=== PATIENT | female | born 1965 | race Caucasian/White ===

== ENCOUNTER 2019-12-08 14:48 | Outpatient (CLI) | payer OTHER, SELFPAY ==
--- NOTE | ~2019-12-08 | MM_ITS ---
EXAMINATION: MM screening juan BI w rudy HISTORY: Screening mammogram TECHNIQUE: Craniocaudal and mediolateral oblique 3-D tomosynthesis images were obtained and synthetic 2-D images were generated. CAD analysis was submitted and interpreted. COMPARISON: 06/15/2018, 06/08/2017, 05/13/2016, 04/12/2015 bilateral digital screening mammogram examinat ions BREAST PARENCHYMAL COMPOSITION: There are scattered areas of fibroglandular density. FINDINGS: Stable mild asymmetry. There is no evidence of suspicious mass, calcification, or desktop architect ural distortion to suggest malignancy in either breast. There has been no suspicious interval change. IMPRESSION: 1. No mammographic evidence of malignancy. 2. Recommend routine screening mammography in one year. BI-RADS Category 2: Benign finding(s). Reviewed, dictated and finalized at location A.
== END 2019-12-08 14:49 | disposition home or self-care (01) ==
LOC: ANHIMG 14:52
PROVIDERS: PCP Family Medicine; Visit Provider Obstetrics & Gynecology
DX: Z12.31 Encounter for screening mammogram for malignant neoplasm of breast (principal)
CPT/HCPCS: 77063; 77067

== ENCOUNTER 2020-06-13 09:03 | Outpatient (CLI) | payer OTHER, SELFPAY ==
--- NOTE | ~2020-06-13 | MR_ITS ---
EXAMINATION: MR breast BI wo/w con INDICATION: High-risk MRI screening, family history of breast cancer TECHNIQUE: Axial VIBRANT pre and dynamic post contrast, Sagittal VIBRANT post contrast, Axial T2 STIR ASSET COMPARISON: 11/30/2018 CONTRAST: Multihance, 20 cc BREAST COMPOSITION: Scattered fibroglandular tissue FINDINGS: RIGHT BREAST: There is minimal background parenchymal enhancement. No abnormal enhancement is present after contrast administration. No pathologically enlarged axillary or internal mammary lymph nodes a re identified. An intramammary lymph node is noted at the 6:00 location 4 cm deep to the nipple. The previously described small area of nonmass enhancement in the upper outer quadrant of the right breas t persists but has decreased in prominence, consistent with a benign finding. LEFT BREAST: There is minimal background parenchymal enhancement. No abnormal enhancement is present after contrast administration. No pathologically enlarged axillary or internal mammary lymph nodes ar e identified. IMPRESSION: 1. No MRI evidence of malignancy. Continued alternating mammographic and MRI screening is recommended . BI-RADS Category 2: Benign finding(s). Reviewed, dictated and finalized at location A. IMPRESSION: 1. No MRI evidence of malignancy. Continued alternating mammographic and MRI sc reening is recommended. BI-RADS Category 2: Benign finding(s).
[2020-06-13 09:55] LABS: Estimated Glomerular Filt Rate 58
== END 2020-06-13 09:04 | disposition home or self-care (01) ==
PROVIDERS: PCP Family Medicine; Visit Provider Obstetrics & Gynecology
DX: Z12.31 Encounter for screening mammogram for malignant neoplasm of breast (principal); Z80.3 Family history of malignant neoplasm of breast
CPT/HCPCS: 77049; A9577; C8908

== ENCOUNTER 2020-12-13 09:09 | Outpatient (CLI) | payer OTHER, SELFPAY ==
--- NOTE | ~2020-12-13 | MM_ITS ---
EXAMINATION: MM screening juan BI w rudy HISTORY: Screening mammogram TECHNIQUE: Craniocaudal and mediolateral oblique 3-D tomosynthesis images were obtained and synthetic 2-D images were generated. CAD analysis was submitted and interpreted. COMPARISON: 06/09/2020 MRI breast 12/08/2019 bilateral digital screening mammogram 11/30/2018 MRI breast 06/15/2018, 06/08/2017 bilateral digital screening mammogram examinations BREAST PARENCHYMAL COMPOSITION: There are scattered areas of fibroglandular density. FINDINGS: Stable mild asymmetry. There is no evidence of suspicious mass, calcification, or dot net architect ural distortion to suggest malignancy in either breast. There has been no suspicious interval change. IMPRESSION: 1. No mammographic evidence of malignancy. 2. Recommend routine screening mammography in one year. BI-RADS Category 2: Benign finding(s). Reviewed, dictated and finalized at location A.
== END 2020-12-13 09:10 | disposition home or self-care (01) ==
LOC: ANHIMG 09:14
PROVIDERS: PCP Family Medicine; Visit Provider Obstetrics & Gynecology
DX: Z12.31 Encounter for screening mammogram for malignant neoplasm of breast (principal)
CPT/HCPCS: 77063; 77067

== ENCOUNTER 2021-01-29 10:21 | Outpatient (RCR) | payer OTHER, SELFPAY ==
--- NOTE | 2021-01-29 11:24 | PTOPEVAL ---
Thank you for referring Abby Linder to [facility][Note 3].? The patient is scheduled to be seen for therapy? ____x/week for ___ weeks. Please review, sign, date and return this plan of care YURI. I agree with and certify that the following plan of care is medically necessary. Referring Physician Date Admitting Provider: Attending Provider: Selma Sadler, PA Referring Provider: *PT Outpatient Evaluation Start: 01/29/21 10:27 Freq: Status: Active Protocol: Document 01/29/21 10:32 [facility] (Rec: 01/29/21 11:24 [facility] [id number]) Therapy Assessment Status Assessment Status Assessment Status Evaluation Evaluation Information Problem Diagnosis s/p R TKA Onset 01/08/21 Additional Evaluation Detail LEFS = 71% functionally declined Subjective Information patient reports she has the R Query Text:As Reported By Patient/ knee replaced on 01/08/21. she Family reports no home health post surgery, but she did have a friend stay with her for the first week. she reports she did not have any therapy prior to surgery. she reports she continues to have difficulty getting her R knee straight. she reports she was doing light exercises after therapy. she reports she did have a CPM after surgery. she is still using this device. Pain Assessment Timing of Pain Assessment Timing of Pain Assessment Assessment Pain Scale Pain Scale Used Numeric (1 - 10) Self Report Pain Assessment Right Knee(s) Reported Pain Level 0 Greatest Pain Intensity 0 Pain Score Pain Score 0: Self Report Interventions Used Interventions Used By Clinicians Activity or ADL's Lower Extremity Range of Motion General Lower Extremity Range of Motion Gross Lower Extremity Range of Motion L knee = 0 - 138 degrees Comments R knee extension = -6 degrees R knee flexion = 123 degrees Lower Extremity Muscle Strength Testing General Lower Extremity Strength Gross Lower Extremity Strength L hip flex = 4+/5 R hip flex = 4/5 with 3-5 degree R knee extension lag L knee flex and ext = 5/5 L ankle DF = 5/5 R knee flex = 5/5 R knee ext = 4/5 R ankle DF = 5/5 Palpation Assessment Palpation
== END 2021-03-12 10:24 | disposition home or self-care (01) ==
LOC: CHSPT 10:21
PROVIDERS: Visit Provider Physician Assistant
DX: Z96.651 Presence of right artificial knee joint (principal)
CPT/HCPCS: 97016; 97110; 97161; 97530

== ENCOUNTER 2021-05-02 08:03 | Outpatient (RCR) | payer OTHER, SELFPAY ==
--- NOTE | 2021-05-02 09:05 | PTOPEVAL ---
Thank you for referring Abby Linder to [facility].? The patient is scheduled to be seen for therapy? ____x/week for ___ weeks. Please review, sign, date and return this plan of care YURI. I agree with and certify that the following plan of care is medically necessary. Referring Physician Date Admitting Provider: Attending Provider: Selma Sdaler, PA Referring Provider: *PT Outpatient Evaluation Start: 05/02/21 07:20 Freq: Status: Active Protocol: Document 05/02/21 07:57 [facility] (Rec: 05/02/21 09:04 [facility] [id number]) Therapy Assessment Status Assessment Status Assessment Status Evaluation Evaluation Information Problem Diagnosis peroneal brevis tendonitis L Onset 04/24/21 Subjective Information Patient states that about a Query Text:As Reported By Patient/ year ago she fell down the Family steps. She has seen 2 orthopedic specialists and was put in a boot for 6 weeks which did not do anything. The patient states that she had a MRI and it showed tendonitis and a cyst in the foot. She states that walking and standing are the most difficult activities for her. She steps that stairs are also difficult. She states that it is sensitive as well even a sheet. Patient states she still is able to do all activities on her own but they may take a little more time. She states that her goal for therapy is to get rid of the pain. Prior Level of Function Activity Level (Last 3 Months) Occupation retired Hand Dominance Right Activity of Daily Living Ability Independent Indoor/Home Mobility Independent Community Mobility Independent Stairs Ability Independent Functional Cognition (Planning, Shopping Independent , Taking Medications) Cooking Yes Cleaning Yes Laundry Yes Shopping Yes Driving Yes Pain Assessment Timing of Pain Assessment Timing of Pain Assessment Assessment Pain Scale Pain Scale Used Numeric (1 - 10) Self Report Pain Assessment Left Foot/Feet Reported Pain Level 10 Pain Description
--- NOTE | 2021-05-24 10:36 | PTOPEVAL ---
Thank you for referring Abby Linder to [facility].? The patient is scheduled to be seen for therapy? ____x/week for ___ weeks. Please review, sign, date and return this plan of care YURI. I agree with and certify that the following plan of care is medically necessary. Referring Physician Date Admitting Provider: Attending Provider: Selma Sadler, PA Referring Provider: *PT Outpatient Evaluation Start: 05/02/21 07:20 Freq: Status: Active Protocol: Document 05/24/21 09:25 [facility] (Rec: 05/24/21 10:32 [facility] [id number]) Therapy Assessment Status Assessment Status Assessment Status Progress Evaluation Information Problem Diagnosis peroneal brevis tendonitis Subjective Information Patient states that since Query Text:As Reported By Patient/ beginning therapy she feels a Family lot better. She states the pain is not as bad and she is able to do quite a bit more before her foot really bothers her. She states that when she watches her grandkids her foot hurts by the end of the day. She feels she is getting stronger and is doing well, but feels she has more to achieve. Patient states that the walking and standing still really bother it. Pain Assessment Timing of Pain Assessment Timing of Pain Assessment Assessment Pain Scale Pain Scale Used Numeric (1 - 10) Self Report Pain Assessment Left Foot/Feet Reported Pain Level 6 Lowest Pain Intensity 3 Greatest Pain Intensity 6 Pain Score Pain Score 6: Self Report Interventions Used Interventions Used By Clinicians Activity or ADL's,Exercise Lower Extremity Range of Motion Ankle/Foot Range of Motion Left Ankle Dorsiflexion With Knee Extension 11 Range of Motion - Active Ankle Plantarflexion Range of Motion - 58 Active Query Text: Ankle Eversion Range of Motion - Active 18 Ankle Inversion Range of Motion - Active 35 Lower Extremity Muscle Strength Testing Ankle Strength Left Ankle Dorsiflexion Strength 5 Normal Ankle Plantarflexion Strength 5 Normal Ankle Eversion Strength 5 Normal Ankle Inversion Strength 5 Normal Palpation Assessment Palpation Palpation Patient continues to have some pain and tenderness to palpation and slight swelling to the lateral aspect of the L
--- NOTE | 2021-06-20 17:57 | PTOPEVAL ---
Thank you for referring Abby Linder to [facility].? The patient is scheduled to be seen for therapy? ____x/week for ___ weeks. Please review, sign, date and return this plan of care YURI. I agree with and certify that the following plan of care is medically necessary. Referring Physician Date Admitting Provider: Attending Provider: Selma Sadler, PA Referring Provider: *PT Outpatient Evaluation Start: 05/02/21 07:20 Freq: Status: Active Protocol: Document 06/20/21 16:50 [facility] (Rec: 06/20/21 17:56 [facility] [id number]) Therapy Assessment Status Assessment Status Assessment Status Discharge Evaluation Information Problem Diagnosis peroneal brevis tendonitis Onset 04/24/21 Additional Evaluation Detail LEFS = 57% functionally declined Subjective Information patient reports she contineus Query Text:As Reported By Patient/ to have pain and this pain Family will flare up at times without any increased activities. Pain Assessment Timing of Pain Assessment Timing of Pain Assessment Assessment Pain Scale Pain Scale Used Numeric (1 - 10) Self Report Pain Assessment Left Foot/Feet Reported Pain Level 2 Greatest Pain Intensity 8 Pain Score Pain Score 2: Self Report Interventions Used Interventions Used By Clinicians Activity or ADL's,Dry Needling ,Education,Electrical Stimulation,Exercise,Ice, Manual Therapy Techniques Lower Extremity Range of Motion Ankle/Foot Range of Motion Left Ankle Dorsiflexion With Knee Extension 15 Range of Motion - Active Ankle Plantarflexion Range of Motion - 60 Active Query Text: Ankle Eversion Range of Motion - Active 20 Ankle Inversion Range of Motion - Active 35 Lower Extremity Muscle Strength Testing General Lower Extremity Strength Gross Lower Extremity Strength 5/5 L ankle strength Palpation Assessment Palpation Palpation tender to palpation along the ATFL and the base of the 5th met. General Exercise General Exercises Exercise Description Ther ex Query Text:Record Sets, Reps, -25 minutes patient re- Resistance, and Position evaluation and review of next steps with . PT Clinical Summary Clinical Summary Protocol: PTEVCODE PT Clinical Summary mrs. linder presents to skilled PT services with continued pain in the lateral L foot/ankle. to this point, we have tried exer
== END 2021-06-20 09:26 | disposition home or self-care (01) ==
LOC: CHSPT 08:03
PROVIDERS: Visit Provider Physician Assistant
DX: M76.72 Peroneal tendinitis, left leg (principal)
CPT/HCPCS: 97014; 97035; 97110; 97140; 97161; 97530; G0283

== ENCOUNTER 2021-06-14 12:28 | Outpatient (CLI) | payer OTHER, SELFPAY ==
--- NOTE | ~2021-06-14 | MR_ITS ---
EXAMINATION: MR breast BI wo/w con INDICATION: High-risk MRI screening, family history of breast cancer TECHNIQUE: Axial VIBRANT pre and dynamic post contrast, Sagittal VIBRANT post contrast, Axial T2 STIR ASSET COMPARISON: 06/13/2020 CONTRAST: Multihance, 18 cc BREAST COMPOSITION: Scattered fibroglandular tissue FINDINGS: RIGHT BREAST: There is minimal background parenchymal enhancement. No abnormal enhancement is present after contrast administration. No pathologically enlarged axillary or internal mammary lymph nodes a re identified. An intramammary lymph node is again noted at the 6:00 location 4 cm from the nipple. LEFT BREAST: There is minimal background parenchymal enhancement. No abnormal enhancement is present after contrast administration. No pathologically enlarged axillary or internal mammary lymph nodes ar e identified. IMPRESSION: 1. No MRI evidence of malignancy. Continued alternating mammographic and MRI screening is recommended . BI-RADS Category 2: Benign finding(s). Reviewed, dictated and finalized at location A. IMPRESSION: 1. No MRI evidence of malignancy. Continued alternating mammographic and MRI sc reening is recommended. BI-RADS Category 2: Benign finding(s).
[2021-06-14 13:11] LABS: Estimated Glomerular Filt Rate > 60
== END 2021-06-14 12:29 | disposition home or self-care (01) ==
PROVIDERS: Visit Provider Obstetrics & Gynecology
DX: Z80.3 Family history of malignant neoplasm of breast (principal); R92.2 Inconclusive mammogram
CPT/HCPCS: 77049; A9577; C8908

== ENCOUNTER 2021-12-17 15:40 | Outpatient (CLI) | payer OTHER, SELFPAY ==
--- NOTE | ~2021-12-17 | MM_ITS ---
EXAMINATION: MM screening juan BI w rudy HISTORY: Screening mammogram TECHNIQUE: Craniocaudal and mediolateral oblique 3-D tomosynthesis images were obtained and synthetic 2-D images were generated. CAD analysis was submitted and interpreted. COMPARISON: 06/14/2021 bilateral breast MRI 10/2020, 12/08/2019 bilateral screening mammogram examinations BREAST PARENCHYMAL COMPOSITION: There are scattered areas of fibroglandular density. FINDINGS: There is no evidence of suspicious mass, calcification, or architectural distortion to sugg est malignancy in either breast. There has been no suspicious interval change. IMPRESSION: 1. No mammographic evidence of malignancy. 2. Recommend routine screening mammography in one year. BI-RADS Category 2: Benign finding(s). Reviewed, dictated and finalized at location A.
== END 2021-12-17 15:41 | disposition home or self-care (01) ==
PROVIDERS: Visit Provider Obstetrics & Gynecology
DX: Z12.31 Encounter for screening mammogram for malignant neoplasm of breast (principal)
CPT/HCPCS: 77063; 77067

== ENCOUNTER 2022-08-08 10:10 | Outpatient (CLI) | payer OTHER, SELFPAY ==
--- NOTE | ~2022-08-08 | MR_ITS ---
EXAMINATION: MR breast BI wo/w con INDICATION: Family history of malignant neoplasm of the breast TECHNIQUE: Axial VIBRANT pre and dynamic post contrast, Sagittal VIBRANT post contrast, Axial T2 STIR ASSET COMPARISON: Prior MRIs dating back to 11/06/2011 CONTRAST: Multihance, 19 cc BREAST COMPOSITION: Scattered fibroglandular tissue FINDINGS: RIGHT BREAST: There is minimal background parenchymal enhancement. No abnormal enhancement is present after contrast administration. No pathologically enlarged axillary or internal mammary lymph nodes a re identified. LEFT BREAST: There is minimal background parenchymal enhancement. No abnormal enhancement is present after contrast administration. No pathologically enlarged axillary or internal mammary lymph nodes ar e identified. IMPRESSION: 1. No MRI evidence of malignancy. Recommend continued alternating mammographic and MRI screening. BI-RADS Category 1: Negative Reviewed, dictated and finalized at location A.
== END 2022-08-08 10:11 | disposition home or self-care (01) ==
PROVIDERS: Visit Provider Obstetrics & Gynecology
DX: R92.8 Other abnormal and inconclusive findings on diagnostic imaging of breast (principal); Z80.3 Family history of malignant neoplasm of breast
CPT/HCPCS: 77049; A9577; C8908

== ENCOUNTER 2023-04-28 12:43 | Outpatient (CLI) | payer OTHER, SELFPAY ==
--- NOTE | ~2023-04-28 | MM_ITS ---
EXAMINATION: MM screening juan BI w rudy HISTORY: Screening mammogram TECHNIQUE: Craniocaudal and mediolateral oblique 3-D tomosynthesis images were obtained and synthetic 2-D images were generated. CAD analysis was submitted and interpreted. COMPARISON: 08/08/2022 MRI breast examination 12/17/2021 bilateral screening mammogram 12/13/2020 bilateral screening BREAST PARENCHYMAL COMPOSITION: There are scattered areas of fibroglandular density. FINDINGS: Stable low-density circumscribed opacities of right breast. Occasional bilateral benign jason cifications. There is no evidence of suspicious mass, calcification, or architectural distortion to s uggest malignancy in either breast. There has been no suspicious interval change. IMPRESSION: 1. No mammographic evidence of malignancy. 2. Recommend routine screening mammography in one year. BI-RADS Category 2: Benign finding(s). Reviewed, dictated and finalized at location A. [employer]
== END 2023-04-28 12:44 | disposition home or self-care (01) ==
PROVIDERS: Visit Provider Obstetrics & Gynecology
DX: Z12.31 Encounter for screening mammogram for malignant neoplasm of breast (principal)
CPT/HCPCS: 77063; 77067

== ENCOUNTER 2023-08-19 13:09 | Outpatient (CLI) | payer OTHER, SELFPAY ==
--- NOTE | ~2023-08-19 | MM_ITS ---
EXAMINATION: MM diagnostic juan RT w rudy HISTORY: Right breast pain TECHNIQUE: Additional 3-D tomosynthesis images of the right breast were performed and synthetic 2-D i mages were generated. CAD analysis was submitted and interpreted. COMPARISON: Comparison to multiple prior studies sequentially, with oldest reviewed study dated 06/08. BREAST PARENCHYMAL COMPOSITION: Not dense: There are scattered areas of fibroglandular density. FINDINGS: There are no suspicious masses, calcifications or architectural distortion in the right shelli ast to suggest malignancy. IMPRESSION: 1. No evidence for malignancy in the right breast. 2. Routine yearly screening mammogram and regular clinical breast examination are recommended. BI-RADS CATEGORY 1 - NEGATIVE Reviewed, dictated and finalized at location B. IMPRESSION: 1. No evidence for malignancy in the right breast. 2. Routine yearly screening mammogram and regular clinical breast examination a re recommended. BI-RADS CATEGORY 1 - NEGATIVE
== END 2023-08-19 13:10 | disposition home or self-care (01) ==
LOC: ANHIMG 13:14
PROVIDERS: Visit Provider Obstetrics & Gynecology
DX: N64.4 Mastodynia (principal); Z85.3 Personal history of malignant neoplasm of breast
CPT/HCPCS: 77061; 77065; G0279

== ENCOUNTER 2023-09-10 14:54 | Outpatient (CLI) | payer OTHER, SELFPAY ==
[2023-09-10 15:30] LABS: Alanine Aminotransferase 18 U/L (6-35); Aspartate Amino Transferase 41 U/L (14-36)
== END 2023-09-10 14:55 | disposition home or self-care (01) ==
LOC: ANHLAB 14:55
PROVIDERS: Visit Provider Podiatrist Foot & Ankle Surgery
DX: B35.1 Tinea unguium (principal)
CPT/HCPCS: 36415; 84450; 84460

== ENCOUNTER 2024-05-04 16:06 | Outpatient (CLI) | payer OTHER, SELFPAY ==
--- OUTSIDE RECORDS SUMMARY | 2024-05-04 16:11 | XMS_ITS | Clinical Summary ---
Author Organization [facility] Address [address] [place] [address] Phone Care Team Providers Care Roving Weight Gauger Name Role Phone MARY SORIANO, RADHA A Primary Care Provider [phone] JACQUIE SORIANO, VERÓNICA BEAN Unavailable [phone] Reason for Visit and Chief Complaint The Chief Complaint is: follow up for bipolar depression,anxiety Problems Includes: Problems addressed during this encounter and other active Problems Current Visit Onset Date Resolved Date Provider Conditio n Status Attention-deficit Hyperactivity Disorder 09/20/2020 VERÓNICA KAPLAN MD Active Last Documented On 1 5:58PM ; [facility] Restless Legs Syndrome 01/21/2019 VERÓNICA EMERY MD Active Last Documented On 9 4:02AM ; [facility] Depression 12/21/2018 VERÓNICA PENA MD Ac tive Last Documented On 9 2:49AM ; [facility] Vitamin B12 Deficiency 08/21/2017 VERÓNICA EMERY MD Active Last Documented On 8 4:01AM ; [facility] Major Depression 12/21/2016 VERÓNICA PENA MD Active Last Documented On 8 9:33PM ; [facility] Psychophysiological Insomnia 02/21/2016 VERÓNICA PENA MD Active Last Documented On 7 9:45PM ; [facility] Bipolar I Disorder, Most Rec ent Episode, Depressed 07/15/2012 VERÓNICA PENA MD Active Last Documented On 3 4:26PM ; [facility] Generalized Anxiety Disorder 06/08/2012 VERÓNICA PENA MD Active Last Documented On 3 9:01AM ; [facility] Nonorganic Sleep Apnea Obstructive 06/08/2012 M STEFANO PENA MD Active Last Documented On 3 9:01AM ; [facility] Panic Disorder Without Agoraphobia 06/08/2012 M STEFANO PENA MD Active Last Documented On 3 9:01AM ; [facility] Past Visits Onset Date Resolved Date Provider Condition Status Fibromyalgia 07/30/2016 VERÓNICA PENA MD Active Last Documented On 7 7:27PM ; [facility] Gerd 04/20/2014 VERÓNICA PENA MD Ac tive Last Documented On 5 3:39PM ; [facility] Gout 11/07/2013 VERÓNICA PENA MD Ac tive Last Documented On 4 12:31AM ; [facility] 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 Depressive Disorder - Lexapro 20 mg 1 tab daily Generalized Anxiety Disorder - continue Buspar 10 mg 1 tab at bedtime Attention Deficit Disorder - Focalin 10 mg 1 tab in am Panic Disorder - Klonopin Wafer 0.5 mg 1 as needed -- has not used lately Psychophysiological Insomnia - Trazodone 50 mg 2 tabs at bedtime as needed for sleep ALLY - wears CPAP mask - 2008 and 2020 sleep study Restless Legs Syndrome/Fibromyalgia - Horizant 600 mg in the evening -- has not been taking but she is on Gabapentin - Last Documented On 12/11/2021 9:49AM ; [facility] Pending Tests Order Diagnosis Results Due Ordering P rovider Lab TSH 03/08/20 VERÓNICA FRANCO MD Last Documented On 1 6:05PM ; [facility] Lab CMP 03/08/20 EVRÓNICA FRANCO MD Last Documented On 1 6:05PM ; [facility] Lab LIPID 03/08/20 VERÓNICA FRANCO MD Last Documented On 1 6:05PM ; [facility] Lab B12 & FOLATE 03/08/20 VERÓNICA PENA MD Last Documented On 1 6:05PM ; [facility] Education and Decision Aids were provided during visit for: Patient education about medi cation --- I educated patient on medication(s) and diagnosis. I reviewed the risks, benefits and side effects of patient's medications Last Documented On 2 1:37PM ; [facility] Discussed calming techniques such as breathing exercises and other relaxation techniques Last Documented On 2 1:37PM ; [facility] Counseling for nutrition/kimmie ght management provided Last Documented On 2 2:00PM ; [facility] Assessments Includes: Assessments from this encounter Findings - Obstructive sleep apnea - Last Documented On 12/11/2021 9:49AM ; [facility] - Vitamin B12 deficiency - Last Documented On 12/11/2021 9:49AM ; [facility] - Restless legs syndrome - Last Documented On 12/11/2021 9:49AM ; [facility] - Attention-deficit hyperactivity disorder - Last Documented On 12/11/2021 9:49AM ; [facility] - Bipolar I disorder, most recent episode, depressed - Last Documented On 12/11/2021 9:49AM ; [facility] - Depression - Last Documented On 12/11/2021 9:49AM ; [facility] - Major depressive disorder - Last Documented On 12/11/2021 9:49AM ; [facility] - Persistent insomnia - Last Documented On 12/11/2021 9:49AM ; [facility] - Psychophysiological insomnia - Last Documented On 12/11/2021 9:49AM ; [facility] - Generalized anxiety disorder - Last Documented On 12/11/2021 9:49AM ; [facility] - Panic disorder without agoraphobia - Last Documented On 12/11/2021 9:49AM ; [facility] Instructions Includes: Instructions from this encounter Education and Decision Aids were provided during visit for: Patient education about medi cation --- I educated patient on medication(s) and diagnosis. I reviewed the risks, benefits and side effects of patient's medications Last Documented On 2 1:37PM ; [facility] Discussed calming techniques such as breathing exercises and other relaxation techniques Last Documented On 2 1:37PM ; [facility] Counseling for nutrition/kimmie ght management provided Last Documented On 2 2:00PM ; [facility] Medical Equipment - Implanted Devices Includes: Current Devices No Medical Equipment Recorded Medications Includes: Medications discussed during this encounter and other current Medications Discontinued / Stopped on this date VERÓNICA PENA MD on 09/04/2021 Focalin 10 MG Oral Tablet Provider: ME KRISTIAN PENA MD Diagnosis: Last Documented On 10/28/2021 2:52PM By Adrianne Pena MD ; [facility] Quercetin Complex Immune Oral Capsule Pro vider: Diagnosis: Last Documented On 10/28/2021 1:47PM By SHANTEL CRUZ ; [facility] Daily Value Multivitamin Oral Tablet Prov ider: Diagnosis: Last Documented On 10/28/2021 1:47PM By SHANTEL CRUZ ; [facility] Boswellia Reginaldo Extract Powder Provider : Diagnosis: Last Documented On 10/28/2021 1:47PM By SHANTEL CRUZ ; [facility] New / Renewed during this visit VERÓNICA PENA MD on 10/28/2021 Focalin 10 MG Oral Tablet Provider: VERÓNICA PENA MD 30 day supply: 30 tablet, 0 refills Diagnosis: Attn-defct hyperactivity disorder, predom inattentive type 1 tablet every morning Pharmacy: [facility] #[id number], [address] - Last Documented On 2 12:24PM By Adrianne Pena MD ; [facility] Lexapro 20 MG Oral Tablet Provider: VERÓNICA PENA MD 90 day supply: 90 tablet, 3 refills Diagnosis: Major depressive disorder, recurrent, unspecified One tablet daily -- please g meme GENERIC [id number], [address] - Last Documented On 10/28/2021 3:10PM By Adrianne Pena MD ; [facility] lamoTRIgine 100 MG Oral Tablet Provider: VERÓNICA PENA MD day supply: 90 tablet, 1 refills Diagnosis: Bipolar disord, crnt epsd depress, mild or mod severt, unsp TAKE 1 TABLET BY MOUTH EVERY DAY Pharmacy: [facility]/pharmacy #[id number], [address] - Last Documented On 10/28/2021 3:10PM By Adrianne Pena MD ; [facility] busPIRone HCl 10 MG Oral Tablet Provider: VERÓNICA PENA MD day supply: 90 tablet, 3 refills Diagnosis: Generalized anxiety disorder One tablet at bed time Pharmacy: [facility] #[id number], [address] - Last Documented On 10/28/2021 3:10PM By Adrianne Pena MD ; [facility] Current Medications (continue as prescribed) Systane 0.4-0.3% Ophthalmic Solution 07/08/2022 Prov ider: Diagnosis: use as directed prn Last Documented On 07/08/2022 2:58PM By SHANTEL CRUZ ; [facility] Famotidine 20 MG Oral Tablet 06/11/2022 Provider: RAMSEY BLANCO NP Diagnosis: 1 tab bid Last Documented On 07/08/2022 2:58PM By SHANTEL CRUZ ; [facility] Focalin 10 MG Oral Tablet 04/25/2022 Provider: VERÓNICA PENA MD Diagnosis: Attn-defct hyper activity disorder, predom inattentive type as directed - 1 tab in am with food Last Documented On 04/25/2022 2:51PM By Adrianne Pena MD ; [facility] Solifenacin Succinate 5 MG Oral Tablet 04/24/2022 Pr ovider: RAMSEY BLANCO NP Diagnosis: 1 tab daily Last Documented On 07/08/2022 2:59PM By SHANTEL CRUZ ; [facility] traZODone HCl 50 MG Oral Tablet 02/11/2022 Provider: VERÓNICA PENA MD Diagnosis: Psychophysiologi c insomnia TAKE 2 TABLETS BY MOUTH AT B EDTIME NEEDED FOR SLEEP Last Documented On 02/11/2022 1:21PM By Adrianne Pena MD ; [facility] Esomeprazole Magnesium 20 MG Oral Capsule Delayed Release 01/31/2022 Provider: RADHA HERNANDEZ MD Diagnosis: 1 capsule in the am Last Documented On 02/26/2022 2:49PM By SHANTEL PAGAN A ; [facility] Gabapentin 600 MG Oral Tablet 10/07/2021 Provider: LEODAN OLIVAREZ MD Diagnosis: 1 tab tid Last Documented On 10/28/2021 1:59PM By SHANTEL PAGAN A ; [facility] Amoxicillin 500 MG Oral Capsule 09/26/2021 Provider: Diagnosis: prior to dental work Last Documented On 10/28/2021 2:00PM By SHANTEL CRUZ ; [facility] Alendronate Sodium 35 MG Oral Tablet 01/07/2021 Prov ider: Diagnosis: [address] Lewis Moreira Last Documented On 1 11:34AM By SHANTEL LANA ; [facility] Atorvastatin Calcium 20 MG Oral Tablet 06/13/2020 Pr ovider: RADHA HERNANDEZ MD Diagnosis: 1 tab nightly Last Documented On 1 10:34AM By SHANTEL LANA ; [facility] Metoprolol Succinate ER 25 M G Oral Tablet Extended Release 24 Hour 06/06/2020 Provider: RADHA DUNLAP MD Diagnosis: 1 tab daily Last Documented On 1 10:34AM By SHANTEL CRUZ ; [facility] Lumigan 0.01% Ophthalmic Solution 06/05/2020 Provide r: Diagnosis: use as directed Dr. Bill Jacob Last Documented On 1 10:35AM By SHANTEL CRUZ ; [facility] Hydroxychloroquine Sulfate 200 MG Oral Tablet 11/30/19 Provider: LEODAN OLIVAREZ MD Diagnosis: 1 tab bid Last Documented On 03/02/2020 4:48PM By SHANTEL CRUZ ; [facility] Aspirin 81 MG Tablet 06/22/2014 Provider: Diagnosis: Last Documented On 5 10:06AM By Adrianne Pena MD ; [facility] Past Medications on file Vyvanse 30 MG Oral Capsule 07/08/2022 - 08/07/2022 Provider: VERÓNICA PENA MD Diagnosis: Attn-defct hyper activity disorder, predom inattentive type 1 Capsule every morning Last Documented On 07/08/2022 3:42PM By Adrianne Pena MD ; [facility] Famotidine 20 MG Oral Tablet 02/26/2022 - 05/27/2022 P chaseder: RAMSEY BLANCO STATION EXAMINER Diagnosis: 1 tab bid Last Documented On 02/26/2022 2:48PM By SHANTEL CRUZ ; [facility] Methotrexate Sodium 2.5 MG Oral Tablet 05/29/2021 - Provider: LEODAN OLIVAREZ MD Diagnosis: 6 tabs weekly Last Documented On 2 11:34AM By SHANTEL CRUZ ; [facility] Gabapentin 600 MG Oral Tablet 05/29/2021 - 06/28/2021 Provider: LEODAN OLIVAREZ MD Diagnosis: 1 cap tid Last Documented On 2 11:33AM By SHANTEL CRUZ ; [facility] traZODone HCl 50 MG OR TABS 10/12/2019 - 01/10/2020 Pr ovider: Diagnosis: Psychophysiologi c insomnia Two tablets at bedtime - this was increased 2019 Last Documented On 10/12/2019 9:52AM By TAMERA PETTIT ; [facility] Horizant 600 MG Oral Tablet Extended Release 08/24/2019 - 09/03/2019 Provider: VERÓINCA DORSEY MD Diagnosis: Restless legs sy ndrome as directed -- 1 tab in even ing for restless legs - pt has 10 day FREE coupon Last Documented On 08/24/2019 4:55PM By Adrianne Pena MD ; [facility]HS B Complex Oral Tablet 07/10/2018 - 08/09/2018 Provider: VERÓNICA PENA MD Diagnosis: Deficiency of ot her specified B group vitamins as directed [address] Marcel Zuñiga Last Documented On 07/10/2018 7:53PM By Adrianne Pena MD ; [facility] DULoxetine HCl 60MG Oral Capsule, delayed-release particles 04/26/2017 - 05/26/2017 Provider: VERÓNICA PENA MD Diagnosis: Generalized anxi ety disorder 1 capsule daily Last Documented On 04/26/2017 9:37PM By Adrianne Pena MD ; [facility] Medications Administered Includes: Administered Medications from this encounter No Administered Medications Recorded Vital Signs Includes: Vital Signs from this encounter Vital Name 10/28/2021 02:02P Blood Pressure Sitting L 108/45 BP Cuff Size Regular Pulse Rate-Sitting (bpm) 70 Pulse Rhythm Regular Height (in) 65 Weight (lb) 201 Body Mass Index (kg/m2) 33.4 Body Surface Area (m2) 2.0 Note: self reported vitals Last Documented: On 10/28/2021 2:03PM ; [facility] Results Includes: Results discussed during this encounter No Results Recorded For Specified Dates History of Present Illness Includes: History of Present Illness from this encounter HPI GELACIO DODGE is a 56 year old female. - Allergy list reviewed - Past medical history reviewed - Medication list reviewed This visit was conducted with use of interactive audio and video telecommunication system with real time communication between the patient and the provider. Patient consent for virtual visit obtained today. Total time spent with patient via audio and video telecommunication 30 minutes. Gelacio reported that she has been doing good as far as her mood despite the aches and pains that she has been experiencing due to her Lupus Arthritis and Fibromyalgia. She said that she had pneumonia and was hospitalized and the Methotrexate was discontinued. She had a CT scan 07/18/2021 which showed pulmonary nodules and is just currently being observed. She is still maintaining on Hydroxychloroquine but she said that she has continued aches and pains. Dr. Olivarez tried to prescribe Tramadol but it did not help her at all so she stopped taking it. She is due for right carpal tunnel surgery 11/26/2021 and after a month or so she will have carpal tunnel surgery on her left hand. She also had to see a urologist since urinalysis showed red blood cells and bacteria in her urine. She was also referred to a magnetometer operator since her hemoglobin was low at 9.7. Hematocrit was low at 30.7. Her CBC showed anemia. This lab was done 07/19/2021. When she goes through the surgery, her daughter who just lives next door will help her out with her activities of daily living. In the meantime, she is still motivated to do things. She only takes Focalin as needed whenever she needs to read or focus. In general, she is still motivated to do things. Sleep and appetite are good. No delusions or hallucinations. She denied having any suicidal thoughts. She denied having any mood swings. The Lamictal 100 mg once a day seemed to be helping with her mood along with the Lexapro 20 mg once a day. She takes the Trazodone when needed for sleep. She also takes her Buspar which seems to help with her anxiety. MENTAL STATUS EXAM: Sensorium - alert, oriented to name, place, and time Attitude - cooperative Gait - ambulatory Sleep - good - compliant with CPAP therapy Interest/Energy/Motivation - good Guilt/Worthlessness - absent Concentration/Attention Span - able to focus and concentrate Memory Recall - fairly good Appetite - good - on 05/29/21 pt weighed 205 lbs and on 10/28/21 she weighed 201 lbs so she lost 4 lbs Suicidal Thoughts - absent Homicidal Thoughts - absent Delusions - absent Hallucinations - absent Appearance - casually groomed Motor Behavior - calm Eye Contact - intermittent Speech - fluent Mood - not depressed Affect - stable Thought Process - coherent Insight and Judgment - intact Social History Description Last Updated Not using alcohol 10/28/2021 Last Documented On 2 9:49AM ; [facility] Daily coffee consumption - 3 -4 cups of coffee per day, 1-2 cans of soda daily and does not drink tea 10/28/2021 Last Documented On 2 9:49AM ; [facility] Former smoker - quit smoking between 9 and 200308/30/2020 Last Documented On 2 1:37PM ; [facility] Work history -- she worked a [employer] -- 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 Her father is . She has an 11th grade education. She has 1 daughter 02/04/2015 Last Documented On 2 1:37PM ; [facility] Not using drugs (Illicit) 06/08/2012 Last Documented On 2 1:37PM ; [facility] Smoking Status Unknown Procedures and Surgical History Includes: Procedures from this encounter Procedures Code Diagnosis Performing Provider Service L ocation Service Date education and instructions Last Documented On 2 1:37PM ; [facility] I explained the rationale fo r the medication choices and discussed the possible risks, benefits, side effects and alternative treatment options (including no treatment). ~ I recommended a healthy balanced diet and exercise as tolerated and approved by their primary care physician. ~ I recommended that the patient cut back on caffeine and/or avoid caffeine. ~ I recommended that the patient avoid nicotine, alcohol, and illicit substances since these can be detrimental to one's health and that these cannot be combined with psychotropic medications. ~ Pt to call 911 and /or go to the nearest emergency room or call me if suicidal/homicidal ideation or other serious concerns arise. ~ I gave instructions to call me should there be any questions or concerns. ~ The patient verbalized understanding and agreed to treatment plan Last Documented On 2 9:46AM ; [facility] dangerousness assessment: suicide risk - not baldev cidal 3085F Last Documented On 2 2:08PM ; [facility] use of tobacco assessment performed 1000F Last Documented On 2 1:37PM ; [facility] patient screened for future fall risk - no recen t falls 3288F Last Documented On 2 1:37PM ; [facility] review of medications documented 1160F Last Documented On 2 1:37PM ; [facility] screening for adult depressi on: impression and score - please see above treatment and PHQ score Last Documented On 2 1:37PM ; [facility] standardized depression screening: posit meme for symptoms Last Documented On 2 1:37PM ; [facility] encouragement to exercise Last Documented On 2 2:00PM ; [facility] Clinical summary provided to patient Last Documented On 2 2:00PM ; [facility] PHQ-9: total score 0 Last Documented On 2 9:45AM ; [facility] Surgical History Last Updated History of gastric surgery Dr. Borjas-- [place], [place] --gastric sleeve surgery 07/08/2022 Last Documented On 2 1:37PM ; [facility] History of knee replacement - right total knee replacement 01/08/[address] Husam Yousif -- given Oxycodone 5/325, Ferrous Sulfate 325 mg, Vitamin C 500 mg, Senexon 50-8.6 mg , Celebrex 200 mg and Vitamin D 2000 IU after surgery 02/19/2021 Last Documented On 2 1:37PM ; [facility] History of orthopedic surger y 06/30/2012 -- 10/11/19 right meniscal repair by Dr. Blas Mathur -- given Oxycodone 5/325 and on 09/14/19 was given Tramadol 50 mg; knee surgery x 2 (right knee -- meniscal tear --2009 and 201203/02/2020 Last Documented On 2 1:37PM ; [facility] History of hysterectomy 06/22/2014 Last Documented On 2 1:37PM ; [facility] Medical History Includes: Medical History addressed during this encounter Description Last Updated History of bronchitis - give n Spriva Handihaler 18 mcg 03/14/20;given Zpak 04/22/19 and 03/17/19 and Albuterol HFA inhaler 02/28/19 and 01/10/19 and Codeine/GG Hodan 10 - 100 / 5mL on 03/09/19 02/26/2022 Last Documented On 2 1:37PM ; [facility] History of pneumonia - Pneum onia -- June 2021 -- Methotrexate was discontinued -- Tramadol was given by Dr. Olivarez but did not help 10/28/2021 Last Documented On 2 9:49AM ; [facility] History of carpal tunnel syndrome - bila teral 10/28/2021 Last Documented On 2 9:49AM ; [facility] History of systemic lupus er ythematosus rash - given Tramadol 50 mg #28 08/27/21 which did not help; given Medrol Dosepak 4 mg 03/08/21 and on 03/05/21 Nystatin 522438 units cream that did not help 10/28/2021 Last Documented On 2 9:49AM ; [facility] History of dental prophylaxi s - takes Amoxicillin 500 mg prior to dental procedures 10/28/2021 Last Documented On 2 9:49AM ; [facility] History of community-acquire d pneumonia - left lower lobe and viral infection; ground glass opacities bilateral upper and lower lobes; admitted to [facility] from 07/18/21 - 07/21/21 -- given Tessalon Perles 100 mg, Cefdinir 300 mg and Prednisone 20 mg upon discharge from the hospital 07/21/21 10/28/2021 Last Documented On 2 9:49AM ; [facility] History of viral infection - given Albuterol Inhaler 90 mcg, Promethazine-DM 6.25-15mg/5mL syrup and Doxycycline 100 mg 05/31/21 and 06/13/21 -- later determined to be viral infection 10/28/2021 Last Documented On 2 9:49AM ; [facility] History of viral infection - tested negative for Covid 04/16/20 -- given Zpak 250 mg, Tessalon Perles 100 mg and Zofran 4 mg 10/28/2021 Last Documented On 2 1:37PM ; [facility] Primary Care Provider: Dr. Jennifer Hernandez/Ramsey Blanco NP ~Dr. Husam Yousif Orthopedic Surgeon ~Dr. Ernie Farley -- ENT -- [facility] -- had CT Scan of the sinus ~Dr. Leodan Olivarez -- Imaging Clerk ~Dr. Nathan Camacho DC -- Chiropractor ~[facility] Vision -- Dr. Bill Jacob -- Ophthamologist ~Dr. Italo Fisher -- Vendor Management Specialist ~Dr. Lewis Moreira -- [employer] ~Dr. Oshea -- Urologist ~Dr. Jonathan Messina -- Certified Pesticide Applicator/Oncologist ~Dr. Nathan Estrada -- Dentist 10/28/2021 Last Documented On 2 9:49AM ; [facility] History of migraine headache 08/09/2021 Last Documented On 2 1:37PM ; [facility] History of sensorineural hearing loss Last Documented On 2 1:37PM ; [facility] History of respiratory disor cory - pulmonary nodules -- CT scan 07/18/21; xrays taken 11/2019 and 08/201907/31/2021 Last Documented On 2 1:37PM ; [facility] History of obstructive sleep apnea -- another sleep study was done in early [address] Fisher -- she is compliant with therapy although she said she feels more rested without the CPAP therapy 05/2021;sleep study done 12/13/08 -- mild ALLY --but she cannot tolerate CPAP and she lost a lot of weight 05/29/2021 Last Documented On 2 1:37PM ; [facility] No history of coronavirus 20 19-nCoV vaccine - Patient REFUSED to bet vaccinated against COVID despite being educated on the adverse consequences of COVID if she ever gets it 05/29/2021 Last Documented On 2 1:37PM ; [facility] History of muscle spasm - given Methocar bomal 750 mg #14 02/01/21 02/19/2021 Last Documented On 2 1:37PM ; [facility] History of acute suppurative sinusitis -given Augmentin 875 mg 09/28/20; given Azelastine 0.1 nasal spray and Clindamycin [address] Ernie Farley on 05/14/20 10/26/2020 Last Documented On 2 1:37PM ; [facility] History of fall risk - joe nur fell 02/2020 down her basement steps; she broke her left foot in 2 places and badly damaged her right knee so much that she is scheduled for knee replacement 11/[address] Yousif 08/30/2020 Last Documented On 2 1:37PM ; [facility] History of anemia - given Fe rrous Sulfate 325 mg 05/2020 -- discontinued due to constipation 08/30/2020 Last Documented On 2 1:37PM ; [facility] History of fibromyalgia -- g iven Mobic 15 mg 05/[address] Olivarez discontinued it; was put on Lyrica and Duloxetine -- given by Dr. Olivarez -- reducing the pain in other areas but has tingling on her fingers but lyrica took care of the sharp pain 08/30/2020 Last Documented On 2 1:37PM ; [facility] History of dry eye syndrome - given Systane eye drops; with dry mouth --- tried Pilocarpine 5 mg -- 11/08/19 -- did not help --Dr. Leodan Olivarez 08/30/2020 Last Documented On 2 1:37PM ; [facility] History of glaucoma - early stages per [facility] - on Lumigan eye drops 08/30/2020 Last Documented On 2 1:37PM ; [facility] History of urinary tract inf ection - with hematuria -- given Macrobid 100 mg; 06/13/20;treated with Cipro 500mg on 08/05/18 08/30/2020 Last Documented On 2 1:37PM ; [facility] History of cough variant ast hma - chest xray from 05/03/19 showed: No focal consolidation or pneumothorax. No pleural effusion. Heart is normal size. Normal mediastinal and hilar contours 03/07/2020 Last Documented On 2 1:37PM ; [facility] History of chronic obstructi ve pulmonary disease - given Albuterol for nebulizer 02/14/20; given Methylprednisone 4 mg 02/01/20; given Amoxil 500 mg 01/31/20; given Methylprednisone 4 mg 12/05/19; given Methylprednisone 4 mg 10/14/19; given Prednisone 5 mg 09/12/19;given Prednisone Dosepak 4 mg #21 and Spriva Inhaler 05/25/19 03/02/2020 Last Documented On 2 1:37PM ; [facility] History of asthma - Pulmonar y Function Test on 05/04/19 showed: No evidence of airways obstruction. Moderate airways restriction. Diffusion capacity is normal. The is significant improvement in the flow rates suggesting reversible airways disease, i.e., asthma 08/26/2019 Last Documented On 2 1:37PM ; [facility] History of acute meniscal te ar - MRI from 08/04/19 showed: Complex tear of the body and posterior horn right medial meniscus. Nondisplaced undersurface tear of the lateral meniscus body posterior horn junction. Moderate patellofemoral predominant tricompartmental right knee chondrosis. Osteonecrosis of the posterior right lateral femoral condyle without articular surface collapse. Moderate - sized right knee effusion with synovitis and moderate - sized leaking Bakers cyst. 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 No fever, no chills, and no night sweats. Head: No headache and no sinus pain. Neck: No neck pain and no neck stiffness. Eyes: Vision problems. No itching of the eyes and no eye pain. Otolaryngeal: No hearing loss, no earache, no nasal discharge, no hoarseness, and no sore throat. Cardiovascular: No chest pain or discomfort, no palpitations, and the heart rate was not fast. Pulmonary: No dyspnea, no cough, and no wheezing. Gastrointestinal: Heartburn and nausea. No vomiting, no diarrhea, and no constipation. Genitourinary: No increase in urinary frequency. No dysuria. Endocrine: No polydipsia and no excessive sweating. Musculoskeletal: Muscle aches, pain localized to one or more joints, and joint stiffness localized to one or more joints. Neurological: No dizziness, no vertigo, no fainting, and no motor disturbances. Skin: No pruritus. No skin lesions and no rash. Mental Status Includes: Mental Status from this encounter Description Depression Major depressive disorder Functional Status Includes: Functional Status from this encounter No Functional Status Recorded Physical Exam Includes: Physical Exam from this encounter Allergies Includes: Active Allergies Substance Type Reaction Onset Date Resolved Date Statu s Tubersol Allergy Hives / Urticaria 07/09/2018 A ctive Last Documented On 05/27/2023 11:24AM ; [facility] Note: Imported from external source. predniSONE Allergy rash 07/24/2015 Active Last Documented On 05/27/2023 11:24AM ; [facility] Note: Imported from external source. Naproxen Allergy Asthma / Allergi c asthma, Shortness of Breath / Dyspnea 06/22/2014 Active Last Documented On 05/27/2023 11:24AM ; [facility] Note: Imported from external source. Ibuprofen Allergy rash 01/29/2016 Resolved Last Documented On 08/30/2020 10:11AM ; [facility] Note: rash Ibuprofen Allergy rash 01/29/2016 Active Last Documented On 05/27/2023 11:24AM ; [facility] Note: Imported from external source. Flexeril Allergy Asthma / Allergi c asthma, Shortness of Breath / Dyspnea 06/22/2014 Active Last Documented On 05/27/2023 11:24AM ; [facility] Note: Imported from external source. Encounters Encounter Provider Location Date Check-In Time Check-Out Time Diagnosis [facility] VERÓNICA PENA MD [facility] 10/29/19 22 1:37PM 11:59PM Attention-deficit Hyperactivity Disorder,Bipolar I Disorder, Most Recent Episode, Depressed,General ized Anxiety Disorder,Panic Disorder Without Agoraphobia,Restl ess Legs Syndrome,Depressi on,Nonorganic Sleep Apnea Obstructive,Vitam in B12 Deficiency,Persis tent Insomnia,Psychoph ysiological Insomnia,Major Depression Insurance Includes: Active Insurance Policies Plan Name Member ID Group # Subscriber Relationship Effect meme Dates 1 - [employer] [id number] GELACIO Kiran DAR Self 09/20/2020 - Unknown Clinical Notes Includes: Clinical Notes from this encounter No Clinical Notes Recorded
--- OUTSIDE RECORDS SUMMARY | 2024-05-04 16:11 | XMS_ITS | Encounter Summary ---
Author Organization [facility] Address [address] [place] [address] Phone Care Team Providers Care Endodontist Name Role Phone Dylan Bell MD Primary Care Provider [phone] Shyla Olivarez MD Unavailable Lewis Ramirez MD Unavailable [phone] Italo Fisher MD Unavailable Erasmo Wesley MD Unavailable Reason for Visit * Reason Comments Medication Refill Encounter Details Date Type Department Care Team (Late st Contact Info) Description 02/23/2022 Refill [facility] - Family Medicine [facility] [address] [place] [address] Dylan Bell MD #[address] [address] Medication Refill Social History Tobacco Use Types Packs/Day Years Used Date Smoking Tobacco: Former Cigarettes 2 20 Smokeless Tobacco: Never Alcohol Use Standard Drinks/Week Comments Not Currently 2 (1 standard drink = 0.6 oz pur e alcohol) occasional Education Answer Date Recorded What is the highest level of school you have completed or the highest degree you have received? 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 COVID - 19 03/11/2023 03/11/2023 03/21/2023 12:1 6 AM 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 RSV 03/11/2023 03/11/2023 04/08/2023 12:1 6 AM 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 COVID - 19 01/18/2024 01/18/2024 01/18/2024 2:35 PM CDT Respiratory Rule-Out 01/18/2024 01/18/2024 024 2:35 PM CDT Assessment Noted Time PHQ-9 Depression Total Score: 0 11/11/19 17 9:00 AM CDT documented as of this encounter Care Teams Endodontist Relationship Specialty Start Date End Date Dylan Bell MD #2 [facility] [address] [place] [address] PCP - General Family Medicine 02/22/15 Shyla Olivarez MD #2 [facility] [address] [place] [address] Rheumatology 12/15/16 Lewis Ramirez MD [address] [place], [place] [id number] Obstetrics & Gynecology 03/08/18 Italo Fisher MD #2 [place] [address] Consulting Physician Pulmonary Disease 06/11/21 Erasmo Wesley MD #2 [facility] [address] [place] [address] Consulting Physician Urology 12/24/23 documented as of this encounter
--- OUTSIDE RECORDS SUMMARY | 2024-05-04 16:11 | XMS_ITS | Encounter Summary ---
Author Organization [facility] Address [address] [place] [address] Phone Care Team Providers Care Cook Jelly Name Role Phone Dylan Bell MD Primary Care Provider [phone] Shyla Olivarez MD Unavailable Lewis Ramirez MD Unavailable [phone] Italo Fisher MD Unavailable Erasmo Wesley MD Unavailable Reason for Visit * Reason Comments Medication Refill Encounter Details Date Type Department Care Team (Late st Contact Info) Description 09/05/2020 Refill [facility] - Family [facility] [address]2 [place] [address] Dylan Bell MD #[address] [address] Medication Refill Social History Tobacco Use Types Packs/Day Years Used Date Smoking Tobacco: Former Cigarettes 2 20 Smokeless Tobacco: Never Alcohol Use Standard Drinks/Week Comments Not Currently 2 (1 standard drink = 0.6 oz pur e alcohol) occasional Sexually Active Control Partners Comments Not Currently Comments No Sex and Gender Information Value Date Recorded Sex Assigned at Not on file Legal Sex Female 10:56 PM CDT Gender Identity Not on file Sexual Orientation Not on file COVID-19 Exposure Response Date Recorded In the last month, have you been in contact with someone who was confirmed or suspected to have Coronavirus / COVID-19? No / Unsure 09/04/2020 10:34 AM CDT documented as of this encounter Miscellaneous Notes * Telephone Encounter - Raysa Cuenca RN - 09/05/2020 3:40 PM CDT [facility] pharmacy notified iron tablets discontinued. * Telephone Encounter - Raysa Cuenca RN - 09/05/2020 3:40 PM CDTFrom: Abby Linder Sent: 09/05/2020 2:56 PM CDT To: Rosalio Sandhu Subject: RE: Iron pills Yes he did. Please do not refill. Thank you! ----- Message ----- From: Nurse Valadez Sent: 09/05/20, 11:19 AM To: Abby Linder Subject: Iron pills Abby We received a refill request from [facility] for Iron pills. Per our records, Dr Bell discontinued this medication yesterday at your appointment as it was reported you were not taking this anymore. Canyou please clarify this? 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 difficile Rule-Out 07/19/2021 07/19/20212021 3:56 PM CDT Respiratory Rule Out - RPA 05/27/2022 05/27/2022 0 05/27/2022 3:37 PM PIPE JOINTS SUPERVISOR COVID - 19 03/11/2023 03/11/2023 03/21/2023 12:1 6 AM PIPE JOINTS SUPERVISOR RSV 03/11/2023 03/11/2023 04/08/2023 12:1 6 AM PIPE JOINTS SUPERVISOR COVID - 19 01/18/2024 01/18/2024 01/18/2024 2:35 PM CDT Respiratory Rule-Out 01/18/2024 01/18/2024 024 2:35 PM CDT Assessment Noted Time PHQ-9 Depression Total Score: 0 11/11/19 17 9:00 AM CDT documented as of this encounter Care Teams Cook Jelly Relationship Specialty Start Date End Date Dylan Bell MD #[address] [facility] [address] [place] [address] PCP - General Family Medicine 02/22/15 Shyla Olivarez MD #[address] [facility] [address] [place] [address] Rheumatology 12/15/16 Lewis Ramirez MD [address] [facility] [address] [place], [place] [id number] Obstetrics & Gynecology 03/08/18 Italo Fisher MD #2 [place] [id number] Consulting Physician Pulmonary Disease 06/11/21 Erasmo Wesley MD #2 [facility] [address] [place] [address] Consulting Physician Urology 12/24/23 documented as of this encounter
--- OUTSIDE RECORDS SUMMARY | 2024-05-04 16:11 | XMS_ITS | Encounter Summary ---
Author Organization [facility] Address [address] [place] [address] Phone Care Team Providers Care Engineer First Assistant Name Role Phone Dylan Bell MD Primary Care Provider [phone] Shyla Olivarez MD Unavailable Lewis Ramirez MD Unavailable [phone] Italo Fisher MD Unavailable Erasmo Wesley MD Unavailable Encounter Details Date Type Department Care Team (Late st Contact Info) Description 03/27/2021 Telephone [facility] [address] [place] [address] Dylan Bell MD #[address] [address] Social History Tobacco Use Types Packs/Day Years [...] or suspected to have Coronavirus / COVID-19? Yes 03/28/2021 8:40 AM DIRECTOR TITLE documented as of this encounter Plan of Treatment Upcoming Encounters Date Type Department Care Team (Late st Contact Info) Description 09/22/2024 8:15 AM CDT Office Visit [facility] [address] [place] [id number] Erasmo Wesley MD #2 [facility] [address] [place] [address] documented as of this encounter Visit Diagnoses Not on filedocumented in this encounter Additional Health Concerns Infection Onset Date Last Indicated Resolved Time COVID - 19 03/28/2021 03/28/2021 04/17/2021 12:1 6 AM DIRECTOR TITLE Respiratory Rule Out - RPA 07/18/2021 07/19/2021 0 07/19/2021 3:34 PM CDT C. difficile Rule-Out 07/19/2021 07/19/20212021 3:56 PM CDT Respiratory Rule Out - RPA 05/27/2022 05/27/2022 0 05/27/2022 3:37 PM DIRECTOR TITLE COVID - 19 03/11/2023 03/11/2023 03/21/2023 12:1 6 AM DIRECTOR TITLE RSV 03/11/2023 03/11/2023 04/08/2023 12:1 6 AM DIRECTOR TITLE COVID - 19 01/18/2024 01/18/2024 01/18/2024 2:35 PM CDT Respiratory Rule-Out 01/18/2024 01/18/2024 024 2:35 PM CDT Assessment Noted Time PHQ-9 Depression Total Score: 0 11/11/19 17 9:00 AM CDT documented as of this encounter Care Teams Engineer First Assistant Relationship Specialty Start Date End Date Dylan Bell MD #2 [facility] [address] [place] [address] PCP - General Family Medicine 02/22/15 Shyla Olivarez MD #2 [facility] [address] [place] [address] Rheumatology 12/15/16 Lewis Ramirez MD [address] [place], [place] [id number] Obstetrics & Gynecology 03/08/18 Italo Fisher MD #[address] [place] [address] Consulting Physician Pulmonary Disease 06/11/21 Erasmo Wesley MD #2 [facility] [address] [place] [address] Consulting Physician Urology 12/24/23 documented as of this encounter
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
--- OUTSIDE RECORDS SUMMARY | 2024-05-04 16:11 | XMS_ITS | Clinical Summary ---
Author Organization [facility] Address [address] [place] [address] Phone Care Team Providers Care Union Organizer Name Role Phone MARY SORIANO, DYLAN A Primary Care Provider [phone] [...] Active Last Documented On 1 5:58PM ; [facility] Restless Legs Syndrome 01/21/2019 VERÓNICA EMERY MD Active Last Documented On 9 4:02AM ; [facility] Depression 12/21/2018 VERÓNICA PENA MD Ac tive Last Documented On 9 2:49AM ; [facility] Vitamin B12 Deficiency 08/21/2017 VERÓNICA EMERY MD Active Last Documented On 8 4:01AM ; [facility] Major Depression 12/21/2016 VERÓNICA PENA MD Active Last Documented On 8 9:33PM ; [facility] Psychophysiological Insomnia 02/21/2016 VERÓNICA PENA MD Active Last Documented On 7 9:45PM ; [facility] Bipolar I Disorder, Most Rec ent Episode, Depressed 07/15/2012 VERÓNICA PENA MD Active Last Documented On 3 4:26PM ; [facility] Generalized Anxiety Disorder 06/08/2012 VERÓNICA PENA MD Active Last Documented On 3 9:01AM ; [facility] Nonorganic Sleep Apnea Obstructive 06/08/2012 M STEFANO PENA MD Active Last Documented On 3 9:01AM ; [facility] Panic Disorder Without Agoraphobia 06/08/2012 M STEFANO PENA MD Active Last Documented On 3 9:01AM ; [facility] Past Visits Onset Date Resolved Date Provider Condition Status Fibromyalgia 07/30/2016 VERÓNICA PENA MD Active Last Documented On 7 7:27PM ; [facility] Gerd 04/20/2014 VERÓNICA PENA MD Ac tive Last Documented On 5 3:39PM ; [facility] Gout 11/07/2013 VERÓNICA PENA MD Ac tive Last Documented On 4 12:31AM ; [facility] 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 VERÓNICA PENA MD Active Last Documented On 3 9:02AM ; [facility] Plan of Treatment Bipolar Disorder - Lamictal [...] study -- encouraged compliance with her CPAP Restless Legs Syndrome/Fibromyalgia - Horizant 600 mg in the evening -- has not been taking but she is on Gabapentin which helps some - Last Documented On 03/18/2022 11:06AM ; [facility] Pending Tests Order Diagnosis Results Due Ordering P rovider Lab TSH 03/08/20 VERÓNICA FRANCO MD Last Documented On 1 6:05PM ; [facility] Lab CMP 03/08/20 VERÓNICA FRANCO MD Last Documented On 1 6:05PM ; [facility] Lab LIPID 03/08/20 VERÓNICA FRANCO MD Last Documented On 1 6:05PM ; [facility] B12 & FOLATE 03/08/20 VERÓNICA PENA MD Last Documented On 1 6:05PM ; [facility] Instructions to patient Lose weight - gained 7 lbs s rebecca last visit Last Documented On 2 11:04AM ; [facility] Education and Decision Aids were provided during visit for: Patient education about medi cation ---Education was given on medication(s) and diagnosis. I reviewed the risks, benefits and side effects of patient's medications Last Documented On 2 2:32PM ; [facility] Assessments Includes: Assessments from this encounter Findings - Obstructive sleep apnea - Last Documented On 03/18/2022 11:06AM ; [facility] - Vitamin B12 deficiency - Last Documented On 03/18/2022 11:06AM ; [facility] - Restless legs syndrome - Last Documented On 03/18/2022 11:06AM ; [facility] - Attention-deficit hyperactivity disorder - Last Documented On 03/18/2022 11:06AM ; [facility] - Bipolar I disorder, most recent episode, depressed - Last Documented On 03/18/2022 11:06AM ; [facility] - Depression - Last Documented On 03/18/2022 11:06AM ; [facility] - Major depressive disorder - Last Documented On 03/18/2022 11:06AM ; [facility] - Persistent insomnia - Last Documented On 03/18/2022 11:06AM ; [facility] - Psychophysiological insomnia - Last Documented On 03/18/2022 11:06AM ; [facility] - Generalized anxiety disorder - Last Documented On 03/18/2022 11:06AM ; [facility] - Panic disorder without agoraphobia - Last Documented On 03/18/2022 11:06AM ; [facility] Instructions Includes: Instructions from this encounter Instructions to patient Lose weight - gained 7 lbs s rebecca last visit Last Documented On 11:04AM ; [facility] Education and Decision Aids were provided during visit for: Patient education about medi cation ---Education was given on medication(s) and diagnosis. I reviewed the risks, benefits and side effects of patient's medications Last Documented On 2:32PM ; [facility] Medical Equipment - Implanted Devices Includes: Current Devices No Medical Equipment Recorded Medications Includes: Medications discussed during this encounter and other current Medications Discontinued / Stopped on this date on 01/30/2021 traZODone HCl 50 MG Oral Tablet Provider: Diagnosis: Psychophysiologi c insomnia Last Documented On 02/26/2022 2:48PM By SHANTEL CRUZ ; [facility] Folic Acid 1 MG Oral Tablet Provider: LEODAN OLIVAREZ MD Diagnosis: Last Documented On 02/26/2022 2:40PM By SHANTEL CRUZ ; [facility] traZODone HCl 50 MG Oral Tablet Provider: VERÓNICA PENA MD Diagnosis: Psychophysiologi c insomnia Last Documented On 02/26/2022 2:48PM By SHANTEL CRUZ ; [facility] New / Renewed during this visit VERÓNICA PENA MD on 02/26/2022 Focalin 10 MG Oral Tablet Provider: VERÓNICA PENA MD 30 day supply: 30 tablet, 0 refills Diagnosis: Attn-defct hyperactivity disorder, predom inattentive type as directed - 1 tab in am with food Pharmacy: [facility]/pharmacy #[id number] [facility] - [address] [place] [address], [id number] - Last Documented On 03/28/2022 4:06PM By Adrianne Pena MD ; [facility] Current Medications (continue as prescribed) Systane 0.4-0.3% Ophthalmic Solution 07/08/2022 Prov ider: Diagnosis: use as directed prn Last Documented On 07/08/2022 2:58PM By SHANTEL CRUZ ; [facility] Famotidine 20 MG Oral Tablet 06/11/2022 Provider: RAMSEY BLANCO NP Diagnosis: 1 tab bid Last Documented On 07/08/2022 2:58PM By SHANTEL CRUZ ; [facility] Focalin 10 MG Oral Tablet 04/25/2022 Provider: VERÓNICA PENA MD Diagnosis: Attn-defct hyper activity disorder, predom inattentive type as directed - 1 tab in am with food Last Documented On 04/25/2022 2:51PM By Adrianne Pena MD ; [facility] Solifenacin Succinate 5 MG Oral Tablet 04/24/2022 Pr ovider: RAMSEY BLANCO NP Diagnosis: 1 tab daily Last Documented On 07/08/2022 2:59PM By SHANTEL CRUZ ; [facility] traZODone HCl 50 MG Oral Tablet 02/11/2022 Provider: VERÓNICA PENA MD Diagnosis: Psychophysiologi c insomnia TAKE 2 TABLETS BY MOUTH AT B EDTIME NEEDED FOR SLEEP Last Documented On 02/11/2022 1:21PM By Adrianne Pena MD ; [facility] Esomeprazole Magnesium 20 MG Oral Capsule Delayed Release 01/31/2022 Provider: DYLAN HERNANDEZ MD Diagnosis: 1 capsule in the am Last Documented On 02/26/2022 2:49PM By SHANTEL PAGAN Anderson ; [facility] Lexapro 20 MG Oral Tablet 10/28/2021 Provider: VERÓNICA PENA MD Diagnosis: Major depressive disorder, recurrent, unspecified One tablet daily -- please g meme GENERIC Last Documented On 10/28/2021 3:10PM By Adrianne Pena MD ; [facility] lamoTRIgine 100 MG Oral Tablet 10/28/2021 Provider: VERÓNICA PENA MD Diagnosis: Bipolar disord, crnt epsd depress, mild or mod severt, unsp TAKE 1 TABLET BY MOUTH EVERY DAY Last Documented On 10/28/2021 3:10PM By Adrianne Pena MD ; [facility] busPIRone HCl 10 MG Oral Tablet 10/28/2021 Provider: VERÓNICA PENA MD Diagnosis: Generalized anxi ety disorder One tablet at bed time Last Documented On 10/28/2021 3:10PM By Adrianne Pena MD ; [facility] Gabapentin 600 MG Oral Tablet 10/07/2021 Provider: LEODAN OLIVAREZ MD Diagnosis: 1 tab tid Last Documented On 10/28/2021 1:59PM By SHANTEL CRUZ ; [facility] Amoxicillin 500 MG Oral Capsule 09/26/2021 Provider: Diagnosis: prior to dental work Last Documented On 10/28/2021 2:00PM By SHANTEL LANA ; [facility] Alendronate Sodium 35 MG Oral Tablet 01/07/2021 Prov ider: Diagnosis: [address] Lewis Moreira Last Documented On 1 11:34AM By SHANTEL PAGAN [facility] ; [facility] Atorvastatin Calcium 20 MG Oral Tablet 06/13/2020 Pr ovider: DYLAN HERNANDEZ MD Diagnosis: 1 tab nightly Last Documented On 1 10:34AM By SHANTEL CRUZ ; [facility] Metoprolol Succinate ER 25 M G Oral Tablet Extended Release 24 Hour 06/06/2020 Provider: DYLAN DUNLAP MD Diagnosis: 1 tab daily Last Documented On 1 10:34AM By SHANTEL PAGAN [facility] ; [facility] Lumigan 0.01% Ophthalmic Solution 06/05/2020 Provide r: Diagnosis: use as directed Dr. Bill Jacob Last Documented On 1 10:35AM By SHANTEL PAGAN [facility] ; [facility] Hydroxychloroquine Sulfate 200 MG Oral Tablet 11/30/19 20 Provider: LEODAN OLIVAREZ MD Diagnosis: 1 tab bid Last Documented On 03/02/2020 4:48PM By SHANTEL CRUZ ; [facility] Aspirin 81 MG Tablet 06/22/2014 Provider: Diagnosis: Last Documented On 5 10:06AM By Adrianne Pena MD ; [facility] Past Medications on file Vyvanse 30 MG Oral Capsule 07/08/2022 - 08/07/2022 Provider: VERÓNICA PENA MD Diagnosis: Attn-defct hyper activity disorder, predom inattentive type 1 Capsule every morning Last Documented On 07/08/2022 3:42PM By Adrianne Pena MD ; [facility] Famotidine 20 MG Oral Tablet 02/26/2022 - 05/27/2022 Paulette lay: RAMSEY BLANCO [employer]AC[employer]GE Diagnosis: 1 tab bid Last Documented On 02/26/2022 2:48PM By SHANTEL CRUZ ; [facility] Methotrexate Sodium 2.5 MG Oral Tablet 05/29/2021 - Provider: LEODAN OLIVAREZ MD Diagnosis: 6 tabs weekly Last Documented On 2 11:34AM By SHANTEL CRUZ ; [facility] Gabapentin 600 MG Oral Tablet 05/29/2021 - 06/28/2021 Provider: LEODAN OLIVAREZ MD Diagnosis: 1 cap tid Last Documented On 2 11:33AM By SHANTEL CRUZ ; [facility] traZODone HCl 50 MG OR TABS 10/12/2019 - 01/10/2020 Pr ovider: Diagnosis: Psychophysiologi c insomnia Two tablets at bedtime - this was increased 2019 Last Documented On 10/12/2019 9:52AM By TAMERA PETTIT ; [facility] Horizant 600 MG Oral Tablet Extended Release 08/24/2019 - 09/03/2019 Provider: VERÓNICA DORSEY MD Diagnosis: Restless legs sy ndrome as directed -- 1 tab in even ing for restless legs - pt has 10 day FREE coupon Last Documented On 08/24/2019 4:55PM By Adrianne Pena MD ; [facility] B Complex Oral Tablet 07/10/2018 - 08/09/2018 Provider: VERÓNICA PENA MD Diagnosis: Deficiency of ot her specified B group vitamins as directed [address] Marcel Zuñiga Last Documented On 07/10/2018 7:53PM By Adrianne Pena MD ; [facility] DULoxetine HCl 60MG Oral Capsule, delayed-release particles 04/26/2017 - 05/26/2017 Provider: VERÓNICA PENA MD Diagnosis: Generalized anxi ety disorder 1 capsule daily Last Documented On 04/26/2017 9:37PM By Adrianne Pena MD ; [facility] Medications Administered Includes: Administered Medications from this encounter No Administered Medications Recorded Vital Signs Includes: Vital Signs from this encounter Vital Name 02/26/2022 02:51P Blood Pressure Sitting L 110/50 BP Cuff Size Regular Pulse Rate-Sitting (bpm) 67 Pulse Rhythm Regular Height (in) 66 Weight (lb) 208 Body Mass Index 33.6 Body Surface Area 2 Note: self reported vitals Last Documented: On 02/26/2022 3:59PM ; [facility] Results Includes: Results discussed during this encounter No Results Recorded For Specified Dates History of Present Illness Includes: History of Present Illness from this encounter CASSANDRA DODGE is a 56 year old female. - Allergy list reviewed - Past medical history reviewed - Medication list reviewed Pt talked about some of her health issues. Pt saw JOSÉ MANUEL Wilkerson at [facility] due to some respiratory issues i.e., coughing and has Chest Xray done to r/o Bronchitis then CT of chest might be ordered. She has ALLY and sees Dr. Nando Craft for this but she is noncompliant with her CPAP. I stressed the importance of being compliant with her CPAP tx if possible. She gets occ tired, at times forgetful but has not been talking Focalin for her attention deficit so she has been having trouble concentrating and paying attention lately. She gets easily distracted. She may tend to be disorganized and hard to stay on task. She is requesting refill of her Focalin and was reminded that she needs to call the office each month for the Focalin since refills are not allowed for CII meds. Pt has not been feeling depressed. Pt has not been as anxious. Pt denied having any mood swings. Pt has not been as irritable. The combination of Lexapro and lamictal are still helping with her mood. She denied rash reaction from Lamictal. Pt has been motivated in general in doing daily tasks. Sleep has been good. She takes Buspar and Trazodone at hs which helps her relax and sleep. Pt not been napping/sleeping too much during the daytime. Pt occ gets tired mya when not wearing her CPAP. Appetite is good. Pt has not been feeling as bad about self. Pt is not able to focus and concentrate since she ran out of Focalin. Pt denied having any psychomotor restlessness. Pt denied suicidal thoughts. Pt denied having any delusions/hallucinations. MENTAL STATUS EXAM: Sensorium - alert, oriented to name, place, and time Attitude - cooperative Gait - ambulatory Sleep - good - not compliant with CPAP therapy Interest/Energy/Motivation - good, occ tired Guilt/Worthlessness - absent Concentration/Attention Span - able to focus and concentrate Memory Recall - fairly good Appetite - good - on 10/28/21 pt weighed 201 lbs and on 02/26/22 she weighed 208 lbs so she gained 7 lbs Suicidal Thoughts - absent Homicidal Thoughts - absent Delusions - absent Hallucinations - absent Appearance - casually groomed Motor Behavior - calm Eye Contact - intermittent Speech - fluent Mood - not depressed Affect - not as anxious Thought Process - coherent Insight and Judgment - intact Social History Description Last Updated Daily coffee consumption - 3 -4 cups of coffee per day, 1-2 cans of soda daily and does not drink tea 07/08/2022 Last Documented On 2 2:31PM ; [facility] Not using alcohol 10/28/2021 Last Documented On 2 2:31PM ; [facility] Former smoker - quit smoking between and 200308/30/2020 Last Documented On 2 2:31PM ; [facility] Work history -- she worked a [employer] -- 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 Her father is . She has an 11th grade education. She has 1 daughter 02/04/2015 Last Documented On 2 2:31PM ; [facility] Not using drugs (Illicit) 06/08/2012 Last Documented On 2 2:31PM ; [facility] Smoking Status Unknown Procedures and Surgical History Includes: Procedures from this encounter Procedures Code Diagnosis Performing Provider Service L ocation Service Date education and instructions Last Documented On 2 2:32PM ; [facility] dangerousness assessment: suicide risk -not suic idal 3085F Last Documented On 2 2:32PM ; [facility] use of tobacco assessment performed 1000F Last Documented On 2 2:32PM ; [facility] patient screened for future fall risk - no recen t falls 3288F Last Documented On 2 2:32PM ; [facility] review of medications documented 1160F Last Documented On 2 2:32PM ; [facility] screening for adult depressi on: impression and score - please see above treatment and PHQ score Last Documented On 2 2:32PM ; [facility] standardized depression screening: posit meme for symptoms Last Documented On 2 2:32PM ; [facility] encouragement to exercise Last Documented On 2 2:32PM ; [facility] Clinical summary provided to patient Last Documented On 2 2:32PM ; [facility] PHQ-9: total score 2 Last Documented On 2 11:03AM ; [facility] Surgical History Last Updated History of gastric surgery Dr. Borjas-- [place], [place] --gastric sleeve surgery 07/08/2022 Last Documented On 2 2:31PM ; [facility] History of decompression of median nerve at carpal tunnel - of the right hand 12/202102/26/2022 Last Documented On 2 11:06AM ; [facility] History of knee replacement - right total knee replacement 01/08/[address] Husam Yousif -- given Oxycodone 5/325, Ferrous Sulfate 325 mg, Vitamin C 500 mg, Senexon 50-8.6 mg , Celebrex 200 mg and Vitamin D 2000 IU after surgery 02/19/2021 Last Documented On 2 2:31PM ; [facility] History of orthopedic surger y 06/30/2012 -- 10/11/19 right meniscal repair by Dr. Blas Mathur -- given Oxycodone 5/325 and on 09/14/19 was given Tramadol 50 mg; knee surgery x 2 (right knee -- meniscal tear --2009 and 201203/02/2020 Last Documented On 2 2:31PM ; [facility] History of hysterectomy 06/22/2014 Last Documented On 2 2:31PM ; [facility] Medical History Includes: Medical History addressed during this encounter Description Last Updated History of systemic lupus er ythematosus rash - given Tramadol 50 mg #28 08/27/21 which did not help; given Medrol Dosepak 4 mg 03/08/21 and on 03/05/21 Nystatin [id number] units cream that did not help 07/08/2022 Last Documented On 2 2:31PM ; [facility] History of bronchitis - give n Zpak 02/2022; given Spriva Handihaler 18 mcg 03/14/20;given Zpak 04/22/19 and 03/17/19 and Albuterol HFA inhaler 02/28/19 and 01/10/19 and Codeine/GG Hodan 10 - 100 / 5mL on 03/09/19 02/26/2022 Last Documented On 2 11:06AM ; [facility] History of cataract - 12/202102/26/2022 Last Documented On 2 11:06AM ; [facility] Primary Care Provider: Dr. Jennifer Hernandez/Ramsey Blanco NP ~Dr. Dylan Hernandez ~Dr. Husam Yousif/TOREY Hahn Orthopedic Surgeon ~Dr. Ernie Farley -- ENT -- [facility] -- had CT Scan of the sinus ~Dr. Leodan Olivarez -- Silverware Cleaner ~Dr. Nathan Camacho DC -- Chiropractor ~[facility] -- Dr. Bill aJcob -- Ophthamologist ~Dr. Nando Craft -- Powerhouse Engineer ~Dr. Lewis Moreira -- Maintenance Mechanic Elevators ~Dr. Oshea -- Urologist ~Dr. Jonathan Messina -- Dry Cleaner Apprentice/Oncologist ~Dr. Nathan Estrada -- Dentist ~Dr. Leila Wagner -- CPAP 02/26/2022 Last Documented On 2 11:06AM ; [facility] History of pneumonia - Pneum onia -- June 2021 -- Methotrexate was discontinued -- Tramadol was given by Dr. Olivarez but did not help 10/28/2021 Last Documented On 2 2:31PM ; [facility] History of carpal tunnel syndrome - bila teral 10/28/2021 Last Documented On 2 2:31PM ; [facility] History of dental prophylaxi s - takes Amoxicillin 500 mg prior to dental procedures 10/28/2021 Last Documented On 2 2:31PM ; [facility] History of community-acquire d pneumonia - left lower lobe and viral infection; ground glass opacities bilateral upper and lower lobes; admitted to [facility] from 07/18/21 - 07/21/21 -- given Tessalon Perles 100 mg, Cefdinir 300 mg and Prednisone 20 mg upon discharge from the hospital 07/21/21 10/28/2021 Last Documented On 2 2:31PM ; [facility] History of viral infection - given Albuterol Inhaler 90 mcg, Promethazine-DM 6.25-15mg/5mL syrup and Doxycycline 100 mg 05/31/21 and 06/13/21 -- later determined to be viral infection 10/28/2021 Last Documented On 2 2:31PM ; [facility] History of migraine headache 08/09/2021 Last Documented On 2 2:31PM ; [facility] History of sensorineural hearing loss Last Documented On 2 2:31PM ; [facility] History of respiratory disor cory - pulmonary nodules -- CT scan 07/18/21; xrays taken 11/2019 and 08/201907/31/2021 Last Documented On 2 2:31PM ; [facility] History of obstructive sleep apnea -- another sleep study was done in early [address] Fisher -- she is compliant with therapy although she said she feels more rested without the CPAP therapy 05/2021;sleep study done 12/13/08 -- mild ALLY --but she cannot tolerate CPAP and she lost a lot of weight 05/29/2021 Last Documented On 2 2:31PM ; [facility] No history of coronavirus 20 19-nCoV vaccine - Patient REFUSED to bet vaccinated against COVID despite being educated on the adverse consequences of COVID if she ever gets it 05/29/2021 Last Documented On 2 2:31PM ; [facility] History of muscle spasm - given Methocar bomal 750 mg #14 02/01/21 02/19/2021 Last Documented On 2 2:31PM ; [facility] History of acute suppurative sinusitis -given Augmentin 875 mg 09/28/20; given Azelastine 0.1 nasal spray and Clindamycin [address] Ernie Farley on 05/14/20 10/26/2020 Last Documented On 2 2:31PM ; [facility] History of fall risk - joe nur fell 02/2020 down her basement steps; she broke her left foot in 2 places and badly damaged her right knee so much that she is scheduled for knee replacement 11/[address] Yousif 08/30/2020 Last Documented On 2 2:31PM ; [facility] History of anemia - given Fe rrous Sulfate 325 mg 05/2020 -- discontinued due to constipation 08/30/2020 Last Documented On 2 2:31PM ; [facility] History of fibromyalgia -- g iven Mobic 15 mg 05/[address] Olivarez discontinued it; was put on Lyrica and Duloxetine -- given by Dr. Olivarez -- reducing the pain in other areas but has tingling on her fingers but lyrica took care of the sharp pain 08/30/2020 Last Documented On 2 2:31PM ; [facility] History of dry eye syndrome - given Systane eye drops; with dry mouth --- tried Pilocarpine 5 mg -- 11/08/19 -- did not help --Dr. Leodan Olivarez 08/30/2020 Last Documented On 2 2:31PM ; [facility] History of glaucoma - early stages per [facility] - on Lumigan eye drops 08/30/2020 Last Documented On 2 2:31PM ; [facility] History of urinary tract inf ection - with hematuria -- given Macrobid 100 mg; 06/13/20;treated with Cipro 500mg on 08/05/18 08/30/2020 Last Documented On 2 2:31PM ; [facility] History of cough variant ast hma - chest xray from 05/03/19 showed: No focal consolidation or pneumothorax. No pleural effusion. Heart is normal size. Normal mediastinal and hilar contours 03/07/2020 Last Documented On 2 2:31PM ; [facility] History of chronic obstructi ve pulmonary disease - given Albuterol for nebulizer 02/14/20; given Methylprednisone 4 mg 02/01/20; given Amoxil 500 mg 01/31/20; given Methylprednisone 4 mg 12/05/19; given Methylprednisone 4 mg 10/14/19; given Prednisone 5 mg 09/12/19;given Prednisone Dosepak 4 mg #21 and Spriva Inhaler 05/25/19 03/02/2020 Last Documented On 2 2:31PM ; [facility] History of asthma - Pulmonar y Function Test on 05/04/19 showed: No evidence of airways obstruction. Moderate airways restriction. Diffusion capacity is normal. The is significant improvement in the flow rates suggesting reversible airways disease, i.e., asthma 08/26/2019 Last Documented On 2 2:31PM ; [facility] History of acute meniscal te ar - [...] cruciate ligament 08/26/2019 Last Documented On 2 2:31PM ; [facility] History of old bucket handle tear of med ial meniscus of knee - left knee 08/24/2019 Last Documented On 2 2:31PM ; [facility] History of systemic lupus er ythematosus - with pulmonary nodules shown on CT scan 05/201908/24/2019 Last Documented On 2 2:31PM ; [facility] History of GERD /Heartburn -- takes Omep razole 11/27/2017 Last Documented On 2 2:31PM ; [facility] History of hypertension -- in remission since Lisinopril has been stopped 09/29/2014 Last Documented On 2 2:31PM ; [facility] History of gout 11/11/2013 Last Documented On 2 2:31PM ; [facility] History of hyperlipidemia 07/07/2013 Last Documented On 2 2:31PM ; [facility] Family History Includes: Family History addressed during this encounter Description Last Updated Maternal history of depression -- mother was hospitalized for this 09/28/2014 Last Documented On 2 2:31PM ; [facility] Review of Systems Includes: Review of Systems from this encounter Systemic: No fever, no chills, and no night sweats. Head: No headache and no sinus pain. Neck: No neck pain and no neck stiffness. Eyes: Vision problems. No itching of the eyes and no eye pain. Otolaryngeal: No hearing loss and no earache. Tinnitus. No nasal discharge. Postnasal drip, hoarseness, and sore throat. Cardiovascular: No chest pain or discomfort, no palpitations, and the heart rate was not fast. Pulmonary: No dyspnea. Cough and coughing up sputum. No wheezing. Gastrointestinal: Heartburn, nausea, vomiting, abdominal pain, and diarrhea. No constipation. Genitourinary: Increased urinary frequency. No dysuria. Endocrine: No polydipsia and no excessive sweating. Musculoskeletal: Muscle aches, pain localized to one or more joints, and joint stiffness localized to one or more joints. Neurological: Dizziness. No vertigo, no fainting, and no motor disturbances. [...] ctive Last Documented On 05/27/2023 11:24AM ; [facility] Note: Imported from external source. predniSONE Allergy rash 07/24/2015 Active Last Documented On 05/27/2023 11:24AM ; [facility] Note: Imported from external source. Naproxen Allergy Asthma / Allergi c asthma, Shortness of Breath / Dyspnea 06/22/2014 Active Last Documented On 05/27/2023 11:24AM ; [facility] Note: Imported from external source. Ibuprofen Allergy rash 01/29/2016 Resolved Last Documented On 08/30/2020 10:11AM ; [facility] Note: rash Ibuprofen Allergy rash 01/29/2016 Active Last Documented On 05/27/2023 11:24AM ; [facility] Note: Imported from external source. Flexeril Allergy Asthma / Allergi c asthma, Shortness of Breath / Dyspnea 06/22/2014 Active Last Documented On 05/27/2023 11:24AM ; [facility] Note: Imported from external source. Encounters Encounter Provider Location Date Check-In Time Check-Out Time Diagnosis [facility] VERÓNICA PENA MD [facility] 02/27/20 22 2:31PM 11:59PM Attention-deficit Hyperactivity Disorder,Bipolar I Disorder, Most Recent Episode, Depressed,General ized Anxiety Disorder,Panic Disorder Without Agoraphobia,Restl ess Legs Syndrome,Depressi on,Nonorganic Sleep Apnea Obstructive,Vitam in B12 Deficiency,Persis tent Insomnia,Psychoph ysiological Insomnia,Major Depression Insurance Includes: Active Insurance Policies Plan Name Member ID Group # Subscriber Relationship Effect meme Dates 1 - [employer] [id number] GELACIO DODGE Self 09/20/2020 - Unknown Clinical Notes Includes: Clinical Notes from this encounter No Clinical Notes Recorded
--- OUTSIDE RECORDS SUMMARY | 2024-05-04 16:12 | XMS_ITS | Clinical Summary ---
Author Organization [facility] Address [address] [place] [address] Phone Care Team Providers Care Dioramist Name Role Phone JACQUIE SORIANO, VERÓNICA BEAN Unavailable [phone] Reason for Visit and Chief Complaint The Chief Complaint is: follow up for bipolar depression and anxiety Problems Includes: Problems addressed during this encounter and other active Problems Current Visit Onset Date Resolved Date Provider Conditio n Status Nonorganic Sleep Apnea Obstructive 09/11/2022 VERÓINCA PENA MD Active Last Documented On 3 3:50PM ; [facility] Attention-deficit Hyperactivity Disorder 09/20/2020 Active Last Documented On 3 5:53PM ; [facility] Restless Legs Syndrome 01/21/2019 Ac tive Last Documented On 3 5:52PM ; [facility] Major Depression 12/21/2016 Active Last Documented On 3 5:51PM ; [facility] Psychophysiological Insomnia 02/21/2016 Active Last Documented On 3 5:50PM ; [facility] Bipolar I Disorder, Most Recent Episode, Depressed 013 Active Last Documented On 3 5:45PM ; [facility] Generalized Anxiety Disorder 06/08/2012 Active Last Documented On 3 5:45PM ; [facility] Past Visits Onset Date Resolved Date Provider Condition Status Depression 12/21/2018 Active Last Documented On 3 5:52PM ; [facility] Vitamin B12 Deficiency 08/21/2017 Ac tive Last Documented On 3 5:51PM ; [facility] Fibromyalgia 07/30/2016 Active Last Documented On 3 5:50PM ; [facility] Gerd 04/20/2014 Active Last Documented On 3 5:47PM ; [facility] Gout 11/07/2013 Active Last Documented On 3 5:47PM ; [facility] Panic Disorder Without Agoraphobia 06/08/2012 Active Last Documented On 3 5:45PM ; [facility] Plan of Treatment Bipolar Disorder [...] which helps some - Last Documented On 06/15/2023 6:50AM ; [facility] Future Appointments Date Time Location Provi cory TELEHEALTH ADULT PSYCH ESTABLISHED 05/18/2024 11:00AM [facility] PENA MD Last Documented On 4 2:59PM ; [facility] Assessments Includes: Assessments from this encounter Findings - Obstructive sleep apnea - Last Documented On 06/15/2023 6:50AM ; [facility] - Restless legs syndrome - Last Documented On 06/15/2023 6:50AM ; [facility] - Attention-deficit hyperactivity disorder - Last Documented On 06/15/2023 6:50AM ; [facility] - Bipolar I disorder, most recent episode, depressed - Last Documented On 06/15/2023 6:50AM ; [facility] - Major depressive disorder - Last Documented On 06/15/2023 6:50AM ; [facility] - Psychophysiological insomnia - Last Documented On 06/15/2023 6:50AM ; [facility] - Generalized anxiety disorder - Last Documented On 06/15/2023 6:50AM ; [facility] Medical Equipment - Implanted Devices Includes: Current Devices No Medical Equipment Recorded Medications Includes: Medications discussed during this encounter and other current Medications Discontinued / Stopped on this date on 01/07/2021 Alendronate Sodium 35 MG OR TABS Provider : Diagnosis: Last Documented On 05/27/2023 11:33AM By SHANTEL CRUZ ; [facility] Current Medications (continue as prescribed) Vyvanse 30 MG Oral Capsule 08/07/2023 Provider: VERÓNICA PENA MD Diagnosis: Attn-defct hyper activity disorder, predom inattentive type 1 Capsule every morning Last Documented On 08/07/2023 11:23AM By Adrianne Pena MD ; [facility] Famotidine 20 MG Oral Tablet 05/21/2023 Provider: TYLER ALVARENGA NP Diagnosis: 1 tab bid Last Documented On 05/27/2023 11:32AM By SHANTEL CRUZ ; [facility] traZODone HCl 50 MG Oral Tablet 05/12/2023 Provider: VERÓNICA PENA MD Diagnosis: Psychophysiologi c insomnia TAKE 2 TABLETS BY MOUTH AT B EDTIME NEEDED FOR SLEEP. Last Documented On 05/12/2023 8:56AM By Adrianne Pena MD ; [facility] Alendronate Sodium 70 MG Oral Tablet 04/28/2023 Prov ider: ADY MILLER MD Diagnosis: 1 tab weekly Last Documented On 05/27/2023 11:32AM By SHANTEL CRUZ ; [facility] Sunosi 150 MG Oral Tablet 03/17/2023 Provider: VERÓNICA PENA MD Diagnosis: Obstructive slee p apnea (adult) (pediatric) 1 tablet in the morning Last Documented On 03/17/2023 1:25PM By Adrianne Pena MD ; [facility] Sunosi 150 MG Oral Tablet 02/11/2023 Provider: ME KRISTIAN PENA MD Diagnosis: 1 tablet in the morning Last Documented On 03/17/2023 12:40PM By SHANTEL CRUZ ; [facility] lamoTRIgine 100 MG Oral Tablet 02/10/2023 Provider: VERÓNICA PENA MD Diagnosis: Bipolar disord, crnt epsd depress, mild or mod severt, unsp One tablet daily Last Documented On 02/10/2023 12:51PM By Adrianne Pena MD ; [facility] Esomeprazole Magnesium 20 MG Oral Capsule Delayed Release 12/26/2022 Provider: DYLAN HERNANDEZ MD Diagnosis: 1 capsule daily Last Documented On 01/21/2023 3:51PM By SHANTEL CRUZ ; [facility] Albuterol Sulfate HFA 108 (9 0 Base) MCG/ACT Inhalation Aerosol Solution 11/19/2022 Provider: TYLER WOLFE NP Diagnosis: use as directed Last Documented On 01/21/2023 3:51PM By SHANTEL CRUZ ; [facility] Symbicort 160-4.5 MCG/ACT Inhalation Aerosol Provider: TYLER ALVARENGA NP Diagnosis: use as directed Last Documented On 01/21/2023 3:52PM By SHANTEL CRUZ ; [facility] Latanoprost 0.005% Ophthalmic Solution 09/11/2022 Pr ovider: Diagnosis: use as directed Last Documented On 09/11/2022 3:01PM By SHANTEL CRUZ ; [facility] Systane 0.4-0.3% OP SOLN 07/08/2022 Provider: Diagnosis: use as directed prn Last Documented On 07/19/2022 5:28PM By SHANTEL CRUZ ; [facility] Solifenacin Succinate 5 MG OR TABS 04/24/2022 Provid er: Diagnosis: 1 tab daily Last Documented On 07/19/2022 5:28PM By SHANTEL CRUZ ; [facility] Gabapentin 600 MG OR TABS 10/07/2021 Provider: Diagnosis: 1 tab tid Last Documented On 07/19/2022 5:28PM By SHANTEL CRUZ ; [facility] Amoxicillin 500 MG OR CAPS 09/26/2021 Provider: Diagnosis: prior to dental work Last Documented On 07/19/2022 5:28PM By SHANTEL CRUZ ; [facility] Atorvastatin Calcium 20 MG OR TABS 06/13/2020 Provid er: Diagnosis: 1 tab nightly Last Documented On 07/19/2022 5:28PM By SHANTEL CRUZ ; [facility] Metoprolol Succinate ER 25 MG OR TB24 06/06/2020 Pro vider: Diagnosis: 1 tab daily Last Documented On 07/19/2022 5:28PM By SHANTEL CRUZ ; [facility] Hydroxychloroquine Sulfate 200 MG OR TABS 11/30/2019 Provider: Diagnosis: 1 tab bid Last Documented On 07/19/2022 5:28PM By SHANTEL CRUZ ; [facility] Aspirin 81 MG OR TABS 06/22/2014 Provider: Diagnosis: Last Documented On 07/19/2022 5:28PM By Adrianne Pena MD ; [facility] Past Medications on file Famotidine 20 MG Oral Tablet 01/21/2023 - 04/21/2023 P rovider: Diagnosis: take 1 hour after taking Esomeprazole 1 tab bid Last Documented On 01/21/2023 3:52PM By SHANTEL CRUZ ; [facility] busPIRone HCl 10 MG Oral Tablet 12/11/2022 - 12/06/2023 Provider: VERÓNICA PENA MD Diagnosis: Generalized anxi ety disorder One tablet at bed time Last Documented On 12/11/2022 11:03AM By Adrianne Pena MD ; [facility] Sunosi 150 MG Oral Tablet 09/11/2022 - 03/10/2023 Provider: VERÓNICA DORSEY MD Diagnosis: Obstructive slee p apnea (adult) (pediatric) 1 tablet every morning Last Documented On 09/11/2022 3:58PM By Adrianne Pena MD ; [facility] Escitalopram Oxalate 20 MG Oral Tablet 09/04/2022 - 08/30/2023 Provider: VERÓNICA PENA MD Diagnosis: Major depressive disorder, recurrent, unspecified One tablet daily Last Documented On 09/04/2022 7:33PM By Adrianne Pena MD ; [facility] Methotrexate Sodium 2.5 MG OR TABS 05/29/2021 - 2021 Provider: Diagnosis: 6 tabs weekly Last Documented On 07/19/2022 5:28PM By SHANTEL CRUZ ; [facility] B Complex OR TABS 07/10/2018 - 08/09/2018 Provider: VERÓNICA PENA MD Diagnosis: Deficiency of ot her specified B group vitamins as directed [address] Marcel Zuñiga Last Documented On 07/19/2022 5:28PM By Adrianne Pena MD ; [facility] Medications Administered Includes: Administered Medications from this encounter No Administered Medications Recorded Vital Signs Includes: Vital Signs from this encounter Vital Name 05/27/2023 11:28A Blood Pressure Sitting L 117/76 BP Cuff Size Regular Pulse Rate-Sitting (bpm) 80 Pulse Rhythm Regular Height (in) 66 Weight (lb) 219 Body Mass Index 35.3 Body Surface Area 2.1 Note: self reported vitals Last Documented: On 05/27/2023 11:28A M ; [facility] Results Includes: Results discussed during this encounter No Results Recorded For Specified Dates History of Present Illness Includes: History of Present Illness from this encounter CASSANDRA DODGE is a 58 year old female. - Allergy list reviewed - Past medical history reviewed - Medication list reviewed Gelacio reported that she has been busy trying to help out some family members. She is trying to help out her step-father's health issues as he is needing liver transplant. She also tries to help her extorosdavid's mother since she is also in poor health but she is now at a fpc in [place] so she jsut visits her. She also attends to her grandkids. She has her own health issues and is trying to deal with her Lupus Arthritis. She sees Dr. Olivarez. She had bone density test and showed Osteopenia. She said that she tries to wear her CPAP for her sleep apnea but at times she has occasional dizzy spells, coughing and shortness of breath. Overall, her psych meds seem to be helping. The Lamictal seemed to be helping in stabilizing her mood. She denied having any rash. She denied feeling depressed. She is still motivated to do things. Sleep and appetite are good. She is able to focus and concentrate. She denied having any suicidal thoughts. No delusions or hallucinations. She denied having any mood swings. She has not been as anxious. MENTAL STATUS EXAM: Sensorium - alert, oriented to name, place, and time Attitude - cooperative Gait - ambulatory Sleep - good - compliant with CPAP therapy Interest/Energy/Motivation - good but occ tired Guilt/Worthlessness - absent Concentration/Attention Span - able to focus and concentrate Memory Recall - fairly good Appetite - good - on 01/21/23 pt weighed 213 lbs and on 05/27/23 she weighed 219 lbs so she gained 6 lbs Suicidal Thoughts - absent Homicidal Thoughts [...] - 3-4 cups of coffee per day, 1 bottle of soda daily and an occ cup of tea.Alcohol: Not using alcohol.Drug Use: Not using drugs (Illicit).Work: Work history -- she worked at [employer] -- 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 Her parents were supportive of her [...] reported no past or pending legal history. 05/27/2023 Last Documented On 4 11:36AM ; [facility] Former smoker - quit smoking in 08/2023 Last Documented On 4 6:50AM ; [facility] Smoking Status Unknown Procedures and Surgical History Includes: Procedures from this encounter Procedures Code Diagnosis Performing Provider Service Location Service Date PSYCHOTHERAPY 45 MIN W/ PT-WHEN PERFMD WITH E/ 37675 Major depressive disorder, recurrent, unspecified, Generalized anxiety disorder, Attn-defct hyperactivity disorder, predom inattentive type, Psychophysiologic insomnia VERÓNICA PENA MD [facility] 05/27/2023 Last Documented On 4 10:56AM ; [facility] education and instructions Last Documented On 4 11:06AM ; [facility] ~* Call [phone] and /or go t o the nearest emergency room or call me if suicidal/homicidal ideation or other serious concerns arise. ~ ~* I gave instructions to call me should there be any questions or concerns. ~ ~* Patient voiced understanding and agreed to treatment plan Last Documented On 4 11:24AM ; [facility] dangerousness assessment: no suicide risk 3085F Last Documented On 4 11:06AM ; [facility] use of tobacco assessment performed 1000F Last Documented On 4 11:27AM ; [facility] patient screened for future fall risk: documentation of any fall with injury in past year - no recent falls 1100F Last Documented On 4 11:34AM ; [facility] review of medications documented 1160F Last Documented On 4 11:24AM ; [facility] assessment of suicide risk performed - n ot suicidal Last Documented On 4 11:34AM ; [facility] screening for adult depressi on: impression and score - please see above for treatment and PHQ score Last Documented On 4 11:27AM ; [facility] standardized depression screening: posit meme for symptoms Last Documented On 4 11:27AM ; [facility] encouragement to exercise - balanced kendall l plan, low fat low carb diet Last Documented On 4 11:24AM ; [facility] Clinical summary provided to patient Last Documented On 4 11:06AM ; [facility] PHQ-9: total score 1 Last Documented On 4 10:30AM ; [facility] Medical History Includes: Medical History addressed during this encounter Description Last Updated Primary Care Provider: Dr. Jennifer Hernandez/TOREY Wilkerson Dr./TOREY Hahn Orthopedic Surgeon Dr. Ernie Farley -- ENT -- [facility] -- had CT Scan of the sinus Dr. Shyla Olivarez -- Senior Communications Specialist Dr. Nathan Camacho [place] -- Chiropractor [facility] -- Dr. Bill Jacob -- Ophthamologist Dr. Nando Craft -- Vp Transportation Dr. Ady Moreira -- Ingredient Scaler Helper Dr. Oshea -- Urologist Dr. Jonathan Messina -- Olive Grower/Oncologist Dr. Nathan Estrada -- Dentist Dr. Leila Wagner -- ROSALIA King NP -- Urologist.Diagnoses: Dry eye syndrome - given Systane eye drops; with dry mouth --- tried Pilocarpine 5 mg -- 11/08/19 -- did not help --Dr. Shyla Coronado - 12/2021Glaucoma - early stages per [facility] - on Lumigan eye drops. Sensorineural hearing [...] and 08/2019Bronchitis - given Zpak 02/2022; given Spiriva Handihaler 18 mcg 03/14/20;given Zpak 04/22/19 and 03/17/19 and Albuterol HFA inhaler 02/28/19 and 01/10/19 and Codeine/GG Hodan 10 - 100 / 5mL on 03/09/19Pneumonia - Pneumonia -- June 2021 -- Methotrexate was discontinued -- Tramadol was given by Dr. Olivarez but did not helpCommunity-acquired pneumonia - left lower lobe and viral infection; ground glass opacities bilateral upper and lower lobes; admitted to [facility] from 07/18/21 - 07/21/21 -- given [...] 02/01/20; given Amoxil 500 mg 01/31/20; given Methylprednisolone 4 mg 12/05/19; given Methylprednisone 4 mg 10/14/19; given Prednisone 5 mg 09/12/19;given Prednisone Dosepak 4 mg #21 and Spiriva Inhaler 05/25/19Obstructive sleep apnea -- another sleep [...] scan 05/2019Systemic lupus erythematosus rash - given Prednisone 5 mg 11/29/22; given Methylprednisolone Dosepak 4 mg 06/17/22; given Septra DS 05/21/22 for butterfly rash; given Tramadol 50 mg #28 08/27/21 which did not help; given Medrol Dosepak 4 mg 03/08/21 and on 03/05/21 Nystatin 415146 units cream that did not help. Acute [...] - bilateral. Migraine headacheMuscle spasm - given Methocarbamol 750 mg #14 02/01/21Fibromyalgia -- given Mobic 15 mg 05/[address] Olivarez discontinued it; was put on Lyrica and Duloxetine -- given by Dr. Olivarez -- reducing the pain in other areas but has tingling on her fingers but ines took care of the sharp pain. Viral infection - given Albuterol Inhaler 90 mcg, Promethazine-DM 6.25-15mg/5mL syrup and Doxycycline 100 mg 05/31/21 and 06/13/21 -- later determined to be viral infection. Anemia - given Ferrous Sulfate 325 mg 05/2020 -- discontinued due to constipationYeast infection -- under breasts -- given Nystatin/Triamcinolone cream -- 11/28/22Diagnoses: Fall risk - patient fell 02/2020 down [...] and 07/09/22Surgical: Gastric surgery 04/26/2014 Dr. Borjas-- [place], [place] -- gastric sleeve surgery Hysterectomy Orthopedic [...] 04/24/22 and given Vitamin C 500 mg 05/27/2023 Last Documented On 4 11:06AM ; [facility] Family History Includes: Family History addressed during this encounter Description Last Updated Maternal: Depression -- mother was hospi talized for this 05/27/2023 Last Documented On 11:06AM ; [facility] Review of Systems Includes: Review of Systems from this encounter Systemic: Feeling poorly (malaise) - occasionally tired. No fever, no chills, and no night sweats. Head: No headache and no sinus pain. Neck: No neck pain and no neck stiffness. Eyes: Vision problems. No itching of the eyes and no eye pain. Otolaryngeal: No hearing loss, no earache, and no nasal discharge. Epistaxis. No hoarseness and no sore throat. Cardiovascular: No chest pain or discomfort, no palpitations, and the heart rate was not fast. Pulmonary: Dyspnea. No cough. Coughing up sputum. No wheezing. Gastrointestinal: Heartburn, nausea, and vomiting. No diarrhea and no constipation. Genitourinary: No [...] ctive Last Documented On 05/27/2023 11:24AM ; [facility] Note: Imported from external source. predniSONE Allergy rash 07/24/2015 Active Last Documented On 05/27/2023 11:24AM ; [facility] Note: Imported from external source. Naproxen Allergy Asthma / Allergi c asthma, Shortness of Breath / Dyspnea 06/22/2014 Active Last Documented On 05/27/2023 11:24AM ; [facility] Note: Imported from external source. Ibuprofen Allergy rash 01/29/2016 Resolved Last Documented On 08/30/2020 10:11AM ; [facility] Note: rash Ibuprofen Allergy rash 01/29/2016 Active Last Documented On 05/27/2023 11:24AM ; [facility] Note: Imported from external source. Flexeril Allergy Asthma / Allergi c asthma, Shortness of Breath / Dyspnea 06/22/2014 Active Last Documented On 05/27/2023 11:24AM ; [facility] Note: Imported from external source. Encounters Encounter Provider Location Date Check-In Time Check-Out Time Diagnosis TELEHEALTH ADULT PSYCH ESTABLISHED VERÓNICA PENA MD [facility] 024 11:05AM 11:59PM Attention-defici t Hyperactivity Disorder,Bipolar I Disorder, Most Recent Episode, Depressed,Genera lized Anxiety Disorder,Restles s Legs Syndrome,Nonorga nathan Sleep Apnea Obstructive,Psyc hophysiological Insomnia,Major Depression Insurance Includes: Active Insurance Policies Plan Name Member ID Group # Subscriber Relationship Effect meme Dates 1 - [employer] [id number] GELACIO DODGE Self 09/20/2020 - Unknown Clinical Notes Includes: Clinical Notes from this encounter * Progress note Date Encounter Last Documented by 05/27/2023 TELEHEALTH ADULT PSYCH ESTABLISH ED Last documented on 06/15/2023; 6:50 AM, VERÓNICA PENA MD; [facility] Top of Document Medication psychotherapy 45 minutes Patient gave verbal consent for Telehealth 05/27/23. Location of patient: patient's home Location of provider: provider's office Patient was alone for the session. This visit was conducted with use of interactive audio and video telecommunication system with real time communication between the patient and the provider. Patient consent for virtual visit obtained today. Total time spent with patient via audio and video telecommunication 45 minutes. Active Problems & Conditions - Attention-deficit [...] of Present Illness GELACIO DODGE is a 58 year old female. - Allergy list reviewed - Past medical history reviewed - Medication list reviewed Gelacio reported that she has been busy trying to help out some family members. She is trying to help out her step-father's health issues as he is needing liver transplant. She also tries to help her ryan's mother since she is also in poor health but she is now at a fpc in [place] so she jsut visits her. She also attends to her grandkids. She has her own health issues and is trying to deal with her Lupus Arthritis. She sees Dr. Olivarez. She had bone density test and showed Osteopenia. She said that she tries to wear her CPAP for her sleep apnea but at times she has occasional dizzy spells, coughing and shortness of breath. Overall, her psych meds seem to be helping. The Lamictal seemed to be helping in stabilizing her mood. She denied having any rash. She denied feeling depressed. She is still motivated to do things. Sleep and appetite are good. She is able to focus and concentrate. She denied having any suicidal thoughts. No delusions or hallucinations. She denied having any mood swings. She has not been as anxious. MENTAL STATUS EXAM: Sensorium - alert, oriented to name, place, and time Attitude - cooperative Gait - ambulatory Sleep - good - compliant with CPAP therapy Interest/Energy/Motivation - good but occ tired Guilt/Worthlessness - absent Concentration/Attention Span - able to focus and concentrate Memory Recall - fairly good Appetite - good - on 01/21/23 pt weighed 213 lbs and on 05/27/23 she weighed 219 lbs so she gained 6 lbs Suicidal Thoughts - absent Homicidal Thoughts - absent Delusions - absent Hallucinations - absent Appearance - casually groomed Motor Behavior - calm Eye Contact - intermittent Speech - fluent Mood - not depressed Affect - not as anxious Thought Process - coherent Insight and Judgment - intact Current Medication - Albuterol Sulfate HFA 108 (90 Base) MCG/ACT Inhalation Aerosol Solution as directed use as directed, 17 days, 0 refills - Alendronate Sodium 70 MG Oral Tablet as directed 1 tab weekly, 84 days, 0 refills - Amoxicillin 500 MG Capsule prior to dental work, 3 days, 0 refills - Aspirin 81 MG Tablet One tablet daily 0 days, 0 refills - Atorvastatin Calcium 20 MG Tablet as directed 1 tab nightly, 90 days, 0 refills - busPIRone HCl 10 MG Oral Tablet One tablet at bed time, 90 days, 3 refills - Escitalopram Oxalate 20 MG Oral Tablet One tablet daily, 90 days, 3 refills - Esomeprazole Magnesium 20 MG Oral Capsule Delayed Release 1 capsule daily, 90 days, 0 refills - Famotidine 20 MG Oral Tablet 1 tab bid, 90 days, 0 refills - Gabapentin 600 MG Tablet as directed 1 tab tid, 30 days, 0 refills - Hydroxychloroquine Sulfate 200 MG Tablet 1 tab bid, 90 days, 0 refills - lamoTRIgine 100 MG Oral Tablet One tablet daily, 90 days, 3 refills - Latanoprost 0.005% Ophthalmic Solution as directed use as directed, 0 days, 0 refills - Metoprolol Succinate ER 25 MG Tablet Extended Release 24 Hour as directed 1 tab daily, 90 days, 0 refills - Solifenacin Succinate 5 MG Tablet as directed 1 tab daily, 90 days, 0 refills - Sunosi 150 MG Oral Tablet 1 tablet in the morning, 90 days, 0 refills - Sunosi 150 MG Oral Tablet 1 tablet in the morning, 90 days, 1 refills - Symbicort 160-4.5 MCG/ACT Inhalation Aerosol as directed use as directed, 90 days, 0 refills - Systane 0.4-0.3% Solution as directed use as directed prn, 0 days, 0 refills - traZODone HCl 50 MG Oral Tablet TAKE 2 TABLETS BY MOUTH AT BEDTIME NEEDED FOR SLEEP., 90 days, 1 refills - Vyvanse 30 MG Oral Capsule 1 Capsule every morning, 30 days, 0 refills - - No side effects reported Past Medical/Surgical History Primary Care Provider: Dr. Dylan Hernandez/TOREY Wilkerson Dr./TOREY Hahn Orthopedic Surgeon Dr. Ernie Farley -- ENT -- [facility] -- had CT Scan of the sinus Dr. Shyla Olivarez -- Senior Communications Specialist Dr. Nathan Camacho DC -- Chiropractor [facility] -- Dr. Bill Jacob -- Ophthamologist Dr. Nando Craft -- Vp Transportation Dr. Ady Moreira -- Ingredient Scaler Helper Dr. Oshea -- Urologist Dr. Jonathan Messina -- Olive Grower/Oncologist Dr. Nathan Estrada -- Dentist Dr. Leila Wagner -- ROSALIA King NP -- Urologist. Diagnoses: Dry eye syndrome - given Systane eye drops; with dry mouth --- tried Pilocarpine 5 mg -- 11/08/19 -- did not help --Dr. Shyla Olivarez Cataract - 12/2021 Glaucoma - early stages per [facility] - on Lumigan eye drops. Sensorineural hearing [...] 08/2019 Bronchitis - given Zpak 02/2022; given Spiriva Handihaler 18 mcg 03/14/20;given Zpak 04/22/19 and [...] bilateral upper and lower lobes; admitted to [facility] from 07/18/21 - 07/21/21 -- given [...] 02/01/20; given Amoxil 500 mg 01/31/20; given Methylprednisolone 4 mg 12/05/19; given Methylprednisone 4 mg 10/14/19; given Prednisone 5 mg 09/12/19;given Prednisone Dosepak 4 mg #21 and Spiriva Inhaler 05/25/19 Obstructive sleep apnea -- another [...] 05/2019 Systemic lupus erythematosus rash - given Prednisone 5 mg 11/29/22; given Methylprednisolone Dosepak 4 mg 06/17/22; given Septra DS 05/21/22 for butterfly rash; given Tramadol 50 mg #28 08/27/21 which did not help; given Medrol Dosepak 4 mg 03/08/21 and on 03/05/21 Nystatin [id number] units cream that did not help. Acute [...] bilateral. Migraine headache Muscle spasm - given Methocarbamol 750 mg #14 02/01/21 Fibromyalgia -- given [...] mg 05/2020 -- discontinued due to constipation Yeast infection -- under breasts -- given Nystatin/Triamcinolone cream -- 11/28/22 Diagnoses: - Fall risk - patient fell 02/2020 down her basement steps; she broke her left foot in 2 places and badly damaged her right knee so much that she is scheduled for knee replacement 11/[address] Yousif Procedural: - No coronavirus 2018-nCoV vaccine - Patient REFUSED to bet vaccinated against COVID despite being educated on the adverse consequences of COVID if she ever gets it Procedural: - Dental prophylaxis - takes Amoxicillin 500 mg prior to dental procedures - 07/28/22 and 07/09/22 Surgical: - Gastric surgery 04/26/2014 Dr. Borjas-- [place], [place] -- gastric sleeve surgery - Hysterectomy [...] (Armodafinil) - 2012 - not helping anymore [place] - 01/2012 -- did not help [...] - 3-4 cups of coffee per day, 1 bottle of soda daily and an occ cup of tea. Alcohol: Not using alcohol. Drug Use: Not using drugs (Illicit). 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 Marital: Marital history -- . She was born and raised in [place], [place] and then [place], [place]. Her parents were supportive of her [...] pain. Otolaryngeal: No hearing loss, no earache, and no nasal discharge. Epistaxis. No hoarseness and no sore throat. Cardiovascular: No chest pain or discomfort, no palpitations, and the heart rate was not fast. Pulmonary: Dyspnea. No cough. Coughing up sputum. No wheezing. Gastrointestinal: Heartburn, nausea, and vomiting. No diarrhea and no constipation. Genitourinary: No increase in urinary frequency. No dysuria. Endocrine: No polydipsia and no excessive sweating. Musculoskeletal: Muscle aches, pain localized to one or more joints, and joint stiffness localized to one or more joints. Neurological: Dizziness. No vertigo, no fainting, and no motor disturbances. Skin: No pruritus. No skin lesions and no rash. Physical Findings - Vitals taken 05/27/2023 11:28 am self reported vitals BP-Sitting L 117/76 mmHg BP Cuff Size Regular Pulse Rate-Sitting 80 bpm Pulse Rhythm Regular Height 66 in Weight 219 lbs Body Mass Index 35.3 kg/m2 Body Surface Area 2.1 m2 Tests Educational Testing: Questionnaires PHQ-9: Value PHQ-9: total score 1 Assessment - Obstructive sleep apnea - Restless legs syndrome - Attention-deficit hyperactivity disorder - Bipolar I disorder, most recent episode, depressed - Major depressive disorder - Psychophysiological insomnia - Generalized anxiety disorder Therapy - Dangerousness assessment: no suicide risk. - Encouragement to exercise - balanced meal plan, low fat low carb diet. - Education and instructions. - Assessment of suicide risk performed - not suicidal - Clinical summary provided to patient. * Call [phone] and /or go to the nearest emergency room or call me if suicidal/homicidal ideation or other serious concerns arise. * I gave instructions to call me should there be any questions or concerns. * Patient voiced understanding and agreed to treatment plan. Counseling/Education - Supportive care and encouragement--given positive reinforcement to keep patient motivated and active, supportive listening provided, continue calming techniques, meditation Plan StartCited - Other Follow-up 09/23/23 EndCited Bipolar Disorder - Lamictal 100 mg [...] and score - please see above for treatment and PHQ score.
--- OUTSIDE RECORDS SUMMARY | 2024-05-04 16:12 | XMS_ITS | Clinical Summary ---
Author Organization [facility] Address [address] [place] [address] Phone Care Team Providers Care Barrel Reamer Name Role Phone MARY SORIANO, DYLAN A [...] Active Last Documented On 1 5:58PM ; [facility] Restless Legs Syndrome 01/21/2019 VERÓNICA EMERY MD Active Last Documented On 9 4:02AM ; [facility] Depression 12/21/2018 VERÓNICA PENA MD Ac tive Last Documented On 9 2:49AM ; [facility] Vitamin B12 Deficiency 08/21/2017 VERÓNICA EMERY MD Active Last Documented On 8 4:01AM ; [facility] Major Depression 12/21/2016 VERÓNICA PENA MD Active Last Documented On 8 9:33PM ; [facility] Psychophysiological Insomnia 02/21/2016 VERÓNICA PENA MD Active Last Documented On 7 9:45PM ; [facility] Bipolar I Disorder, Most Rec ent Episode, Depressed 07/15/2012 VERÓNICA PENA MD Active Last Documented On 3 4:26PM ; [facility] Generalized Anxiety Disorder 06/08/2012 VERÓNICA PENA MD Active Last Documented On 3 9:01AM ; [facility] Nonorganic Sleep Apnea Obstructive 06/08/2012 M STEFANO PENA MD Active Last Documented On 3 9:01AM ; [facility] Panic Disorder Without Agoraphobia 06/08/2012 M STEFANO PENA MD Active Last Documented On 3 9:01AM ; [facility] Past Visits Onset Date Resolved Date Provider Condition Status Fibromyalgia 07/30/2016 VERÓNICA PENA MD Active Last Documented On 7 7:27PM ; [facility] Gerd 04/20/2014 VERÓNICA PENA MD Ac tive Last Documented On 5 3:39PM ; [facility] Gout 11/07/2013 VERÓNICA PENA MD Ac tive Last Documented On 4 12:31AM ; [facility] 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 VERÓNICA PENA MD Active Last Documented On 3 9:02AM ; [facility] Plan of Treatment Bipolar Disorder - [...] which helps some - Last Documented On 07/18/2022 10:03AM ; [facility] Pending Tests Order Diagnosis Results Due Ordering P chaseder Lab TSH 03/08/20 VERÓNICA FRANCO MD Last Documented On 1 6:05PM ; [facility] Lab CMP 03/08/20 VERÓNICA FRANCO MD Last Documented On 1 6:05PM ; [facility] LIPID 03/08/20 VERÓNICA FRANCO MD Last Documented On 1 6:05PM ; [facility] Lab B12 & FOLATE 03/08/20 VERÓNICA PENA MD Last Documented On 1 6:05PM ; [facility] Education and Decision Aids were provided during visit for: Calming techniques such as b reathing exercises/meditation and other relaxation techniques Last Documented On 3 9:59AM ; [facility] Assessments Includes: Assessments from this encounter Findings - Obstructive sleep apnea - Last Documented On 07/18/2022 10:03AM ; [facility] - Vitamin B12 deficiency - Last Documented On 07/18/2022 10:03AM ; [facility] - Restless legs syndrome - Last Documented On 07/18/2022 10:03AM ; [facility] - Attention-deficit hyperactivity disorder - Last Documented On 07/18/2022 10:03AM ; [facility] - Bipolar I disorder, most recent episode, depressed - Last Documented On 07/18/2022 10:03AM ; [facility] - Depression - Last Documented On 07/18/2022 10:03AM ; [facility] - Major depressive disorder - Last Documented On 07/18/2022 10:03AM ; [facility] - Persistent insomnia - Last Documented On 07/18/2022 10:03AM ; [facility] - Psychophysiological insomnia - Last Documented On 07/18/2022 10:03AM ; [facility] - Generalized anxiety disorder - Last Documented On 07/18/2022 10:03AM ; [facility] - Panic disorder without agoraphobia - Last Documented On 07/18/2022 10:03AM ; [facility] Instructions Includes: Instructions from this encounter Education and Decision Aids were provided during visit for: Calming techniques such as b reathing exercises/meditation and other relaxation techniques Last Documented On 9:59AM ; [facility] Medical Equipment - Implanted Devices Includes: Current Devices No Medical Equipment Recorded Medications Includes: Medications discussed during this encounter and other current Medications New / Renewed during this visit VERÓNICA PENA MD on 07/08/2022 Vyvanse 30 MG Oral Capsule Provider: VERÓNICA PENA MD 30 day supply: 30 capsule, 0 refills Diagnosis: Attn-defct hyperactivity disorder, predom inattentive type 1 Capsule every morning Pharmacy: [facility] #[id number], [address] - Last Documented On 07/08/2022 3:42PM By Adrianne Pena MD ; [facility] Current Medications (continue as prescribed) Systane 0.4-0.3% Ophthalmic Solution 07/08/2022 Prov ider: Diagnosis: use as directed prn Last Documented On 07/08/2022 2:58PM By SHANTEL CRUZ ; [facility] Famotidine 20 MG Oral Tablet 06/11/2022 Provider: RAMSEY BLANCO NP Diagnosis: 1 tab bid Last Documented On 07/08/2022 2:58PM By SHANTEL CRUZ ; [facility] Focalin 10 MG Oral Tablet 04/25/2022 Provider: VERÓNICA PENA MD Diagnosis: Attn-defct hyper activity disorder, predom inattentive type as directed - 1 tab in am with food Last Documented On 04/25/2022 2:51PM By Adrianne Pena MD ; [facility] Solifenacin Succinate 5 MG Oral Tablet 04/24/2022 Pr ovider: RAMSEY BLANCO NP Diagnosis: 1 tab daily Last Documented On 07/08/2022 2:59PM By SHANTEL CRUZ ; [facility] traZODone HCl 50 MG Oral Tablet 02/11/2022 Provider: VERÓNICA PENA MD Diagnosis: Psychophysiologi c insomnia TAKE 2 TABLETS BY MOUTH AT B EDTIME NEEDED FOR SLEEP Last Documented On 02/11/2022 1:21PM By Adrianne Pena MD ; [facility] Esomeprazole Magnesium 20 MG Oral Capsule Delayed Release 01/31/2022 Provider: DYLAN HERNANDEZ MD Diagnosis: 1 capsule in the am Last Documented On 02/26/2022 2:49PM By SHANTEL CRUZ ; [facility] Lexapro 20 MG Oral Tablet 10/28/2021 Provider: VERÓNICA PENA MD Diagnosis: Major depressive disorder, recurrent, unspecified One tablet daily -- please g emme GENERIC Last Documented On 10/28/2021 3:10PM By Adrianne Pena MD ; [facility] lamoTRIgine 100 MG Oral Tablet 10/28/2021 Provider: VERÓNICA PENA MD Diagnosis: Bipolar disord, crnt epsd depress, mild or mod severt, unsp TAKE 1 TABLET BY MOUTH EVERY DAY Last Documented On 10/28/2021 3:10PM By Adrianne Pena MD ; [facility] busPIRone HCl 10 MG Oral Tablet 10/28/2021 Provider: VERÓNICA PENA MD Diagnosis: Generalized anxi ety disorder One tablet at bed time Last Documented On 10/28/2021 3:10PM By Adrianne Pena MD ; [facility] Gabapentin 600 MG Oral Tablet 10/07/2021 Provider: LEODAN OLIVAREZ MD Diagnosis: 1 tab tid Last Documented On 10/28/2021 1:59PM By SHANTEL CRUZ ; [facility] Amoxicillin 500 MG Oral Capsule 09/26/2021 Provider: Diagnosis: prior to dental work Last Documented On 10/28/2021 2:00PM By SHANTEL CRUZ ; [facility] Alendronate Sodium 35 MG Oral Tablet 01/07/2021 Prov ider: Diagnosis: [address] Lewis Moreira Last Documented On 1 11:34AM By SHANTEL CRUZ ; [facility] Atorvastatin Calcium 20 MG Oral Tablet 06/13/2020 Pr ovider: DYLAN HERNANDEZ MD Diagnosis: 1 tab nightly Last Documented On 1 10:34AM By SHANTEL CRUZ ; [facility] Metoprolol Succinate ER 25 M G Oral Tablet Extended Release 24 Hour 06/06/2020 Provider: DYLAN DUNLAP MD Diagnosis: 1 tab daily Last Documented On 1 10:34AM By SHANTEL CRUZ ; [facility] Lumigan 0.01% Ophthalmic Solution 06/05/2020 Provide r: Diagnosis: use as directed Dr. Bill Jacob Last Documented On 1 10:35AM By SHANTEL CRUZ ; [facility] Hydroxychloroquine Sulfate 200 MG Oral Tablet 11/30/19 Provider: LEODAN OLIVAREZ MD Diagnosis: 1 tab bid Last Documented On 03/02/2020 4:48PM By SHANTEL CRUZ ; [facility] Aspirin 81 MG Tablet 06/22/2014 Provider: Diagnosis: Last Documented On 5 10:06AM By Adrianne Pena MD ; [facility] Past Medications on file Famotidine 20 MG Oral Tablet 02/26/2022 - 05/27/2022 P rovider: RAMSEY BLANCO [employer] Diagnosis: 1 tab bid Last Documented On 02/26/2022 2:48PM By SHANTEL CRUZ ; [facility] Methotrexate Sodium 2.5 MG Oral Tablet 05/29/2021 - Provider: LEODAN OLIVAREZ MD Diagnosis: 6 tabs weekly Last Documented On 2 11:34AM By SHANTEL CRUZ ; [facility] Gabapentin 600 MG Oral Tablet 05/29/2021 - 06/28/2021 Provider: LEODAN OLIVAREZ MD Diagnosis: 1 cap tid Last Documented On 2 11:33AM By SHANTEL CRUZ ; [facility] traZODone HCl 50 MG OR TABS 10/12/2019 - 01/10/2020 Pr ovider: Diagnosis: Psychophysiologi c insomnia Two tablets at bedtime - this was increased 2019 Last Documented On 10/12/2019 9:52AM By TAMERA PETTIT ; [facility] Horizant 600 MG Oral Tablet Extended Release 08/24/2019 - 09/03/2019 Provider: VERÓNICA DORSEY MD Diagnosis: Restless legs sy ndrome as directed -- 1 tab in even ing for restless legs - pt has 10 day FREE coupon Last Documented On 08/24/2019 4:55PM By Adrianne Pena MD ; [facility] B Complex Oral Tablet 07/10/2018 - 08/09/2018 Provider: VERÓNICA PENA MD Diagnosis: Deficiency of ot her specified B group vitamins as directed [address] Marcel Zuñiga Last Documented On 07/10/2018 7:53PM By Adrianne Pena MD ; [facility] DULoxetine HCl 60MG Oral Capsule, delayed-release particles 04/26/2017 - 05/26/2017 Provider: VERÓNICA PENA MD Diagnosis: Generalized anxi ety disorder 1 capsule daily Last Documented On 04/26/2017 9:37PM By Adrianne Pena MD ; [facility] Medications Administered Includes: Administered Medications from this encounter No Administered Medications Recorded Vital Signs Includes: Vital Signs from this encounter Vital Name 07/08/2022 03:04P Blood Pressure Sitting L 119/70 BP Cuff Size Regular Pulse Rate-Sitting (bpm) 65 Pulse Rhythm Regular Height (in) 66 Weight (lb) 212 Body Mass Index 34.2 Body Surface Area 2.1 Note: self reported vitals Last Documented: On 07/10/2022 10:56A M ; [facility] Results Includes: Results discussed during this encounter No Results Recorded For Specified Dates History of Present Illness Includes: History of Present Illness from this encounter HPI GELACIO DODGE is a 57 year old female. - Allergy list reviewed - Past medical history reviewed - Medication list reviewed Gelacio reported that she seemed to be doing good in general as far as her mood. She has not been feeling depressed. She denied having any mood swings. She has not been as anxious. The combination of Buspar 10 mg a day, Lamictal 100 mg a day, Lexapro 20 mg a day are helping with mood and anxiety. She is motivated in general except on days that she gets tired and fatigued. Sleep can be interrupted. At times, she has difficulty falling asleep. Appetite is good. At times, she has trouble focusing and concentrating but she is forgetful of her Focalin. She has not taken her Focalin for quite a while and so she was reminded to take her Focalin so she can concentrate and be more productive. She denied having any psychomotor restlessness. She denied having any suicidal thoughts. No delusions or hallucinations. She denied having any mood swings. She is just having some health issues. She was placed on Methylprednisolone dose pack because of the flare up of her Lupus last 06/17/2022. She is due to get blood work from her pm head cook Dr. Olivarez. She was given Doxycycline 05/27/22 due to swollen glands in her neck. She was also diagnosed to have carpal tunnel syndrome and had trigger release and was put on Methocarbamol last April 2022. She has Obstructive Sleep Apnea and wears her CPAP. MENTAL STATUS EXAM: Sensorium - alert, oriented to name, place, and time Attitude - cooperative Gait - ambulatory Sleep - occasional difficulty falling asleep, compliant with CPAP therapy Interest/Energy/Motivation - good but she gets tired Guilt/Worthlessness - absent Concentration/Attention Span - hard to focus and concentrate since she has been out of Focalin Memory Recall - fairly good Appetite - good - on 02/26/22 pt weighed 208 lbs and on 07/08/22 she weighed 212 lbs so she gained 4 lbs Suicidal Thoughts - absent Homicidal [...] 3 -4 cups of coffee per day, 1 can of soda daily and an occasional cup of hot tea 07/08/2022 Last Documented On 3 10:03AM ; [facility] Not using alcohol 10/28/2021 Last Documented On 3 2:35PM ; [facility] Former smoker - quit smoking between 9 and 200308/30/2020 Last Documented On 3 2:35PM ; [facility] Work history -- she worked a [employer] -- 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 Her father is . She has an 11th grade education. She has 1 daughter 02/04/2015 Last Documented On 3 2:35PM ; [facility] Not using drugs (Illicit) 06/08/2012 Last Documented On 3 2:35PM ; [facility] Smoking Status Unknown Procedures and Surgical History Includes: Procedures from this encounter Procedures Code Diagnosis Performing Provider Service L ocation Service Date education and instructions Last Documented On 3 2:35PM ; [facility] dangerousness assessment: suicide risk -not suic idal 3085F Last Documented On 3 2:35PM ; [facility] use of tobacco assessment performed 1000F Last Documented On 3 2:35PM ; [facility] patient screened for future fall risk - no recen t falls 3288F Last Documented On 3 2:35PM ; [facility] review of medications documented 1160F Last Documented On 3 2:35PM ; [facility] screening for adult depressi on: impression and score - please see above treatment and PHQ score Last Documented On 3 2:35PM ; [facility] standardized depression screening: posit meme for symptoms Last Documented On 3 2:35PM ; [facility] encouragement to exercise Last Documented On 3 2:35PM ; [facility] Counseling on new medication : I discussed the risks, benefits and side effects of Vyvanse. Patient verbalized understanding and agreed to treatment Last Documented On 3 10:02AM ; [facility] Clinical summary provided to patient Last Documented On 3 2:35PM ; [facility] PHQ-9: total score 6 Last Documented On 3 4:15PM ; [facility] Surgical History Last Updated History of decompression of median nerve at carpal tunnel - of the right hand 01/15/2022 with trigger release; left hand with trigger release and right 5th finger trigger release on 05/07/22 -- given Methocarbamol 750 mg 04/24/22 and given Vitamin C 500 mg 07/08/2022 Last Documented On 3 10:03AM ; [facility] History of gastric surgery Dr. Borjas-- [place], [place] -- gastric sleeve surgery 07/08/2022 Last Documented On 3 10:03AM ; [facility] History of knee replacement - right total knee replacement 01/08/[address] Husam Yousif -- given Oxycodone 5/325, Ferrous Sulfate 325 mg, Vitamin C 500 mg, Senexon 50-8.6 mg , Celebrex 200 mg and Vitamin D 2000 IU after surgery 02/19/2021 Last Documented On 3 2:35PM ; [facility] History of orthopedic surger y 06/30/2012 -- 10/11/19 right meniscal repair by Dr. Blas Mathur -- given Oxycodone 5/325 and on 09/14/19 was given Tramadol 50 mg; knee surgery x 2 (right knee -- meniscal tear --2009 and 201203/02/2020 Last Documented On 3 2:35PM ; [facility] History of hysterectomy 06/22/2014 Last Documented On 3 2:35PM ; [facility] Medical History Includes: Medical History addressed during this encounter Description Last Updated History of systemic lupus er ythematosus rash - given Methylprednisolone Dosepak 4 mg 06/17/22; given Septra DS 05/21/22 for butterfly rash; given Tramadol 50 mg #28 08/27/21 which did not help; given Medrol Dosepak 4 mg 03/08/21 and on 03/05/21 Nystatin 566734 units cream that did not help 07/08/2022 Last Documented On 3 10:03AM ; [facility] History of lymphadenopathy - in the neck -- given Doxycycline 100 mg 05/27/22 07/08/2022 Last Documented On 3 10:03AM ; [facility] Primary Care Provider: Dr. Jennifer Hernandez/Ramsey Blanco NP ~Dr. Dylan Hernandez ~Dr. Husam Yousif/TOREY Hahn Orthopedic Surgeon ~Dr. Ernie Farley -- ENT -- [facility] -- had CT Scan of the sinus ~Dr. Leodan Olivarez -- Bobbin Winder ~Dr. Nathan Camacho DC -- Chiropractor ~[facility] -- Dr. Bill Jacob -- Ophthamologist ~Dr. Nando Craft -- [employer] Dealer ~Dr. Lewis Moreira -- Transition Specialist ~Dr. Oshea -- Urologist ~Dr. Jonathan Messina -- Program Dir/Oncologist ~Dr. Nathan Estrada -- Dentist ~Dr. Leila Wagner -- CPAP ~Mikayla King NP -- Urologist 07/08/2022 Last Documented On 3 10:03AM ; [facility] History of bronchitis - give n Zpak 02/2022; given Spriva Handihaler 18 mcg 03/14/20;given Zpak 04/22/19 and 03/17/19 and Albuterol HFA inhaler 02/28/19 and 01/10/19 and Codeine/GG Hodan 10 - 100 / 5mL on 03/09/19 02/26/2022 Last Documented On 3 2:35PM ; [facility] History of cataract - 12/202102/26/2022 Last Documented On 3 2:35PM ; [facility] History of pneumonia - Pneum onia -- June 2021 -- Methotrexate was discontinued -- Tramadol was given by Dr. Olivarez but did not help 10/28/2021 Last Documented On 3 2:35PM ; [facility] History of carpal tunnel syndrome - bila teral 10/28/2021 Last Documented On 3 2:35PM ; [facility] History of dental prophylaxi s - takes Amoxicillin 500 mg prior to dental procedures 10/28/2021 Last Documented On 3 2:35PM ; [facility] History of community-acquire d pneumonia - left lower lobe and viral infection; ground glass opacities bilateral upper and lower lobes; admitted to [facility] from 07/18/21 - 07/21/21 -- given Tessalon Perles 100 mg, Cefdinir 300 mg and Prednisone 20 mg upon discharge from the hospital 07/21/21 10/28/2021 Last Documented On 3 2:35PM ; [facility] History of viral infection - given Albuterol Inhaler 90 mcg, Promethazine-DM 6.25-15mg/5mL syrup and Doxycycline 100 mg 05/31/21 and 06/13/21 -- later determined to be viral infection 10/28/2021 Last Documented On 3 2:35PM ; [facility] History of migraine headache 08/09/2021 Last Documented On 3 2:35PM ; [facility] History of sensorineural hearing loss Last Documented On 3 2:35PM ; [facility] History of respiratory disor cory - pulmonary nodules -- CT scan 07/18/21; xrays taken 11/2019 and 08/201907/31/2021 Last Documented On 3 2:35PM ; [facility] History of obstructive sleep apnea -- another sleep study was done in early [address] Fisher -- she is compliant with therapy although she said she feels more rested without the CPAP therapy 05/2021;sleep study done 12/13/08 -- mild ALLY --but she cannot tolerate CPAP and she lost a lot of weight 05/29/2021 Last Documented On 3 2:35PM ; [facility] No history of coronavirus 20 19-nCoV vaccine - Patient REFUSED to bet vaccinated against COVID despite being educated on the adverse consequences of COVID if she ever gets it 05/29/2021 Last Documented On 3 2:35PM ; [facility] History of muscle spasm - given Methocar bomal 750 mg #14 02/01/21 02/19/2021 Last Documented On 3 2:35PM ; [facility] History of acute suppurative sinusitis -given Augmentin 875 mg 09/28/20; given Azelastine 0.1 nasal spray and Clindamycin [address] Ernie Farley on 05/14/20 10/26/2020 Last Documented On 3 2:35PM ; [facility] History of fall risk - joe nur fell 02/2020 down her basement steps; she broke her left foot in 2 places and badly damaged her right knee so much that she is scheduled for knee replacement 11/[address] Yousif 08/30/2020 Last Documented On 3 2:35PM ; [facility] History of anemia - given Fe rrous Sulfate 325 mg 05/2020 -- discontinued due to constipation 08/30/2020 Last Documented On 3 2:35PM ; [facility] History of fibromyalgia -- g iven Mobic 15 mg 05/[address] Olivarez discontinued it; was put on Lyrica and Duloxetine -- given by Dr. Olivarez -- reducing the pain in other areas but has tingling on her fingers but lyrica took care of the sharp pain 08/30/2020 Last Documented On 3 2:35PM ; [facility] History of dry eye syndrome - given Systane eye drops; with dry mouth --- tried Pilocarpine 5 mg -- 11/08/19 -- did not help --Dr. Leodan Olivarez 08/30/2020 Last Documented On 3 2:35PM ; [facility] History of glaucoma - early stages per [facility] - on Lumigan eye drops 08/30/2020 Last Documented On 3 2:35PM ; [facility] History of urinary tract inf ection - with hematuria -- given Macrobid 100 mg; 06/13/20;treated with Cipro 500mg on 08/05/18 08/30/2020 Last Documented On 3 2:35PM ; [facility] History of cough variant ast hma - chest xray from 05/03/19 showed: No focal consolidation or pneumothorax. No pleural effusion. Heart is normal size. Normal mediastinal and hilar contours 03/07/2020 Last Documented On 3 2:35PM ; [facility] History of chronic obstructi ve pulmonary disease - given Albuterol for nebulizer 02/14/20; given Methylprednisone 4 mg 02/01/20; given Amoxil 500 mg 01/31/20; given Methylprednisone 4 mg 12/05/19; given Methylprednisone 4 mg 10/14/19; given Prednisone 5 mg 09/12/19;given Prednisone Dosepak 4 mg #21 and Spriva Inhaler 05/25/19 03/02/2020 Last Documented On 3 2:35PM ; [facility] History of asthma - Pulmonar y Function Test on 05/04/19 showed: No evidence of airways obstruction. Moderate airways restriction. Diffusion capacity is normal. The is significant improvement in the flow rates suggesting reversible airways disease, i.e., asthma 08/26/2019 Last Documented On 3 2:35PM ; [facility] History of acute meniscal te ar [...] anterior cruciate ligament 08/26/2019 Last Documented On 3 2:35PM ; [facility] History of old bucket handle tear of med ial meniscus of knee - left knee 08/24/2019 Last Documented On 3 2:35PM ; [facility] History of systemic lupus er ythematosus - with pulmonary nodules shown on CT scan 05/201908/24/2019 Last Documented On 3 2:35PM ; [facility] History of GERD /Heartburn -- takes Omep razole 11/27/2017 Last Documented On 3 2:35PM ; [facility] History of hypertension -- in remission since Lisinopril has been stopped 09/29/2014 Last Documented On 3 2:35PM ; [facility] History of gout 11/11/2013 Last Documented On 3 2:35PM ; [facility] Medical [facility] History of hyperlipidemia 07/07/2013 Last Documented On 3 2:35PM ; [facility] Family History Includes: Family History addressed during this encounter Description Last Updated Maternal history of depression -- mother was hospitalized for this 09/28/2014 Last Documented On 3 2:35PM ; [facility] Review of Systems Includes: Review of Systems from this encounter Systemic: Feeling poorly (malaise) - occasionally tired. No fever, no chills, and no night sweats. Head: Headache and sinus pain. Neck: No neck pain and [...] and no wheezing. Gastrointestinal: Heartburn, nausea, vomiting, abdominal pain, and diarrhea. No constipation. Genitourinary: Increased urinary frequency. No dysuria. Endocrine: Polydipsia. No excessive sweating. Musculoskeletal: Muscle aches, pain localized [...] ctive Last Documented On 05/27/2023 11:24AM ; [facility] Note: Imported from external source. predniSONE Allergy rash 07/24/2015 Active Last Documented On 05/27/2023 11:24AM ; [facility] Note: Imported from external source. Naproxen Allergy Asthma / Allergi c asthma, Shortness of Breath / Dyspnea 06/22/2014 Active Last Documented On 05/27/2023 11:24AM ; [facility] Note: Imported from external source. Ibuprofen Allergy rash 01/29/2016 Resolved Last Documented On 08/30/2020 10:11AM ; [facility] Medical [facility] Note: rash Ibuprofen Allergy rash 01/29/2016 Active Last Documented On 05/27/2023 11:24AM ; [facility] Note: Imported from external source. Flexeril Allergy Asthma / Allergi c asthma, Shortness of Breath / Dyspnea 06/22/2014 Active Last Documented On 05/27/2023 11:24AM ; [facility] MEDICAL [facility] Note: Imported from external source. Encounters Encounter Provider Location Date Check-In Time Check-Out Time Diagnosis TELEHEALTH METHARMONY PENA MD [facility] 07/09/19 23 2:33PM 11:59PM Attention-deficit Hyperactivity Disorder,Bipolar I Disorder, Most Recent Episode, Depressed,General ized Anxiety Disorder,Panic Disorder Without Agoraphobia,Restl ess Legs Syndrome,Depressi on,Nonorganic Sleep Apnea Obstructive,Vitam in B12 Deficiency,Persis tent Insomnia,Psychoph ysiological Insomnia,Major Depression Insurance Includes: Active Insurance Policies Plan Name Member ID Group # Subscriber Relationship Effect meme Dates 1 - [employer] [id number] GELACIO Kiran DODGE Self 09/20/2020 - Unknown Clinical Notes Includes: Clinical Notes from this encounter No Clinical Notes Recorded
--- OUTSIDE RECORDS SUMMARY | 2024-05-04 16:12 | XMS_ITS | Encounter Summary ---
Author Organization [facility] Address [address] [place] [address] Phone Care Team Providers Care Riveter Hand Name Role Phone Dylan Bell MD Primary Care Provider [phone] Shyla Olivarez MD Unavailable Lewis Ramirez MD Unavailable [phone] Italo Fisher MD Unavailable Erasmo Wesley MD Unavailable Reason for Visit * Reason Comments Medication Refill Encounter Details Date Type Department Care Team (Late st Contact Info) Description 02/10/2024 Refill [facility] - Family [facility] [address] [place] [address] Dylan Bell MD [address] [address] Medication Refill Social History Tobacco Use Types Packs/Day Years Used Date Smoking Tobacco: Former Cigarettes 2 20 Smokeless Tobacco: Never Alcohol Use Standard Drinks/Week Comments Not Currently 2 (1 standard drink = 0.6 oz pur e alcohol) occasional C Utilities Answer Date Recorded In the past 12 months has e electric, gas, oil, or water company threatened to shut off services in your home? No 03/24/2023 Social Connection and Isolat ion Panel [NHANES] Answer Date Recorded In a typical week, how many times do you talk on the phone with family, friends, or neighbors? More than three times a week 03/24/2023 How often do you get togethe r with friends or relatives? More than three times a week 03/24/2023 How often do you attend chur ch or mu-ism services? Never 03/24/2023 Do you belong to any clubs o r organizations such as anglican groups, unions, fraternal or athletic groups, or school groups? Yes 03/24/2023 How often do you attend meet ings of the clubs or organizations you belong to? Never 03/24/2023 Are you , , di vorced, , never , or living with a partner? 03/24/2023 AUDIT-C Answer Date Recorded Q1: How often do you have a drink containing alcohol? Never 03/24/2023 Q2: How many drinks containi ng alcohol do you have on a typical day when you are drinking? Patient does not drink Q3: How often do you have si x or more drinks on one occasion? Never 03/24/2023 Overall Financial Resource Strain (CARDIA) Answe r Date Recorded How hard is it for you to pa y for the very basics like food, housing, medical care, and heating? Not hard at all 03/24/2023 [facility] - Occupational Stress Questionnaire Answer Date Recorded Do you feel stress - tense, restless, nervous, or anxious, or unable to sleep at night because your mind is troubled all the time - these days? Not at all 03/24/2023 Exercise Vital Sign Answer Date Recorde d On average, how many days pe r week do you engage in moderate to strenuous exercise (like a brisk walk)? 0 days 03/24/2023 On average, how many minutes do you engage in exercise at this level? 0 min 03/24/2023 Hunger Vital Sign Answer Date Recorded Within the past 12 months, y ou worried that your food would run out before you got the money to buy more. Never true 03/24/19 24 Within the past 12 months, t he food you bought just didn't last and you didn't have money to get more. Never true 03/24/2023 PRAPARE - Transportation Answer Date Re corded In the past 12 months, has l ack of transportation kept you from medical appointments or from getting medications? No 04/2023 In the past 12 months, has l ack of transportation kept you from meetings, work, or from getting things needed for daily living? No 03/24/2023 Housing Stability Vital Sign Answer Bassem e Recorded In the last 12 months, was t here a time when you were not able to pay the mortgage or rent on time? No 03/24/2023 In the last 12 months, how many places have you lived? 1 03/24/2023 In the last 12 months, was t here a time when you did not have a steady place to sleep or slept in a assisted (including now)? No 03/24/2023 Education Answer Date Recorded What is the highest level of school you have completed or the highest degree you have received? 11th grade 01/03/2022 Sexually Active Control Partners Comments Not Currently Abstinence, None Comments No Sex and Gender Information Value Date Recorded Sex Assigned at Not on file Legal Sex Female 10:56 PM CDT Gender Identity Not on file Sexual Orientation Not on file documented as of this encounter Miscellaneous Notes * Telephone Encounter - Allyson Mansfield RN - 02/10/2024 11:27 AM CST Refill on file according to last Rx. INE DESIGNER documented in this encounter Plan of Treatment Upcoming Encounters Date Type Department Care Team (Late st Contact Info) Description 09/22/2024 8:15 AM CDT Office Visit [facility] [address] [place] [address] Erasmo Wesley MD [address], [address] [address] documented as of this encounter Visit Diagnoses Not on filedocumented in this encounter Additional Health Concerns Assessment Noted Time PHQ-9 Depression Total Score: 0 11/11/19 17 9:00 AM CDT documented as of this encounter Care Teams Riveter Hand Relationship Specialty Start Date End Date Dylan Bell MD #2 [facility] [address] [place] [address] PCP - General Family Medicine 02/22/15 Shyla Olivarez MD #2 [facility] [address] [place] [address] Rheumatology 12/15/16 Lewis Ramirez MD [address] [facility] [address] [facility] [address] [place] [address] Obstetrics & Gynecology 03/08/18 Italo Fisher MD #2 [place] [id number] Consulting Physician Pulmonary Disease 06/11/21 Erasmo Wesley MD #2 [facility] [address] [place] [address] Consulting Physician Urology 12/24/23 documented as of this encounter
--- OUTSIDE RECORDS SUMMARY | 2024-05-04 16:12 | XMS_ITS | Encounter Summary ---
Author Organization [facility] Address [address] [place] [address] Phone Care Team Providers Care Substation Operator Name Role Phone Dylan Bell MD Primary Care Provider [phone] Shyla Olivarez MD Unavailable Lewis Ramirez MD Unavailable [phone] Italo Fisher MD Unavailable Erasmo Wesley MD Unavailable Reason for Visit * Reason Comments Medication Refill Encounter Details Date Type Department Care Team (Late st Contact Info) Description 08/05/2023 Refill [facility] Medical Group - Family [facility] #2 [place] [address] Dylan Bell MD #[address] [address] Medication Refill Social History Tobacco Use Types [...] often do you attend chur ch or confucianist services? Never 03/24/2023 Do you belong to any clubs o r organizations such as roman catholic groups, unions, fraternal or athletic groups, or [...] and heating? Not hard at all 03/24/2023 [facility] - Occupational Stress [...] place to sleep or slept in a fpc (including now)? No 03/24/2023 Education Answer Date [...] Telephone Encounter - Allyson Mansfield RN - 08/05/2023 10:50 AM CDT Medication(s) refilled and signed per [facility] Chronic Medication Refill Standing Order for Pediatricand Adult Patients. Requested Prescriptions Pending Prescriptions Disp Refills metoprolol Succinate (TOPROL-XL) 25 MG TABLET SR 24 HR [Pharmacy Med Name: METOPROLOL SUCC ER 25 MGTAB] 90 Tablet 2 Sig: TAKE 1 TABLET BY MOUTH EVERY DAY Beta-Blockers Protocol Passed - 08/05/2023 12:40 AM Passed - BP on record in the past year Clinician-entered: BP Readings from Last 3 Encounters: 07/06/23 138/62 06/04/23 122/68 03/25/23 136/68 Patient-entered: No data recorded Passed - Visit with relevant provider in past 12 months or upcoming 90 days Recent Visits Date Type Provider Dept 07/06/23 Office Visit Dylan Bell MD [facility] 06/09/23 Telemedicine Dylan Bell MD [facility] 06/04/23 Office Visit Moreno Jarquin MD [facility] 03/25/23 Office Visit Dylan Bell MD [facility] 11/19/22 Office Visit Ramsey Blanco APRN, [facility] 09/09/22 Office Visit Dylan Bell MD [facility] Showing recent visits within past 365 days and meeting all other requirements Future Appointments Date Type Provider Dept 10/14/23 Appointment Dylan Bell MD [facility] Showing future appointments within next 90 days and meeting all other requirements documented in this encounter Plan of Treatment Upcoming Encounters Date Type Department Care Team (Late st Contact Info) Description 09/22/2024 8:15 AM CDT Office Visit [facility] [place] [address] Erasmo Wesley MD #2 [facility] [address] [place] [address] documented as of this encounter Visit Diagnoses Not on filedocumented in this encounter Additional Health Concerns Infection Onset Date Last Indicated Resolved Time COVID - 19 01/18/2024 01/18/2024 01/18/2024 2:35 PM CDT Respiratory Rule-Out 01/18/2024 01/18/2024 024 2:35 PM CDT Assessment Noted Time PHQ-9 Depression Total Score: 0 11/11/19 17 9:00 AM CDT documented as of this encounter Care Teams Substation Operator Relationship Specialty Start Date End Date Dylan Bell MD #2 [facility] [address] [place] [address] PCP - General Family Medicine 02/22/15 Shyla Olivarez MD #2 [facility] [address] [place] [address] Rheumatology 12/15/16 Lewis Ramirez MD [address] [facility] [address] [place] [address] Obstetrics & Gynecology 03/08/18 Italo Fisher MD #2 [place] [address] Consulting Physician Pulmonary Disease 06/11/21 Erasmo Wesley MD #2 [facility] [address] [place] [address] Consulting Physician Urology 12/24/23 documented as of this encounter
--- OUTSIDE RECORDS SUMMARY | 2024-05-04 16:12 | XMS_ITS | Encounter Summary ---
Author Organization [facility] Address [address] [place] [address] Phone Care Team Providers Care Head Chopper Name Role Phone Dylan Bell MD Primary Care Provider [phone] Shyla Olivarez MD Unavailable Lewis Ramirez MD Unavailable [phone] Italo Fisher MD Unavailable Erasmo Wesley MD Unavailable Reason for Visit * Reason Comments Medication Refill Encounter Details Date Type Department Care Team (Late st Contact Info) Description 11/10/2023 Refill [facility] Medical Group - Family [facility] #[address] [place] [address] Dylan Bell MD #[address] [address] Medication Refill Social History Tobacco Use Types [...] often do you attend chur ch or temple services? Never 03/24/2023 Do you belong to any clubs o r organizations such as confucianism groups, unions, fraternal or athletic groups, or [...] and heating? Not hard at all 03/24/2023 [facility] - Occupational Stress [...] place to sleep or slept in a detention (including now)? No 03/24/2023 Education Answer Date [...] Telephone Encounter - Allyson Mansfield RN - 11/11/2023 7:27 AM CDT Images from the original note were not included. Esomeprazole Magnesium Dispensed Days Supply Quantity Provider Pharmacy ESOMEPRAZOLE MAG DR 20 MG CAP 10/05/2023 90 90 Each Dylan Bell MD [id number] - ... documented in this encounter Plan of Treatment Upcoming Encounters Date Type Department Care Team (Late st Contact Info) Description 09/22/2024 8:15 AM CDT Office Visit [facility] [address] [place] [address] Erasmo Wesley MD [address], [address] [address] documented as of this encounter Visit Diagnoses Not on filedocumented in this encounter Additional Health Concerns Infection Onset Date Last Indicated Resolved Time COVID - 19 01/18/2024 01/18/2024 01/18/2024 2:35 PM CDT Respiratory Rule-Out 01/18/2024 01/18/2024 024 2:35 PM CDT Assessment Noted Time PHQ-9 Depression Total Score: 0 11/11/19 17 9:00 AM CDT documented as of this encounter Care Teams Head Chopper Relationship Specialty Start Date End Date Dylan Bell MD #2 [facility] [address] [place] [address] PCP - General Family Medicine 02/22/15 Shyla Olivarez MD #2 [facility] [address] [place] [address] Rheumatology 12/15/16 Lewis Ramirez MD [address] [facility] [address] [facility] [address] [place], [place] [id number] Obstetrics & Gynecology 03/08/18 Italo Fisher MD #2 [place] [address] Consulting Physician Pulmonary Disease 06/11/21 Erasmo Wesley MD #2 [facility] [address] [place] [address] Consulting Physician Urology 12/24/23 documented as of this encounter
--- OUTSIDE RECORDS SUMMARY | 2024-05-04 16:12 | XMS_ITS | Clinical Summary ---
Author Organization [facility] Address [address] [place] [address] Phone Care Team Providers Care Cleaner Greaser Name Role Phone MARY SORIANO, RADHA A Primary Care Provider [phone] JACQUIE SORIANO, VERÓNICA BEAN Unavailable [phone] Reason for Visit and Chief Complaint NO SHOW Problems Includes: Problems addressed during this encounter and other active Problems All Visits Onset Date Resolved Date Provider Condition S tatus Attention-deficit Hyperactivity Disorder 09/20/2020 VERÓNICA KAPLAN MD Active Last Documented On 1 5:58PM ; [facility] Restless Legs Syndrome 01/21/2019 VERÓNICA EMERY MD Active Last Documented On 9 4:02AM ; [facility] Depression 12/21/2018 VERÓNICA PENA MD Ac tive Last Documented On 9 2:49AM ; [facility] Vitamin B12 Deficiency 08/21/2017 VERÓNICA EMERY MD Active Last Documented On 8 4:01AM ; [facility] Major Depression 12/21/2016 VERÓNICA PENA MD Active Last Documented On 8 9:33PM ; [facility] Fibromyalgia 07/30/2016 VERÓNICA PENA MD Active Last Documented On 7 7:27PM ; [facility] Psychophysiological Insomnia 02/21/2016 VERÓNICA PENA MD Active Last Documented On 7 9:45PM ; [facility] Gerd 04/20/2014 VERÓNICA PENA MD Ac tive Last Documented On 5 3:39PM ; [facility] Gout 11/07/2013 VERÓNICA PENA MD Ac tive Last Documented On 4 12:31AM ; [facility] Bipolar I Disorder, Most Rec ent Episode, Depressed 07/15/2012 VERÓNICA PENA MD Active Last Documented On 3 4:26PM ; [facility] 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 VERÓNICA PENA MD Active Last Documented On 3 9:02AM ; [facility] Generalized Anxiety Disorder 06/08/2012 VERÓNICA PENA MD Active Last Documented On 3 9:01AM ; [facility] Nonorganic Sleep Apnea Obstructive 06/08/2012 M STEFANO PENA MD Active Last Documented On 3 9:01AM ; [facility] Panic Disorder Without Agoraphobia 06/08/2012 M STEFANO PENA MD Active Last Documented On 3 9:01AM ; [facility] Plan of Treatment Pending Tests Order Diagnosis Results Due Ordering P rovider Lab TSH 03/08/20 VERÓNICA FRANCO MD Last Documented On 1 6:05PM ; [facility] Lab CMP 03/08/20 VERÓNICA FRANCO MD Last Documented On 1 6:05PM ; [facility] LIPID 03/08/20 VERÓNICA FRANCO MD Last Documented On 1 6:05PM ; [facility] B12 & FOLATE 03/08/20 VERÓNICA PENA MD Last Documented On 1 6:05PM ; [facility] Assessments Includes: Assessments from this encounter No Assessments Recorded Medical Equipment - Implanted Devices Includes: Current Devices No Medical Equipment Recorded Medications Includes: Medications discussed during this encounter and other current Medications Current Medications (continue as prescribed) Systane 0.4-0.3% Ophthalmic Solution 07/08/2022 Prov ider: Diagnosis: use as directed prn Last Documented On 07/08/2022 2:58PM By SHANTEL CRUZ ; [facility] Famotidine 20 MG Oral Tablet 06/11/2022 Provider: TYLER ALVARENGA NP Diagnosis: 1 tab bid Last Documented On 07/08/2022 2:58PM By SHANTEL LANA ; [facility] Focalin 10 MG Oral Tablet 04/25/2022 Provider: VERÓNICA PENA MD Diagnosis: Attn-defct hyper activity disorder, predom inattentive type as directed - 1 tab in am with food Last Documented On 04/25/2022 2:51PM By Adrianne Pena MD ; [facility] Solifenacin Succinate 5 MG Oral Tablet 04/24/2022 Pr ovider: TYLER ALVARENGA NP Diagnosis: 1 tab daily Last Documented On 07/08/2022 2:59PM By SHANTEL CRUZ ; [facility] traZODone HCl 50 MG Oral Tablet 02/11/2022 Provider: VERÓNICA PENA MD Diagnosis: Psychophysiologi c insomnia TAKE 2 TABLETS BY MOUTH AT B EDTIME NEEDED FOR SLEEP Last Documented On 02/11/2022 1:21PM By Adrianne Pena MD ; [facility] Esomeprazole Magnesium 20 MG Oral Capsule Delayed Release 01/31/2022 Provider: RADHA HERNANDEZ MD Diagnosis: 1 capsule in the am Last Documented On 02/26/2022 2:49PM By SHANTEL PAGAN Anderson ; [facility] Lexapro 20 MG Oral Tablet 10/28/2021 Provider: VERÓNICA PENA MD Diagnosis: Major depressive disorder, recurrent, unspecified One tablet daily -- please g meme GENERIC Last Documented On 10/28/2021 3:10PM By Adrianne Pena MD ; [facility] lamoTRIgine 100 MG Oral Tablet 10/28/2021 Provider: VERÓNICA PENA MD Diagnosis: Bipolar disord, crnt epsd depress, mild or mod severt, unsp TAKE 1 TABLET BY MOUTH EVERY DAY Last Documented On 10/28/2021 3:10PM By Adrianne Pena MD ; [facility] busPIRone HCl 10 MG Oral Tablet 10/28/2021 Provider: VERÓNICA PENA MD Diagnosis: Generalized anxi ety disorder One tablet at bed time Last Documented On 10/28/2021 3:10PM By Adrianne Pena MD ; [facility] Gabapentin 600 MG Oral Tablet 10/07/2021 Provider: LEODAN LIU MD Diagnosis: 1 tab tid Last Documented On 10/28/2021 1:59PM By SHANTEL PAGAN A ; [facility] Amoxicillin 500 MG Oral Capsule 09/26/2021 Provider: Diagnosis: prior to dental work Last Documented On 10/28/2021 2:00PM By SHANTEL LANA ; [facility] Alendronate Sodium 35 MG Oral Tablet 01/07/2021 Prov ider: Diagnosis: [address] Lewis Moreira Last Documented On 1 11:34AM By SHANTEL PAGAN [facility] ; [facility] Atorvastatin Calcium 20 MG Oral Tablet 06/13/2020 Pr ovider: RADHA HERNANDEZ MD Diagnosis: 1 tab nightly Last Documented On 1 10:34AM By SHANTEL PAGAN [facility] ; [facility] Metoprolol Succinate ER 25 M G Oral Tablet Extended Release 24 Hour 06/06/2020 Provider: RADHA DUNLAP MD Diagnosis: 1 tab daily Last Documented On 1 10:34AM By SHANTEL CRUZ ; [facility] Lumigan 0.01% Ophthalmic Solution 06/05/2020 Provide r: Diagnosis: use as directed Dr. Bill Jacob Last Documented On 1 10:35AM By SHANTEL LAN ; [facility] Hydroxychloroquine Sulfate 200 MG Oral Tablet 11/30/19 20 Provider: LEODAN LIU MD Diagnosis: 1 tab bid Last Documented On 03/02/2020 4:48PM By SHANTEL CRUZ ; [facility] Aspirin 81 MG Tablet 06/22/2014 Provider: Diagnosis: Last Documented On 5 10:06AM By Adrianne Pena MD ; [facility] Medications Administered Includes: Administered Medications from this encounter No Administered Medications Recorded Results Includes: Results discussed during this encounter No Results Recorded For Specified Dates History of Present Illness Includes: History of Present Illness from this encounter No History of Present Illness Recorded Social History No Social History Recorded - Smoking Status Unknown Medical History Includes: Medical History addressed during this encounter No Medical History Recorded Family History Includes: Family History addressed during this encounter No Family History Recorded Review of Systems Includes: Review of Systems from this encounter No Review of Systems Recorded Mental Status Includes: Mental Status from this encounter No Mental Status Recorded Functional Status Includes: Functional Status from this encounter No Functional Status Recorded Physical Exam Includes: Physical Exam from this encounter No Physical Exam Recorded Allergies Includes: Active Allergies Substance Type Reaction Onset Date Resolved Date Statu s Tubersol Allergy Hives / Urticaria 07/09/2018 A ctive Last Documented On 05/27/2023 11:24AM ; [facility] Note: Imported from external source. predniSONE Allergy rash 07/24/2015 Active Last Documented On 05/27/2023 11:24AM ; [facility] Note: Imported from external source. Naproxen Allergy Asthma / Allergi c asthma, Shortness of Breath / Dyspnea 06/22/2014 Active Last Documented On 05/27/2023 11:24AM ; [facility] Note: Imported from external source. Ibuprofen Allergy rash 01/29/2016 Resolved Last Documented On 08/30/2020 10:11AM ; [facility] Note: rash Ibuprofen Allergy rash 01/29/2016 Active Last Documented On 05/27/2023 11:24AM ; [facility] Note: Imported from external source. Flexeril Allergy Asthma / Allergi c asthma, Shortness of Breath / Dyspnea 06/22/2014 Active Last Documented On 05/27/2023 11:24AM ; [facility] Note: Imported from external source. Encounters Encounter Provider Location Date Check-In Time Check-Out Time Diagnosis NO SHOW VERÓNICA PENA MD [facility] 06/23/2022 10:00AM 11:59PM Insurance Includes: Active Insurance Policies Plan Name Member ID Group # Subscriber Relationship Effect meme Dates 1 - [employer] [id number] GELACIO DODGE Self 09/20/2020 - Unknown Clinical Notes Includes: Clinical Notes from this encounter No Clinical Notes Recorded
--- OUTSIDE RECORDS SUMMARY | 2024-05-04 16:12 | XMS_ITS | Clinical Summary ---
Author Organization [facility] Address [address] [place] [address] Phone Care Team Providers Care [employer] Contractor Name Role Phone Dylan Bell MD Primary Care Provider [phone] Shyla Olivarez MD Unavailable Lewis Ramirez MD Unavailable [phone] Italo Fisher MD Unavailable Erasmo Wesley MD Unavailable Allergies Active Allergy Reactions Criticality Noted Date Comments Cyclobenzaprine Shortness of Breath,Unknown 03/01/2015 Difficulty breathy Hydrocodone Unknown 09/19/2021 Methylprednisolone Rash 03/07/2020 Naproxen Unknown 03/01/2015 Difficulty breathing Tuberculin, Ppd Rash Medium 11/14/2021 Acetaminophen-Codeine Unknown Low 07/05/2020 Medications escitalopram (LEXAPRO) 20 MG Tablet Take 20 mg by mouth nightly. Active aspirin EC 81 MG Tablet Delayed Response Take 81 mg by mouth daily. Active lamoTRIgine (LAMICTAL) 100 MG Tablet Take 100 mg by mouth nightly. 1 01/04/20 15 Active traZODone (DESYREL) 50 MG Tablet Take 100 mg by mouth nightly. Takes 2 doses at night Active busPIRone (BUSPAR) 10 MG Tablet Take 10 mg by mouth nightly. 02/19/20 17 Active gabapentin (NEURONTIN) 600 MG Tablet 600 mg 3 times daily. 11/07/19 20 Active hydroxychloroqu ine (PLAQUENIL) 200 MG Tablet Take 1 Tablet by mouth 2 times daily. 90 Tablet 07/22/19 22 Active methocarbamol (ROBAXIN) 750 MG TabletIndicatio ns:Acute bilateral low back pain without sciatica Take 1 Tablet by mouth 3 times daily as needed (muscle spasms). 45 Tablet 1 04/24/19 23 Active Vyvanse 30 MG Capsule TAKE 1 CAPSULE BY MOUTH EVERY DAY IN THE MORNING 10/14/19 23 Active Sunosi 150 MG Tablet TAKE 1 TABLET BY MOUTH EVERY DAY IN THE MORNING 10/15/19 [address] in affected eye(s). Active Magnesium 500 MG Capsule Take by mouth. Acti ve [place]-3 Fatty Acids ([place]-3 CF) 1000 MG Capsule Take by mouth. Activ e Multiple Vitamins-Minera ls (MULTIVITAL PO) Take by mouth daily. Active BIOTIN FORTE PO Take by mouth. Active traMADol (ULTRAM) 50 MG TabletIndicatio ns:Chest wall pain Take 1 Tablet by mouth every 6 hours as needed for Moderate or more severe pain. 12 Tablet 06/08/19 24 Active metoprolol Succinate (TOPROL-XL) 25 MG TABLET SR 24 HR TAKE 1 TABLET BY MOUTH EVERY DAY 90 Tablet 2 08/05/19 24 Active terbinafine (LamISIL) 250 MG Tablet Take 250 mg by mouth daily. 09/12/19 24 Active alendronate (FOSAMAX) 70 MG Tablet Take 70 mg by mouth every 7 days. Active esomeprazole (NexIUM) 20 MG CAPSULE DELAYED RELEASE TAKE 1 CAPSULE BY MOUTH EVERY DAY 90 Capsule 1 12/23/19 24 Active famotidine (PEPCID) 20 MG TabletIndicatio ns:Gastroesopha geal reflux disease, unspecified whether esophagitis present TAKE 1 TABLET BY MOUTH TWICE A DAY 180 Tablet 1 02/10/20 24 Active albuterol 108 (90 Base) MCG/ACT Aerosol SolutionIndicat ions:Restrictiv e lung disease take 2 Puffs by inhalation every 4 hours as needed for Wheezing or Cough. 18 g 1 02/22/20 24 Active Breo Ellipta 200-25 MCG/ACT AEROSOL POWDER, BREATH ACTIVATED INHALE 1 PUFF BY MOUTH EVERY DAY 60 Each 2 02/23/20 24 Active atorvastatin (LIPITOR) 20 MG Tablet TAKE 1 TABLET BY MOUTH EVERY DAY 90 Tablet 05/04/19 25 Active solifenacin (VESICARE) 5 MG TabletIndicatio ns:OAB (overactive bladder) TAKE 1 TABLET BY MOUTH EVERY DAY 90 Tablet 05/04/19 25 Active atorvastatin (LIPITOR) 20 MG Tablet TAKE 1 TABLET BY MOUTH EVERY DAY 90 Tablet 2 02/27/20 23 025 Discontinued solifenacin (VESICARE) 5 MG TabletIndicatio ns:OAB (overactive bladder) TAKE 1 TABLET BY MOUTH EVERY DAY 90 Tablet 1 11/04/19 24 025 Discontinued Active Problems Problem Noted Date Diagnosed Date Hypokalemia 10/14/2023 Chronic RLQ pain 10/14/2023 Elevated LFTs 07/06/2023 Multiple closed fractures of ribs of left side 0 07/06/2023 Cervical lymphadenopathy 06/21/2023 Sternal pain 06/10/2023 RSV (acute bronchiolitis due to respiratory syncytial virus) 03/25/2023 Postmenopausal 03/25/2023 Neck swelling 03/25/2023 Right hip pain 09/09/2022 Right flank pain 09/09/2022 Noncompliance 05/27/2022 Pulmonary emphysema 05/27/2022 Mediastinal lymphadenopathy 05/27/2022 Body aches 05/27/2022 History of colon polyps 05/27/2022 Community acquired pneumonia 07/18/2021 Rash 03/05/2021 Hematuria 03/05/2021 Obesity (BMI 30-39.9) 06/11/2020 ALLY (obstructive sleep apnea) 05/22/2020 Anemia, normocytic normochromic 03/19/2020 Blurry vision, bilateral 03/07/2020 Chronic joint pain 03/07/2020 Lymphadenopathy 03/07/[address] 03/07/2020 Non morbid obesity 12/06/2019 Hypotension 12/06/2019 Fibromyalgia 09/06/2019 Systemic lupus 09/06/2019 Pulmonary nodules 08/05/2019 Seasonal allergies 01/10/2019 Insomnia 01/10/2019 Anxiety 01/10/2019 History of Clostridium difficile infection 03/10 Gastroesophageal reflux disease 05/21/2017 Bipolar disorder, in partial remission, most recent episode mixed 12/15/2016 Hx of bariatric surgery 12/15/2016 Fibromyositis 07/30/2016 Chronic pain syndrome 09/13/2015 High blood pressure 09/13/2015 Migraine without aura and wi th status migrainosus, not intractable 09/13/2015 Right knee pain 04/10/2015 Hyperlipidemia 04/10/2015 Primary gout 04/10/2015 Primary gout 02/21/2015 B12 deficiency 02/21/2015 Vitamin D insufficiency 02/21/2015 Bipolar affective disorder 08/06/2013 Overview (01/18/2024): Bipolar disorder Sensorineural hearing loss, asymmetrical Encounters Date Type Department Care Team Description 05/04/2024 [facility] [place] [address] Dylan Bell MD Medication Refill 03/24/2024 9:30 AM TELEPHONE DIAPHRAGM ASSEMBLER Procedure Visit [facility] [place] [address] Erasmo Wesley MD Asymptomatic microscopic hematuria (Primary Dx); Mixed stress and urge urinary incontinence Discharge Disposition: Discharged to home or Selfcare 03/24/2024 Travel 03/22/2024 Travel 02/23/2024 [facility] [place] [address] Dylan Bell MD Medication Refill 02/10/2024 [facility] [place] [address] Ramsey Blanco APRN, COFFEE SHOP MANAGER Medication Refill 02/10/2024 [facility] [place] [address] Dylan Bell MD Medication Refill from Last 3 Months Immunizations Immunization Administration Dates Next Due Influenza Vaccine greater than 3 yrs 03/05/2016, 12/11/2008 Influenza Vaccine, Quadrivalent, PF 03/02/2015 Influenza, Injectable, Quadrivalent 03/05/2016 PUR FLU 3+ YRS PRES FREE QUAD IM 03/02/2015 Family History Medical History Relation Name Comments Diabetes Brother 1 Britany Palomo Diabetic High Cholesterol Brother 2 Allan Neely Diabetes Father Pineda Neely Passed - Hear t attack Heart Attack Father Pineda Neely High Cholesterol Father Pineda Neely Hypertension Father Pineda Neely Stroke Father Pineda Neely Cancer Mother Britany [facility] Osteoarthritis Mother Britany [facility] Rheumatoid Arthritis Mother Britany [facility] Stroke Mother Britany [facility] Breast Cancer Sister 1 LaDean [place] Cancer Sister 1 LaDean [place] Diabetes Sister 1 LaDean [place] Passed - Breas t cancer Cancer Sister 2 Becky [place] High Cholesterol Sister 2 Becky Custer Relation Name Status Comments Brother 1 Britany Palomo Alive Brother 2 Allan Neely Father Pineda Neely Mother Britany Vidal Sister 1 LaDean [place] Alive Sister 2 Becky Tripathi Social History Tobacco Use Types Packs/Day Years Used Date Smoking Tobacco: Former Cigarettes 2 20 Smokeless Tobacco: Never Tobacco Cessation:Counseling Given: Not Answered Alcohol Use Standard Drinks/Week Comments Not Currently 2 (1 standard drink = 0.6 oz pur e alcohol) occasional [employer] Utilities Answer Date Recorded In the past 12 months has [email or web address] electric, gas, oil, or water company threatened [...] 03/24/2023 How often do you attend chur or bahai services? Never 03/24/2023 Do you belong to any clubs o r organizations such as yazdanism groups, unions, fraternal or athletic groups, or [...] and heating? Not hard at all 03/24/2023 [facility] - Occupational [...] on file Sexual Orientation Not on file Last Filed Vital Signs Vital Sign Reading Time Taken Comments Blood Pressure 128/88 03/24/2024 9:31 AM TELEPHONE DIAPHRAGM ASSEMBLER Pulse 95 03/24/2024 9:31 AM TELEPHONE DIAPHRAGM ASSEMBLER Temperature 36.4 C (97.6 F) 01/18/2024 2:04 PM CDT Respiratory Rate 20 03/24/2024 9:31 AM TELEPHONE DIAPHRAGM ASSEMBLER Oxygen Saturation 98% 03/24/2024 9:31 AM TELEPHONE DIAPHRAGM ASSEMBLER Inhaled Oxygen Concentration - - Weight 94.8 kg (209 lb) 03/24/2024 9:31 AM TELEPHONE DIAPHRAGM ASSEMBLER Height 167.6 cm (5' 6 ) 03/24/2024 9:31 AM TELEPHONE DIAPHRAGM ASSEMBLER Body Mass Index 33.73 03/24/2024 9:31 AM TELEPHONE DIAPHRAGM ASSEMBLER Plan of Treatment Upcoming Encounters Date Type Department Care Team (Late st Contact Info) Description 09/22/2024 8:15 AM CDT Office Visit [facility] [address] [place] [address] Erasmo Wesley MD [address], [address] [address] Health Maintenance Due Date Last Done Comments TdaP Immunization 1966 SARS-COV-2 Immunization (#1) 1971 Hepatitis B Immunization (1 of 3 - 19+ 3-dose series) 1985 Pneumococcal Immunization (50+ years) (1 of 2 - PCV) 1985 Zoster Immunization (1 of 2) 1985 Cologuard 2016 Mammogram 06/13/2022 06/13/2020, 11/21, 12/01/2018, Additional history exists Immunochemical Fecal Occult Blood 08/01/2022 08/01/2021 Influenza Immunization (#1) 11/22/202302/20, 03/05/2016, 03/02/2015, Additional history exists Colonoscopy 06/13/2026 06/13/2016 Colorectal Cancer Screening 06/13/2026 Respiratory Syncytial Virus (RSV) Immunization (Adult) (1 - 1-dose 75+ series) 2041 06/13/2016 Pap Smear Discontinued 05/14/2017 Hepatitis C Virus (HCV) Screening Completed 02/23/2018 Cervical Cancer Screening (CCS) Discontinued HPV/Cotest Discontinued Meningococcal Immunization (ACWY) Aged Out No longer eligible based on patient's age to complete this topic Rotavirus Immunization Aged Out No lo nger eligible based on patient's age to complete this topic Procedures Procedure Name Priority Date/Time Associated Diagnosis Comments RHEUMATOLOGY CONSULT 04/22/2024 12:00 AM TELEPHONE DIAPHRAGM ASSEMBLER DILATED EYE EXAM 04/11/2024 1 2:00 AM TELEPHONE DIAPHRAGM ASSEMBLER POCT UA AUTOMATED W/O MICRO Routine 03/24/2024 9:40 AM TELEPHONE DIAPHRAGM ASSEMBLER Asymptomatic microscopic hematuria Mixed stress and urge urinary incontinence CYSTOURETHROSCOPY Routine 03/24/2024 9:3 0 AM TELEPHONE DIAPHRAGM ASSEMBLER Asymptomatic microscopic hematuria STOOL, OCCULT BLOOD IMMUNOASSAY (IFOB) Routine 08/01/2021 10:00 AM CDT Anemia, normocytic normochromic MERY MRI BREAST W/WO CONTRAST,BILATERAL Routine 06/13/2020 HEPATITIS C ANTIBODY Routine 02/23/2018 4:45 PM TELEPHONE DIAPHRAGM ASSEMBLER Encounter for hepatitis C screening test for low risk patient PATHOLOGY CYTOLOGY PROPERTY CLAIMS MANAGER Routine 05/14/2017 COLONOSCOPY Routine 06/13/2016 from Last 3 Months or Most Recently Relevant to Health Maintenance Results * RHEUMATOLOGY CONSULT (04/22/2024 12:00 AM TELEPHONE DIAPHRAGM ASSEMBLER) 04/22/2024 us Dylan Bell MD GENERIC SCAN ORDERS CONSULT Final Result SCAN * DILATED EYE EXAM (04/11/2024 12:00 AM TELEPHONE DIAPHRAGM ASSEMBLER) 04/11/2024 Provider Scan PROCEDURE/MINOR SURGICAL ORDERAB LES Final Result SCAN * (ABNORMAL) POCT UA AUTOMATED W/O MICRO (03/24/2024 9:40 AM TELEPHONE DIAPHRAGM ASSEMBLER) POC UA SPECIFIC GRAVITY 1.020 URINE PH 5.0 5.0 - 9.0 POC URINE LEUKOCYTES Negative Negative Sascha/uL POC URINE NITRITE Negative Negative POC URINE PROTEIN Negative Negative mg/dL POC URINE GLUCOSE Norm Negative, Norm mg/dL POC URINE KETONE Negative Negative mg/dL POC URINE UROBILINOGEN 1 E.U./dL (mg/dL) Norm, 0.2 E.U./dL (mg/dL), 1 E.U./dL (mg/dL) POC URINE BILIRUBIN Negative(A) Negative mg/dL POC URINE BLOOD INSTRUMENT Negative Negative [place]/uL POC URINE COLOR Yellow POC URINE CLARITY Clear Urine 03/24/2024 9:40 AM TELEPHONE DIAPHRAGM ASSEMBLER Erasmo Wesley MD POINT OF CARE TESTING (MANUAL) F inal Result * CYSTOURETHROSCOPY (03/24/2024 9:30 AM TELEPHONE DIAPHRAGM ASSEMBLER) Narrative Erasmo Wesley MD - 03/24/2024 9:30 AM TELEPHONE DIAPHRAGM ASSEMBLER Erasmo Wesley MD 03/24/2024 9:56 AM Office cystoscopy 03/24/2024 The patient was placed in a dorsal lithotomy position. Genitalia were prepped and draped in a sterile fashion. The flexible cystoscope was introduced into the bladder. The bladder looked normal with no tumors, stones or diverticula. Ureteral orifices looked normal and were effluxing clear urine. Urethra was normal. Cystoscope was removed. She tolerated the procedure well. Erasmo Wesley MD [place] - SURGERY Final Result * STOOL, OCCULT BLOOD IMMUNOASSAY (IFOB) (08/01/2021 10:00 AM CDT) OCCULT BLOOD - IFOB Negative Negative 08/06/2021 4:47 AM CDT [facility] Other STOOL SPECIMEN / Unknown Non-Phlebotomy Collection / Unknown 08/01/2021 10:00 AM CDT 08/01/2021 10:07 AM CDT Dylan Bell MD BODY FLUIDS & STOOLS ORDERA BLES Final Result Performing Organization Address [facility] Co de Phone Number [facility] [address] [place] [address], [place] * [facility] MRI BREAST W/WO CONTRAST,BILATERAL (06/13/2020) Anatomical Region Laterality Modality breast Bilateral Other Lewis Moreira MD IMG MR ORDERABLES Final Re sult * HEPATITIS C ANTIBODY (02/23/2018 4:45 PM TELEPHONE DIAPHRAGM ASSEMBLER) hepatitis C antibody 0.10 <1 S/CO 02/23/2018 10:13 PM TELEPHONE DIAPHRAGM ASSEMBLER [facility] Comment: Signal/Cutoff ratio < 0.79 is Nondetected Signal/Cutoff ratio 0.80-0.99 is Grayzone Signal/Cutoff ratio > 0.99 is Detected Supplemental assays are recommended if signal/cutoff ratio is >/=1.00. Signal/cutoff ratio result >/= 5.00 is 97% predictive of positivity for recombinant immunoblot assay (RIBA) and will be reported to the [place] Department of Public [facility] as required. Blood specimen (specimen) Venipuncture / Unknown 02/23/2018 4:45 PM TELEPHONE DIAPHRAGM ASSEMBLER 02/23/2018 4:47 PM TELEPHONE DIAPHRAGM ASSEMBLER Dylan Bell MD CHEMISTRY ORDERABLES Final Result Performing Organization Address [facility] Co de Phone Number [facility] [address] [place] [address], [place] * PATHOLOGY CYTOLOGY PROPERTY CLAIMS MANAGER (05/14/2017) Specimen of unknown material (specimen) Lewis Moreira MD PATHOLOGY/CYTOLOGY ORDERAB LES Final Result * HM COLONOSCOPY (06/13/2016) Lewis Moreira MD PROCEDURE/MINOR SURGICAL O RDERABLES Final Result from Last 3 Months or Most Recently Relevant to Health Maintenance Insurance [facility] O[facility] Advance Directives Documents on File Type Date Recorded Patient Internal Control Analyst Expl anation Other Advance Directive 08/28/2021 1:34 PM PROCEDURE CONSENT/URO * Full Code (Latest Code Status on File) Date Activated Date Inactivated Comments 07/18/2021 11:48 PM 07/21/2021 5:36 PM CPR-Full Toney atment: FULL ARREST: Attempt Resuscitation/CPR wit intubation and mechanical ventilation. PRE-ARREST: Use entire range of life support measures to stabilize the patient. Care Teams [employer] Contractor Relationship Specialty Start Date End Date Dylan Bell MD [address] [facility] [address] [place] [address] PCP - General Family Medicine 02/22/15 Shyla Olivarez MD [address] [facility] [address] [place] [address] Rheumatology 12/15/16 Lewis Ramirez MD [address] [facility] [address] [place] [address] Obstetrics & Gynecology 03/08/18 Italo Fisher MD [address] [facility] [place] [address] Consulting Physician Pulmonary Disease 06/11/21 Erasmo Wesley MD [address] [address] Consulting Physician Urology 12/24/23
--- OUTSIDE RECORDS SUMMARY | 2024-05-04 16:12 | XMS_ITS | Clinical Summary ---
Author Organization [facility] Address [address] [place] [address] Phone Care Team Providers Care Metal Finisher Name Role Phone JACQUIE SORIANO, VERÓNICA BEAN Unavailable [phone] Reason for Visit and Chief Complaint The Chief Complaint is: follow up for bipolar depression and anxiety Problems Includes: Problems addressed during this encounter and other active Problems Current Visit Onset Date Resolved Date Provider Conditio n Status Nonorganic Sleep Apnea Obstructive 09/11/2022 VERÓNICA PENA MD Active Last Documented On 3 3:50PM ; [facility] Attention-deficit Hyperactivity Disorder 09/20/2020 Active Last Documented On 3 5:53PM ; [facility] Restless Legs Syndrome 01/21/2019 Ac tive Last Documented On 3 5:52PM ; [facility] Major Depression 12/21/2016 Active Last Documented On 3 5:51PM ; [facility] Psychophysiological Insomnia 02/21/2016 Active Last Documented On 3 5:50PM ; [facility] Bipolar I Disorder, Most Recent Episode, Depressed 013 Active Last Documented On 3 5:45PM ; [facility] Generalized Anxiety Disorder 06/08/2012 Active Last Documented On 3 5:45PM ; [facility] Past Visits Onset Date Resolved Date Provider Condition Status Depression 12/21/2018 Active Last Documented On 3 5:52PM ; [facility] Vitamin B12 Deficiency 08/21/2017 Ac tive Last Documented On 3 5:51PM ; [facility] Fibromyalgia 07/30/2016 Active Last Documented On 3 5:50PM ; [facility] Gerd 04/20/2014 Active Last Documented On 3 5:47PM ; [facility] Gout 11/07/2013 Active Last Documented On 3 5:47PM ; [facility] Panic Disorder Without Agoraphobia 06/08/2012 Active Last Documented On 3 5:45PM ; [facility] Plan of Treatment Bipolar Disorder - Lamictal [...] which helps some - Last Documented On 01/26/2023 3:59AM ; [facility] Future Appointments Date Time Location Provi cory TELEHEALTH ADULT PSYCH ESTABLISHED 05/18/2024 11:00AM [facility] PENA MD Last Documented On 4 2:59PM ; [facility] Assessments Includes: Assessments from this encounter Findings - Obstructive sleep apnea - Last Documented On 01/26/2023 3:59AM ; [facility] - Restless legs syndrome - Last Documented On 01/26/2023 3:59AM ; [facility] - Attention-deficit hyperactivity disorder - Last Documented On 01/26/2023 3:59AM ; [facility] - Bipolar I disorder, most recent episode, depressed - Last Documented On 01/26/2023 3:59AM ; [facility] - Major depressive disorder - Last Documented On 01/26/2023 3:59AM ; [facility] - Psychophysiological insomnia - Last Documented On 01/26/2023 3:59AM ; [facility] - Generalized anxiety disorder - Last Documented On 01/26/2023 3:59AM ; [facility] Medical Equipment - Implanted Devices Includes: Current Devices No Medical Equipment Recorded Medications Includes: Medications discussed during this encounter and other current Medications Current Medications (continue as prescribed) Vyvanse 30 MG Oral Capsule 08/07/2023 Provider: VERÓNICA PENA MD Diagnosis: Attn-defct hyper activity disorder, predom inattentive type 1 Capsule every morning Last Documented On 08/07/2023 11:23AM By Adrianne Pena MD ; [facility] Famotidine 20 MG Oral Tablet 05/21/2023 Provider: TYLER ALVARENGA NP Diagnosis: 1 tab bid Last Documented On 05/27/2023 11:32AM By SHANTEL CRUZ ; [facility] traZODone HCl 50 MG Oral Tablet 05/12/2023 Provider: VERÓNICA PENA MD Diagnosis: Psychophysiologi c insomnia TAKE 2 TABLETS BY MOUTH AT B EDTIME NEEDED FOR SLEEP. Last Documented On 05/12/2023 8:56AM By Adrianne Pena MD ; [facility] Alendronate Sodium 70 MG Oral Tablet 04/28/2023 Prov ider: ADY MILLER MD Diagnosis: 1 tab weekly Last Documented On 05/27/2023 11:32AM By SHANTEL CRUZ ; [facility] Sunosi 150 MG Oral Tablet 03/17/2023 Provider: VERÓNICA PENA MD Diagnosis: Obstructive slee p apnea (adult) (pediatric) 1 tablet in the morning Last Documented On 03/17/2023 1:25PM By Adrianne Pena MD ; [facility] Sunosi 150 MG Oral Tablet 02/11/2023 Provider: ME KRISTIAN PENA MD Diagnosis: 1 tablet in the morning Last Documented On 03/17/2023 12:40PM By SHANTEL CRUZ ; [facility] lamoTRIgine 100 MG Oral Tablet 02/10/2023 Provider: VERÓNICA PENA MD Diagnosis: Bipolar disord, crnt epsd depress, mild or mod severt, unsp One tablet daily Last Documented On 02/10/2023 12:51PM By Adrianne Pena MD ; [facility] Esomeprazole Magnesium 20 MG Oral Capsule Delayed Release 12/26/2022 Provider: DYLAN HERNANDEZ MD Diagnosis: 1 capsule daily Last Documented On 01/21/2023 3:51PM By SHANTEL CRUZ ; [facility] Albuterol Sulfate HFA 108 (9 0 Base) MCG/ACT Inhalation Aerosol Solution 11/19/2022 Provider: TYLER WOLFE ENGAGEMENT QUALITY CONSULTANT Diagnosis: use as directed Last Documented On 01/21/2023 3:51PM By SHANTEL CRUZ ; [facility] Symbicort 160-4.5 MCG/ACT Inhalation Aerosol Provider: TYLER ALVARENGA ENGAGEMENT QUALITY CONSULTANT Diagnosis: use as directed Last Documented On 01/21/2023 3:52PM By SHANTEL CRUZ ; [facility] Latanoprost 0.005% Ophthalmic Solution 09/11/2022 Pr ovider: Diagnosis: use as directed Last Documented On 09/11/2022 3:01PM By SHANTEL CRUZ ; [facility] Systane 0.4-0.3% OP SOLN 07/08/2022 Provider: Diagnosis: use as directed prn Last Documented On 07/19/2022 5:28PM By SHANTEL CRUZ ; [facility] Solifenacin Succinate 5 MG OR TABS 04/24/2022 Provid er: Diagnosis: 1 tab daily Last Documented On 07/19/2022 5:28PM By SHANTEL CRUZ ; [facility] Gabapentin 600 MG OR TABS 10/07/2021 Provider: Diagnosis: 1 tab tid Last Documented On 07/19/2022 5:28PM By SHANTEL CRUZ ; [facility] Amoxicillin 500 MG OR CAPS 09/26/2021 Provider: Diagnosis: prior to dental work Last Documented On 07/19/2022 5:28PM By SHANTEL CRUZ ; [facility] Atorvastatin Calcium 20 MG OR TABS 06/13/2020 Provid er: Diagnosis: 1 tab nightly Last Documented On 07/19/2022 5:28PM By SHANTEL CRUZ ; [facility] Metoprolol Succinate ER 25 MG OR TB24 06/06/2020 Pro vider: Diagnosis: 1 tab daily Last Documented On 07/19/2022 5:28PM By SHANTEL CRUZ ; [facility] Hydroxychloroquine Sulfate 200 MG OR TABS 11/30/2019 Provider: Diagnosis: 1 tab bid Last Documented On 07/19/2022 5:28PM By SHANTEL CRUZ ; [facility] Aspirin 81 MG OR TABS 06/22/2014 Provider: Diagnosis: Last Documented On 07/19/2022 5:28PM By Adrianne Pena MD ; [facility] Past Medications on file Famotidine 20 MG Oral Tablet 01/21/2023 - 04/21/2023 P rovider: Diagnosis: take 1 hour after taking Esomeprazole 1 tab bid Last Documented On 01/21/2023 3:52PM By SHANTEL CRUZ ; [facility] busPIRone HCl 10 MG Oral Tablet 12/11/2022 - 12/06/2023 Provider: VERÓNICA PENA MD Diagnosis: Generalized anxi ety disorder One tablet at bed time Last Documented On 12/11/2022 11:03AM By Adrianne Pena MD ; [facility] Sunosi 150 MG Oral Tablet 09/11/2022 - 03/10/2023 Provider: VERÓNICA DORSEY MD Diagnosis: Obstructive slee p apnea (adult) (pediatric) 1 tablet every morning Last Documented On 09/11/2022 3:58PM By Adrianne Pena MD ; [facility] Escitalopram Oxalate 20 MG Oral Tablet 09/04/2022 - 08/30/2023 Provider: VERÓNICA PENA MD Diagnosis: Major depressive disorder, recurrent, unspecified One tablet daily Last Documented On 09/04/2022 7:33PM By Adrianne Pena MD ; [facility] Methotrexate Sodium 2.5 MG OR TABS 05/29/2021 - 2021 Provider: Diagnosis: 6 tabs weekly Last Documented On 07/19/2022 5:28PM By SHANTEL CRUZ ; [facility] B Complex OR TABS 07/10/2018 - 08/09/2018 Provider: VERÓNICA PENA MD Diagnosis: Deficiency of ot her specified B group vitamins as directed [address] Marcel Zuñiga Last Documented On 07/19/2022 5:28PM By Adrianne Pena MD ; [facility] Medications Administered Includes: Administered Medications from this encounter No Administered Medications Recorded Vital Signs Includes: Vital Signs from this encounter Vital Name 01/21/2023 03:54P Blood Pressure Sitting L 137/77 BP Cuff Size Regular Pulse Rate-Sitting (bpm) 97 Pulse Rhythm Regular Height (in) 66 Weight (lb) 213 Body Mass Index 34.4 Body Surface Area 2.1 Note: self reported vitals Last Documented: On 01/21/2023 3:55PM ; [facility] Results Includes: Results discussed during this encounter No Results Recorded For Specified Dates History of Present Illness Includes: History of Present Illness from this encounter HPI GELACIO DODGE is a 57 year old female. - Allergy list reviewed - Past medical history reviewed - Medication list reviewed Gelacio reported that she has been busy helping family members and other elderly individuals that needed her help. She said that currently she is taking care of her step-father 3 days a week. Her step-father lives an hour away and she said that her step-brother will pay her gas money to help them out. 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 At times, she also helps her la-ivoweu-sa-law clean her house but she gets paid for this. She has her own health issues, i.e. aches and pains due to her Rheumatoid Arthritis and she also has Osteoarthritis and she is under the care of Airport Control Operator Dr. Olivarez. She was reminded to put some time for herself to take a break to do her breathing exercises and other calming techniques. At times, she can get anxious and overwhelmed whenever she is asked to do different job responsibilities. She also watches her grandkids whenever she can. She denied feeling depressed. She has not been as anxious in general. She is motivated to do things but occasionally she gets tired. At times, she has trouble sleeping. She has Obstructive Sleep Apnea and is supposed to wear her CPAP. She takes Trazodone 50 mg two at night which helps with her sleep in general. She takes Buspar 10 mg just in the evening. She said that she is able to focus and concentrate with the Vyvanse 30 mg in the morning. She also needed her Sunosi 150 mg in the morning to help improve mental alertness and she said that it is helping her be more awake and alert and be less tired, especially when she has to drive and help her step-father. Appetite is good. She denied feeling bad about herself. She denied having any suicidal thoughts. No delusions or hallucinations. She has her own Symbicort and Albuterol as needed for her lung issues. Overall, the combination of Lexapro 20 mg a day and Lamictal 100 mg a day are helping with her mood. She denied rash from the Lamictal. MENTAL STATUS EXAM: Sensorium - alert, oriented to name, place, and time Attitude - cooperative Gait - ambulatory Sleep - at times, she has trouble falling asleep, occasionally tired Interest/Energy/Motivation - good Guilt/Worthlessness - absent Concentration/Attention Span - able to focus and concentrate Memory Recall - fairly good Appetite - good - on 09/11/22 pt weighed 215 lbs and on 01/21/23 she weighed 213 lbs so she lost 2 lbs Suicidal Thoughts - absent Homicidal Thoughts [...] 0-1 cans of soda daily and an 1/5 bottles of tea.Alcohol: Not using alcohol.Drug Use: Not using drugs (Illicit).Work: Work history -- she worked at [employer] -- 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 Her parents were supportive of her [...] reported no past or pending legal history. 01/21/2023 Last Documented On 3 4:00PM ; [facility] Former smoker - quit smoking in 03/2022 Last Documented On 3 3:59AM ; [facility] Smoking Status Unknown Procedures and Surgical History Includes: Procedures from this encounter Procedures Code Diagnosis Performing Provider Service L ocation Service Date education and instructions Last Documented On 3 3:34PM ; [facility] supportive care and encourag ement--given positive reinforcement to keep patient motivated and active, calming techniques, breathing exercises Last Documented On 3 3:57AM ; [facility] ~* Call [phone] and /or go t o the nearest emergency room or call me if suicidal/homicidal ideation or other serious concerns arise. ~ ~* I gave instructions to call me should there be any questions or concerns. ~ ~* Patient voiced understanding and agreed to treatment plan Last Documented On 3 3:51PM ; [facility] dangerousness assessment: no suicide risk 3085F Last Documented On 3 3:34PM ; [facility] use of tobacco assessment performed 1000F Last Documented On 3 3:34PM ; [facility] patient screened for future fall risk: documentation of any fall with injury in past year - no recent falls 1100F Last Documented On 3 3:34PM ; [facility] review of medications documented 1160F Last Documented On 3 3:34PM ; [facility] assessment of suicide risk performed - n ot suicidal Last Documented On 3 3:53PM ; [facility] screening for adult depressi on: impression and score - please see above for treatmend and PHQ score Last Documented On 3 3:34PM ; [facility] standardized depression screening: posit meme for symptoms Last Documented On 3 3:34PM ; [facility] encouragement to exercise - balanced kendall l plan, low fat low carb diet Last Documented On 3 3:51PM ; [facility] Clinical summary provided to patient Last Documented On 3 3:34PM ; [facility] PHQ-9: total score 3 Last Documented On 3 5:32PM ; [facility] Medical History Includes: Medical History addressed during this encounter Description Last Updated Primary Care Provider: Dr. Jennifer Hernandez/TOREY Wilkerson Dr./TOREY Hahn Orthopedic Surgeon Dr. Ernie Farley -- ENT -- [facility] -- had CT Scan of the sinus Dr. Shyla Olivarez -- Airport Control Operator Dr. Nathan Camacho, [place] -- Chiropractor [facility] -- Dr. Bill Jacob -- Ophthamologist Dr. Nando Craft -- Radiology Services Manager Dr. Ady Moreira -- Construction Equipment Technician Dr. Oshea -- Urologist Dr. Jonathan Messina -- Director Of Special Education/Oncologist Dr. Nathan Estrada -- Dentist Dr. Leila Wagner -- CPAP Mikayla King NP -- Urologist.Diagnoses: Dry eye syndrome - given Systane eye drops; with dry mouth --- tried Pilocarpine 5 mg -- 11/08/19 -- did not help --Dr. Shyla Leeact - 12/2021Glaucoma - early stages per [facility] - on Lumigan eye drops. Sensorineural hearing [...] bilateral upper and lower lobes; admitted to [facility] from 07/18/21 - 07/21/21 -- given [...] 4 mg 03/08/21 and on 03/05/21 Nystatin 487395 units cream that did not help. Acute [...] and 07/09/22Surgical: Gastric surgery 04/26/2014 Dr. Borjas-- [place], [place] -- gastric sleeve surgery Hysterectomy Orthopedic [...] 04/24/22 and given Vitamin C 500 mg 01/21/2023 Last Documented On 3 4:03PM ; [facility] Family History Includes: Family History addressed during this encounter Description Last Updated Maternal: Depression -- mother was hospi talized for this 01/21/2023 Last Documented On 3 3:34PM ; [facility] Review of Systems Includes: Review [...] the heart rate was not fast. Pulmonary: Dyspnea, cough, and coughing up sputum. No wheezing. Gastrointestinal: No heartburn. No nausea, no vomiting, no diarrhea, and no constipation. Genitourinary: No increase in urinary frequency. No dysuria. Endocrine: Polydipsia and excessive sweating. Musculoskeletal: No muscle aches, no [...] ctive Last Documented On 05/27/2023 11:24AM ; [facility] Note: Imported from external source. predniSONE Allergy rash 07/24/2015 Active Last Documented On 05/27/2023 11:24AM ; [facility] Note: Imported from external source. Naproxen Allergy Asthma / Allergi c asthma, Shortness of Breath / Dyspnea 06/22/2014 Active Last Documented On 05/27/2023 11:24AM ; [facility] Note: Imported from external source. Ibuprofen Allergy rash 01/29/2016 Resolved Last Documented On 08/30/2020 10:11AM ; [facility] Note: rash Ibuprofen Allergy rash 01/29/2016 Active Last Documented On 05/27/2023 11:24AM ; [facility] Note: Imported from external source. Flexeril Allergy Asthma / Allergi c asthma, Shortness of Breath / Dyspnea 06/22/2014 Active Last Documented On 05/27/2023 11:24AM ; [facility] Note: Imported from external source. Encounters Encounter Provider Location Date Check-In Time Check-Out Time Diagnosis TELEHEALTH ADULT PSYCH ESTABLISHED VERÓNICA PENA MD [facility]-PSY 023 3:34PM 11:59PM Attention-defici t Hyperactivity Disorder,Bipolar I Disorder, Most Recent Episode, Depressed,Genera lized Anxiety Disorder,Restles s Legs Syndrome,Nonorga nathan Sleep Apnea Obstructive,Psyc hophysiological Insomnia,Major Depression Insurance Includes: Active Insurance Policies Plan Name Member ID Group # Subscriber Relationship Effect meme Dates 1 - [employer] [id number] GELACIO DODGE Self 09/20/2020 - Unknown Clinical Notes Includes: Clinical Notes from this encounter * Progress note Date Encounter Last Documented by 01/21/2023 TELEHEALTH ADULT PSYCH ESTABLISH ED Last documented on 01/26/2023; 3:59 AM, VERÓNICA PENA MD; [facility] Top of Document Medication psychotherapy 30 minutes Patient gave verbal consent for Telehealth 01/21/23. Location of patient: patient's home Location of [...] Gelacio reported that she has been busy helping family members and other elderly individuals that needed her help. She said that currently she is taking care of her step-father 3 days a week. Her step-father lives an hour away and she said that her step-brother will pay her gas money to help them out. 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 At times, she also helps her bv-hcwdib-ul-law clean her house but she gets paid for this. She has her own health issues, i.e. aches and pains due to her Rheumatoid Arthritis and she also has Osteoarthritis and she is under the care of Airport Control Operator Dr. Olivarez. She was reminded to put some time for herself to take a break to do her breathing exercises and other calming techniques. At times, she can get anxious and overwhelmed whenever she is asked to do different job responsibilities. She also watches her grandkids whenever she can. She denied feeling depressed. She has not been as anxious in general. She is motivated to do things but occasionally she gets tired. At times, she has trouble sleeping. She has Obstructive Sleep Apnea and is supposed to wear her CPAP. She takes Trazodone 50 mg two at night which helps with her sleep in general. She takes Buspar 10 mg just in the evening. She said that she is able to focus and concentrate with the Vyvanse 30 mg in the morning. She also needed her Sunosi 150 mg in the morning to help improve mental alertness and she said that it is helping her be more awake and alert and be less tired, especially when she has to drive and help her step-father. Appetite is good. She denied feeling bad about herself. She denied having any suicidal thoughts. No delusions or hallucinations. She has her own Symbicort and Albuterol as needed for her lung issues. Overall, the combination of Lexapro 20 mg a day and Lamictal 100 mg a day are helping with her mood. She denied rash from the Lamictal. MENTAL STATUS EXAM: Sensorium - alert, oriented to name, place, and time Attitude - cooperative Gait - ambulatory Sleep - at times, she has trouble falling asleep, occasionally tired Interest/Energy/Motivation - good Guilt/Worthlessness - absent Concentration/Attention Span - able to focus and concentrate Memory Recall - fairly good Appetite - good - on 09/11/22 pt weighed 215 lbs and on 01/21/23 she weighed 213 lbs so she lost 2 lbs Suicidal Thoughts - absent Homicidal Thoughts [...] 17 days, 0 refills - Alendronate Sodium 35 MG Tablet as [...] refills - Famotidine 20 MG Oral Tablet as directed take 1 hour after taking Esomeprazole 1 tab bid, 90 days, 0 refills [...] Sunosi 150 MG Oral Tablet 1 tablet every morning, 30 days, 5 refills - Symbicort 160-4.5 MCG/ACT Inhalation Aerosol as directed use as directed, 90 days, 0 refills - Systane 0.4-0.3% Solution as directed use as directed prn, 0 days, 0 refills - traZODone HCl 50 MG Oral Tablet TAKE 2 TABLETS BY MOUTH AT BEDTIME NEEDED FOR SLEEP, 90 days, 1 refills - Vyvanse 30 MG Oral Capsule 1 Capsule every morning, 30 days, 0 refills - - No side effects reported Past Medical/Surgical History Primary Care Provider: Dr. Dylan Hernandez/TOREY Wilkerson Dr./TOREY Hahn Orthopedic Surgeon Dr. Ernie Farley -- ENT -- [facility] -- had CT Scan of the sinus Dr. Shyla Olivarez -- Airport Control Operator Dr. Nathan Camacho, [place] -- Chiropractor [facility] -- Dr. Bill Jacob -- Ophthamologist Dr. Nando Craft -- Radiology Services Manager Dr. Ady Moreira -- Construction Equipment Technician Dr. Oshea -- Urologist Dr. Jonathan Messina -- Director Of Special Education/Oncologist Dr. Nathan Estrada -- Dentist Dr. Leila Wagner -- ROSALIA King NP -- Urologist. Diagnoses: Dry eye syndrome - given Systane eye drops; with dry mouth --- tried Pilocarpine 5 mg -- 11/08/19 -- did not help --Dr. Shyla Olivarez Cataract - 12/2021 Glaucoma - early stages per [facility] - on Lumigan eye drops. Sensorineural hearing [...] bilateral upper and lower lobes; admitted to [facility] from 07/18/21 - 07/21/21 -- given [...] 4 mg 03/08/21 and on 03/05/21 Nystatin [id number] units cream that did not help. Acute [...] Surgical: - Gastric surgery 04/26/2014 Dr. Borjas-- [place], [place] -- gastric sleeve surgery - Hysterectomy [...] 0-1 cans of soda daily and an 1/5 bottles of tea. Alcohol: Not using alcohol. Drug Use: Not using drugs (Illicit). 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 Marital: Marital history -- . She was born and raised in [place], [place] and then [place], [place]. Her parents were supportive of her [...] the heart rate was not fast. Pulmonary: Dyspnea, cough, and coughing up sputum. No wheezing. Gastrointestinal: No heartburn. No nausea, no vomiting, no diarrhea, and no constipation. Genitourinary: No increase in urinary frequency. No dysuria. Endocrine: Polydipsia and excessive sweating. Musculoskeletal: No muscle aches, no localized joint pain, and no localized joint stiffness. Neurological: No dizziness, no vertigo, no fainting, and no motor disturbances. Skin: No pruritus. No skin lesions and no rash. Physical Findings - Vitals taken 01/21/2023 03:54 pm self reported vitals BP-Sitting L 137/77 mmHg BP Cuff Size Regular Pulse Rate-Sitting 97 bpm Pulse Rhythm Regular Height 66 in Weight 213 lbs Body Mass Index 34.4 kg/m2 Body Surface Area 2.1 m2 Tests Educational Testing: Questionnaires PHQ-9: Value PHQ-9: total score 3 Assessment - Obstructive sleep apnea - Restless legs syndrome - Attention-deficit hyperactivity disorder - Bipolar I disorder, most recent episode, depressed - Major depressive disorder - Psychophysiological insomnia - Generalized anxiety disorder Therapy - Dangerousness assessment: no suicide risk. - Supportive care and encouragement--given positive reinforcement to keep patient motivated and active, calming techniques, breathing exercises. - Encouragement to exercise - balanced meal plan, low fat low carb diet. - Education and instructions. - Assessment of suicide risk performed - not suicidal - Clinical summary provided to patient. * Call [phone] and /or go to the nearest emergency room or call me if suicidal/homicidal ideation or other serious concerns arise. * I gave instructions to call me should there be any questions or concerns. * Patient voiced understanding and agreed to treatment plan. Plan StartCited - Other Follow-up 05/27/23 EndCited Bipolar Disorder - Lamictal 100 mg [...]
--- OUTSIDE RECORDS SUMMARY | 2024-05-04 16:12 | XMS_ITS | Encounter Summary ---
Author Organization [facility] Address [address] [place] [address] Phone Care Team Providers Care Improvement Analyst Name Role Phone Dylan Bell MD Primary Care Provider [phone] Shyla Olivarez MD Unavailable Lewis Ramirez MD Unavailable [phone] Italo Fisher MD Unavailable Erasmo Wesley MD Unavailable Reason for Visit * Reason Comments Medication Refill Encounter Details Date Type Department Care Team (Late st Contact Info) Description 08/16/2023 Refill [facility] - Family Medicine [facility] [address] [place] [id number] Ramsey Blanco APRN, TRAFFIC CONTROL TECHNICIAN [address] [address] Medication Refill Social History Tobacco Use Types [...] often do you attend chur ch or nondenominational services? Never 03/24/2023 Do you belong to any clubs o r organizations such as jew groups, unions, fraternal or athletic groups, or [...] and heating? Not hard at all 03/24/2023 [facility] - [...] place to sleep or slept in a m[facility] (including now)? No 03/24/2023 Education Answer Date [...] Miscellaneous Notes * Telephone Encounter - Raysa Power RN - 08/16/2023 4:51 PM CDT Medication(s) refilled and signed per [facility] Chronic Medication Refill Standing Order for Pediatricand Adult Patients. Requested Prescriptions Pending Prescriptions Disp Refills famotidine (PEPCID) 20 MG Tablet [Pharmacy Med Name: FAMOTIDINE 20 MG TABLET] 180 Tablet 1 Sig: TAKE 1 TABLET BY MOUTH TWICE A DAY H2 Antagonists Protocol Passed - 08/16/2023 7:34 AM Passed - Visit with relevant provider in past 12 months or upcoming 90 days Recent Visits Date Type Provider Dept 07/06/23 Office Visit Dylan Bell MD [facility] 06/09/23 [facility]medicine Dylan Bell MD [facility] 06/04/23 Office Visit Moreno Jarquin MD [facility] 03/25/23 Office Visit Dylan Bell MD [facility] 11/19/22 Office Visit Ramsey Blanco APRN, TRAFFIC CONTROL TECHNICIAN [facility] 09/09/22 Office Visit Dylan Bell MD [facility] Showing recent visits within past 365 days and meeting all other requirements Future Appointments Date Type Provider Dept 10/14/23 Appointment Dylan Bell MD [facility] Showing future appointments within next 90 days and meeting all other requirements documented in this encounter Plan of Treatment Upcoming Encounters Date Type Department Care Team (Late st Contact Info) Description 09/22/2024 8:15 AM CDT Office Visit [facility] [address] [place] [address] Erasmo Wesley MD [address]2 [facility] [address] [place] [address] documented as of this encounter Visit Diagnoses Diagnosis Gastroesophageal reflux disease, unspecified whether esophagitis present documented in this encounter Additional Health Concerns Infection Onset Date Last Indicated Resolved Time COVID - 19 01/18/2024 01/18/2024 01/18/2024 2:35 PM CDT Respiratory Rule-Out 01/18/2024 01/18/2024 024 2:35 PM CDT Assessment Noted Time PHQ-9 Depression Total Score: 0 11/11/19 17 9:00 AM CDT documented as of this encounter Care Teams Improvement Analyst Relationship Specialty Start Date End Date Dylan Bell MD #2 [facility] [address] [place] [address] PCP - General Family Medicine 02/22/15 Shyla Olivarez MD #2 [facility] [address] [place] [address] Rheumatology 12/15/16 Lewis Ramirez MD [address] [place], [place] [id number] Obstetrics & Gynecology 03/08/18 Italo Fisher MD [address] [place] [address] Consulting Physician Pulmonary Disease 06/11/21 Erasmo Wesley MD #2 [facility] [address] [place] [address] Consulting Physician Urology 12/24/23 documented as of this encounter
--- OUTSIDE RECORDS SUMMARY | 2024-05-04 16:12 | XMS_ITS | Encounter Summary ---
Author Organization [facility] Address [address] [place] [address] Phone Care Team Providers Care Social Sciences Department Chair Name Role Phone Dylan Bell MD Primary Care Provider [phone] Shyla Olivarez MD Unavailable Lewis Ramirez MD Unavailable [phone] Italo Fisher MD Unavailable Erasmo Wesley MD Unavailable Reason for Visit * Reason Comments Medication Refill Encounter Details Date Type Department Care Team (Late st Contact Info) Description 05/04/2024 [facility]ill [facility] [address] [place] [address] Dylan Bell MD [address] [address] Medication Refill Social History Tobacco Use Types [...] often do you attend chur ch or buddhist services? Never 03/24/2023 Do you belong to any clubs o r organizations such as muslim groups, unions, fraternal or athletic groups, or [...] place to sleep or slept in a intermediate (including now)? No 03/24/2023 Education Answer Date [...] Telephone Encounter - Allyson Mansfield RN - 05/04/2024 11:01 AM CST Medication(s) refilled and signed per [facility] Chronic Medication Refill Standing Order for Pediatricand Adult Patients. Requested Prescriptions Pending Prescriptions Disp Refills atorvastatin (LIPITOR) 20 MG Tablet [Pharmacy Med Name: ATORVASTATIN 20 MG TABLET] 90 Tablet 0 Sig: TAKE 1 TABLET BY MOUTH EVERY DAY Hmg CoA Reductase Inhibitors Protocol Passed - 05/04/2024 11:01 AM Passed - Visit with relevant provider in past 12 months or upcoming 90 days Recent Visits Date Type Provider Dept 10/14/23 Office Visit Dylan Bell MD [facility] 07/06/23 Office Visit Dylan Bell MD [facility] 06/09/23 Telemedicine Dylan Bell MD [facility] 06/04/23 Office Visit Moreno Jarquin MD [facility] Showing recent visits within past 365 days and meeting all other requirements Future Appointments No visits were found meeting these conditions. Showing future appointments within next 90 days and meeting all other requirements Passed - Lipid panel in past 12 months LDL Date Value Ref Range Status 09/25/2023 74 Final HDL CHOLESTEROL Date Value Ref Range Status 09/25/2023 54 Final CHOLESTEROL Date Value Ref Range Status 09/25/2023 143 Final TRIGLYCERIDES Date Value Ref Range Status 07/06/2023 116 <150 mg/dL Final VLDL Date Value Ref Range Status 07/06/2023 23 10 - 50 mg/dL Final CHOL/HDL RATIO Date Value Ref Range Status 07/06/2023 2.5 0.0 - 4.4 Final NON-HDL CHOLESTEROL Date Value Ref Range Status 07/06/2023 96 <130 mg/dL Final Passed - CMP in past 12 months SODIUM Date Value Ref Range Status 10/14/2023 141 136 - 145 mmol/L Final POTASSIUM Date Value Ref Range Status 10/14/2023 4.0 3.5 - 5.1 mmol/L Final CHLORIDE Date Value Ref Range Status 10/14/2023 103 98 - 107 mmol/L Final CO2, VENOUS Date Value Ref Range Status 10/14/2023 27 22 - 30 mmol/L Final ANION GAP Date Value Ref Range Status 10/14/2023 15.0 <18.0 mmol/L Final GLUCOSE Date Value Ref Range Status 10/14/2023 90 70 - 99 mg/dL Final BUN Date Value Ref Range Status 10/14/2023 12 10 - 20 mg/dL Final CREATININE - POCT Date Value Ref Range Status 01/08/2024 1.0 0.6 - 1.3 mg/dL Final BUN/CREATININE RATIO Date Value Ref Range Status 10/14/2023 12 12 - 20 ratio Final TOTAL PROTEIN Date Value Ref Range Status 07/06/2023 7.3 6.3 - 8.2 g/dL Final ALBUMIN Date Value Ref Range Status 07/06/2023 4.0 3.5 - 5.0 g/dL Final A/G RATIO Date Value Ref Range Status 07/06/2023 1.2 1.0 - 2.2 Final CALCIUM Date Value Ref Range Status 10/14/2023 9.2 8.7 - 10.5 mg/dL Final T BILI Date Value Ref Range Status 07/06/2023 0.5 0.2 - 1.2 mg/dL Final SGOT (AST) Date Value Ref Range Status 12/24/2023 18 5 - 34 U/L Final SGPT (ALT) Date Value Ref Range Status 12/24/2023 13 0 - 55 U/L Final ALKALINE PHOSPHATASE Date Value Ref Range Status 07/06/2023 71 40 - 150 U/L Final GFR, EST. NONAFRICAN Date Value Ref Range Status 10/14/2023 55 (L) >=60 Final GFR, EST. Date Value Ref Range Status 10/14/2023 >60 >=60 Final GFR, ESTIMATED Date Value Ref Range Status 10/14/2023 >60 >=60 Final Comment: Creatinine Clearance is the preferred criteria for selecting drug dose adjustments in renally impaired patients. ??The GFR is provided as additional pertinent clinical information. GFR is reported in mL/min/1.73 sq m. Calculation based on the Chronic Kidney Disease Epidemiology Collaboration (CKD- EPI) equation refitwithout adjustment for race. IS THE PATIENT REQUIRED TO BE FASTING? Date Value Ref Range Status 07/06/2023 No Final solifenacin (VESICARE) 5 MG Tablet [Pharmacy Med Name: SOLIFENACIN 5 MG TABLET] 90 Tablet 0 Sig: TAKE 1 TABLET BY MOUTH EVERY DAY Urinary Anticholinergics Protocol Passed - 05/04/2024 11:01 AM Passed - Visit with relevant provider in past 12 months or upcoming 90 days Recent Visits Date Type Provider Dept 10/14/23 Office Visit Dylan Bell MD [facility] 07/06/23 Office Visit Dylan Bell MD [facility] 06/09/23 Telemedicine Dylan Bell MD [facility] 06/04/23 Office Visit Moreno Jarquin MD [facility] Showing recent visits within past 365 days and meeting all other requirements Future Appointments No visits were found meeting these conditions. Showing future appointments within next 90 days and meeting all other requirements Passed - GFR greater than or equal to 30 in past 12 months GFR, EST. NONAFRICAN Date Value Ref Range Status 10/14/2023 55 (L) >=60 Final ER documented in this encounter Plan of Treatment Upcoming Encounters Date Type Department Care Team (Late st Contact Info) Description 09/22/2024 8:15 AM CDT Office Visit [facility] [address] [place] [address] Erasmo Wesley MD [address] [facility] [address] [place] [address] documented as of this encounter Visit Diagnoses Diagnosis OAB (overactive bladder) Hypertonicity of bladder documented in this encounter Additional Health Concerns Assessment Noted Time PHQ-9 Depression Total Score: 0 11/11/19 17 9:00 AM CDT documented as of this encounter Care Teams Social Sciences Department Chair Relationship Specialty Start Date End Date Dylan Bell MD #2 [facility] [address] [place] [address] PCP - General Family Medicine 02/22/15 Shyla Olivarez MD #2 [facility] [address] [place] [address] Rheumatology 12/15/16 Lewis Ramirez MD [address] [place] [address] Obstetrics & Gynecology 03/08/18 Italo Fisher MD #2 [place] [address] Consulting Physician Pulmonary Disease 06/11/21 Erasmo Wesley MD #2 [facility] [address] [place] [address] Consulting Physician Urology 12/24/23 documented as of this encounter
--- OUTSIDE RECORDS SUMMARY | 2024-05-04 16:12 | XMS_ITS ---
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 Phone MARY SORIANO, DYLAN A Primary Care Provider [phone] JACQUIE SORIANO, VERÓNICA BEAN Unavailable [phone] Problems Includes: Active, inactive, and resolved Problems All Visits Onset Date Resolved Date Provider Condition S tatus Attention-deficit Hyperactivity Disorder 09/20/2020 VERÓNICA KAPLAN MD Active Last Documented On 1 5:58PM ; [facility] Restless Legs Syndrome 01/21/2019 VERÓNICA EMERY MD Active Last Documented On 9 4:02AM ; [facility] Depression 12/21/2018 VERÓNICA PENA MD Ac tive Last Documented On 9 2:49AM ; [facility] Vitamin B12 Deficiency 08/21/2017 VERÓNICA EMERY MD Active Last Documented On 8 4:01AM ; [facility] Major Depression 12/21/2016 VERÓNICA PENA MD Active Last Documented On 8 9:33PM ; [facility] Fibromyalgia 07/30/2016 VERÓNICA PENA MD Active Last Documented On 7 7:27PM ; [facility] Psychophysiological Insomnia 02/21/2016 VERÓNICA PENA MD Active Last Documented On 7 9:45PM ; [facility] Gerd 04/20/2014 VERÓNICA PENA MD Ac tive Last Documented On 5 3:39PM ; [facility] Gout 11/07/2013 VERÓNICA PENA MD Ac tive Last Documented On 4 12:31AM ; [facility] Bipolar I Disorder, Most Rec ent Episode, Depressed 07/15/2012 VERÓNICA PENA MD Active Last Documented On 3 4:26PM ; [facility] 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 VERÓNICA PENA MD Active Last Documented On 3 9:02AM ; [facility] Generalized Anxiety Disorder 06/08/2012 VERÓNICA PENA MD Active Last Documented On 3 9:01AM ; [facility] Nonorganic Sleep Apnea Obstructive 06/08/2012 Peg PENA MD Active Last Documented On 3 9:01AM ; [facility] 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 VERÓNICA PENA MD Inactive Last Documented On 3 9:12AM ; [facility] Panic Disorder Without Agoraphobia 06/08/2012 Peg PENA MD Active Last Documented On 3 9:01AM ; [facility] Plan of Treatment Pending Tests Order Diagnosis Results Due Ordering P rovider Lab TSH 03/08/20 VERÓNICA FRANCO MD Last Documented On 1 6:05PM ; [facility] Lab CMP 03/08/20 VERÓNICA FRANCO MD Last Documented On 1 6:05PM ; [facility] Lab LIPID 03/08/20 VERÓNICA FRANCO MD Last Documented On 1 6:05PM ; [facility] Lab B12 & FOLATE 03/08/20 VERÓNICA PENA MD Last Documented On 1 6:05PM ; [facility] Instructions to patient Lose weight - gained 7 lbs s rebecca last visit Last Documented On 2 11:04AM ; [facility] Lose weight - portion contro l, health balanced meals Last Documented On 2 8:34AM ; [facility] Lose weight portion control, balanced diet Last Documented On 2 3:31AM ; [facility] Lose weight Last Documented On 1 3:25PM ; [facility] Lose weight Last Documented On 0 4:48PM ; [facility] Lose weight Last Documented On 0 3:49PM ; [facility] Education and Decision Aids were provided during visit for: Calming techniques such as b reathing exercises/meditation and other relaxation techniques Last Documented On 3 9:59AM ; [facility] Patient education about medi cation ---Education was given on medication(s) and diagnosis. I reviewed the risks, benefits and side effects of patient's medications Last Documented On 2 2:32PM ; [facility] Patient education about medi cation --- I educated patient on medication(s) and diagnosis. I reviewed the risks, benefits and side effects of patient's medications Last Documented On 2 1:37PM ; [facility] Discussed calming techniques such as breathing exercises and other relaxation techniques Last Documented On 2 1:37PM ; [facility] Counseling for nutrition/kimmie ght management provided Last Documented On 2 2:00PM ; [facility] Patient education about medi cation --- I educated patient on medication(s) and diagnosis. I reviewed the risks, benefits and side effects of patient's medications Last Documented On 2 10:42AM ; [facility] Discussed calming techniques such as breathing exercises and other relaxation techniques Last Documented On 2 10:42AM ; [facility] Counseling for nutrition/kimmie ght management provided Last Documented On 2 11:44AM ; [facility] Discussed good sleep hygiene habits Last Documented On 2 11:44AM ; [facility] Patient education about medi cation --- I educated patient on medication(s) and diagnosis. I reviewed the risks, benefits and side effects of patient's medications Last Documented On 1 11:12AM ; [facility] Discussed calming techniques such as breathing exercises and other relaxation techniques Last Documented On 1 11:12AM ; [facility] Counseling for nutrition/kimmie ght management provided Last Documented On 1 11:38AM ; [facility] Discussed good sleep hygiene habits Last Documented On 1 11:38AM ; [facility] Patient education about medi cation --- I educated patient on medication(s) and diagnosis. I reviewed the risks, benefits and side effects of patient's medications Last Documented On 1 3:13PM ; [facility] Discussed calming techniques such as breathing exercises and other relaxation techniques Last Documented On 1 3:13PM ; [facility] Counseling for nutrition/kimmie ght management provided Last Documented On 1 3:25PM ; [facility] Discussed good sleep hygiene habits Last Documented On 1 3:25PM ; [facility] Patient education about medi cation --- I educated patient on medication(s) and diagnosis. I reviewed the risks, benefits and side effects of patient's medications Last Documented On 1 10:00AM ; [facility] Discussed calming techniques such as breathing exercises and other relaxation techniques Last Documented On 1 10:00AM ; [facility] Counseling for nutrition/kimmie ght management provided Last Documented On 1 10:40AM ; [facility] Discussed good sleep hygiene habits Last Documented On 1 10:40AM ; [facility] Patient education about medi cation --- I educated patient on medication(s) and diagnosis. I reviewed the risks, benefits and side effects of patient's medications Last Documented On 0 3:34PM ; [facility] Discussed calming techniques such as breathing exercises and other relaxation techniques Last Documented On 0 3:34PM ; [facility] Counseling for nutrition/kimmie ght management provided Last Documented On 0 4:48PM ; [facility] Patient education about medi cation --- I educated patient on medication(s) and diagnosis. I reviewed the risks, benefits and side effects of patient's medications Last Documented On 0 3:24PM ; [facility] Counseling for nutrition/kimmie ght management provided Last Documented On 0 3:49PM ; [facility] Discussed good sleep hygiene habits Last Documented On 0 12:03AM ; [facility] Patient education about a pr oper diet Last Documented On 9 3:17PM ; [facility] Patient education about medi cation --- I educated patient on medication(s) and diagnosis. I reviewed the risks, benefits and side effects of patient's medications Last Documented On 9 3:00PM ; [facility] Discussed calming techniques such as breathing exercises and other relaxation techniques Last Documented On 9 3:00PM ; [facility] Counseling for nutrition/kimmie ght management provided Last Documented On 9 3:17PM ; [facility] Patient education about a pr oper diet Last Documented On 9 10:06AM ; [facility] Patient education about medi cation --- I educated patient on medication(s) and diagnosis. I reviewed the risks, benefits and side effects of patient's medications Last Documented On 9 9:47AM ; [facility] Counseling for nutrition/kimmie ght management provided Last Documented On 9 10:06AM ; [facility] Patient education about a pr oper diet Last Documented On 9 9:47AM ; [facility] Patient education about medi cation --- I educated patient on medication(s) and diagnosis. I reviewed the risks, benefits and side effects of patient's medications Last Documented On 9 9:25AM ; [facility] Counseling for nutrition/kimmie ght management provided Last Documented On 9 9:47AM ; [facility] Patient education about medi cation --- I educated patient on medication(s) and diagnosis. I reviewed the risks, benefits and side effects of patient's medications Last Documented On 8 9:52AM ; [facility] Discussed calming techniques such as breathing exercises and other relaxation techniques Last Documented On 8 9:52AM ; [facility] Counseling for nutrition/kimmie ght management provided Last Documented On 8 3:37AM ; [facility] Patient education about medi cation --- I educated patient on medication(s) and diagnosis. I reviewed the risks, benefits and side effects of patient's medications Last Documented On 8 10:22AM ; [facility] Discussed calming techniques such as breathing exercises and other relaxation techniques Last Documented On 8 10:22AM ; [facility] Counseling for nutrition/kimmie ght management provided Last Documented On 8 9:37PM ; [facility] Discussed good sleep hygiene habits Last Documented On 8 9:37PM ; [facility] Patient education about medi cation --- I educated patient on medication(s) and diagnosis. I reviewed the risks, benefits and side effects of patient's medications Last Documented On 7 9:18AM ; [facility] Discussed calming techniques such as breathing exercises and other relaxation techniques Last Documented On 7 9:18AM ; [facility] Counseling for nutrition/kimmie ght management provided Last Documented On 7 9:49PM ; [facility] Patient education about medi cation --- I educated patient on medication(s) and diagnosis. I reviewed the risks, benefits and side effects of patient's medications Last Documented On 6 8:50AM ; [facility] Discussed calming techniques such as breathing exercises/meditation and other relaxation techniques Last Documented On 6 8:50AM ; [facility] Counseling for nutrition/kimmie ght management provided Last Documented On 6 9:34AM ; [facility] Patient education about medi cation --- I educated patient on medication(s) and diagnosis. I reviewed the risks, benefits and side effects of patient's medications Last Documented On 6 1:25PM ; [facility] Discussed calming techniques such as breathing exercises/meditation and other relaxation techniques Last Documented On 6 1:25PM ; [facility] Counseling for nutrition/kimmie ght management provided Last Documented On 6 7:42PM ; [facility] Discussed good sleep hygiene habits Last Documented On 6 7:43PM ; [facility] Patient education about medi cation --- I educated patient on medication(s) and diagnosis. I reviewed the risks, benefits and side effects of patient's medications Last Documented On 5 8:48AM ; [facility] Discussed calming techniques such as breathing exercises/meditation and other relaxation techniques Last Documented On 5 8:48AM ; [facility] Counseling for nutrition/kimmie ght management provided Last Documented On 5 7:01PM ; [facility] Patient education about medi cation --- I educated patient on medication(s) and diagnosis. I reviewed the risks, benefits and side effects of patient's medications Last Documented On 5 1:01AM ; [facility] Discussed calming techniques such as breathing exercises/meditation and other relaxation techniques Last Documented On 5 8:56AM ; [facility] Counseling for nutrition/kimmie ght management provided Last Documented On 5 1:01AM ; [facility] Patient education about medi cation --- I educated patient on medication(s) and diagnosis. I reviewed the risks, benefits and side effects of patient's medications Last Documented On 5 8:31AM ; [facility] Discussed calming techniques such as breathing exercises/meditation and other relaxation techniques Last Documented On 5 9:11AM ; [facility] Counseling for nutrition/kimmie ght management provided Last Documented On 5 8:31AM ; [facility] Patient education about medi cation --- I educated patient on medication(s) and diagnosis. I reviewed the risks, benefits and side effects of patient's medications Last Documented On 5 8:16PM ; [facility] Discussed calming techniques such as breathing exercises/meditation and other relaxation techniques Last Documented On 5 3:32PM ; [facility] Counseling for nutrition/kimmie ght management provided Last Documented On 5 8:16PM ; [facility] Patient education about medi cation --- I educated patient on medication(s) and diagnosis. I reviewed the risks, benefits and side effects of patient's medications Last Documented On 4 2:18AM ; [facility] Discussed calming techniques such as breathing exercises/meditation and other relaxation techniques Last Documented On 4 8:53AM ; [facility] Counseling for nutrition/kimmie ght management provided Last Documented On 4 2:18AM ; [facility] Patient education about medi cation --- I educated patient on medication(s) and diagnosis. I reviewed the risks, benefits and side effects of patient's medications Last Documented On 4 9:59AM ; [facility] Discussed calming techniques such as breathing exercises/meditation and other relaxation techniques Last Documented On 4 9:13AM ; [facility] Counseling for nutrition/kimmie ght management provided Last Documented On 4 9:59AM ; [facility] Patient education about medi cation --- I educated patient on medication(s) and diagnosis. I reviewed the risks, benefits and side effects of patient's medications Last Documented On 4 11:12PM ; [facility] Discussed calming techniques such as breathing exercises/meditation and other relaxation techniques Last Documented On 4 10:41AM ; [facility] Counseling for nutrition/kimmie ght management provided Last Documented On 4 11:12PM ; [facility] Patient education about medi cation --- I educated patient on medication(s) and diagnosis Last Documented On 3 9:30PM ; [facility] Discussed calming techniques such as breathing exercises/meditation and other relaxation techniques Last Documented On 3 3:25PM ; [facility] Counseling for nutrition/kimmie ght management provided Last Documented On 3 9:30PM ; [facility] Discussed good sleep hygiene habits Last Documented On 3 9:30PM ; [facility] Patient education about medi cation --- I educated patient on medication(s) and diagnosis Last Documented On 3 5:47PM ; [facility] Patient education about adve rse reactions to medication Last Documented On 3 5:47PM ; [facility] Discussed calming techniques such as breathing exercises/meditation and other relaxation techniques Last Documented On 3 9:13AM ; [facility] Counseling for nutrition/kimmie ght management provided Last Documented On 3 5:47PM ; [facility] Reviewed side effects and Ri sks/Benefits analysis Last Documented On 3 5:47PM ; [facility] Patient education about medi cation --- I educated patient on medication(s) and diagnosis Last Documented On 3 8:53PM ; [facility] Discussed calming techniques such as breathing exercises and other relaxation techniques Last Documented On 3 3:24PM ; [facility] Assessments Includes: Assessments for all patient encounters Findings Encounter Date Attention-deficit hyperactiv ity disorder TELEHEALTH with VERÓNICA PENA MD 07/08/2022 Last Documented On 3 10:03AM ; [facility] Bipolar I disorder, most rec ent episode, depressed TELEHEALTH with VERÓNICA PENA MD 07/08/2022 Last Documented On 3 10:03AM ; [facility] Depression TELEHEALTH with VERÓNICA DORSEY MD 07/08/2022 Last Documented On 3 10:03AM ; [facility] Generalized anxiety disorder TELEHEALTH with MET HARMONY PENA MD 07/08/2022 Last Documented On 3 10:03AM ; [facility] Major depressive disorder TELEHEALTH with RICK PENA MD 07/08/2022 Last Documented On 3 10:03AM ; [facility] Obstructive sleep apnea TELEHEALTH with VERÓNICA PENA MD 07/08/2022 Last Documented On 3 10:03AM ; [facility] Panic disorder without agoraphobia TELEHEALTH wi th VERÓNICA PENA MD 07/08/2022 Last Documented On 3 10:03AM ; [facility] Persistent insomnia TELEHEALTH with VERÓNICA PENA MD 07/08/2022 Last Documented On 3 10:03AM ; [facility] Psychophysiological insomnia TELEHEALTH with MET HARMONY PENA MD 07/08/2022 Last Documented On 3 10:03AM ; [facility] Restless legs syndrome TELEHEALTH with VERÓNICA PENA MD 07/08/2022 Last Documented On 3 10:03AM ; [facility] Vitamin B12 deficiency TELEHEALTH with VERÓNICA PENA MD 07/08/2022 Last Documented On 3 10:03AM ; [facility] Attention-deficit hyperactivity disorder TELEHEALTH with VERÓNICA PENA MD 02/26/2022 Last Documented On 2 11:06AM ; [facility] Bipolar I disorder, most rec ent episode, depressed TELEHEALTH with VERÓNICA PENA MD 02/26/2022 Last Documented On 2 11:06AM ; [facility] Depression TELEHEALTH with VERÓNICA DORSEY MD 02/26/2022 Last Documented On 2 11:06AM ; [facility] Generalized anxiety disorder TELEHEALTH with MET HARMONY PENA MD 02/26/2022 Last Documented On 2 11:06AM ; [facility] Major depressive disorder TELEHEALTH with RICK PENA MD 02/26/2022 Last Documented On 2 11:06AM ; [facility] Obstructive sleep apnea TELEHEALTH with VERÓNICA PENA MD 02/26/2022 Last Documented On 2 11:06AM ; [facility] Panic disorder without agoraphobia TELEHEALTH wi VERÓNICA PENA MD 02/26/2022 Last Documented On 2 11:06AM ; [facility] Persistent insomnia TELEHEALTH with VERÓNICA PENA MD 02/26/2022 Last Documented On 2 11:06AM ; [facility] Psychophysiological insomnia TELEHEALTH with MET HARMONY PENA MD 02/26/2022 Last Documented On 2 11:06AM ; [facility] Restless legs syndrome TELEHEALTH with VERÓNICA PENA MD 02/26/2022 Last Documented On 2 11:06AM ; [facility] Vitamin B12 deficiency TELEHEALTH with VERÓNICA PENA MD 02/26/2022 Last Documented On 2 11:06AM ; [facility] Attention-deficit hyperactivity disorder TELEHEALTH with VERÓNICA PENA MD 10/28/2021 Last Documented On 2 9:49AM ; [facility] Bipolar I disorder, most rec ent episode, depressed TELEHEALTH with VERÓNICA PENA MD 10/28/2021 Last Documented On 2 9:49AM ; [facility] Depression TELEHEALTH with VERÓNICA DORSEY MD 10/28/2021 Last Documented On 2 9:49AM ; [facility] Generalized anxiety disorder TELEHEALTH with MET HARMONY PENA MD 10/28/2021 Last Documented On 2 9:49AM ; [facility] Major depressive disorder TELEHEALTH with RICK PENA MD 10/28/2021 Last Documented On 2 9:49AM ; [facility] Obstructive sleep apnea TELEHEALTH with VERÓNICA PENA MD 10/28/2021 Last Documented On 2 9:49AM ; [facility] Panic disorder without agoraphobia TELEHEALTH wi th VERÓNICA PENA MD 10/28/2021 Last Documented On 2 9:49AM ; [facility] Persistent insomnia TELEHEALTH with VERÓNICA PENA MD 10/28/2021 Last Documented On 2 9:49AM ; [facility] Psychophysiological insomnia TELEHEALTH with MET HARMONY PENA MD 10/28/2021 Last Documented On 2 9:49AM ; [facility] Restless legs syndrome TELEHEALTH with VERÓNICA PENA MD 10/28/2021 Last Documented On 2 9:49AM ; [facility] Vitamin B12 deficiency TELEHEALTH with VERÓNICA PENA MD 10/28/2021 Last Documented On 2 9:49AM ; [facility] Attention-deficit hyperactivity disorder TELEHEALTH with VERÓNICA PENA MD 05/29/2021 Last Documented On 2 8:37AM ; [facility] Bipolar I disorder, most rec ent episode, depressed TELEHEALTH with VERÓNICA PENA MD 05/29/2021 Last Documented On 2 8:37AM ; [facility] Depression TELEHEALTH with VERÓNICA DORSEY MD 05/29/2021 Last Documented On 2 8:37AM ; [facility] Generalized anxiety disorder TELEHEALTH with MET HARMONY PENA MD 05/29/2021 Last Documented On 2 8:37AM ; [facility] Major depressive disorder TELEHEALTH with RIKC PENA MD 05/29/2021 Last Documented On 2 8:37AM ; [facility] Obstructive sleep apnea TELEHEALTH with VERÓNICA PENA MD 05/29/2021 Last Documented On 2 8:37AM ; [facility] Panic disorder without agoraphobia TELEHEALTH wi th VERÓNICA PENA MD 05/29/2021 Last Documented On 2 8:37AM ; [facility] Persistent insomnia TELEHEALTH with VERÓNICA PENA MD 05/29/2021 Last Documented On 2 8:37AM ; [facility] Psychophysiological insomnia TELEHEALTH with MET HARMONY PENA MD 05/29/2021 Last Documented On 2 8:37AM ; [facility] Restless legs syndrome TELEHEALTH with VERÓNICA PENA MD 05/29/2021 Last Documented On 2 8:37AM ; [facility] TELEHEALTH with VERÓNICA PENA MD 05/29/2021 Last Documented On 2 8:37AM ; [facility] Attention-deficit hyperactivity disorder TELEHEALTH with VERÓNICA PENA MD 02/19/2021 Last Documented On 2 3:33AM ; [facility] Bipolar I disorder, most rec ent episode, depressed TELEHEALTH with VERÓNICA PENA MD 02/19/2021 Last Documented On 2 3:33AM ; [facility] Depression TELEHEALTH with VERÓNICA DORSEY MD 02/19/2021 Last Documented On 2 3:33AM ; [facility] Generalized anxiety disorder TELEHEALTH with MET HARMONY PENA MD 02/19/2021 Last Documented On 2 3:33AM ; [facility] Major depressive disorder TELEHEALTH with RICK PENA MD 02/19/2021 Last Documented On 2 3:33AM ; [facility] Obstructive sleep apnea TELEHEALTH with VERÓNICA PENA MD 02/19/2021 Last Documented On 2 3:33AM ; [facility] Panic disorder without agoraphobia TELEHEALTH wi th VERÓNICA PENA MD 02/19/2021 Last Documented On 2 3:33AM ; [facility] Persistent insomnia TELEHEALTH with VERÓNICA PENA MD 02/19/2021 Last Documented On 2 3:33AM ; [facility] Psychophysiological insomnia TELEHEALTH with MET HARMONY PENA MD 02/19/2021 Last Documented On 2 3:33AM ; [facility] Restless legs syndrome TELEHEALTH with VERÓNICA PENA MD 02/19/2021 Last Documented On 2 3:33AM ; [facility] Vitamin B12 deficiency TELEHEALTH with VERÓNICA PENA MD 02/19/2021 Last Documented On 2 3:33AM ; [facility] Attention-deficit hyperactivity disorder TELEHEALTH with VERÓNICA PENA MD 10/26/2020 Last Documented On 1 3:43PM ; [facility] Bipolar I disorder, most rec ent episode, depressed TELEHEALTH with VERÓNICA PENA MD 10/26/2020 Last Documented On 1 3:43PM ; [facility] Depression TELEHEALTH with VERÓNICA DORSEY MD 10/26/2020 Last Documented On 1 3:43PM ; [facility] Generalized anxiety disorder TELEHEALTH with MET HARMONY PENA MD 10/26/2020 Last Documented On 1 3:43PM ; [facility] Major depressive disorder TELEHEALTH with RICK PENA MD 10/26/2020 Last Documented On 1 3:43PM ; [facility] Obstructive sleep apnea TELEHEALTH with VERÓNICA PENA MD 10/26/2020 Last Documented On 1 3:43PM ; [facility] Panic disorder without agoraphobia TELEHEALTH wi VERÓNICA PENA MD 10/26/2020 Last Documented On 1 3:43PM ; [facility] Persistent insomnia TELEHEALTH with VERÓNICA PENA MD 10/26/2020 Last Documented On 1 3:43PM ; [facility] Psychophysiological insomnia TELEHEALTH with MET HARMONY PENA MD 10/26/2020 Last Documented On 1 3:43PM ; [facility] Restless legs syndrome TELEHEALTH with VERÓNCIA PENA MD 10/26/2020 Last Documented On 1 3:43PM ; [facility] Vitamin B12 deficiency TELEHEALTH with VERÓNICA PENA MD 10/26/2020 Last Documented On 1 3:43PM ; [facility] B[facility], most rec ent episode, depressed TELEHEALTH with VERÓNICA PENA MD 08/30/2020 Last Documented On 1 2:53PM ; [facility] Depression TELEHEALTH with VERÓNICA DORSEY MD 08/30/2020 Last Documented On 1 2:53PM ; [facility] Generalized anxiety disorder TELEHEALTH with MET HARMONY PENA MD 08/30/2020 Last Documented On 1 2:53PM ; [facility] Major depressive disorder TELEHEALTH with RICK PENA MD 08/30/2020 Last Documented On 1 2:53PM ; [facility] Panic disorder without agoraphobia TELEHEALTH wi VERÓNICA PENA MD 08/30/2020 Last Documented On 1 2:53PM ; [facility] Persistent insomnia TELEHEALTH with VERÓNICA PENA MD 08/30/2020 Last Documented On 1 2:53PM ; [facility] Psychophysiological insomnia TELEHEALTH with MET HARMONY PENA MD 08/30/2020 Last Documented On 1 2:53PM ; [facility] Restless legs syndrome TELEHEALTH with VERÓNICA PENA MD 08/30/2020 Last Documented On 1 2:53PM ; [facility] Vitamin B12 deficiency TELEHEALTH with VERÓNICA PENA MD 08/30/2020 Last Documented On 1 2:53PM ; [facility] Bipolar I disorder, most rec ent episode, depressed GENERAL OFFICE VISIT with VERÓNICA PENA MD 03/02/2020 Last Documented On 1 6:07PM ; [facility] Depression GENERAL OFFICE VISIT with RICK PENA MD 03/02/2020 Last Documented On 1 6:07PM ; [facility] Generalized anxiety disorder GENERAL OFF ICE VISIT with VERÓNICA PENA MD 03/02/2020 Last Documented On 1 6:07PM ; [facility] Major depressive disorder GENERAL OFFICE VISIT w roman PENA MD 03/02/2020 Last Documented On 1 6:07PM ; [facility] Panic disorder without agoraphobia GENER AL OFFICE VISIT with VERÓNICA PENA MD 03/02/2020 Last Documented On 1 6:07PM ; [facility] Persistent insomnia GENERAL OFFICE VISIT with [place] KRISTIAN PENA MD 03/02/2020 Last Documented On 1 6:07PM ; [facility] Psychophysiological insomnia GENERAL OFF ICE VISIT with VERÓNICA PENA MD 03/02/2020 Last Documented On 1 6:07PM ; [facility] Restless legs syndrome GENERAL OFFICE VISIT with VERÓNICA PENA MD 03/02/2020 Last Documented On 1 6:07PM ; [facility] Vitamin B12 deficiency GENERAL OFFICE VISIT with VERÓNICA PENA MD 03/02/2020 Last Documented On 1 6:07PM ; [facility] Bipolar I disorder, most rec ent episode, depressed GENERAL OFFICE VISIT with VERÓNICA PENA MD 08/24/2019 Last Documented On 0 12:10AM ; [facility] Depression GENERAL OFFICE VISIT with RICK PENA MD 08/24/2019 Last Documented On 0 12:10AM ; [facility] Generalized anxiety disorder GENERAL OFF ICE VISIT with VERÓNICA PENA MD 08/24/2019 Last Documented On 0 12:10AM ; [facility] Major depressive disorder GENERAL OFFICE VISIT w roman PENA MD 08/24/2019 Last Documented On 0 12:10AM ; [facility] Panic disorder without agoraphobia GENER AL OFFICE VISIT with VERÓNICA PENA MD 08/24/2019 Last Documented On 0 12:10AM ; [facility] Persistent insomnia GENERAL OFFICE VISIT with ME KRISTIAN PENA MD 08/24/2019 Last Documented On 0 12:10AM ; [facility] Psychophysiological insomnia GENERAL OFF ICE VISIT with VERÓNICA PENA MD 08/24/2019 Last Documented On 0 12:10AM ; [facility] Restless legs syndrome GENERAL OFFICE VISIT with VERÓNICA PENA MD 08/24/2019 Last Documented On 0 12:10AM ; [facility] Vitamin B12 deficiency GENERAL OFFICE VISIT with VERÓNICA PENA MD 08/24/2019 Last Documented On 0 12:10AM ; [facility] Bipolar I disorder, most rec ent episode, depressed GENERAL OFFICE VISIT with VERÓNICA PENA MD 02/10/2019 Last Documented On 9 4:04AM ; [facility] Depression GENERAL OFFICE VISIT with RICK PENA MD 02/10/2019 Last Documented On 9 4:04AM ; [facility] Generalized anxiety disorder GENERAL OFF ICE VISIT with VERÓNICA PENA MD 02/10/2019 Last Documented On 9 4:04AM ; [facility] Major depressive disorder GENERAL OFFICE VISIT w roman PENA MD 02/10/2019 Last Documented On 9 4:04AM ; [facility] Panic disorder without agoraphobia GENER AL OFFICE VISIT with EVRÓNICA PENA MD 02/10/2019 Last Documented On 9 4:04AM ; [facility] Persistent insomnia GENERAL OFFICE VISIT with ME KRISTIAN PENA MD 02/10/2019 Last Documented On 9 4:04AM ; [facility] Psychophysiological insomnia GENERAL OFF ICE VISIT with VERÓNICA PENA MD 02/10/2019 Last Documented On 9 4:04AM ; [facility] Restless legs syndrome GENERAL OFFICE VISIT with VERÓNICA PENA MD 02/10/2019 Last Documented On 9 4:04AM ; [facility] Vitamin B12 deficiency GENERAL OFFICE VISIT with VERÓNICA PENA MD 02/10/2019 Last Documented On 9 4:04AM ; [facility] Bipolar I disorder, most rec ent episode, depressed GENERAL OFFICE VISIT with VERÓNICA PENA MD 10/19/2018 Last Documented On 9 11:31PM ; [facility] Generalized anxiety disorder GENERAL OFF ICE VISIT with VERÓNICA PENA MD 10/19/2018 Last Documented On 9 11:31PM ; [facility] Major depressive disorder GENERAL OFFICE VISIT w ith VERÓNICA PENA MD 10/19/2018 Last Documented On 9 11:31PM ; [facility] Panic disorder without agoraphobia GENER AL OFFICE VISIT with VERÓNICA PENA MD 10/19/2018 Last Documented On 9 11:31PM ; [facility] Persistent insomnia GENERAL OFFICE VISIT with ME KRISTIAN PENA MD 10/19/2018 Last Documented On 9 11:31PM ; [facility] Psychophysiological insomnia GENERAL OFF ICE VISIT with VERÓNICA PENA MD 10/19/2018 Last Documented On 9 11:31PM ; [facility] Vitamin B12 deficiency GENERAL OFFICE VISIT with VERÓNICA PENA MD 10/19/2018 Last Documented On 9 11:31PM ; [facility] Bipolar I disorder, most rec ent episode, depressed GENERAL OFFICE VISIT with VERÓNICA PENA MD 07/09/2018 Last Documented On 9 8:06PM ; [facility] Generalized anxiety disorder GENERAL OFF ICE VISIT with VERÓNICA PENA MD 07/09/2018 Last Documented On 9 8:06PM ; [facility] Major depressive disorder GENERAL OFFICE VISIT w [facility] VERÓNICA PENA MD 07/09/2018 Last Documented On 9 8:06PM ; [facility] Panic disorder without agoraphobia GENER AL OFFICE VISIT with VERÓNICA PENA MD 07/09/2018 Last Documented On 9 8:06PM ; [facility] Persistent insomnia GENERAL OFFICE VISIT with [place] KRISTIAN PENA MD 07/09/2018 Last Documented On 9 8:06PM ; [facility] Psychophysiological insomnia GENERAL OFF ICE VISIT with VERÓNICA PENA MD 07/09/2018 Last Documented On 9 8:06PM ; [facility] Vitamin B12 deficiency GENERAL OFFICE VISIT with VERÓNICA PENA MD 07/09/2018 Last Documented On 9 8:06PM ; [facility] Bipolar I disorder, most rec ent episode, depressed GENERAL OFFICE VISIT with VERÓNICA PENA MD 11/27/2017 Last Documented On 8 4:03AM ; [facility] Generalized anxiety disorder GENERAL OFF ICE VISIT with VERÓNICA PENA MD 11/27/2017 Last Documented On 8 4:03AM ; [facility] Major depressive disorder GENERAL OFFICE VISIT w ith VERÓNICA PENA MD 11/27/2017 Last Documented On 8 4:03AM ; [facility] Panic disorder without agoraphobia GENER AL OFFICE VISIT with VERÓNICA PENA MD 11/27/2017 Last Documented On 8 4:03AM ; [facility] Persistent insomnia GENERAL OFFICE VISIT with ME KRISTIAN PENA MD 11/27/2017 Last Documented On 8 4:03AM ; [facility] Psychophysiological insomnia GENERAL OFF ICE VISIT with VERÓNICA PENA MD 11/27/2017 Last Documented On 8 4:03AM ; [facility] Vitamin B12 deficiency GENERAL OFFICE VISIT with VERÓNICA PENA MD 11/27/2017 Last Documented On 8 4:03AM ; [facility] Major depressive disorder * PHONE CALL with GABBI PENA MD 05/21/2017 Last Documented On 8 1:12PM ; [facility] Bipolar I disorder, most rec ent episode, depressed GENERAL OFFICE VISIT with VERÓNICA PENA MD 04/07/2017 Last Documented On 8 9:44PM ; [facility] Generalized anxiety disorder GENERAL OFF ICE VISIT with VERÓNICA PENA MD 04/07/2017 Last Documented On 8 9:44PM ; [facility] Major depressive disorder GENERAL OFFICE VISIT w ith VERÓNICA PENA MD 04/07/2017 Last Documented On 8 9:44PM ; [facility] Panic disorder without agoraphobia GENER AL OFFICE VISIT with VERÓNICA PENA MD 04/07/2017 Last Documented On 8 9:44PM ; [facility] Persistent insomnia GENERAL OFFICE VISIT with ME KRISTIAN PENA MD 04/07/2017 Last Documented On 8 9:44PM ; [facility] Psychophysiological insomnia GENERAL OFF ICE VISIT with VERÓNICA PENA MD 04/07/2017 Last Documented On 8 9:44PM ; [facility] Bipolar I disorder, most rec ent episode, depressed GENERAL OFFICE VISIT with VERÓNICA PENA MD 07/30/2016 Last Documented On 7 9:54PM ; [facility] Generalized anxiety disorder GENERAL OFF ICE VISIT with VERÓNICA PENA MD 07/30/2016 Last Documented On 7 9:54PM ; [facility] Panic disorder without agoraphobia GENER AL OFFICE VISIT with VERÓNICA PENA MD 07/30/2016 Last Documented On 7 9:54PM ; [facility] Persistent insomnia GENERAL OFFICE VISIT with ME KRISTIAN PENA MD 07/30/2016 Last Documented On 7 9:54PM ; [facility] Psychophysiological insomnia GENERAL OFF ICE VISIT with VERÓNICA PENA MD 07/30/2016 Last Documented On 7 9:54PM ; [facility] Bipolar I disorder, most rec ent episode, depressed GENERAL OFFICE VISIT with VERÓNICA PENA MD 01/29/2016 Last Documented On 6 9:38AM ; [facility] Generalized anxiety disorder GENERAL OFF ICE VISIT with VERÓNICA PENA MD 01/29/2016 Last Documented On 6 9:38AM ; [facility] Panic disorder without agoraphobia GENER AL OFFICE VISIT with VERÓNICA PENA MD 01/29/2016 Last Documented On 6 9:38AM ; [facility] Persistent insomnia GENERAL OFFICE VISIT with ME KRISTIAN PENA MD 01/29/2016 Last Documented On 6 9:38AM ; [facility] Bipolar I disorder, most rec ent episode, depressed GENERAL OFFICE VISIT with VERÓNICA PENA MD 07/24/2015 Last Documented On 6 7:46PM ; [facility] Generalized anxiety disorder GENERAL OFF ICE VISIT with VERÓNICA PENA MD 07/24/2015 Last Documented On 6 7:46PM ; [facility] Panic disorder without agoraphobia GENER AL OFFICE VISIT with VERÓNICA PENA MD 07/24/2015 Last Documented On 6 7:46PM ; [facility] Persistent insomnia GENERAL OFFICE VISIT with ME KRISTIAN PENA MD 07/24/2015 Last Documented On 6 7:46PM ; [facility] Bipolar I disorder, most rec ent episode, depressed GENERAL OFFICE VISIT with VERÓNICA PENA MD 02/01/2015 Last Documented On 5 7:05PM ; [facility] Generalized anxiety disorder GENERAL OFF ICE VISIT with VERÓNICA PENA MD 02/01/2015 Last Documented On 5 7:05PM ; [facility] Panic disorder without agoraphobia GENER AL OFFICE VISIT with VERÓNICA PENA MD 02/01/2015 Last Documented On 5 7:05PM ; [facility] Persistent insomnia GENERAL OFFICE VISIT with ME KRISTIAN PENA MD 02/01/2015 Last Documented On 5 7:05PM ; [facility] Bipolar I disorder, most rec ent episode, depressed GENERAL OFFICE VISIT with VERÓNICA PENA MD 09/28/2014 Last Documented On 5 1:02AM ; [facility] Generalized anxiety disorder GENERAL OFF ICE VISIT with VERÓNICA PENA MD 09/28/2014 Last Documented On 5 1:02AM ; [facility] Panic disorder without agoraphobia GENER AL OFFICE VISIT with VERÓNICA PENA MD 09/28/2014 Last Documented On 5 1:02AM ; [facility] Persistent insomnia GENERAL OFFICE VISIT with ME KRISTIAN PENA MD 09/28/2014 Last Documented On 5 1:02AM ; [facility] Bipolar I disorder, most rec ent episode, depressed GENERAL OFFICE VISIT with VERÓNICA PENA MD 06/22/2014 Last Documented On 5 8:37AM ; [facility] Generalized anxiety disorder GENERAL OFF ICE VISIT with VERÓNICA PENA MD 06/22/2014 Last Documented On 5 8:37AM ; [facility] Panic disorder without agoraphobia GENER AL OFFICE VISIT with VERÓNICA PENA MD 06/22/2014 Last Documented On 5 8:37AM ; [facility] Persistent insomnia GENERAL OFFICE VISIT with ME KRISTIAN PENA MD 06/22/2014 Last Documented On 5 8:37AM ; [facility] Bipolar I disorder, most rec ent episode, depressed GENERAL OFFICE VISIT with VERÓNICA PENA MD 04/20/2014 Last Documented On 5 8:18PM ; [facility] Generalized anxiety disorder GENERAL OFF ICE VISIT with VERÓNICA PENA MD 04/20/2014 Last Documented On 5 8:18PM ; [facility] Panic disorder without agoraphobia GENER AL OFFICE VISIT with VERÓNICA PENA MD 04/20/2014 Last Documented On 5 8:18PM ; [facility] Persistent insomnia GENERAL OFFICE VISIT with ME KRISTIAN PENA MD 04/20/2014 Last Documented On 5 8:18PM ; [facility] Bipolar I disorder, most rec ent episode, depressed * PHONE CALL with VERÓNICA PENA MD 04/19/2014 Last Documented On 5 5:33PM ; [facility] Generalized anxiety disorder * PHONE CALL with Peg PENA MD 04/19/2014 Last Documented On 5 5:33PM ; [facility] Bipolar I disorder, most rec ent episode, depressed GENERAL OFFICE VISIT with VERÓNICA PENA MD 03/02/2014 Last Documented On 4 2:23AM ; [facility] Generalized anxiety disorder GENERAL OFF ICE VISIT with VERÓNICA PENA MD 03/02/2014 Last Documented On 4 2:23AM ; [facility] Panic disorder without agoraphobia GENER AL OFFICE VISIT with VERÓNICA PENA MD 03/02/2014 Last Documented On 4 2:23AM ; [facility] Persistent insomnia GENERAL OFFICE VISIT with ME KRISTIAN PENA MD 03/02/2014 Last Documented On 4 2:23AM ; [facility] Bipolar I disorder, most rec ent episode, depressed GENERAL OFFICE VISIT with VERÓNICA PENA MD 11/10/2013 Last Documented On 4 11:38PM ; [facility] Generalized anxiety disorder GENERAL OFF ICE VISIT with VERÓNICA PENA MD 11/10/2013 Last Documented On 4 11:38PM ; [facility] Obstructive sleep apnea GENERAL OFFICE VISIT wit h VERÓNICA PENA MD 11/10/2013 Last Documented On 4 11:38PM ; [facility] Organic circadian rhythm sle ep disorder, shift work type GENERAL OFFICE VISIT with VERÓNICA PENA MD 11/10/2013 Last Documented On 4 11:38PM ; [facility] Panic disorder without agoraphobia GENER AL OFFICE VISIT with VERÓNICA PENA MD 11/10/2013 Last Documented On 4 11:38PM ; [facility] Persistent insomnia GENERAL OFFICE VISIT with ME KRISTIAN PENA MD 11/10/2013 Last Documented On 4 11:38PM ; [facility] Bipolar I disorder, most rec ent episode, depressed GENERAL OFFICE VISIT with VERÓNICA PENA MD 07/07/2013 Last Documented On 4 11:16PM ; [facility] Generalized anxiety disorder GENERAL OFF ICE VISIT with VERÓNICA PENA MD 07/07/2013 Last Documented On 4 11:16PM ; [facility] Obstructive sleep apnea GENERAL OFFICE VISIT wit h VERÓNICA PENA MD 07/07/2013 Last Documented On 4 11:16PM ; [facility] Organic circadian rhythm sle ep disorder, shift work type GENERAL OFFICE VISIT with VERÓNICA PENA MD 07/07/2013 Last Documented On 4 11:16PM ; [facility] Panic disorder without agoraphobia GENER AL OFFICE VISIT with VERÓNICA PENA MD 07/07/2013 Last Documented On 4 11:16PM ; [facility] Persistent insomnia GENERAL OFFICE VISIT with ME KRISTIAN PENA MD 07/07/2013 Last Documented On 4 11:16PM ; [facility] Bipolar I disorder, most rec ent episode, depressed GENERAL OFFICE VISIT with VERÓNICA PENA MD 03/08/2013 Last Documented On 3 9:34PM ; [facility] Generalized anxiety disorder GENERAL OFF ICE VISIT with VERÓNICA PENA MD 03/08/2013 Last Documented On 3 9:34PM ; [facility] Obstructive sleep apnea GENERAL OFFICE VISIT wit h VERÓNICA PENA MD 03/08/2013 Last Documented On 3 9:34PM ; [facility] Organic circadian rhythm sle ep disorder, shift work type GENERAL OFFICE VISIT with VERÓNICA PENA MD 03/08/2013 Last Documented On 3 9:34PM ; [facility] Panic disorder without agoraphobia GENER AL OFFICE VISIT with VERÓNICA PENA MD 03/08/2013 Last Documented On 3 9:34PM ; [facility] Persistent insomnia GENERAL OFFICE VISIT with ME KRISTIAN PENA MD 03/08/2013 Last Documented On 3 9:34PM ; [facility] Bipolar I disorder, most rec ent episode, depressed GENERAL OFFICE VISIT with VERÓNICA PENA MD 10/28/2012 Last Documented On 3 8:55PM ; [facility] Generalized anxiety disorder GENERAL OFF ICE VISIT with VERÓNICA PENA MD 10/28/2012 Last Documented On 3 8:55PM ; [facility] Obstructive sleep apnea GENERAL OFFICE VISIT wit h VERÓNICA PENA MD 10/28/2012 Last Documented On 3 8:55PM ; [facility] Organic circadian rhythm sle ep disorder, shift work type GENERAL OFFICE VISIT with VERÓNICA PENA MD 10/28/2012 Last Documented On 3 8:55PM ; [facility] Panic disorder without agoraphobia GENER AL OFFICE VISIT with VERÓNICA PENA MD 10/28/2012 Last Documented On 3 8:55PM ; [facility] Persistent insomnia GENERAL OFFICE VISIT with ME KRISTIAN PENA MD 10/28/2012 Last Documented On 3 8:55PM ; [facility] Bipolar I disorder, most rec ent episode, depressed GENERAL OFFICE VISIT with VERÓNICA PENA MD 07/15/2012 Last Documented On 3 9:01PM ; [facility] Generalized anxiety disorder GENERAL OFF ICE VISIT with VERÓNICA PENA MD 07/15/2012 Last Documented On 3 9:01PM ; [facility] Obstructive sleep apnea GENERAL OFFICE VISIT wit h VERÓNICA PENA MD 07/15/2012 Last Documented On 3 9:01PM ; [facility] Organic circadian rhythm sle ep disorder, shift work type GENERAL OFFICE VISIT with VERÓNICA PENA MD 07/15/2012 Last Documented On 3 9:01PM ; [facility] 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 GENERAL OFFICE VISIT with VERÓNICA PENA MD 07/15/2012 Last Documented On 3 9:01PM ; [facility] Panic disorder without agoraphobia GENER AL OFFICE VISIT with VERÓNICA PENA MD 07/15/2012 Last Documented On 3 9:01PM ; [facility] Instructions Includes: Instructions for all patient encounters Instructions to patient Lose weight - gained 7 lbs s rebecca last visit Last Documented On 2 11:04AM ; [facility] Lose weight - portion contro l, health balanced meals Last Documented On 2 8:34AM ; [facility] Lose weight portion control, balanced diet Last Documented On 2 3:31AM ; [facility] Lose weight Last Documented On 1 3:25PM ; [facility] Lose weight Last Documented On 0 4:48PM ; [facility] Lose weight Last Documented On 0 3:49PM ; [facility] Education and Decision Aids were provided during visit for: Calming techniques such as b reathing exercises/meditation and other relaxation techniques Last Documented On 3 9:59AM ; [facility] Patient education about medi cation ---Education was given on medication(s) and diagnosis. I reviewed the risks, benefits and side effects of patient's medications Last Documented On 2 2:32PM ; [facility] Patient education about medi cation --- I educated patient on medication(s) and diagnosis. I reviewed the risks, benefits and side effects of patient's medications Last Documented On 2 1:37PM ; [facility] Discussed calming techniques such as breathing exercises and other relaxation techniques Last Documented On 2 1:37PM ; [facility] Counseling for nutrition/kimmie ght management provided Last Documented On 2 2:00PM ; [facility] Patient education about medi cation --- I educated patient on medication(s) and diagnosis. I reviewed the risks, benefits and side effects of patient's medications Last Documented On 2 10:42AM ; [facility] Discussed calming techniques such as breathing exercises and other relaxation techniques Last Documented On 2 10:42AM ; [facility] Counseling for nutrition/kimmie ght management provided Last Documented On 2 11:44AM ; [facility] Discussed good sleep hygiene habits Last Documented On 2 11:44AM ; [facility] Patient education about medi cation --- I educated patient on medication(s) and diagnosis. I reviewed the risks, benefits and side effects of patient's medications Last Documented On 1 11:12AM ; [facility] Discussed calming techniques such as breathing exercises and other relaxation techniques Last Documented On 1 11:12AM ; [facility] Counseling for nutrition/kimmie ght management provided Last Documented On 1 11:38AM ; [facility] Discussed good sleep hygiene habits Last Documented On 1 11:38AM ; [facility] Patient education about medi cation --- I educated patient on medication(s) and diagnosis. I reviewed the risks, benefits and side effects of patient's medications Last Documented On 1 3:13PM ; [facility] Discussed calming techniques such as breathing exercises and other relaxation techniques Last Documented On 1 3:13PM ; [facility] Counseling for nutrition/kimmie ght management provided Last Documented On 1 3:25PM ; [facility] Discussed good sleep hygiene habits Last Documented On 1 3:25PM ; [facility] Patient education about medi cation --- I educated patient on medication(s) and diagnosis. I reviewed the risks, benefits and side effects of patient's medications Last Documented On 1 10:00AM ; [facility] Discussed calming techniques such as breathing exercises and other relaxation techniques Last Documented On 1 10:00AM ; [facility] Counseling for nutrition/kimmie ght management provided Last Documented On 1 10:40AM ; [facility] Discussed good sleep hygiene habits Last Documented On 1 10:40AM ; [facility] Patient education about medi cation --- I educated patient on medication(s) and diagnosis. I reviewed the risks, benefits and side effects of patient's medications Last Documented On 0 3:34PM ; [facility] Discussed calming techniques such as breathing exercises and other relaxation techniques Last Documented On 0 3:34PM ; [facility] Counseling for nutrition/kimmie ght management provided Last Documented On 0 4:48PM ; [facility] Patient education about medi cation --- I educated patient on medication(s) and diagnosis. I reviewed the risks, benefits and side effects of patient's medications Last Documented On 0 3:24PM ; [facility] Counseling for nutrition/kimmie ght management provided Last Documented On 0 3:49PM ; [facility] Discussed good sleep hygiene habits Last Documented On 0 12:03AM ; [facility] Patient education about a pr oper diet Last Documented On 9 3:17PM ; [facility] Patient education about medi cation --- I educated patient on medication(s) and diagnosis. I reviewed the risks, benefits and side effects of patient's medications Last Documented On 9 3:00PM ; [facility] Discussed calming techniques such as breathing exercises and other relaxation techniques Last Documented On 9 3:00PM ; [facility] Counseling for nutrition/kimmie ght management provided Last Documented On 9 3:17PM ; [facility] Patient education about a pr oper diet Last Documented On 9 10:06AM ; [facility] Patient education about medi cation --- I educated patient on medication(s) and diagnosis. I reviewed the risks, benefits and side effects of patient's medications Last Documented On 9 9:47AM ; [facility] Counseling for nutrition/kimmie ght management provided Last Documented On 9 10:06AM ; [facility] Patient education about a pr oper diet Last Documented On 9 9:47AM ; [facility] Patient education about medi cation --- I educated patient on medication(s) and diagnosis. I reviewed the risks, benefits and side effects of patient's medications Last Documented On 9 9:25AM ; [facility] Counseling for nutrition/kimmie ght management provided Last Documented On 9 9:47AM ; [facility] Patient education about medi cation --- I educated patient on medication(s) and diagnosis. I reviewed the risks, benefits and side effects of patient's medications Last Documented On 8 9:52AM ; [facility] Discussed calming techniques such as breathing exercises and other relaxation techniques Last Documented On 8 9:52AM ; [facility] Counseling for nutrition/kimmie ght management provided Last Documented On 8 3:37AM ; [facility] Patient education about medi cation --- I educated patient on medication(s) and diagnosis. I reviewed the risks, benefits and side effects of patient's medications Last Documented On 8 10:22AM ; [facility] Discussed calming techniques such as breathing exercises and other relaxation techniques Last Documented On 8 10:22AM ; [facility] Counseling for nutrition/kimmie ght management provided Last Documented On 8 9:37PM ; [facility] Discussed good sleep hygiene habits Last Documented On 8 9:37PM ; [facility] Patient education about medi cation --- I educated patient on medication(s) and diagnosis. I reviewed the risks, benefits and side effects of patient's medications Last Documented On 7 9:18AM ; [facility] such as breathing exercises and other relaxation techniques Last Documented On 7 9:18AM ; [facility] Counseling for nutrition/kimmie ght management provided Last Documented On 7 9:49PM ; [facility] Patient education about medi cation --- I educated patient on medication(s) and diagnosis. I reviewed the risks, benefits and side effects of patient's medications Last Documented On 6 8:50AM ; [facility] Discuss[facility] calming techniques such as breathing exercises/meditation and other relaxation techniques Last Documented On 6 8:50AM ; [facility] Counseling for nutrition/kimmie ght management provided Last Documented On 6 9:34AM ; [facility] Patient education about medi cation --- I educated patient on medication(s) and diagnosis. I reviewed the risks, benefits and side effects of patient's medications Last Documented On 6 1:25PM ; [facility] Discuss[facility] calming techniques such as breathing exercises/meditation and other relaxation techniques Last Documented On 6 1:25PM ; [facility] Counseling for nutrition/kimmie ght management provided Last Documented On 6 7:42PM ; [facility] Discussed good sleep hygiene habits Last Documented On 6 7:43PM ; [facility] Patient education about medi cation --- I educated patient on medication(s) and diagnosis. I reviewed the risks, benefits and side effects of patient's medications Last Documented On 5 8:48AM ; [facility] Discussed calming techniques such as breathing exercises/meditation and other relaxation techniques Last Documented On 5 8:48AM ; [facility] Counseling for nutrition/kimmie ght management provided Last Documented On 5 7:01PM ; [facility] Patient education about medi cation --- I educated patient on medication(s) and diagnosis. I reviewed the risks, benefits and side effects of patient's medications Last Documented On 5 1:01AM ; [facility] Discussed calming techniques such as breathing exercises/meditation and other relaxation techniques Last Documented On 5 8:56AM ; [facility] Counseling for nutrition/kimmie ght management provided Last Documented On 5 1:01AM ; [facility] Patient education about medi cation --- I educated patient on medication(s) and diagnosis. I reviewed the risks, benefits and side effects of patient's medications Last Documented On 5 8:31AM ; [facility] Discussed calming techniques such as breathing exercises/meditation and other relaxation techniques Last Documented On 5 9:11AM ; [facility] Counseling for nutrition/kimmie ght management provided Last Documented On 5 8:31AM ; [facility] Patient education about medi cation --- I educated patient on medication(s) and diagnosis. I reviewed the risks, benefits and side effects of patient's medications Last Documented On 5 8:16PM ; [facility] Discussed calming techniques such as breathing exercises/meditation and other relaxation techniques Last Documented On 5 3:32PM ; [facility] Counseling for nutrition/kimmie ght management provided Last Documented On 5 8:16PM ; [facility] Patient education about medi cation --- I educated patient on medication(s) and diagnosis. I reviewed the risks, benefits and side effects of patient's medications Last Documented On 4 2:18AM ; [facility] Discussed calming techniques such as breathing exercises/meditation and other relaxation techniques Last Documented On 4 8:53AM ; [facility] Counseling for nutrition/kimmie ght management provided Last Documented On 4 2:18AM ; [facility] Patient education about medi cation --- I educated patient on medication(s) and diagnosis. I reviewed the risks, benefits and side effects of patient's medications Last Documented On 4 9:59AM ; [facility] Discussed calming techniques such as breathing exercises/meditation and other relaxation techniques Last Documented On 4 9:13AM ; [facility] Counseling for nutrition/kimmie ght management provided Last Documented On 4 9:59AM ; [facility] Patient education about medi cation --- I educated patient on medication(s) and diagnosis. I reviewed the risks, benefits and side effects of patient's medications Last Documented On 4 11:12PM ; [facility] Discussed calming techniques such as breathing exercises/meditation and other relaxation techniques Last Documented On 4 10:41AM ; [facility] Counseling for nutrition/kimmie ght management provided Last Documented On 4 11:12PM ; [facility] Patient education about medi cation --- I educated patient on medication(s) and diagnosis Last Documented On 3 9:30PM ; [facility] Discussed calming techniques such as breathing exercises/meditation and other relaxation techniques Last Documented On 3 3:25PM ; [facility] Counseling for nutrition/kimmie ght management provided Last Documented On 3 9:30PM ; [facility] Discussed good sleep hygiene habits Last Documented On 3 9:30PM ; [facility] Patient education about medi cation --- I educated patient on medication(s) and diagnosis Last Documented On 3 5:47PM ; [facility] Patient education about adve rse reactions to medication Last Documented On 3 5:47PM ; [facility] Discussed calming techniques such as breathing exercises/meditation and other relaxation techniques Last Documented On 3 9:13AM ; [facility] Counseling for nutrition/kimmie ght management provided Last Documented On 3 5:47PM ; [facility] Reviewed side effects and Ri sks/Benefits analysis Last Documented On 3 5:47PM ; [facility] Patient education about medi cation --- I educated patient on medication(s) and diagnosis Last Documented On 3 8:53PM ; [facility] Discussed calming techniques such as breathing exercises and other relaxation techniques Last Documented On 3 3:24PM ; [facility] Medical Equipment - Implanted Devices Includes: Current and historical Devices No Medical Equipment Recorded Medications Includes: Current and historical Medications Current Medications (continue as prescribed) Systane 0.4-0.3% Ophthalmic Solution 07/08/2022 Prov ider: Diagnosis: use as directed prn Last Documented On 07/08/2022 2:58PM By SHANTEL CRUZ ; [facility] Famotidine 20 MG Oral Tablet 06/11/2022 Provider: RAMSEY BLANCO NP Diagnosis: 1 tab bid Last Documented On 07/08/2022 2:58PM By SHANTEL CRUZ ; [facility] Focalin 10 MG Oral Tablet 04/25/2022 Provider: VERÓNICA PENA MD Diagnosis: Attn-defct hyper activity disorder, predom inattentive type as directed - 1 tab in am with food Last Documented On 04/25/2022 2:51PM By Adrianne Pena MD ; [facility] Solifenacin Succinate 5 MG Oral Tablet 04/24/2022 Pr ovider: RAMSEY BLANCO NP Diagnosis: 1 tab daily Last Documented On 07/08/2022 2:59PM By SHANTEL CRUZ ; [facility] traZODone HCl 50 MG Oral Tablet 02/11/2022 Provider: VERÓNICA PENA MD Diagnosis: Psychophysiologi c insomnia TAKE 2 TABLETS BY MOUTH AT B EDTIME NEEDED FOR SLEEP Last Documented On 02/11/2022 1:21PM By Adrianne Pena MD ; [facility] Esomeprazole Magnesium 20 MG Oral Capsule Delayed Release 01/31/2022 Provider: DYLAN HERNANDEZ MD Diagnosis: 1 capsule in the am Last Documented On 02/26/2022 2:49PM By SHANTEL CRUZ ; [facility] Lexapro 20 MG Oral Tablet 10/28/2021 Provider: VERÓNICA PENA MD Diagnosis: Major depressive disorder, recurrent, unspecified One tablet daily -- please g meme GENERIC Last Documented On 10/28/2021 3:10PM By Adrianne Pena MD ; [facility] lamoTRIgine 100 MG Oral Tablet 10/28/2021 Provider: VERÓNICA PENA MD Diagnosis: Bipolar disord, crnt epsd depress, mild or mod severt, unsp TAKE 1 TABLET BY MOUTH EVERY DAY Last Documented On 10/28/2021 3:10PM By Adrianne Pena MD ; [facility] busPIRone HCl 10 MG Oral Tablet 10/28/2021 Provider: VERÓNICA PENA MD Diagnosis: Generalized anxi ety disorder One tablet at bed time Last Documented On 10/28/2021 3:10PM By Adrianne Pena MD ; [facility] Gabapentin 600 MG Oral Tablet 10/07/2021 Provider: LEODAN OLIVAREZ MD Diagnosis: 1 tab tid Last Documented On 10/28/2021 1:59PM By SHANTEL CRUZ ; [facility] Amoxicillin 500 MG Oral Capsule 09/26/2021 Provider: Diagnosis: prior to dental work Last Documented On 10/28/2021 2:00PM By SHANTEL CRUZ ; [facility] Alendronate Sodium 35 MG Oral Tablet 01/07/2021 Prov ider: Diagnosis: [address] Lewis Moreira Last Documented On 1 11:34AM By SHANTEL CRUZ ; [facility] Atorvastatin Calcium 20 MG Oral Tablet 06/13/2020 Pr ovider: DYLAN HERNANDEZ MD Diagnosis: 1 tab nightly Last Documented On 1 10:34AM By SHANTEL CRUZ ; [facility] Metoprolol Succinate ER 25 M G Oral Tablet Extended Release 24 Hour 06/06/2020 Provider: DYLAN DUNLAP MD Diagnosis: 1 tab daily Last Documented On 1 10:34AM By SHANTEL CRUZ ; [facility] Lumigan 0.01% Ophthalmic Solution 06/05/2020 Provide r: Diagnosis: use as directed Dr. Bill Jacob Last Documented On 1 10:35AM By SHANTEL CRUZ ; [facility] Hydroxychloroquine Sulfate 200 MG Oral Tablet 11/30/19 Provider: LEODAN OLIVAREZ MD Diagnosis: 1 tab bid Last Documented On 03/02/2020 4:48PM By SHANTEL CRUZ ; [facility] Aspirin 81 MG Tablet 06/22/2014 Provider: Diagnosis: Last Documented On 5 10:06AM By Adrianne Pena MD ; [facility] Past Medications on file Vyvanse 30 MG Oral Capsule 07/08/2022 - 08/07/2022 Provider: VERÓNICA PENA MD Diagnosis: Attn-defct hyper activity disorder, predom inattentive type 1 Capsule every morning Last Documented On 07/08/2022 3:42PM By Adrianne Pena MD ; [facility] Focalin 10 MG Oral Tablet 03/28/2022 - 04/25/2022 Provider: VERÓNICA PENA MD Diagnosis: Attn-defct hyper activity disorder, predom inattentive type as directed - 1 tab in am with food Last Documented On 04/25/2022 2:39PM By Adrianne Pena MD ; [facility] Famotidine 20 MG Oral Tablet 02/26/2022 - 05/27/2022 Paulette lay: RAMSEY BLANCO NP Diagnosis: 1 tab bid Last Documented On 02/26/2022 2:48PM By SHANTEL CRUZ ; [facility] Focalin 10 MG Oral Tablet 02/26/2022 - 03/28/2022 Provider: VERÓNIAC PENA MD Diagnosis: Attn-defct hyper activity disorder, predom inattentive type as directed - 1 tab in am with food Last Documented On 03/28/2022 4:06PM By Adrianne Pena MD ; [facility] Focalin 10 MG Oral Tablet 12/10/2021 - 03/18/2022 Provider: VERÓNICA PENA MD Diagnosis: Attn-defct hyper activity disorder, predom inattentive type 1 tablet every morning Last Documented On 2 10:51AM By Adrianne Pena MD ; [facility] Focalin 10 MG Oral Tablet 10/28/2021 - 12/10/2021 Provider: VERÓNICA PENA MD Diagnosis: Attn-defct hyper activity disorder, predom inattentive type 1 tablet every morning Last Documented On 2 12:24PM By Adrianne Pena MD ; [facility] Focalin 10 MG Oral Tablet 09/04/2021 - 10/28/2021 Prov ider: VERÓNICA PENA MD Diagnosis: 1 tablet every morning Last Documented On 10/28/2021 2:52PM By Adrianne Pena MD ; [facility] lamoTRIgine 100 MG Oral Tablet 09/02/2021 - 10/28/2021 Provider: VERÓNICA PENA MD Diagnosis: Bipolar disord, crnt epsd depress, mild or mod severt, unsp TAKE 1 TABLET BY MOUTH EVERY DAY Last Documented On 10/28/2021 2:55PM By Adrianne Pena MD ; [facility] traZODone HCl 50 MG Oral Tablet 07/23/2021 - 02/11/2022 Provider: VERÓNICA PENA MD Diagnosis: Psychophysiologi c insomnia TAKE 2 TABLETS BY MOUTH AT B EDTIME NEEDED FOR SLEEP Last Documented On 02/11/2022 1:12PM By Adrianne Pena MD ; [facility] Focalin 10 MG Oral Tablet 07/22/2021 - 09/04/2021 Prov ider: VERÓNICA PENA MD Diagnosis: 1 tablet every morning Last Documented On 09/04/2021 2:35PM By Adrianne Pena MD ; [facility] Focalin 10 MG Oral Tablet 06/14/2021 - 07/22/2021 Prov ider: VERÓNICA PENA MD Diagnosis: 1 tablet every morning Last Documented On 2 12:20PM By Adrianne Pena MD ; [facility] Quercetin Complex Immune Oral Capsule 05/29/2021 - 10/2021 Provider: Diagnosis: with Vitamin C, N-acetyl cysteine, Vitamin D and Zinc (Orthomune)2 daily Last Documented On 10/28/2021 1:47PM By SHANTEL CRUZ ; [facility] Methotrexate Sodium 2.5 MG Oral Tablet 05/29/2021 - Provider: LEODAN OLIVAREZ MD Diagnosis: 6 tabs weekly Last Documented On 2 11:34AM By SHANTEL CRUZ ; [facility] Gabapentin 600 MG Oral Tablet 05/29/2021 - 06/28/2021 Provider: LEODAN OLIVAREZ MD Diagnosis: 1 cap tid Last Documented On 2 11:33AM By SHANTEL CRUZ ; [facility] Boswellia Reginaldo Extract Powder 05/29/2021 - 05/30/19 Provider: Diagnosis: tablet with DI-phenlaline 1 daily Last Documented On 2 11:43AM By SHANTEL CRUZ ; [facility] Quercetin Complex Immune Oral Capsule 05/29/2021 - 11/2021 Provider: Diagnosis: with Vitamin C, N-acetyl cysteine, Vitamin D and Zinc1 daily Last Documented On 2 11:43AM By SHANTEL CRUZ ; [facility] Daily Value Multivitamin Oral Tablet 05/29/2021 - 10/2021 Provider: Diagnosis: 1 tab daily otc Last Documented On 10/28/2021 1:47PM By SHANTEL CRUZ ; [facility] Boswellia Reginaldo Extract Powder 05/29/2021 - 10/29/19 Provider: Diagnosis: tablet with DI-phenlaline 1 daily (curamin) Last Documented On 10/28/2021 1:47PM By SHANTEL CRUZ ; [facility] lamoTRIgine 100 MG Oral Tablet 05/21/2021 - 09/02/2021 Provider: VERÓNICA PENA MD Diagnosis: Bipolar disord, crnt epsd depress, mild or mod severt, unsp TAKE 1 TABLET BY MOUTH EVERY DAY Last Documented On 09/02/2021 8:30AM By Adrianne Pena MD ; [facility] Focalin 10 MG Oral Tablet 04/29/2021 - 06/14/2021 Prov ider: VERÓNICA PENA MD Diagnosis: 1 tablet every morning Last Documented On 06/14/2021 2:33PM By Adrianne Pena MD ; [facility] Focalin 10 MG Oral Tablet 04/01/2021 - 04/29/2021 Prov ider: VERÓNICA PENA MD Diagnosis: 1 tablet every morning Last Documented On 10:28AM By Adrianne Pena MD ; [facility] traZODone HCl 50 MG Oral Tablet 01/30/2021 - Provider: Diagnosis: Psychophysiologi c insomnia 2 tablets at bedtime as needed for sleep Last Documented On 02/26/2022 2:48PM By SHANTEL CRUZ ; [facility] traZODone HCl 50 MG Oral Tablet 01/30/2021 - 07/23/2021 Provider: VERÓNICA PENA MD Diagnosis: Psychophysiologi c insomnia as directed 2 tablets at bed time as needed for sleep Last Documented On 07/23/2021 6:00PM By Adrianne Pena MD ; [facility] Famotidine 20 MG Oral Tablet 12/24/2020 - 02/26/2022 P alireza: RAMSEY BLANCO NP Diagnosis: 1 tab daily Last Documented On 02/26/2022 2:48PM By SHANTEL CRUZ ; [facility] Focalin 10 MG Oral Tablet 12/14/2020 - 04/01/2021 Prov ider: VERÓNICA PNEA MD Diagnosis: 1 tablet every morning Last Documented On 04/01/2021 1:51PM By Adrianne Pena MD ; [facility] Lexapro 20 MG Oral Tablet 10/26/2020 - 10/28/2021 Provider: VERÓNICA DORSEY MD Diagnosis: Major depressive disorder, recurrent, unspecified One tablet daily -- please give GENERIC Last Documented On 10/28/2021 2:55PM By Adrianne Pena MD ; [facility] busPIRone HCl 10 MG Oral Tablet 10/26/2020 - 10/28/2021 Provider: VERÓNICA PENA MD Diagnosis: Generalized anxi ety disorder One tablet at bed time Last Documented On 10/28/2021 2:56PM By Adrianne Pena MD ; [facility] Focalin 10 MG Oral Tablet 09/27/2020 - 12/14/2020 Prov ider: VERÓNICA PENA MD Diagnosis: 1 tablet every morning Last Documented On 12/14/2020 1:31PM By Adrianne Pena MD ; [facility] LaMICtal 100 MG Oral Tablet 08/30/2020 - 05/21/2021 Provider: VERÓNICA DORSEY MD Diagnosis: Bipolar disord, crnt epsd depress, mild or mod severt, unsp One tablet daily Last Documented On 05/21/2021 7:25AM By Adrianne Pena MD ; [facility] traMADol HCl 50 MG Oral Tablet 08/30/2020 - 10/26/2020 Provider: Diagnosis: use as directed prn Last Documented On 10/26/2020 3:55PM By Adrianne Pena MD ; [facility] Systane 0.4-0.3% Ophthalmic Solution 08/30/2020 - 06/21 Provider: Diagnosis: use as directed Last Documented On 07/08/2022 2:58PM By SHANTEL CRUZ ; [facility] Focalin 10 MG Oral Tablet 08/30/2020 - 09/27/2020 Provider: VERÓNICA PENA MD Diagnosis: Attention-defici t hyperactivity disorder, combined type 1 tablet every morning Last Documented On 09/27/2020 3:59PM By Adrianne Pena MD ; [facility] Methotrexate Sodium 2.5 MG Oral Tablet 08/28/2020 - Provider: LEODAN OLIVAREZ MD Diagnosis: 4 tabs weekly Last Documented On 11:34AM By SHANTEL CRUZ ; [facility] Folic Acid 1 MG Oral Tablet 08/28/2020 - 02/26/2022 Pr ovider: LEODAN OLIVAREZ MD Diagnosis: 1 tab daily Last Documented On 02/26/2022 2:40PM By SHANTEL CRUZ ; [facility] methylPREDNISolone 4 MG Oral Tablet Therapy Pack 08/21/2020 - 10/26/2020 Provider: LEODAN OLIVAREZ MD Diagnosis: prn Last Documented On 10/26/2020 3:56PM By Adrianne Pena MD ; [facility] traZODone HCl 50 MG Oral Tablet 07/23/2020 - 02/26/2022 Provider: VERÓNICA PENA MD Diagnosis: Psychophysiologi c insomnia TAKE 2 TABLETS BY MOUTH AT B EDTIME NEEDED FOR SLEEP Last Documented On 02/26/2022 2:48PM By SHANTEL CRUZ ; [facility] LaMICtal 100 MG Oral Tablet 03/07/2020 - 08/30/2020 Provider: VERÓNICA DORSEY MD Diagnosis: Bipolar disord, crnt epsd depress, mild or mod severt, unsp One tablet daily Last Documented On 1 10:59AM By Adrianne Pena MD ; [facility] Albuterol Sulfate (2.5 MG/3M L) 0.083% Inhalation Nebulization solution 02/14/2020 - 08/30/2020 Provider: RAMSEY BLANCO NP Diagnosis: use as directed Last Documented On 1 10:08AM By SHANTEL CRUZ ; [facility] Gabapentin 600 MG Oral Tablet 02/10/2020 - 05/29/2021 Provider: LEODAN OLIVAREZ MD Diagnosis: 1 cap bid Last Documented On 2 11:33AM By SHANTEL CRUZ ; [facility] Ibuprofen 800 MG Oral Tablet 11/23/2019 - 08/30/2020 Paulette lay: JOSELYN MATHUR Diagnosis: 1 tab q 6 hours prn pain Last Documented On 1 10:10AM By SHANTEL CRUZ ; [facility] traZODone HCl 50 MG Oral Tablet 10/17/2019 - 07/23/2020 Provider: VERÓNICA PENA MD Diagnosis: Psychophysiologi c insomnia as directed -- 2 at bedtime as needed for sleep Last Documented On 1 12:55PM By Adrianne Pena MD ; [facility] traZODone HCl 50 MG OR TABS 10/12/2019 - 01/10/2020 Pr ovider: Diagnosis: Psychophysiologi c insomnia Two tablets at bedtime - this was increased 2019 Last Documented On 10/12/2019 9:52AM By TAMERA PETTIT ; [facility] traZODone [facility] 50 MG Oral Tablet 10/12/2019 - 09/18/2020 Provider: VERÓNICA PENA MD Diagnosis: Psychophysiologi c insomnia as directed Two tablets at bedtime Last Documented On 09/18/2020 2:44PM By Adrianne Pena MD ; [facility] Pristiq 50 MG Oral Tablet Extended Release 24 Hour 10/05/2019 - 08/30/2020 Provider: VERÓNICA PENA MD Diagnosis: Major depressive disorder, recurrent, unspecified TAKE 1 TABLET BY MOUTH EVERY DAY Last Documented On 11:00AM By Adrianne Pena MD ; [facility] Horizant 600 MG Oral Tablet Extended Release 08/24/2019 - 09/03/2019 Provider: VERÓNICA DORSEY MD Diagnosis: Restless legs sy ndrome as directed -- 1 tab in even ing for restless legs - pt has 10 day FREE coupon Last Documented On 08/24/2019 4:55PM By Adrianne Pena MD ; [facility] Horizant 600 MG Oral Tablet Extended Release 08/24/2019 - 09/18/2020 Provider: VERÓNICA DORSEY MD Diagnosis: Restless legs sy ndrome as directed -- 1 tab in the evening Last Documented On 09/18/2020 2:45PM By Adrianne Pena MD ; [facility] busPIRone HCl 10 MG Oral Tablet 08/08/2019 - 10/26/2020 Provider: VERÓNICA PENA MD Diagnosis: Generalized anxi ety disorder One tablet at bed time Last Documented On 10/26/2020 3:59PM By Adrianne Pena MD ; [facility] LaMICtal 100 MG Oral Tablet 08/08/2019 - 03/07/2020 Provider: VERÓNICA DORSEY MD Diagnosis: Bipolar disord, crnt epsd depress, mild or mod severt, unsp One tablet daily Last Documented On 0 10:21AM By Adrianne Pena MD ; [facility] Metoprolol Succinate ER 50 M G Oral Tablet Extended Release 24 Hour 07/26/2019 - 03/02/2020 Provider: DYLAN Allen MD Diagnosis: 1 tab daily Last Documented On 03/02/2020 4:21PM By SHANTEL CRUZ ; [facility] Pristiq 50 MG Oral Tablet Extended Release 24 Hour 07/04/2019 - 10/05/2019 Provider: VERÓNICA PENA MD Diagnosis: Major depressive disorder, recurrent, unspecified One tablet daily Last Documented On 10/05/2019 1:52PM By Adrianne Pena MD ; [facility] Spiriva HandiHaler 18 MCG Inhalation Capsule 06/28/2019 - 08/30/2020 Provider: RAMSEY BLANCO NP Diagnosis: inhale 1 capsule daily Last Documented On 1 10:12AM By SHANTEL CRUZ ; [facility] Horizant 600 MG Oral Tablet Extended Release 03/09/2019 - 09/18/2020 Provider: VERÓNICA PENA MD Diagnosis: Generalized anxi ety disorder as directed -- 1 tab in evening Last Documented On 09/18/2020 2:45PM By Adrianne Pena MD ; [facility] Albuterol Sulfate 108 (90 Base) MCG/ACT Inhalation Aerosol Powder Breath Activated 02/28/2019 - 08/30/2020 Provider: DYLAN Allen MD Diagnosis: 1 - 2 puffs q 4 - 6 hours prn Last Documented On 1 10:12AM By SHANTEL CRUZ ; [facility] traZODone HCl 50 MG Oral Tablet 02/14/2019 - 08/24/2019 Provider: VERÓNICA PENA MD Diagnosis: Psychophysiologi c insomnia TAKE ONE TABLET BY MOUTH AT BEDTIME Last Documented On 0 12:09AM By Adrianne Pena MD ; [facility] Lexapro 20 MG Oral Tablet 02/14/2019 - 10/26/2020 Provider: VERÓNICA DORSEY MD Diagnosis: Major depressive disorder, recurrent, unspecified One tablet daily -- please give GENERIC Last Documented On 10/26/2020 4:02PM By Adrianne Pena MD ; [facility] Horizant 600 MG Oral Tablet Extended Release 02/10/2019 - 03/09/2019 Provider: VERÓNICA PENA MD Diagnosis: Generalized anxi ety disorder as directed -- 1 tab in evening Last Documented On 9 12:16PM By Adrianne Pena MD ; [facility] busPIRone HCl 10MG Oral Tablet 10/19/2018 - 08/08/2019 Provider: VERÓNICA PENA MD Diagnosis: Generalized anxi ety disorder One tablet at bed time Last Documented On 08/08/2019 1:58PM By Adrianne Pena MD ; [facility] Magnesium Oxide 500MG Oral Tablet 10/19/2018 - 05/2019 Provider: Diagnosis: 3 tabs daily in the morning from Dr. Patel Last Documented On 08/24/2019 3:47PM By SHANTEL CRUZ ; [facility] Turmeric 400MG Oral Capsule 10/19/2018 - 02/10/2019 Pr ovider: Diagnosis: 2 caps in the morning and 1 cap in the evening b y Dr. Marcel Alfonso Last Documented On 02/10/2019 3:07PM By SHANTEL CRUZ ; [facility] LaMICtal 100MG Oral Tablet 10/19/2018 - 08/08/2019 Provider: VERÓNICA DORSEY MD Diagnosis: Bipolar disord, crnt epsd depress, mild or mod severt, unsp One tablet daily Last Documented On 08/08/2019 3:43PM By Adrianne Pena MD ; [facility] Pristiq 50MG Oral Tablet Extended Release 24 Hour 10/19/2018 - 07/04/2019 Provider: VERÓNICA PENA MD Diagnosis: Major depressive disorder, recurrent, unspecified One tablet daily Last Documented On 07/04/2019 2:47PM By Adrianne Pena MD ; [facility] Lexapro 20MG Oral Tablet 10/19/2018 - 02/10/2019 Provider: VERÓNICA DORSEY MD Diagnosis: Major depressive disorder, recurrent, unspecified One tablet daily -- please give GENERIC Last Documented On 9 11:48AM By Adrianne Pena MD ; [facility] traZODone HCl 50MG Oral Tablet 10/19/2018 - 02/10/2019 Provider: VERÓNICA PENA MD Diagnosis: Psychophysiologi c insomnia TAKE ONE TABLET BY MOUTH AT BEDTIME Last Documented On 9 11:48AM By Adrianne Pena MD ; [facility] Geodon 20MG Oral Capsule 10/19/2018 - 02/10/2019 Provider: VERÓNICA DORSEY MD Diagnosis: Bipolar disorder , current episode depressed, moderate 1 capsule daily --reduce to 1 every other day for 3 weeks then d/c Last Documented On 02/10/2019 3:13PM By SHANTEL CRUZ ; [facility] raNITIdine HCl 300MG Oral Tablet 08/13/2018 - 02/10/2019 Provider: DYLAN Allen MD Diagnosis: 1 tab at hs Last Documented On 02/10/2019 3:08PM By SHANTEL CRUZ ; [facility] hydrOXYzine HCl 25MG Oral Tablet 08/13/2018 - 10/19/2018 Provider: DYLAN Allen MD Diagnosis: use as directed for itching Last Documented On 9 10:49AM By Adrianne Pena MD ; [facility] busPIRone HCl 10MG Oral Tablet 07/12/2018 - 10/19/2018 Provider: VERÓNICA PENA MD Diagnosis: Generalized anxi ety disorder One tablet at bed time Last Documented On 9 11:16PM By Adrianne Pena MD ; [facility] Lexapro 20MG Oral Tablet 07/10/2018 - 10/19/2018 Provider: VERÓNICA DORSEY MD Diagnosis: Major depressive disorder, recurrent, unspecified One tablet daily -- please give GENERIC Last Documented On 9 11:16PM By Adrianne Pena MD ; [facility] B Complex Oral Tablet 07/10/2018 - 08/09/2018 Provider: VERÓNICA PENA MD Diagnosis: Deficiency of ot her specified B group vitamins as directed [address] Marcel Zuñiga Last Documented On 07/10/2018 7:53PM By Adrianne Pena MD ; [facility] busPIRone HCl 10MG Oral Tablet 07/10/2018 - 07/12/2018 Provider: VERÓNICA PENA MD Diagnosis: Generalized anxi ety disorder One tablet at bed time Last Documented On 07/12/2018 2:53PM By Adrianne Pena MD ; [facility] traZODone HCl 50MG Oral Tablet 07/10/2018 - 10/19/2018 Provider: VERÓNICA PENA MD Diagnosis: Psychophysiologi c insomnia TAKE ONE TABLET BY MOUTH AT BEDTIME Last Documented On 9 11:16PM By Adrianne Pena MD ; [facility] LaMICtal 100MG Oral Tablet 07/10/2018 - 10/19/2018 Provider: VERÓNICA DORSEY MD Diagnosis: Bipolar disord, crnt epsd depress, mild or mod severt, unsp One tablet daily Last Documented On 9 11:16PM By Adrianne Pena MD ; [facility] Homocysteine Support Oral Capsule, conventional 07/09/2018 - 10/19/2018 Provider: Diagnosis: 1 cap tid (multivitamin) by Dr. Marcel Zuñiga Last Documented On 10/19/2018 9:54AM By SHANTEL CRUZ ; [facility] B Complex Oral Tablet 07/09/2018 - 07/09/2018 Provider : Diagnosis: [address] Marcel Zuñiga Last Documented On 07/10/2018 7:53PM By Adrianne Pena MD ; [facility] Pristiq 50MG Oral Tablet, extended-release 24 hour 07/09/2018 - 10/19/2018 Provider: VERÓNICA PENA MD Diagnosis: Major depressive disorder, recurrent, unspecified One tablet daily Last Documented On 9 11:16PM By Adrianne Pena MD ; [facility] Geodon 20MG Oral Capsule, conventional 07/09/2018 - 10/19/2018 Provider: VERÓNICA PENA MD Diagnosis: Bipolar disorder , current episode depressed, moderate 1 capsule daily Last Documented On 9 11:16PM By Adrianne Pena MD ; [facility] Latanoprost 0.005% Ophthalmic Solution 05/20/2018 - Provider: Diagnosis: use as directed Last Documented On 02/10/2019 3:08PM By SHANTEL CRUZ ; [facility] LaMICtal 100MG Oral Tablet 04/26/2018 - 07/09/2018 Provider: VERÓNICA DORSEY MD Diagnosis: Bipolar disord, crnt epsd depress, mild or mod severt, unsp One tablet daily Last Documented On 07/10/2018 7:53PM By Adrianne Pena MD ; [facility] TraZODone HCl 50MG Oral Tablet 02/17/2018 - 07/09/2018 Provider: VERÓNICA PENA MD Diagnosis: Psychophysiologi c insomnia TAKE ONE TABLET BY MOUTH AT BEDTIME Last Documented On 07/10/2018 7:53PM By Adrianne Pena MD ; [facility] Geodon 40MG Oral Capsule 02/09/2018 - 02/10/2019 Provider: VERÓNICA DORSEY MD Diagnosis: Bipolar disorder , current episode depressed, moderate 1 capsule daily Last Documented On 02/10/2019 3:13PM By SHANTEL CRUZ ; [facility] Lexapro 20MG Oral Tablet 02/09/2018 - 07/09/2018 Provider: VERÓNICA DORSEY MD Diagnosis: Generalized anxi ety disorder One tablet daily -- please give GENERIC Last Documented On 07/10/2018 7:53PM By Adrianne Pena MD ; [facility] BusPIRone HCl 10MG Oral Tablet 02/09/2018 - 07/09/2018 Provider: VERÓNICA PENA MD Diagnosis: Generalized anxi ety disorder One tablet at bed time Last Documented On 07/10/2018 7:53PM By Adrianne Pena MD ; [facility] BusPIRone HCl 10MG Oral Tablet 11/30/2017 - 02/09/2018 Provider: VERÓNICA PENA MD Diagnosis: Generalized anxi ety disorder One tablet at bed time Last Documented On 02/09/2018 7:12PM By Adrianne Pena MD ; [facility] DULoxetine HCl 60MG Oral Capsule Delayed Release Particles 11/30/2017 - 07/09/2018 Provider: VERÓNICA PENA MD Diagnosis: Major depressive disorder, recurrent, unspecified 2 once a day -- Dr. Olivarez -- for fibromyalgia Last Documented On 07/09/2018 9:38AM By SHANTEL CRUZ ; [facility] LaMICtal 100MG Oral Tablet 11/30/2017 - 04/26/2018 Provider: VERÓNICA DORSEY MD Diagnosis: Bipolar disord, crnt epsd depress, mild or mod severt, unsp One tablet daily Last Documented On 9 10:21PM By Adrianne Pena MD ; [facility] Pristiq 50MG Oral Tablet Extended Release 24 Hour 11/30/2017 - 07/09/2018 Provider: VERÓNICA PENA MD Diagnosis: Major depressive disorder, recurrent, unspecified One tablet daily Last Documented On 9 10:33AM By Adrianne Pena MD ; [facility] TraZODone HCl 50MG Oral Tablet 11/30/2017 - 02/17/2018 Provider: VERÓNICA PENA MD Diagnosis: Psychophysiologi c insomnia TAKE ONE TABLET BY MOUTH AT BEDTIME Last Documented On 8 10:37AM By Adrianne Pena MD ; [facility] Lexapro 20MG Oral Tablet 11/30/2017 - 02/09/2018 Provider: VERÓNICA DORSEY MD Diagnosis: Generalized anxi ety disorder One tablet daily -- please give GENERIC Last Documented On 02/09/2018 7:12PM By Adrianne Pena MD ; [facility] Metoprolol Tartrate 50MG Oral Tablet 11/27/2017 - 05/2019 Provider: Diagnosis: Last Documented On 08/24/2019 3:44PM By SHANTEL CRUZ ; [facility] Lexapro 20MG Oral Tablet 11/13/2017 - 11/27/2017 Provider: VERÓNICA DORSEY MD Diagnosis: Major depressive disorder, recurrent, unspecified One tablet daily -- please give GENERIC Last Documented On 11/30/2017 3:42AM By Adrianne Pena MD ; [facility] BusPIRone HCl 10MG Oral Tablet 11/13/2017 - 11/27/2017 Provider: VERÓNICA PENA MD Diagnosis: Generalized anxi ety disorder One tablet at bed time Last Documented On 11/30/2017 3:42AM By Adrianne Pena MD ; [facility] DULoxetine HCl 60MG Oral Cap josef Delayed Release Particles 11/08/2017 - 11/27/2017 Provider: Diagnosis: Last Documented On 11/30/2017 3:42AM By Adrianne Pena MD ; [facility] Lyrica 75MG Oral Capsule 10/31/2017 - 07/09/2018 Provi cory: Diagnosis: Last Documented On 07/09/2018 9:38AM By SHANTEL CRUZ ; [facility] Lexapro 20MG Oral Tablet 05/21/2017 - 05/21/2017 Provider: VERÓNICA DORSEY MD Diagnosis: Major depressive disorder, recurrent, unspecified One tablet daily -- please give GENERIC Last Documented On 05/21/2017 3:48PM By Adrianne Pena MD ; [facility] BusPIRone HCl 10MG Oral Tablet 05/21/2017 - 11/13/2017 Provider: VERÓNICA PENA MD Diagnosis: Generalized anxi ety disorder One tablet at bed time Last Documented On 11/13/2017 4:34PM By Adrianne Pena MD ; [facility] Lexapro 20MG Oral Tablet 05/21/2017 - 11/13/2017 Provider: VERÓNICA DORSEY MD Diagnosis: Major depressive disorder, recurrent, unspecified One tablet daily -- please give GENERIC Last Documented On 11/13/2017 4:33PM By Adrianne Pena MD ; [facility] Geodon 40MG Oral Capsule 05/21/2017 - 02/09/2018 Provider: VERÓNICA DORSEY MD Diagnosis: Bipolar disorder , current episode depressed, moderate 1 capsule daily Last Documented On 02/09/2018 7:13PM By Adrianne Pena MD ; [facility] DULoxetine HCl 60MG Oral Capsule, delayed-release particles 04/26/2017 - 05/26/2017 Provider: VERÓNICA PENA MD Diagnosis: Generalized anxi ety disorder 1 capsule daily Last Documented On 04/26/2017 9:37PM By Adrianne Pena MD ; [facility] LaMICtal 100MG Oral Tablet 04/26/2017 - 11/27/2017 Provider: VERÓNICA DORSEY MD Diagnosis: Bipolar disord, crnt epsd depress, mild or mod severt, unsp One tablet daily Last Documented On 11/30/2017 3:42AM By Adrianne Pena MD ; [facility] TraZODone HCl 50MG Oral Tablet 04/26/2017 - 11/27/2017 Provider: VERÓNICA PENA MD Diagnosis: Psychophysiologi c insomnia TAKE ONE TABLET BY MOUTH AT BEDTIME Last Documented On 11/30/2017 3:42AM By Adrianne Pena MD ; [facility] Geodon 40MG Oral Capsule, conventional 04/26/2017 - 05/21/2017 Provider: VERÓNICA PENA MD Diagnosis: Bipolar disorder , current episode depressed, moderate 1 capsule daily --somehow ge odon is not on her pharmacy list Last Documented On 05/21/2017 3:42PM By Adrianne Pena MD ; [facility] Pristiq 50MG Oral Tablet, extended-release 24 hour 04/26/2017 - 11/27/2017 Provider: VERÓNICA PENA MD Diagnosis: Major depressive disorder, recurrent, unspecified One tablet daily Last Documented On 11/30/2017 3:42AM By Adrianne Pena MD ; [facility] Gabapentin 300MG Oral Capsule, conventional 04/07/2017 - 11/27/2017 Provider: Diagnosis: Last Documented On 11/27/2017 10:08AM By TAMERA PETTIT ; [facility] DULoxetine HCl 60MG Oral Cap josef, delayed-release particles 04/07/2017 - 04/07/2017 Provider: Diagnosis: Last Documented On 04/26/2017 9:37PM By Adrianne Pena MD ; [facility] Toprol XL 50MG Oral Tablet, extended-release 24 hour 04/07/2017 - 11/27/2017 Provider: Diagnosis: Last Documented On 11/27/2017 10:01AM By TAMERA PETTIT ; [facility] TraZODone HCl 50MG Oral Tablet 11/30/2016 - 04/07/2017 Provider: VERÓNICA PENA MD Diagnosis: Psychophysiologi c insomnia TAKE ONE TABLET BY MOUTH AT BEDTIME Last Documented On 04/26/2017 9:37PM By Adrianne Pena MD ; [facility] LaMICtal 100MG Oral Tablet 11/03/2016 - 04/07/2017 Provider: VERÓNICA DORSEY MD Diagnosis: Bipolar disord, crnt epsd depress, mild or mod severt, unsp One tablet daily Last Documented On 04/26/2017 9:37PM By Adrianne Pena MD ; [facility] Gabapentin 600MG Oral Tablet 09/23/2016 - 04/07/2017 Paulette lay: Diagnosis: 2 at bedtime -- Dr. Olivarez Last Documented On 8 10:26AM By CINDY CRUZ ; [facility] TraZODone HCl 50MG Oral Tablet 09/23/2016 - 11/30/2016 Provider: VERÓNICA PENA MD Diagnosis: Psychophysiologi c insomnia One tablet at bed time Last Documented On 11/30/2016 8:53AM By Adrianne Pena MD ; [facility] Pristiq 50MG Oral Tablet, extended-release 24 hour 09/23/2016 - 04/07/2017 Provider: VERÓNICA PENA MD Diagnosis: Generalized anxi ety disorder One tablet daily Last Documented On 04/26/2017 9:37PM By Adrianne Pena MD ; [facility] BusPIRone HCl 10MG Oral Tablet 09/23/2016 - 05/21/2017 Provider: VERÓNICA PENA MD Diagnosis: Generalized anxi ety disorder One tablet at bed time Last Documented On 05/21/2017 3:48PM By Adrianne Pena MD ; [facility] Geodon 40MG Oral Capsule, conventional 09/23/2016 - 04/07/2017 Provider: VERÓNICA PENA MD Diagnosis: Bipolar disorder , current episode depressed, moderate 1 capsule daily Last Documented On 04/26/2017 9:37PM By Adrianne Pena MD ; [facility] TraMADol HCl 50MG Oral Tablet 07/30/2016 - 04/07/2017 Provider: Diagnosis: 1 a day as needed for pain Last Documented On 8 11:25AM By Adrianne Pena MD ; [facility] EQL Omeprazole 20MG Oral Tablet Delayed Release 07/30/2016 - 07/09/2018 Provider: Diagnosis: as needed Last Documented On 07/09/2018 9:39AM By SHANTEL CRUZ ; [facility] Calcium 500/D 500-400 MG-UNIT Tablet, chewable 1 03/30/2015 - 07/09/2018 Provider: Diagnosis: Last Documented On 07/09/2018 9:39AM By SHANTEL CRUZ ; [facility] TraZODone HCl 50 MG Tablet 01/29/2016 - 07/30/2016 Provider: VERÓNICA DORSEY MD Diagnosis: Oth insomnia not due to a substance or known physiol cond One tablet at bed time Last Documented On 09/23/2016 9:46PM By Adrianne Pena MD ; [facility] LaMICtal 100 MG Tablet 01/29/2016 - 11/03/2016 Provider: VERÓNICA DORSEY MD Diagnosis: Bipolar disord, crnt epsd depress, mild or mod severt, unsp One tablet daily Last Documented On 11/03/2016 1:20PM By Adrianne Pena MD ; [facility] Geodon 40 MG Capsule, conventional 01/29/2016 - 07/30/2016 Provider: VERÓNICA PENA MD Diagnosis: Bipolar disord, crnt epsd depress, mild or mod severt, unsp 1 capsule daily Last Documented On 09/23/2016 9:46PM By Adrianne Pena MD ; [facility] Pristiq 50 MG Tablet, extended-release 24 hour 01/29/2016 - 07/30/2016 Provider: VERÓNICA PENA MD Diagnosis: Generalized anxi ety disorder One tablet daily Last Documented On 09/23/2016 9:46PM By Adrianne Pena MD ; [facility] BusPIRone HCl 10 MG Tablet 01/29/2016 - 07/30/2016 Provider: VERÓNICA PENA MD Diagnosis: Generalized anxi ety disorder One tablet at bed time Last Documented On 09/23/2016 9:46PM By Adrianne Pena MD ; [facility] Mucinex DM 30-600 MG Tablet Extended Release 12 Hour 07/24/2015 - 01/29/2016 Provider: Diagnosis: Last Documented On 01/29/2016 9:49AM By Adrianne Pena MD ; [facility] EpiPen 2-Ta 0.3 MG/0.3ML Solution Auto-injector 07/24/2015 - 11/27/2017 Provider: Diagnosis: Last Documented On 10:55AM By Adrianne Pena MD ; [facility] TraZODone HCl 50 MG Tablet 07/24/2015 - 01/29/2016 Provider: VERÓNICA DORSEY MD Diagnosis: Oth insomnia not due to a substance or known physiol cond One tablet at bed time Last Documented On 01/29/2016 9:49AM By Adrianne Pena MD ; [facility] LaMICtal 100 MG Tablet 07/24/2015 - 01/29/2016 Provider: VERÓNICA DORSEY MD Diagnosis: Bipolar disord, crnt epsd depress, mild or mod severt, unsp One tablet daily Last Documented On 01/29/2016 9:49AM By Adrianne Pena MD ; [facility] Geodon 40 MG Capsule 07/24/2015 - 01/29/2016 Provider: VERÓNICA PENA MD Diagnosis: Bipolar disord, crnt epsd depress, mild or mod severt, unsp 1 capsule daily Last Documented On 01/29/2016 9:49AM By Adrianne Pena MD ; [facility] Pristiq 50 MG Tablet Extended Release 24 Hour 07/24/2015 - 01/29/2016 Provider: VERÓNICA PENA MD Diagnosis: Generalized anxi ety disorder One tablet daily Last Documented On 01/29/2016 9:49AM By Adrianne Pena MD ; [facility] Lexapro 20 MG Tablet 07/24/2015 - 05/21/2017 Provider: VERÓNICA PENA MD Diagnosis: Generalized anxi ety disorder One tablet daily Last Documented On 05/21/2017 1:12PM By Adrianne Pena MD ; [facility] BusPIRone HCl 10 MG Tablet 07/24/2015 - 01/29/2016 Provider: VERÓNICA PENA MD Diagnosis: Generalized anxi ety disorder One tablet at bed time Last Documented On 01/29/2016 9:49AM By Adrianne Pena MD ; [facility] Topiramate 25 MG Tablet 07/24/2015 - 07/30/2016 Provid er: DYLAN HERNANDEZ MD Diagnosis: 1 twice a day Last Documented On 07/30/2016 9:56AM By Adrianne Pena MD ; [facility] Geodon 40 MG Capsule 02/01/2015 - 07/24/2015 Provider: VERÓNICA PENA MD Diagnosis: Bipolar disord, crnt epsd depress, mild or mod severt, unsp 1 capsule daily Last Documented On 07/24/2015 2:08PM By Adrianne Pena MD ; [facility] Klonopin 0.5mg Wafer 02/01/2015 - 10/26/2020 Provider: VERÓNICA PENA MD Diagnosis: Bipolar disorder , current episode depressed, moderate as directed --- 1 a day as n eeded for anxiety -- for the future when pt calls -- she prefers the wafer (sublingual) Last Documented On 10/26/2020 3:57PM By Adrianne Pena MD ; [facility] HM Vitamin B12 1000 MCG Tablet Extended Release 02/01/2015 - 07/09/2018 Provider: Diagnosis: 1 tab under the tongue once a day Last Documented On 07/09/2018 9:39AM By SHANTEL CRUZ ; [facility] TraZODone HCl 50 MG Tablet 02/01/2015 - 07/24/2015 Provider: VERÓNICA DORSEY MD Diagnosis: Oth insomnia not due to a substance or known physiol cond One tablet at bed time Last Documented On 07/24/2015 2:08PM By Adrianne Pena MD ; [facility] LaMICtal 100 MG Tablet 02/01/2015 - 07/24/2015 Provider: VERÓNICA DORSEY MD Diagnosis: Bipolar disord, crnt epsd depress, mild or mod severt, unsp One tablet daily Last Documented On 07/24/2015 2:08PM By Adrianne Pena MD ; [facility] Pristiq 50 MG Tablet Extended Release 24 Hour 02/01/2015 - 07/24/2015 Provider: VERÓNICA PENA MD Diagnosis: Generalized anxi ety disorder One tablet daily Last Documented On 07/24/2015 2:08PM By Adrianne Pena MD ; [facility] BusPIRone HCl 10 MG Tablet 02/01/2015 - 07/24/2015 Provider: VERÓNICA PENA MD Diagnosis: Generalized anxi ety disorder One tablet at bed time Last Documented On 07/24/2015 2:08PM By Adrianne Pena MD ; [facility] Lexapro 20 MG Tablet 02/01/2015 - 07/24/2015 Provider: VERÓNICA PENA MD Diagnosis: Generalized anxi ety disorder One tablet daily Last Documented On 07/24/2015 2:08PM By Adrianne Pena MD ; [facility] LaMICtal 100 MG Tablet 09/28/2014 - 02/01/2015 Provider: VERÓNICA DORSEY MD Diagnosis: BIPOL I CUR DEPR ES NOS One tablet daily Last Documented On 02/01/2015 9:14AM By Adrianne Pena MD ; [facility] Fruity Chewables Multivitamin Tablet, chewable 0 09/28/2014 - 07/09/2018 Provider: Diagnosis: 2 a day Last Documented On 07/09/2018 9:40AM By SHANTEL CRUZ ; [facility] TraZODone HCl 50 MG Tablet 09/28/2014 - 02/01/2015 Provider: VERÓNICA DORSEY MD Diagnosis: PERSISTENT INSOM PADMA One tablet at bed time Last Documented On 02/01/2015 9:14AM By Adrianne Pena MD ; [facility] BusPIRone HCl 10 MG Tablet 09/28/2014 - 02/01/2015 Provider: VERÓNICA PENA MD Diagnosis: GENERALIZED ANXI ETY DIS One tablet at bed time Last Documented On 02/01/2015 9:14AM By Adrianne Pena MD ; [facility] Pristiq 50 MG Tablet, extended-release 24 hour 09/28/2014 - 02/01/2015 Provider: VERÓNICA PENA MD Diagnosis: GENERALIZED ANXI ETY DIS One tablet daily Last Documented On 02/01/2015 9:14AM By Adrianne Pena MD ; [facility] Lexapro 20 MG Tablet 09/28/2014 - 02/01/2015 Provider: VERÓNICA PENA MD Diagnosis: GENERALIZED ANXI ETY DIS One tablet daily Last Documented On 02/01/2015 9:14AM By Adrianne Pena MD ; [facility] Geodon 40 MG Capsule, conventional 09/28/2014 - 02/01/2015 Provider: VERÓNICA PENA MD Diagnosis: BIPOL I CUR DEPR ES NOS 1 capsule daily Last Documented On 02/01/2015 9:14AM By Adrianne Pena MD ; [facility] Fruity Chewables Multivitamin Tablet, chewable 0 06/22/2014 - 02/01/2015 Provider: Diagnosis: 2 a day Last Documented On 5 8:50AM By JOO LACEY LPN ; [facility] B Complex-B12 Tablet 06/22/2014 - 02/01/2015 Provider: Diagnosis: sub lingual 1 daily Last Documented On 02/01/2015 9:19AM By Adrianne Pena MD ; [facility] BusPIRone HCl 10 MG Tablet 06/22/2014 - 09/28/2014 Provider: VERÓNICA PENA MD Diagnosis: GENERALIZED ANXI ETY DIS One tablet at bed time Last Documented On 09/28/2014 9:31AM By Adrianne Pena MD ; [facility] TraZODone HCl 50 MG Tablet 06/22/2014 - 09/28/2014 Provider: VERÓNICA DORSEY MD Diagnosis: PERSISTENT INSOM PADMA One tablet at bed time Last Documented On 09/28/2014 9:31AM By Adrianne Pena MD ; [facility] Pristiq 50 MG Tablet, extended-release 24 hour 06/22/2014 - 09/28/2014 Provider: VERÓNICA PENA MD Diagnosis: GENERALIZED ANXI ETY DIS One tablet daily Last Documented On 09/28/2014 9:31AM By Adrianne Pena MD ; [facility] Lexapro 20 MG Tablet 06/22/2014 - 09/28/2014 Provider: VERÓNICA PENA MD Diagnosis: GENERALIZED ANXI ETY DIS One tablet daily Last Documented On 09/28/2014 9:31AM By Adrianne Pena MD ; [facility] LaMICtal 100 MG Tablet 06/22/2014 - 09/28/2014 Provider: VERÓNICA DORSEY MD Diagnosis: BIPOL I CUR DEPR ES NOS One tablet daily Last Documented On 09/28/2014 9:31AM By Adrianne Pena MD ; [facility] Geodon 40 MG Capsule, conventional 06/22/2014 - 09/28/2014 Provider: VERÓNICA PENA MD Diagnosis: BIPOL I CUR DEPR ES NOS 1 capsule daily Last Documented On 09/28/2014 9:31AM By Adrianne Pena MD ; [facility] LaMICtal 100 MG OR TABS 05/17/2014 - 06/22/2014 Provider: VERÓNICA DORSEY MD Diagnosis: BIPOL I CUR DEPR ES NOS Last Documented On 5 10:02AM By Adrianne Pena MD ; [facility] busPIRone HCl 10 MG OR TABS 04/20/2014 - 06/22/2014 Provider: VERÓNICA PENA MD Diagnosis: GENERALIZED ANXI ETY DIS 1 at night Last Documented On 5 10:04AM By Adrianne Pena MD ; [facility] Omeprazole 40 MG OR CPDR 03/25/2014 - 09/28/2014 Provi cory: RICHIE ROSADO MD Diagnosis: Last Documented On 5 9:06AM By JOO [facility]Y LPN [facility] CAPS 03/13/2014 - 06/22/2014 Provider: VERÓNICA PENA MD Diagnosis: BIPOL I CUR DEPR ES NOS Last Documented On 5 10:02AM By Adrianne Pena MD ; [facility] traZODone HCl 50 MG OR TABS 03/02/2014 - 06/22/2014 Provider: VERÓNICA DORSEY MD Diagnosis: PERSISTENT INSOM PADMA Last Documented On 5 10:02AM By Adrianne Pena MD ; [facility] Lexapro 20 MG OR TABS 03/02/2014 - 06/22/2014 Provider: VERÓNICA DORSEY MD Diagnosis: GENERALIZED ANXI ETY DIS Last Documented On 5 10:02AM By Adrianne Pena MD ; [facility] busPIRone HCl 10 MG OR TABS 03/02/2014 - 04/20/2014 Provider: VERÓNICA PENA MD Diagnosis: GENERALIZED ANXI ETY DIS 1 at night and 1/2 tab a day for anxiety Last Documented On 04/20/2014 4:01PM By Adrianne Pena MD ; [facility] Geodon 40 MG OR CAPS 03/02/2014 - 03/13/2014 Provider: VERÓNICA PENA MD Diagnosis: BIPOL I CUR DEPR ES NOS Last Documented On 03/13/2014 1:35PM By Adrianne Pena MD ; [facility] busPIRone HCl 10 MG OR TABS 11/11/2013 - 03/02/2014 Provider: VERÓNICA PENA MD Diagnosis: GENERALIZED ANXI ETY DIS 1 at night and 1/2 tab a day for anxiety Last Documented On 03/02/2014 9:28AM By Adrianne Pena MD ; [facility] Pristiq 50 MG OR TB24 11/11/2013 - 06/22/2014 Provider: VERÓNICA DORSEY MD Diagnosis: GENERALIZED ANXI ETY DIS Last Documented On 5 10:02AM By Adrianne Pena MD [facility] Lex[facility] 20 MG OR TABS 11/11/2013 - 03/02/2014 Provider: VERÓNICA DORSEY MD Diagnosis: GENERALIZED ANXI ETY DIS Last Documented On 03/02/2014 9:28AM By Adrianne Pena MD ; [facility] LaMICtal 100 MG OR TABS 11/11/2013 - 05/17/2014 Provider: VERÓNICA DORSEY MD Diagnosis: BIPOL I CUR DEPR ES NOS Last Documented On 05/17/2014 6:33PM By Adrianne Pena MD ; [facility] Geodon 40 MG OR CAPS 11/10/2013 - 03/02/2014 Provider: VERÓNICA PENA MD Diagnosis: BIPOL I CUR DEPR ES NOS Last Documented On 03/02/2014 9:28AM By Adrianne Pena MD ; [facility] busPIRone HCl 10 MG OR TABS 09/30/2013 - 11/10/2013 Pr ovider: VERÓNICA PENA MD Diagnosis: 1 at night and 1/2 during the day Last Documented On 4 12:30AM By Adrianne Pena MD ; [facility] Allopurinol 100 MG OR TABS 09/30/2013 - 07/09/2018 Pro vider: DYLAN HERNANDEZ MD Diagnosis: one tablet twice a day Last Documented On 07/09/2018 9:37AM By SHANTEL CRUZ ; [facility] traZODone HCl 50 MG OR TABS 07/07/2013 - 03/02/2014 Provider: VERÓNICA DORSEY MD Diagnosis: PERSISTENT INSOM PADMA Last Documented On 03/02/2014 9:28AM By Adrianne Pena MD ; [facility] Lexapro 20 MG OR TABS 07/07/2013 - 11/10/2013 Provider: VERÓNICA DORSEY MD Diagnosis: GENERALIZED ANXI ETY DIS Last Documented On 4 12:30AM By Adrianne Pena MD ; [facility] Pristiq 50 MG OR TB24 07/07/2013 - 11/10/2013 Provider: VERÓNICA DORSEY MD Diagnosis: BIPOL I CUR DEPR ES NOS Last Documented On 4 12:30AM By Adrianne Pena MD ; [facility] LaMICtal 100 MG OR TABS 07/07/2013 - 11/10/2013 Provider: VERÓNICA DORSEY MD Diagnosis: BIPOL I CUR DEPR ES NOS Last Documented On 4 12:30AM By Adrianne Pena MD ; [facility] Geodon 20 MG IM SOLR 07/07/2013 - 03/02/2014 Provider: VERÓNICA PENA MD Diagnosis: BIPOL I CUR DEPR ES NOS 1 capsule at bedtime Last Documented On 03/02/2014 9:24AM By Adrianne Pena MD ; [facility] traZODone HCl 50 MG OR TABS 03/08/2013 - 07/07/2013 Provider: VERÓNICA DORSEY MD Diagnosis: PERSISTENT INSOM PADMA Last Documented On 4 11:45AM By Adrianne Pena MD ; [facility] Lexapro 20 MG OR TABS 03/08/2013 - 07/07/2013 Provider: VERÓNICA DORSEY MD Diagnosis: GENERALIZED ANXI ETY DIS Last Documented On 4 11:45AM By Adrianne Pena MD ; [facility] Pristiq 50 MG OR TB24 03/08/2013 - 07/07/2013 Provider: VERÓNICA DORSEY MD Diagnosis: BIPOL I CUR DEPR ES NOS Last Documented On 4 11:45AM By Adrianne Pena MD ; [facility] LaMICtal 100 MG OR TABS 03/08/2013 - 07/07/2013 Provider: VERÓNICA DORSEY MD Diagnosis: BIPOL I CUR DEPR ES NOS Last Documented On 4 11:45AM By Adrianne Pena MD ; [facility] Geodon 20 MG IM SOLR 03/08/2013 - 07/07/2013 Provider: VERÓNICA PENA MD Diagnosis: BIPOL I CUR DEPR ES NOS 1 capsule at bedtimeTo --pha rmacist--do not give 40 mg anymore--she just takes 20 mg at bedtime Last Documented On 4 11:45AM By Adrianne Pena MD ; [facility] Lasix 20 MG OR TABS 10/28/2012 - 06/22/2014 Provider: Diagnosis: Last Documented On 5 10:04AM By Adrianne Pena MD ; [facility] Geodon 20 MG IM SOLR 10/28/2012 - 03/08/2013 Provider: VERÓNICA PENA MD Diagnosis: BIPOL I CUR DEPR ES NOS 1 capsule at bedtime Last Documented On 03/08/2013 9:19PM By Adrianne Pena MD ; [facility] Pristiq 50 MG OR TB24 10/28/2012 - 03/08/2013 Provider: VERÓNICA DORSEY MD Diagnosis: BIPOL I CUR DEPR ES NOS Last Documented On 03/08/2013 9:19PM By Adrianne Pena MD ; [facility] traZODone HCl 50 MG OR TABS 10/28/2012 - 03/08/2013 Provider: VERÓNICA DORSEY MD Diagnosis: INSOMNIA DT MENT AL DISOR 1 tablet at bedtime as needed for sleep Last Documented On 03/08/2013 9:19PM By Adrianne Pena MD ; [facility] Lexapro 20 MG OR TABS 10/28/2012 - 03/08/2013 Provider: VERÓNICA DORSEY MD Diagnosis: GENERALIZED ANXI ETY DIS Last Documented On 03/08/2013 9:19PM By Adrianne Pena MD ; [facility] LaMICtal 100 MG OR TABS 10/28/2012 - 03/08/2013 Provider: VERÓNICA DORSEY MD Diagnosis: BIPOL I CUR DEPR ES NOS Last Documented On 03/08/2013 9:19PM By Adrianne Pena MD ; [facility] Geodon 40 MG OR CAPS 07/15/2012 - 03/08/2013 Provider: VERÓNICA PENA MD Diagnosis: BIPOL I CUR DEPR ES NOS 1 capsule at bedtime Last Documented On 3 3:31PM By PERNELL CRUZ ; [facility] LaMICtal 100 MG OR TABS 07/15/2012 - 10/28/2012 Provider: VERÓNICA DORSEY MD Diagnosis: BIPOL I CUR DEPR ES NOS Last Documented On 3 10:07AM By Adrianne Pena MD ; [facility] KlonoPIN 0.5 MG OR TABS 07/15/2012 - 11/10/2013 Provider: VERÓNICA DORSEY MD Diagnosis: PANIC DIS W/O AGORPHOBIA 1 tablet daily as needed for anxiety Last Documented On 4 9:27AM By PERNELL CRUZ ; [facility] traZODone HCl 50 MG OR TABS 07/15/2012 - 10/28/2012 Provider: VERÓNICA DORSEY MD Diagnosis: INSOMNIA DT MENT AL DISOR 1 tablet at bedtime as needed for sleep Last Documented On 3 10:07AM By Adrianne Pena MD ; [facility] Lexapro 20 MG OR TABS 07/15/2012 - 10/28/2012 Provider: VERÓNICA DORSEY MD Diagnosis: GENERALIZED ANXI ETY DIS Last Documented On 3 10:07AM By Adrianne Pena MD ; [facility] Fish Oil 1200 MG OR CAPS 07/15/2012 - 06/22/2014 P ronisreender: Diagnosis: Last Documented On 5 10:05AM By Adrianne Pena MD ; [facility] Multivitamins OR TABS 07/15/2012 - 07/15/2012 Provider : Diagnosis: Last Documented On 07/15/2012 4:39PM By Adrianne Pena MD ; [facility] Lisinopril 5 MG OR TABS 07/15/2012 - 09/28/2014 Provid er: Diagnosis: Last Documented On 5 9:04AM By JOO LACEY LPN ; [facility] Vytorin 10-40 MG OR TABS 07/15/2012 - 07/24/2015 Provi cory: Diagnosis: Last Documented On 6 1:37PM By JOO LACEY LPN ; [facility] KlonoPIN 0.5 MG OR TABS 06/08/2012 - 07/15/2012 Provid er: Diagnosis: 1 tablet daily as needed for anxiety Last Documented On 07/15/2012 4:39PM By Adrianne Pena MD ; [facility] LaMICtal 100 MG OR TABS 06/08/2012 - 07/15/2012 Provid er: Diagnosis: Last Documented On 07/15/2012 4:39PM By Adrianne Pena MD ; [facility] Pristiq 50 MG OR TB24 06/08/2012 - 10/28/2012 Provider : Diagnosis: Last Documented On 3 10:07AM By Adrianne Pena MD ; [facility] Lexapro 20 MG OR TABS 06/08/2012 - 07/15/2012 Provider : Diagnosis: Last Documented On 07/15/2012 4:39PM By Adrianne Pena MD ; [facility] traZODone HCl 50 MG OR TABS 06/08/2012 - 07/15/2012 Pr ovider: Diagnosis: 1 tablet at bedtime as needed for sleep Last Documented On 07/15/2012 4:39PM By [facility] CAPS 06/08/2012 - 07/15/2012 Provider: Diagnosis: 1 capsule at bedtime Last Documented On 07/15/2012 4:39PM By Adrianne Pena MD ; [facility] Medications Administered Includes: Administered Medications in patient's chart No Administered Medications Recorded Results Includes: Results from 05/04/2023 through 05/04/2024 No Results Recorded For Specified Dates History of Present Illness History of Present Illness not supported for this document type No History of Present Illness Recorded Social History Description Last Updated Daily coffee consumption - 3 -4 cups of coffee per day, 1 can of soda daily and an occasional cup of hot tea 07/08/2022 Last Documented On 3 10:03AM ; [facility] Not using alcohol 10/28/2021 Last Documented On 2 9:49AM ; [facility] Former smoker - quit smoking between 9 and 200308/30/2020 Last Documented On 1 2:53PM ; [facility] Work history -- she worked a [employer] -- 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 Her father is . She has an 11th grade education. She has 1 daughter 02/04/2015 Last Documented On 5 7:05PM ; [facility] Not using drugs (Illicit) 06/08/2012 Last Documented On 3 9:05AM ; [facility] Procedures and Surgical History Surgical History Last Updated History of decompression of median nerve at carpal tunnel - of the right hand 01/15/2022 with trigger release; left hand with trigger release and right 5th finger trigger release on 05/07/22 -- given Methocarbamol 750 mg 04/24/22 and given Vitamin C 500 mg 07/08/2022 Last Documented On 3 10:03AM ; [facility] History of gastric surgery Dr. Borjas-- [place], [place] -- gastric sleeve surgery 07/08/2022 Last Documented On 3 10:03AM ; [facility] History of knee replacement - right total knee replacement 01/08/[address] Husam Yousif -- given Oxycodone 5/325, Ferrous Sulfate 325 mg, Vitamin C 500 mg, Senexon 50-8.6 mg , Celebrex 200 mg and Vitamin D 2000 IU after surgery 02/19/2021 Last Documented On 2 3:33AM ; [facility] History of orthopedic surger y 06/30/2012 -- 10/11/19 right meniscal repair by Dr. Joselyn Mathur -- given Oxycodone 5/325 and on 09/14/19 was given Tramadol 50 mg; knee surgery x 2 (right knee -- meniscal tear --2009 and 201203/02/2020 Last Documented On 1 6:07PM ; [facility] History of hysterectomy 06/22/2014 Last Documented On 5 8:37AM ; [facility] Medical History Includes: Medical History in patient's chart Description Last Updated History of systemic lupus er ythematosus rash - given Methylprednisolone Dosepak 4 mg 06/17/22; given Septra DS 05/21/22 for butterfly rash; given Tramadol 50 mg #28 08/27/21 which did not help; given Medrol Dosepak 4 mg 03/08/21 and on 03/05/21 Nystatin 003515 units cream that did not help 07/08/2022 Last Documented On 3 10:03AM ; [facility] History of lymphadenopathy - in the neck -- given Doxycycline 100 mg 05/27/22 07/08/2022 Last Documented On 3 10:03AM ; [facility] Primary Care Provider: Dr. Jennifer Hernandez/Ramsey Blanco NP ~Dr. Dylan Hernandez ~Dr. Husam Yousif/TOREY Hahn Orthopedic Surgeon ~Dr. Ernie Farley -- ENT -- [facility] -- had CT Scan of the sinus ~Dr. Leodan Olivarez -- Neuropathologist ~Dr. Nathan Camacho DC -- Chiropractor ~[facility] -- Dr. Bill Jacob -- Ophthamologist ~Dr. Nando Craft -- Rubber Goods Supervisor ~Dr. Lewis Moreira -- Poiser Balance ~Dr. Oshea -- Urologist ~Dr. Jonathan Messina -- Laminator Preforms/Oncologist ~Dr. Nathan Estrada -- Dentist ~Dr. Leila Wagner -- CPAP ~Mikayla King NP -- Urologist 07/08/2022 Last Documented On 3 10:03AM ; [facility] History of bronchitis - give n Zpak 02/2022; given Spriva Handihaler 18 mcg 03/14/20;given Zpak 04/22/19 and 03/17/19 and Albuterol HFA inhaler 02/28/19 and 01/10/19 and Codeine/GG Hodan 10 - 100 / 5mL on 03/09/19 02/26/2022 Last Documented On 2 11:06AM ; [facility] History of cataract - 12/202102/26/2022 Last Documented On 2 11:06AM ; [facility] History of pneumonia - Pneum onia -- June 2021 -- Methotrexate was discontinued -- Tramadol was given by Dr. Olivarez but did not help 10/28/2021 Last Documented On 2 9:49AM ; [facility] History of carpal tunnel syndrome - bila teral 10/28/2021 Last Documented On 2 9:49AM ; [facility] History of dental prophylaxi s - takes Amoxicillin 500 mg prior to dental procedures 10/28/2021 Last Documented On 2 9:49AM ; [facility] History of community-acquire d pneumonia - left lower lobe and viral infection; ground glass opacities bilateral upper and lower lobes; admitted to [facility] from 07/18/21 - 07/21/21 -- given Tessalon Perles 100 mg, Cefdinir 300 mg and Prednisone 20 mg upon discharge from the hospital 07/21/21 10/28/2021 Last Documented On 2 9:49AM ; [facility] History of viral infection - given Albuterol Inhaler 90 mcg, Promethazine-DM 6.25-15mg/5mL syrup and Doxycycline 100 mg 05/31/21 and 06/13/21 -- later determined to be viral infection 10/28/2021 Last Documented On 2 9:49AM ; [facility] History of migraine headache 08/09/2021 Last Documented On 2 9:28AM ; [facility] History of sensorineural hearing loss Last Documented On 2 9:28AM ; [facility] History of respiratory disor cory - pulmonary nodules -- CT scan 07/18/21; xrays taken 11/2019 and 08/201907/31/2021 Last Documented On 2 2:19PM ; [facility] History of obstructive sleep apnea -- another sleep study was done in early [address] Fisher -- she is compliant with therapy although she said she feels more rested without the CPAP therapy 05/2021;sleep study done 12/13/08 -- mild ALLY --but she cannot tolerate CPAP and she lost a lot of weight 05/29/2021 Last Documented On 2 8:37AM ; [facility] No history of coronavirus 20 19-nCoV vaccine - Patient REFUSED to bet vaccinated against COVID despite being educated on the adverse consequences of COVID if she ever gets it 05/29/2021 Last Documented On 2 8:37AM ; [facility] History of muscle spasm - given Methocar bomal 750 mg #14 02/01/21 02/19/2021 Last Documented On 2 3:33AM ; [facility] History of acute suppurative sinusitis -given Augmentin 875 mg 09/28/20; given Azelastine 0.1 nasal spray and Clindamycin [address] Ernie Farley on 05/14/20 10/26/2020 Last Documented On 1 3:43PM ; [facility] History of fall risk - joe nur fell 02/2020 down her basement steps; she broke her left foot in 2 places and badly damaged her right knee so much that she is scheduled for knee replacement 11/[address] Yousif 08/30/2020 Last Documented On 1 2:53PM ; [facility] History of anemia - given Fe rrous Sulfate 325 mg 05/2020 -- discontinued due to constipation 08/30/2020 Last Documented On 1 2:53PM ; [facility] History of fibromyalgia -- g iven Mobic 15 mg 05/[address] Olivarez discontinued it; was put on Lyrica and Duloxetine -- given by Dr. Olivarez -- reducing the pain in other areas but has tingling on her fingers but lyrica took care of the sharp pain 08/30/2020 Last Documented On 1 2:53PM ; [facility] History of dry eye syndrome - given Systane eye drops; with dry mouth --- tried Pilocarpine 5 mg -- 11/08/19 -- did not help --Dr. Leodan Olivarez 08/30/2020 Last Documented On 1 2:53PM ; [facility] History of glaucoma - early stages per [facility] - on Lumigan eye drops 08/30/2020 Last Documented On 1 2:53PM ; [facility] History of urinary tract inf ection - with hematuria -- given Macrobid 100 mg; 06/13/20;treated with Cipro 500mg on 08/05/18 08/30/2020 Last Documented On 1 2:53PM ; [facility] History of cough variant ast hma - chest xray from 05/03/19 showed: No focal consolidation or pneumothorax. No pleural effusion. Heart is normal size. Normal mediastinal and hilar contours 03/07/2020 Last Documented On 1 6:07PM ; [facility] History of chronic obstructi ve pulmonary disease - given Albuterol for nebulizer 02/14/20; given Methylprednisone 4 mg 02/01/20; given Amoxil 500 mg 01/31/20; given Methylprednisone 4 mg 12/05/19; given Methylprednisone 4 mg 10/14/19; given Prednisone 5 mg 09/12/19;given Prednisone Dosepak 4 mg #21 and Spriva Inhaler 05/25/19 03/02/2020 Last Documented On 1 6:07PM ; [facility] History of asthma - Pulmonar y Function Test on 05/04/19 showed: No evidence of airways obstruction. Moderate airways restriction. Diffusion capacity is normal. The is significant improvement in the flow rates suggesting reversible airways disease, i.e., asthma 08/26/2019 Last Documented On 0 12:10AM ; [facility] History of acute meniscal te ar [...] anterior cruciate ligament 08/26/2019 Last Documented On 0 12:10AM ; [facility] History of old bucket handle tear of med ial meniscus of knee - left knee 08/24/2019 Last Documented On 0 12:10AM ; [facility] History of systemic lupus er ythematosus - with pulmonary nodules shown on CT scan 05/201908/24/2019 Last Documented On 0 12:10AM ; [facility] History of a sleep study was performed 12/13/2008 and was ~diagnosed with Mild ALLY- Not using her C-PAP because she lost a lot of weight 07/09/2018 Last Documented On 9 8:06PM ; [facility] History of GERD /Heartburn -- takes Omep razole 11/27/2017 Last Documented On 8 4:03AM ; [facility] History of hypertension -- in remission since Lisinopril has been stopped 09/29/2014 Last Documented On 5 1:02AM ; [facility] History of gout 11/11/2013 Last Documented On 4 11:38PM ; [facility] History of hyperlipidemia 07/07/2013 Last Documented On 4 11:16PM ; [facility] Family History Includes: Family History in patient's chart Description Last Updated Maternal history of depression -- mother was hospitalized for this 09/28/2014 Last Documented On 5 1:02AM ; [facility] Review of Systems Review of Systems not supported for this document type No Review of Systems Recorded Mental Status Description Depression Major depressive disorder Functional Status No Functional Status Recorded Physical Exam Physical Exam not supported for this document type No Physical Exam Recorded Allergies Includes: Active, inactive, and resolved Allergies Substance Type Reaction Onset Date Resolved Date Statu s Tubersol Allergy Hives / Urticaria 07/09/2018 A ctive Last Documented On 05/27/2023 11:24AM ; [facility] Note: Imported from external source. predniSONE Allergy rash 07/24/2015 Active Last Documented On 05/27/2023 11:24AM ; [facility] Note: Imported from external source. Naproxen Allergy Asthma / Allergi c asthma, Shortness of Breath / Dyspnea 06/22/2014 Active Last Documented On 05/27/2023 11:24AM ; [facility] Note: Imported from external source. Ibuprofen Allergy rash 01/29/2016 Resolved Last Documented On 08/30/2020 10:11AM ; [facility] Note: rash Ibuprofen Allergy rash 01/29/2016 Active Last Documented On 05/27/2023 11:24AM ; [facility] Note: Imported from external source. Flexeril Allergy Asthma / Allergi c asthma, Shortness of Breath / Dyspnea 06/22/2014 Active Last Documented On 05/27/2023 11:24AM ; [facility] Note: Imported from external source. Insurance Includes: Active Insurance Policies Plan Name Member ID Group # Subscriber Relationship Effect meme Dates 1 - [employer] [id number] GELACIO DODGE Self 09/20/2020 - Unknown Clinical Notes Includes: Signed Clinical Notes starting from 04/11/2022 No Clinical Notes Recorded
--- OUTSIDE RECORDS SUMMARY | 2024-05-04 16:12 | XMS_ITS | Patient Health Record ---
Author Organization [facility] nathan Address [address] [facility] [address] [place] [address] Care Team Providers Care Cds Sales Advisor Name Role Phone Arabella SORIANO, Dylan Primary Care Provider Shree OlivarezEmileeg Unavailable [phone] Allergies Allergen (clinical drug ingredient) Drug/Non Drug Allergy documented on EMR Reaction Allergy Type Onset Date Status Flexeril Unknown Drug Allergy 08/21/2017 Active naproxen Naproxen Unknown Drug Allergy 08/21/2017 Active predniSONE Unknown Drug Allergy 05/28/2020 Activ e Results Component Value Reference Range Notes JENNY reflex titer pattern VICKIE + dsDNA Reviewed date:10/16/2023 12:26:23 PM Interpretation: Performing Lab:[facility] , [address] [facility] [address] Notes/Report: JENNY, Qual Positive 1:160 Interpretive Data Normal range for JENNY Qualitative Antibody = Negative. 1. JENNY is performed using indirect immunofluorescence against HEp-2 cells 2. JENNY titers are performed on all positive qualitative results. 3. A significantly positive JENNY result is defined as a positive nuclear fluorescence at a titer of 1:80 or greater. 4. 15% of normal people above age 65 have significantly positive JENNY results. 5% or less of normal people age 65 or under have significantly positive JENNY results. Current interpretive data was last revised on 2019. Testing performed by: [facility], [address] [place]., [address] JENNY, Ernie 1:160 Testing performed by: [facility], [address] [place]., [address] JENNY Pattern 1 Speckled Testing performed by: [facility], [address] [place]., [address] Anti-CCP (Cyclic Citrullinat ed Peptide Ab) Reviewed date:10/16/2023 10:02:34 AM Interpretation: Performing Lab:[facility] , [address] [place] [address]. [facility] [address] Notes/Report: CCP Ab <0.5 <=2.9 units/mL Interpretive data Negative: <3 units/mL Positive: > or equal to 3 units/mL Current interpretive data was last revised on 2016. C Reactive Protein Reviewed date:10/15/2023 05:51:47 PM Interpretation: Performing Lab:[facility] , [address] [place] [address]. [facility] [address] Notes/Report: C-Reactive Protein 6.7 <=10.0 mg/L CBC w auto diff Reviewed date:10/15/2023 05:51:47 PM Interpretation: Performing Lab:[facility] , [address] [place] [address]. [facility] [address] Notes/Report: WBC 3.5 3.8-9.9 K/cumm Hgb 11.3 11.9-15.5 g/dL Hct 36.1 35.6-45.5 % Platelet Ct 247 150-400 K/cumm MPV 11.1 9.1-12.3 fL RBC 4.34 3.90-5.20 M/cumm MCV 83.2 81.3-96.4 fL MCH 26.0 27.1-33.3 pg MCHC 31.3 32.3-35.7 g/dL RDW CV 14.4 11.1-14.9 % RDW SD 43.5 35.7-48.1 fL NRBC Abs Auto 0.00 0.00-0.01 K/cumm Complement C3 Reviewed date:10/15/2023 05:51:47 PM Interpretation: Performing Lab:[facility] , [address] [place] [address]. [facility] [address] Notes/Report: Complement, C3 137 90-180 mg/dL Complement C4 Reviewed date:10/15/2023 05:51:47 PM Interpretation: Performing Lab:[facility] , [address] [place] [address] Notes/Report: Complement, C4 22 10-40 mg/dL Comprehensive metabolic pane l (CMP) Reviewed date:10/15/2023 05:51:47 PM Interpretation: Performing Lab:[facility] , [address] [place] [address] Notes/Report: Sodium 143 135-145 mmol/L Plasma Potassium 3.9 3.3-4.9 mmol/L Chloride 104 97-110 mmol/L Total CO2 32 22-32 mmol/L Anion Gap 7 2-15 mmol/L BUN 12 6-25 mg/dL Creatinine 1.13 0.60-1.10 mg/dL Glucose 125 70-199 mg/dL Interpretive Data Fasting glucose >/= 126 mg/dl is diagnostic for diabetes. Fasting is defined as no caloric intake for at least 8 hours. Fasting glucose between 100 mg/dl to 125 mg/dl is diagnostic of prediabetes. In a patient with classic symptoms of hyperglycemia or hyperglycemic crisis, a random glucose >/= 200 mg/dl is diagnostic for diabetes. In the absence of unequivocal hyperglycemia, results should be confirmed by repeat testing. The classification and Diagnosis of Diabetes Diabetes Care 2021; 46: S19-S40. Current interpretive data was last revised 2022. Total Calcium 9.1 8.5-10.3 mg/dL Total Bilirubin 0.2 0.1-1.2 mg/dL Plasma Total Protein 7.2 6.5-8.5 g/dL Albumin 4.0 3.5-5.0 g/dL Alkaline Phosphatase 61 40-130 Units/L ALT 19 7-45 Units/L AST 24 10-45 Units/L Creatine Kinase Reviewed date:10/15/2023 05:51:48 PM Interpretation: Performing Lab:[facility] , [address] [place] [address] Notes/Report: Total CK 124 30-200 Units/L Rheumatoid Factor Reviewed date:10/15/2023 05:51:48 PM Interpretation: Performing Lab:[facility] , [address] [place] [address] Notes/Report: RF, Ernie <10 <=15 IUnits/mL Sed Rate Reviewed date:10/15/2023 05:51:48 PM Interpretation: Performing Lab:[facility] , [address] [facility] [place] [address] Notes/Report: ESR 28 1-30 mm/hr Differential Automated Reviewed date:10/15/2023 05:51:47 PM Interpretation: Performing Lab:[facility] , [address] [facility] [facility] [place] [address] Notes/Report: Neut Abs 1.5 1.5-6.5 K/cumm ImmGran Abs 0.0 0.0-0.1 K/cumm Lymphocyte Abs 1.5 0.8-3.3 K/cumm Wilkin Abs 0.3 0.2-0.8 K/cumm Eos Abs 0.2 0.0-0.5 K/cumm Baso Abs 0.0 0.0-0.1 K/cumm Neut Pct 44.2 Interpretive Data Percent cell count reference ranges are not reported, since discordance with absolute values may lead to misinterpretation of CBC data. Current Interpretive Data was last revised on 2017. ImmGran Pct 0.0 Interpretive Data Percent cell count reference ranges are not reported, since discordance with absolute values may lead to misinterpretation of CBC data. Current Interpretive Data was last revised on 2017. Lymph Pct 42.5 Interpretive Data Percent cell count reference ranges are not reported, since discordance with absolute values may lead to misinterpretation of CBC data. Current Interpretive Data was last revised on 2017. Wilkin Pct 7.5 Interpretive Data Percent cell count reference ranges are not reported, since discordance with absolute values may lead to misinterpretation of CBC data. Current Interpretive Data was last revised on 2017. Eos Pct 4.9 Interpretive Data Percent cell count reference ranges are not reported, since discordance with absolute values may lead to misinterpretation of CBC data. Current Interpretive Data was last revised on 2017. Baso Pct 0.9 Interpretive Data Percent cell count reference ranges are not reported, since discordance with absolute values may lead to misinterpretation of CBC data. Current Interpretive Data was last revised on 2017. DS DNA Reviewed date:10/16/2023 02:07:01 PM Interpretation: Performing Lab:[facility] , [address] [place] [address]. [facility] [address] Notes/Report: Double Stranded DNA, Ernie 1.0 <=4.0 IUnits/mL Interpretive Data Negative: < or = 4 IUnits/mL Indeterminate: 5 - 9 IUnits/mL Positive: > or = 10 IUnits/mL Current interpretive data was last revised on 2016. VICKIE Screen Reviewed date:10/16/2023 02:07:01 PM Interpretation: Performing Lab:[facility] , [address] [place] [address]. [facility] [address] Notes/Report: VICKIE Screen Negative Negative Interpretive Data Positive Screens will be reflexed to specific testing for Antibodies against the following antigens: Celia-1 Ab, COMBINER OPERATOR Ab, Scl-70 Ab, Zambrano Ab, SS-A/Ro Ab, and SS-B/La Ab. Further testing for dsDNA, Centromere, or Ribosomal P antibodies is suggested in patient with a positive screen and negative specific antibodies. Current interpretive data was last revised on 2022. eGFR Reviewed date:10/15/2023 05:51:47 PM Interpretation: Performing Lab:[facility] , [address] [facility]. [facility] [address] Notes/Report: eGFR 57 >=60 mL/min/1.73 m2 Interpretive Data Reference Interval Normal >/= 90 mL/min/1.73m2 Mildly decreased* 60 - 89 mL/min/1.73m2 Mildly to moderately decreased 45 - 59 mL/min/1.73m2 Moderately to severely decreased 30 - 44 mL/min/1.73m2 Severely decreased 15 - 29 mL/min/1.73m2 Kidney Failure < 15 mL/min/1.73m2 *Relative to young adult level Estimated glomerular filtration rate is determined by the 2020 CKD-EPI equation recommended by the National Kidney Foundation (A Unifying Approach to GFR Estimation: Recommendations of the NKF-ASK Task Force on Reassessing the Inclusion of Race in Diagnosing Kidney Disease, JASN 2020). The CKD-EPI equation should not be used for patients with unstable renal function and has not been validated in children and those over 70. Current interpretive data was last reviewed 2021. Reason For Referral No Information Medications Medication SIG (Take, Route, Frequency, Duration) Notes Start Date End Date Status Magnesium 400 MG as directed Orally Active Atorvastatin Calcium 20 MG take 1 tablet (20 mg) by oral route once daily Oral 1 Active Sunosi 150 MG TAKE ONE TABLET BY MOUTH EVERY MORNING Oral for 90 Days Active lamoTRIgine 100 MG take 1 tablet (100 m g) by oral route once daily Oral 1 Active Azstarys 39.2-7.8 MG Oral for 30 Days Active Lexapro 20 MG take 1 tablet (20 mg ) by oral route once daily Oral 1 Active Metoprolol Succinate ER 25 MG take 1 tab let (25 mg) by oral route once daily Oral 1 Active Calcium 500 MG 1 tablet with meals Orally Twice a day for 30 day(s) Active Gabapentin 600 MG TAKE 1 TABLET BY THREE TIMES A DAY for 90 Active Latanoprost 0.005 % instill 1 drop into affected eye(s) by ophthalmic route once daily in the evening Ophthalmic 1 Active Breo Ellipta 200-25 MCG/ACT 1 puff Inhal ation Once a day Active Solifenacin Succinate 5 MG take 1 tablet (5 mg) by oral route once daily Oral 1 Active Albuterol Sulfate Ac tive Aspirin 81 MG take 1 tablet (81 mg ) by oral route once daily Oral 1 Active Hydroxychloroquine Sulfate 2 00 MG TAKE 1 TABLET BY MOUTH TWICE A DAY WITH FOOD for 90 Active traZODone HCl 50 MG take 2-4. at bedtime Oral 1 Active Zinc Active Fosamax 70 MG take 1 tablet (70 mg ) by oral route once weekly in the morning, at least 30 min before first food, beverage, or medication of day Oral [id number] Active Vitamin D3 Active Vyvanse 30 MG take 1 capsule (30 m g) by oral route once daily in the morning Oral 1 Active Problems Problem Type SNOMED Code ICD Code Onset Dates Problem Status W/U Status Risk Notes Problem 952598939 Fibromyalgia (M79.7) Active confirmed Problem Connective tissue disease (730431451) Connective tissue disease (M35.9) Active confirmed Problem 067590152 [facility] arthritis (M19.049) Active confirmed Vital Signs Heart Rate 65 /min 04/22/2024 Temperature 97.9 degrees Fahrenheit 04/22/2024 Height-cm 167.64 cm 04/22/2024 Blood pressure diastolic 68 mm Hg 04/22/2024 Oximetry 96 % 04/22/2024 Weight-kg 96.07 kg 04/22/2024 Height 66 in 04/22/2024 Blood pressure systolic 118 mm Hg 04/22/2024 Weight 211.8 lbs 04/22/2024 BMI 34.18 kg/m2 04/22/2024 Encounters Encounter Location Date Provider Diagnosis [facility] [address] [facility] [address], [place] [address] 05/21/2023 Shyla Du Connective tissue disease M35.9 ; Fibromyalgia M79.7 ; Pain of left thumb M79.645 ; Decreased GFR R94.4 and High risk medication use Z79.899 [place] [id number] [address] 10/15/2023 Shyla Du Connective tissue disease M35.9 ; Fibromyalgia M79.7 ; Pain of left thumb M79.645 ; Decreased GFR R94.4 ; High risk medication use Z79.899 ; Pain in right hip M25.551 and Pain in left hip M25.552 [facility] [address] [facility] [address], [place] [address] 01/20/2024 Shyla Du Connective tissue disease M35.9 ; Fibromyalgia M79.7 ; Decreased GFR R94.4 and High risk medication use Z79.899 [place] [address] [address] 04/22/2024 Shyla Du Connective tissue disease M35.9 ; Fibromyalgia M79.7 ; Decreased GFR R94.4 ; High risk medication use Z79.899 and [facility] arthritis M19.049 [place] [address] [address] 05/04/2023 Shyla Du Assessments Encounter Date Diagnosis (ICD Code) Assessment Notes Treatment Notes Treatment Clinical Notes Section Notes 05/21/2023 Fibromyalgia (ICD-10 - M79.7) offered steroid injection, she declined, continue thumb splinting, applying ice, try topical pain meds, continue plaquenil, return in 3 months 05/21/2023 Connective tissue disease (ICD-10 - M35.9) offered steroid injection, she declined, continue thumb splinting, applying ice, try topical pain meds, continue plaquenil, return in 3 months 10/15/2023 Fibromyalgia (ICD-10 - M79.7) order Xrays and labs, continue plaquenil, return in 3 months 10/15/2023 Connective tissue disease (ICD-10 - M35.9) order Xrays and labs, continue plaquenil, return in 3 months 01/20/2024 Fibromyalgia (ICD-10 - M79.7) stable for the most part, continue plaquenil and gabapentin, return in 3 months 01/20/2024 Connective tissue disease (ICD-10 - M35.9) stable for the most part, continue plaquenil and gabapentin, return in 3 months 04/22/2024 Fibromyalgia (ICD-10 - M79.7) try thumb splinting for [facility] arthritis, continue plaquenil and gabapentin, return in 3 months 04/22/2024 Connective tissue disease (ICD-10 - M35.9) try thumb splinting for [facility] arthritis, continue plaquenil and gabapentin, return in 3 months 04/22/2024 Decreased GFR (ICD-10 - R94.4) try thumb splinting for [facility] arthritis, continue plaquenil and gabapentin, return in 3 months 10/15/2023 Pain of left thumb (ICD-10 - M79.645) order Xrays and labs, continue plaquenil, return in 3 months 01/20/2024 Decreased GFR (ICD-10 - R94.4) stable for the most part, continue plaquenil and gabapentin, return in 3 months 05/21/2023 Pain of left thumb (ICD-10 - M79.645) offered steroid injection, she declined, continue thumb splinting, applying ice, try topical pain meds, continue plaquenil, return in 3 months 05/21/2023 Decreased GFR (ICD-10 - R94.4) offered steroid injection, she declined, continue thumb splinting, applying ice, try topical pain meds, continue plaquenil, return in 3 months 10/15/2023 Decreased GFR (ICD-10 - R94.4) order Xrays and labs, continue plaquenil, return in 3 months 01/20/2024 High risk medication use (ICD-10 - Z79.899) stable for the most part, continue plaquenil and gabapentin, return in 3 months 04/22/2024 High risk medication use (ICD-10 - Z79.899) try thumb splinting for CMC arthritis, continue plaquenil and gabapentin, return in 3 months 04/22/2024 CMC arthritis (ICD-10 - M19.049) try thumb splinting for [facility] arthritis, continue plaquenil and gabapentin, return in 3 months 10/15/2023 High risk medication use (ICD-10 - Z79.899) order Xrays and labs, continue plaquenil, return in 3 months 05/21/2023 High risk medication use (ICD-10 - Z79.899) offered steroid injection, she declined, continue thumb splinting, applying ice, try topical pain meds, continue plaquenil, return in 3 months 10/15/2023 Pain in right hip (ICD-10 - M25.551) order Xrays and labs, continue plaquenil, return in 3 months 10/15/2023 Pain in left hip (ICD-10 - M25.552) order Xrays and labs, continue plaquenil, return in 3 months Plan Of Treatment Pending Test Test Name Order Date XR Hips Bilat inc Pelvis 10/15/2023 Next Appt Details Provider Name:Shyla Olivarez, 07/25 01:30:00 PM, [address], [place], [address], Insurance Providers Payer Name Payer Address Payer Phone Subscriber Number Group Number Insured Name Patient Relationship to Insured Coverage Start Date Coverage End Date [employer] - [employer] [address] [place], [place] [id number] Abby Linder Self - patient is the insured Medical (General) History Medical History History ICD Code Fibromyalgia; Glaucoma; Positive JENNY; Surgical History Surgery Date(Month/Year) Knee surgery: R Knee Surgery, Date of Pr ocedure: 10-11-2019; 2017-08-21 Hysterectomy; 2017-08-21 Tonsillectomy; 2017-08-21 Knee replacement, right; 2021-02-18
--- OUTSIDE RECORDS SUMMARY | 2024-05-04 16:12 | XMS_ITS | Encounter Summary ---
Author Organization [facility] Address [address] [place] [address] Phone Care Team Providers Care Chemical Engraver Name Role Phone Dylan Bell MD Primary Care Provider [phone] Shyla Olivarez MD Unavailable Lewis Ramirez MD Unavailable [phone] Italo Fisher MD Unavailable Erasmo Wesley MD Unavailable Reason for Visit * Reason Onset Date Comments Medication Management 02/14/2020 clatificat ion of nebulizer solution Encounter Details Date Type Department Care Team (Late st Contact Info) Description 02/14/2020 Telephone [facility] - Family Medicine [facility] [address] [place] [address] Dylan Bell MD [address] [address] Medication Management (clatification of nebulizer solution ) Social History Tobacco Use Types Packs/Day Years Used Date Smoking Tobacco: Former Smokeless Tobacco: Never Alcohol Use Standard Drinks/Week Comments Yes 2 (1 standard drink = 0.6 oz pur e alcohol) occasional Comments No Sex and Gender Information Value Date Recorded Sex Assigned at Not on file Legal Sex Female 10:56 PM CDT Gender Identity Not on file Sexual Orientation Not on file COVID-19 Exposure Response Date Recorded In the last month, have you been in contact with someone who was confirmed or suspected to have Coronavirus / COVID-19? No / Unsure 01/30/2020 2:19 PM MOBILE PHLEBOTOMIST documented as of this encounter Miscellaneous Notes * Telephone Encounter - Juli Pedro, RN - 02/14/2020 9:18 AM CST Duplicate request. Sent to Ramsey Blanco APN LE PHLEBOTOMIST * Telephone Encounter - Lisbet Javed - 02/14/2020 8:34 AM CST Patient had issues trying to get the nebulizer and just finally got the machine and is now having trouble getting the nebulizer solution pharmacy told patient that prescription Is incorrect Please notify patient what nebulizer solution to be using and when correct prescription Is sent to pharmacy See 01/31/20 encounter note from pharmacy and Request pending LE PHLEBOTOMIST documented in this encounter Plan of Treatment Upcoming Encounters Date Type Department Care Team (Late st Contact Info) Description 09/22/2024 8:15 AM CDT Office Visit [facility] [address] [place] [address] Erasmo Wesley MD [address] [address] documented as of this encounter Visit Diagnoses Not on filedocumented in this encounter Additional Health Concerns Infection Onset Date Last Indicated Resolved Time COVID - 19 04/16/2020 04/17/2020 04/19/2020 10:3 6 AM MOBILE PHLEBOTOMIST COVID - 19 03/28/2021 03/28/2021 04/17/2021 12:1 6 AM MOBILE PHLEBOTOMIST Respiratory Rule Out - RPA 07/18/2021 07/19/2021 0 07/19/2021 3:34 PM CDT C. difficile Rule-Out 07/19/2021 07/19/20212021 3:56 PM CDT Respiratory Rule Out - RPA 05/27/2022 05/27/2022 0 05/27/2022 3:37 PM MOBILE PHLEBOTOMIST COVID - 19 03/11/2023 03/11/2023 03/21/2023 12:1 6 AM MOBILE PHLEBOTOMIST RSV 03/11/2023 03/11/2023 04/08/2023 12:1 6 AM MOBILE PHLEBOTOMIST COVID - 19 01/18/2024 01/18/2024 01/18/2024 2:35 PM CDT Respiratory Rule-Out 01/18/2024 01/18/2024 024 2:35 PM CDT Assessment Noted Time PHQ-9 Depression Total Score: 0 11/11/19 17 9:00 AM CDT documented as of this encounter Care Teams Chemical Engraver Relationship Specialty Start Date End Date Dylan Bell MD [address] [facility] [address] [place] [address] PCP - General Family Medicine 02/22/15 Shyla Olivarez MD [address] [facility] [address] [place] [address] Rheumatology 12/15/16 Lewis Ramirez MD [address] [facility] [address] [facility] [address] [place], [place] [id number] Obstetrics & Gynecology 03/08/18 Italo Fisher MD [address] [place] [id number] Consulting Physician Pulmonary Disease 06/11/21 Erasmo Wesley MD [address] [facility] [address] [place] [address] Consulting Physician Urology 12/24/23 documented as of this encounter
--- OUTSIDE RECORDS SUMMARY | 2024-05-04 16:13 | XMS_ITS | Referral Summary ---
Author Organization [facility] Address [address] [place] [address] Care Team Providers Care Corporate Compliance Manager Name Role Phone Unavailable Primary Care Provider Unavailabl e Source Comments [facility],non-owned Affiliates and Associated Physician Practices is amultiple site organization consisting of ambulatory clinics and hospital sitesin [place], [place], [place] and [place]. This disclosure is being madepursuant to the Care Everywhere program and may not contain all information available regarding this patient. Last updated 17.[facility] [employer] Social History Tobacco Use Types Packs/Day Years Used Date Smoking Tobacco: Never Assessed Sex and Gender Information Value Date Recorded Sex Assigned at Not on file Gender Identity Not on file Sexual Orientation Not on file Plan of Treatment Not on file
--- OUTSIDE RECORDS SUMMARY | 2024-05-04 16:13 | XMS_ITS | Clinical Summary ---
Author Organization [facility] Address [address] [place] [address] Phone Care Team Providers Care Prepared Foods Team Leader Name Role Phone JACQUIE SORIANO, VERÓNICA BEAN Unavailable [phone] Reason for Visit and Chief Complaint [Patient Encounter] Problems Includes: Problems addressed during this encounter and other active Problems All Visits Onset Date Resolved Date Provider Condition S tatus Nonorganic Sleep Apnea Obstructive 09/11/2022 VERÓNICA PENA MD Active Last Documented On 3 3:50PM ; [facility] Attention-deficit Hyperactivity Disorder 09/20/2020 Active Last Documented On 3 5:53PM ; [facility] Restless Legs Syndrome 01/21/2019 Ac tive Last Documented On 3 5:52PM ; [facility] Depression 12/21/2018 Active Last Documented On 3 5:52PM ; [facility] Vitamin B12 Deficiency 08/21/2017 Ac tive Last Documented On 3 5:51PM ; [facility] Major Depression 12/21/2016 Active Last Documented On 3 5:51PM ; [facility] Fibromyalgia 07/30/2016 Active Last Documented On 3 5:50PM ; [facility] Psychophysiological Insomnia 02/21/2016 Active Last Documented On 3 5:50PM ; [facility] Gerd 04/20/2014 Active Last Documented On 3 5:47PM ; [facility] Gout 11/07/2013 Active Last Documented On 3 5:47PM ; [facility] Bipolar I Disorder, Most Recent Episode, Depressed 013 Active Last Documented On 3 5:45PM ; [facility] Generalized Anxiety Disorder 06/08/2012 Active Last Documented On 3 5:45PM ; [facility] Panic Disorder Without Agoraphobia 06/08/2012 Active Last Documented On 3 5:45PM ; [facility] Plan of Treatment Future Appointments Date Time Location Provi cory TELEHEALTH ADULT PSYCH ESTABLISHED 05/18/2024 11:00AM [facility] PENA MD Last Documented On 4 2:59PM ; [facility] Assessments Includes: Assessments from this encounter No Assessments Recorded Medical Equipment - Implanted Devices Includes: Current Devices No Medical Equipment Recorded Medications Includes: Medications discussed during this encounter and other current Medications Discontinued / Stopped on this date on 08/30/2020 Systane 0.4-0.3% WETZEL Provider: Diagnosis: Last Documented On 07/19/2022 5:28PM By SHANTEL CRUZ ; [facility] Current Medications (continue as prescribed) Vyvanse 30 MG Oral Capsule 08/07/2023 Provider: VERÓNICA PENA MD Diagnosis: Attn-defct hyper activity disorder, predom inattentive type 1 Capsule every morning Last Documented On 08/07/2023 11:23AM By Adrianne Pena MD ; [facility] Famotidine 20 MG Oral Tablet 05/21/2023 Provider: TYLER ALVARENGA NP Diagnosis: 1 tab bid Last Documented On 05/27/2023 11:32AM By SHANTEL CRUZ ; [facility] traZODone HCl 50 MG Oral Tablet 05/12/2023 Provider: VERÓNICA PNEA MD Diagnosis: Psychophysiologi c insomnia TAKE 2 TABLETS BY MOUTH AT B EDTIME NEEDED FOR SLEEP. Last Documented On 05/12/2023 8:56AM By Adrianne Pena MD ; [facility] Alendronate Sodium 70 MG Oral Tablet 04/28/2023 Prov ider: ADY MILLER MD Diagnosis: 1 tab weekly Last Documented On 05/27/2023 11:32AM By SHANTEL CRUZ ; [facility] Sunosi 150 MG Oral Tablet 03/17/2023 Provider: VERÓNICA PENA MD Diagnosis: Obstructive slee p apnea (adult) (pediatric) 1 tablet in the morning Last Documented On 03/17/2023 1:25PM By Adrianne Pena MD ; [facility] Sunosi 150 MG Oral Tablet 02/11/2023 Provider: ME KRISTIAN PENA MD Diagnosis: 1 tablet in the morning Last Documented On 03/17/2023 12:40PM By SHANTEL CRUZ ; [facility] lamoTRIgine 100 MG Oral Tablet 02/10/2023 Provider: VERÓNICA PENA MD Diagnosis: Bipolar disord, crnt epsd depress, mild or mod severt, unsp One tablet daily Last Documented On 02/10/2023 12:51PM By Adrianne Pena MD ; [facility] Esomeprazole Magnesium 20 MG Oral Capsule Delayed Release 12/26/2022 Provider: RADHA HERNANDEZ MD Diagnosis: 1 capsule daily Last Documented On 01/21/2023 3:51PM By SHANTEL CRUZ ; [facility] Albuterol Sulfate HFA 108 (9 0 Base) MCG/ACT Inhalation Aerosol Solution 11/19/2022 Provider: TYLER WOLFE DEPOSITION OPERATOR Diagnosis: use as directed Last Documented On 01/21/2023 3:51PM By SHANTEL CRUZ ; [facility] Symbicort 160-4.5 MCG/ACT Inhalation Aerosol Provider: TYLER ALVARENGA DEPOSITION OPERATOR Diagnosis: use as directed Last Documented On 01/21/2023 3:52PM By SHANTEL CRUZ ; [facility] Latanoprost 0.005% Ophthalmic Solution 09/11/2022 Pr ovider: Diagnosis: use as directed Last Documented On 09/11/2022 3:01PM By SHANTEL CRUZ ; [facility] Systane 0.4-0.3% OP SOLN 07/08/2022 Provider: Diagnosis: use as directed prn Last Documented On 07/19/2022 5:28PM By SHANTEL CRUZ ; [facility] Solifenacin Succinate 5 MG OR TABS 04/24/2022 Provid er: Diagnosis: 1 tab daily Last Documented On 07/19/2022 5:28PM By SHANTEL CRUZ ; [facility] Gabapentin 600 MG OR TABS 10/07/2021 Provider: Diagnosis: 1 tab tid Last Documented On 07/19/2022 5:28PM By SHANTEL CRUZ ; [facility] Amoxicillin 500 MG OR CAPS 09/26/2021 Provider: Diagnosis: prior to dental work Last Documented On 07/19/2022 5:28PM By SHANTEL CRUZ ; [facility] Atorvastatin Calcium 20 MG OR TABS 06/13/2020 Provid er: Diagnosis: 1 tab nightly Last Documented On 07/19/2022 5:28PM By SHANTEL CRUZ ; [facility] Metoprolol Succinate ER 25 MG OR TB24 06/06/2020 Pro vider: Diagnosis: 1 tab daily Last Documented On 07/19/2022 5:28PM By SHANTEL CRUZ ; [facility] Hydroxychloroquine Sulfate 200 MG OR TABS 11/30/2019 Provider: Diagnosis: 1 tab bid Last Documented On 07/19/2022 5:28PM By SHANTEL CRUZ ; [facility] Aspirin 81 MG OR TABS 06/22/2014 Provider: Diagnosis: Last Documented On 07/19/2022 5:28PM By Adrianne Pena MD ; [facility] Medications Administered Includes: Administered Medications from this encounter No Administered Medications Recorded Vital Signs Includes: Vital Signs from this encounter Vital Name 07/08/2022 03:04P Blood Pressure Sitting (mmHg) 119/70 BP Cuff Size Regular Pulse Rate-Sitting (bpm) 65 Pulse Rhythm Regular Height (in) 66 Weight (lb) 212 Body Mass Index 34.2 Body Surface Area 2.1 Note: self reported vitals Last Documented: On 07/19/2022 6:02PM ; [facility] Results Includes: Results discussed during this encounter [...] ctive Last Documented On 05/27/2023 11:24AM ; [facility] Note: Imported from external source. predniSONE Allergy rash 07/24/2015 Active Last Documented On 05/27/2023 11:24AM ; [facility] Note: Imported from external source. Naproxen Allergy Asthma / Allergi c asthma, Shortness of Breath / Dyspnea 06/22/2014 Active Last Documented On 05/27/2023 11:24AM ; [facility] Note: Imported from external source. Ibuprofen Allergy rash 01/29/2016 Resolved Last Documented On 08/30/2020 10:11AM ; [facility] Note: rash Ibuprofen Allergy rash 01/29/2016 Active Last Documented On 05/27/2023 11:24AM ; [facility] Note: Imported from external source. Flexeril Allergy Asthma / Allergi c asthma, Shortness of Breath / Dyspnea 06/22/2014 Active Last Documented On 05/27/2023 11:24AM ; [facility] Note: Imported from external source. Encounters Encounter Provider Location Date Check-In Time Check-Out Time Diagnosis [Patient Encounter] 07/08/2022 12:00AM 11:59PM Insurance Includes: Active Insurance Policies Plan Name Member ID Group # Subscriber Relationship Effect meme Dates 1 - [facility] [id number] GELACIO DODGE Self 09/20/2020 - Unknown Clinical Notes Includes: Clinical Notes from this encounter No Clinical Notes Recorded
--- OUTSIDE RECORDS SUMMARY | 2024-05-04 16:13 | XMS_ITS | Encounter Summary ---
Author Organization [facility] Address [address] [address] Care Team Providers Care Surfacing Machine Operator Name Role Phone Unavailable Primary Care Provider Unavailabl e Encounter Details Date Type Department Care Team (Late st Contact Info) Description 07/14/2019 Lab Requisition [facility] MICROBIOLOGY [address] [place] [address] Giovani Barnard MD Social History Tobacco Use Types Packs/Day Years Used Date Smoking Tobacco: Never Assessed Sex and Gender Information Value Date Recorded Sex Assigned at Not on file Gender Identity Not on file Sexual Orientation Not on file documented as of this encounter Plan of Treatment Not on file documented as of this encounter Procedures Procedure Name Priority Date/Time Associated Diagnosis Comments SARS-COV-2 (COVID-19) IN HOUSE Routine 07/14/2019 5:15 PM CDT documented in this encounter Results * SARS-COV-2 (COVID-19) IN HOUSE (07/14/2019 5:15 PM CDT) COVID-19 PCR Not detected Not detected, Invalid 07/15/2019 2:06 PM CDT [facility] MICROBIOLOGY Microbiology SPECIMEN FROM NASOPHARYNGEAL STRUCTURE / Unknown Collection / Unknown 07/14/2019 5:15 PM CDT 07/14/2019 9:10 PM CDT Narrative [facility] MICROBIOLOGY - 07/15/2019 2:06 PM CDT This Real Time RT-PCR assay was developed and its performance characteristics determined by [facility]. This test has been authorized by the Food and Drug administration (FDA)under an Emergency Use Authorization (EUA). This test has been validated in accordance with the FDA's guidance document Policy for Diagnostic Testing in Laboratories Certified to perform High Complexity Testing under CLIA prior to Emergency Use Authorization for Coronavirus Disease-2019 during the Public Health Emergency issued on May 21, 2019. FDA independent review of this validation is pending. This test is only authorized for the duration of time the declaration that circumstances exist justifying the authorization of emergency use of in vitro diagnostic tests for detection of SARS-CoV-2 virus and/or diagnosis of COVID-19 infection under section 564(b)(1) of the Act, 21 U.S.C 360bbb-3 (b)(1), unless the authorization is terminated or revoked sooner. Giovani Barnard MD LAB - MICROBIOLOGY ORDERABLES [facility] MICROBIOLOGY [address] [place] [address], [facility] [phone] documented in this encounter Visit Diagnoses Not on filedocumented in this encounter
--- OUTSIDE RECORDS SUMMARY | 2024-05-04 16:13 | XMS_ITS | Clinical Summary ---
Author Organization [facility] Address [address] [place] [address] Care Team Providers Care Wildlife Biologist Name Role Phone Unavailable Primary Care Provider Unavailabl e Source Comments [facility],non-owned Affiliates and Associated Physician Practices is amultiple site organization consisting of ambulatory clinics and hospital sitesin [place], [place], [place] and [place]. This disclosure is being madepursuant to the Care Everywhere program and may not contain all information available regarding this patient. Last updated 17.[facility] Social History Tobacco Use Types Packs/Day Years Used Date Smoking Tobacco: Never Assessed Sex and Gender Information Value Date Recorded Sex Assigned at Not on file Gender Identity Not on file Sexual Orientation Not on file Plan of Treatment Health Maintenance Due Date Last Done Comments COLOGUARD (AGES 45-75) - COL ON CA SCREENING 1966 COLON MONITORING 1966 COLONOSCOPY - COLON CA SCREENING 1966 CT COLONOGRAPHY - COLON CA SCREENING 1966 Colorectal Cancer Screening 1966 FIT - COLON CA SCREENING 1966 FLEX SIG - COLON CA SCREENING 1966 LIPID TESTING 1966 MAMMOGRAM 1966 PAP SMEAR 1966 HIV SCREENING 1981 HEPATITIS C SCREENING 05/08/1984 DTAP/TDAP/TD VACCINES (1 - Tdap) 1985 HEPATITIS B VACCINE (1 of 3 - 19+ 3-dose series) 1985 PNEUMOCOCCAL VACCINE 50+ (1 of 1 - PCV) 2016 ZOSTER VACCINE (1 of 2) 2016 COVID-19 VACCINE ( - 2023-2 5 season) 2023 INFLUENZA VACCINE (#1) 2023 12/11/2008 DEPRESSION SCREENING 03/23/2024 HIB VACCINE Aged Out No longer eligi ble based on patient's age to complete this topic HPV VACCINE Aged Out No longer eligi ble based on patient's age to complete this topic MENINGOCOCCAL (Group B) VACCINE Aged Out No longer eligible based on patient's age to complete this topic MENINGOCOCCAL VACCINE Aged Out No basia bull eligible based on patient's age to complete this topic PNEUMOCOCCAL VACCINE Aged Out No long er eligible based on patient's age to complete this topic
--- OUTSIDE RECORDS SUMMARY | 2024-05-04 16:13 | XMS_ITS ---
Author Organization [facility] nathan Address [address] [facility] [address] [place] [address] Care Team Providers Care Floral Specialist Name Role Phone Arabella SORIANO, Dylan Primary Care Provider Shree LiuShyla Unavailable [phone] Allergies Allergen (clinical drug ingredient) Drug/Non Drug Allergy documented on EMR Reaction Allergy Type Onset Date Status Flexeril Unknown Drug Allergy 08/21/2017 Active naproxen Naproxen Unknown Drug Allergy 08/21/2017 Active predniSONE Unknown Drug Allergy 05/28/2020 Activ e REASON FOR VISIT yd/3 month follow up/flc, CTD, fibromyalgia, PCP Dylan Bell MD #2 [facility], [address] [address] Medications Medication SIG (Take, Route, Frequency, Duration) Notes Start Date End Date Status Hydroxychloroquine Sulfate 2 00 MG TAKE 1 TABLET BY MOUTH TWICE A DAY WITH FOOD for 90 Active Gabapentin 600 MG TAKE 1 TABLET BY TH THREE TIMES A DAY for 90 Active Breo Ellipta 200-25 MCG/ACT 1 puff Inhal ation Once a day Active Albuterol Sulfate Ac tive Vyvanse 30 MG take 1 capsule (30 m g) by oral route once daily in the morning Oral 1 Active lamoTRIgine 100 MG take 1 tablet (100 m g) by oral route once daily Oral 1 Active Lexapro 20 MG take 1 tablet (20 mg ) by oral route once daily Oral 1 Active Metoprolol Succinate ER 25 MG take 1 tab let (25 mg) by oral route once daily Oral 1 Active traZODone HCl 50 MG take 2-4. at bedtime Oral 1 Active Fosamax 70 MG take 1 tablet (70 mg ) by oral route once weekly in the morning, at least 30 min before first food, beverage, or medication of day Oral 0.655690269819836 Active Atorvastatin Calcium 20 MG take 1 tablet (20 mg) by oral route once daily Oral 1 Active Calcium 500 MG 1 tablet with meals Orally Twice a day for 30 day(s) Active Latanoprost 0.005 % instill 1 drop into affected eye(s) by ophthalmic route once daily in the evening Ophthalmic 1 Active Solifenacin Succinate 5 MG take 1 tablet (5 mg) by oral route once daily Oral 1 Active Aspirin 81 MG take 1 tablet (81 mg ) by oral route once daily Oral 1 Active Magnesium 400 MG as directed Orally Active Zinc Active Vitamin D3 Active Problems Problem Type SNOMED Code ICD Code Onset Dates Problem Status W/U Status Risk Notes Problem Connective tissue disease (251925834) Connective tissue disease (M35.9) Active confirmed Vital Signs Temperature 98.8 degrees Fahrenheit 01/20/20 24 Blood pressure systolic 130 mm Hg 01/20/20 24 Blood pressure diastolic 80 mm Hg 024 Heart Rate 90 /min 01/20/2024 Height 66 in 01/20/2024 Weight 204.8 lbs 01/20/2024 BMI 33.05 kg/m2 01/20/2024 Oximetry 95 % 01/20/2024 Height-cm 167.64 cm 01/20/2024 Weight-kg 92.88 kg 01/20/2024 Encounters Encounter Location Date Provider Diagnosis [facility] [address] [facility] [address] [place] [address] 01/20/2024 Shyla Du Connective tissue disease M35.9 ; Fibromyalgia M79.7 ; Decreased GFR R94.4 and High risk medication use Z79.899 Assessments Encounter Date Diagnosis (ICD Code) Assessment Notes Treatment Notes Treatment Clinical Notes Section Notes 01/20/2024 Connective tissue disease (ICD-10 - M35.9) stable for the most part, continue plaquenil and gabapentin, return in 3 months 01/20/2024 Fibromyalgia (ICD-10 - M79.7) stable for the most part, continue plaquenil and gabapentin, return in 3 months 01/20/2024 Decreased GFR (ICD-10 - R94.4) stable for the most part, continue plaquenil and gabapentin, return in 3 months 01/20/2024 High risk medication use (ICD-10 - Z79.899) stable for the most part, continue plaquenil and gabapentin, return in 3 months Plan Of Treatment Next Appt Details Follow Up: 3 Months, Reason: Provider Name:Shyla Sher, 07/25 01:30:00 PM, [address] [facility], [address], [address], Progress Notes * Abby DODGE DDOB:[birth year] (58 yo F)Acc No.[id number]:01/20/2024 Progress Notes Patient: Abby ARMIJO Provider: Jennifer LIU MD :1965 A ge:58 Y S ex:Female Date:01/20/2024 Address:[address] [place] [address] Pcp:Dylan Bell MD Subjective: * Chief Complaints: * Y d/3 month follow up/flcCTD, fibromyalgiaPCP Dylan Bell MD #2 [facility], [place] [address] * HPI: G eneral Follow up: on plaquenil 400mg/day, takes tramadol prn, on gabapentin 600mg tid, meds helping some, arthritis stabe for the most part, hands feel tight, thumbs ache a little, am stiffness: a few minutes stopped MTX in 06/2021 when she was admitted for pneumonia, off Mobic due to kidney issue, off prednisone (caused rash), salagen did not help with dryness, unable to get copay assist for [facility] due to having state insurance hx of osteoporosis/osteopenia: on fosamax 09/2023, JENNY 1:160 (speklced), VICKIE/DNA (-), RF/CCP (-), ESR, CRP, CK normal, Cr 1.13, GFR 57, AST/ALT normal, Hb 11.3, WBC/platelets normal 07/16/2022, JENNY 1:80 08/2020, JENNY 1:80 (nuclear dots), cascade (-), ESR, CRP, C3 and C4 normal, Cr 1.0, GFR 64 08/2019, JENNY 1:320 (nuclear dots), CRP 12, Cr 1.2, GFR 52 ROS: no oral ulcers, +nasal ulcer, +recent hx of rash, +dry eyes and dry mouth, no hair loss, +photosensitivity, no Raynaud's. fibro: on gabapentin, allergic to flexeril and naproxen (respiratory), stopped lyrica due to weight gain and ankle edema, was on Topamax for headaches, ran out sees psychiatrist, on Lexapro, lamictal, pristiq, buspar and trazodone, not on tramadol any more. off Cymbalta, has had difficulty with memories eye exam : 04/2023. * ROS: G eneral / Constitutional: Patient denies f denzel, chills. P atient complains of?fatigue. M usculoskeletal: Patient complains of s ee HPI. S kin: Patient denies r barb. * Medical History: * Surgical History: K nee surgery: R Knee Surgery, Date of Procedure: 10-11-2019; [id number]; [id number]; [id number] replacement, right; 2021-02-18 * Hospitalization/Major Diagno stic Procedure: * Family History: F ather: Heart Attack Notes: . M other: Lung cancer Notes: . S ister: Breast cancer Notes: . * Social History: M igrated Social History: M igrated Social History: :: 1 Daughter , :: Pets in the home , Exercise :: Does not exercise regularly , Marital Status :: , Substance Use :: Caffeine , Substance Use :: coffee , Substance Use :: Denies illicit substance abuse , Substance Use :: Former smoker , Substance Use :: rare alcohol usage , Substance Use :: Tobacco :: Former :: note : quit 2014. * Medications: T akingMagnesium 400 MG Capsule as directed Orally Zinc Vitamin D3 Calcium 500 MG Tablet 1 tablet with meals Orally Twice a day Latanoprost 0.005 % Solution instill 1 drop into affected eye(s) by ophthalmic route once daily in the evening Ophthalmic 1 Solifenacin Succinate 5 MG Tablet take 1 tablet (5 mg) by oral route once daily Oral 1 Aspirin 81 MG Tablet Delayed Release take 1 tablet (81 mg) by oral route once daily Oral 1 Atorvastatin Calcium 20 MG Tablet take 1 tablet (20 mg) by oral route once daily Oral 1 lamoTRIgine 100 MG Tablet take 1 tablet (100 mg) by oral route once daily Oral 1 Lexapro 20 MG Tablet take 1 tablet (20 mg) by oral route once daily Oral 1 Metoprolol Succinate ER 25 MG Tablet Extended Release 24 Hour take 1 tablet (25 mg) by oral route once daily Oral 1 traZODone HCl 50 MG Tablet take 2-4. at bedtime Oral 1 Fosamax 70 MG Tablet take 1 tablet (70 mg) by oral route once weekly in the morning, at least 30 min before first food, beverage, or medication of day Oral [id number] Vyvanse 30 MG Capsule take 1 capsule (30 mg) by oral route once daily in the morning Oral 1 Gabapentin 600 MG Tablet TAKE 1 TABLET BY MOUTH THREE TIMES A DAY Breo Ellipta 200-25 MCG/ACT Aerosol Powder Breath Activated 1 puff Inhalation Once a day Albuterol Sulfate Hydroxychloroquine Sulfate 200 MG Tablet TAKE 1 TABLET BY MOUTH TWICE A DAY WITH FOOD Medication List reviewed and reconciled with the patientTaking Magnesium 400 MG Capsule as directed Orally Taking Zinc Taking Vitamin D3 Taking Calcium 500 MG Tablet 1 tablet with meals Orally Twice a day Taking Latanoprost 0.005 % Solution instill 1 drop into affected eye(s) by ophthalmic route once daily in the evening Ophthalmic 1 Taking Solifenacin Succinate 5 MG Tablet take 1 tablet (5 mg) by oral route once daily Oral 1 Taking Aspirin 81 MG Tablet Delayed Release take 1 tablet (81 mg) by oral route once daily Oral 1 Taking Atorvastatin Calcium 20 MG Tablet take 1 tablet (20 mg) by oral route once daily Oral 1 Taking lamoTRIgine 100 MG Tablet take 1 tablet (100 mg) by oral route once daily Oral 1 Taking Lexapro 20 MG Tablet take 1 tablet (20 mg) by oral route once daily Oral 1 Taking Metoprolol Succinate ER 25 MG Tablet Extended Release 24 Hour take 1 tablet (25 mg) by oral route once daily Oral 1 Taking traZODone HCl 50 MG Tablet take 2-4. at bedtime Oral 1 Taking Fosamax 70 MG Tablet take 1 tablet (70 mg) by oral route once weekly in the morning, at least 30 min before first food, beverage, or medication of day Oral [id number] Taking Vyvanse 30 MG Capsule take 1 capsule (30 mg) by oral route once daily in the morning Oral 1 Taking Gabapentin 600 MG Tablet TAKE 1 TABLET BY MOUTH THREE TIMES A DAY Taking Breo Ellipta 200-25 MCG/ACT Aerosol Powder Breath Activated 1 puff Inhalation Once a day Taking Albuterol Sulfate Taking Hydroxychloroquine Sulfate 200 MG Tablet TAKE 1 TABLET BY MOUTH TWICE A DAY WITH FOOD Medication List reviewed and reconciled with the patient * Allergies: F lexeril: Allergy - Onset Date 08/21/2017Naproxen: Allergy - Onset Date 08/21/2017predniSONE: Allergy - Onset Date 05/28/2020no[Allergies Verified] Objective: * Vitals: B P:130/80mm Hg, HR:90/min, Temp:98.8F, Oxygen sat %:95%, Wt:204.8lbs, Wt- k.88kg, Ht:66in, Ht-cm:167.64cm, BMI:33.05Index, Body Surface Area:2.08. * Examination: G eneral Examination: General appearance: a lert, well-nourished and in no acute distress. Head: n ormocephalic, atraumatic. Eyes: n ormal. Skin: n o rash. Lungs: r espiratory effort normal. N eurology: Speech: n ormal. P sychiatry: Affect / mood: a ppropriate. R heumatology: R 1st MCP mildly tender, no swelling. Assessment: * Assessment: 1. C onnective tissue disease - M35.9 (Primary) 2 . F ibromyalgia - M79.7? 3. D ecreased GFR - R94.4 4 . H igh risk medication use - Z79.899 stable for the most part, c ontinue plaquenil and gabapentin, return in 3 months Plan: * Treatment: * Procedure Codes: * Follow Up: 3 Months * Billing Information: * Visit Code: 50789 Office Visit, Est Pt., Level 4. * Procedure Codes: * Sign off status: Completed true * Provider: Jennifer LIU MD Date: 1 Generated for Mark oliva/Jess/Michael on: 0 05/04/2024 04:13 PM CHRISTIAN SCIENCE PRACTITIONER History and Physical Notes * HPI (History of Present Illness) Category Sub-Category Detail Notes Category Not es General Follow up on plaquenil 400mg/day, takes tramadol prn, on gabapentin 600mg tid, meds helping some, arthritis stabe for the most part, hands feel tight, thumbs ache a little, am stiffness: a few minutes stopped MTX in 06/2021 when she was admitted for pneumonia, off Mobic due to kidney issue, off prednisone (caused rash), salagen did not help with dryness, unable to get copay assist for [facility] due to having state insurance hx of osteoporosis/osteopenia: on fosamax 09/2023, JENNY 1:160 (speklced), VIKCIE/DNA (-), RF/CCP (-), ESR, CRP, CK normal, Cr 1.13, GFR 57, AST/ALT normal, Hb 11.3, WBC/platelets normal 07/16/2022, JENNY 1:80 08/2020, JENNY 1:80 (nuclear dots), cascade (-), ESR, CRP, C3 and C4 normal, Cr 1.0, GFR 64 08/2019, JENNY 1:320 (nuclear dots), CRP 12, Cr 1.2, GFR 52 ROS: no oral ulcers, +nasal ulcer, +recent hx of rash, +dry eyes and dry mouth, no hair loss, +photosensitivity, no Raynaud's. fibro: on gabapentin, allergic to flexeril and naproxen (respiratory), stopped lyrica due to weight gain and ankle edema, was on Topamax for headaches, ran out sees psychiatrist, on Lexapro, lamictal, pristiq, buspar and trazodone, not on tramadol any more. off Cymbalta, has had difficulty with memories eye exam : 04/2023 Examination Category Sub-Category Detail Notes Category Not es Rheumatology R 1st MCP mildly tender, no swelling Neurology Speech: normal Psychiatry Affect / mood: appropriate General Examination General appearance: alert, w ell-nourished and in no acute distress Head: normocephalic, atrau matic Eyes: normal Lungs: respiratory effort n ormal Skin: no rash
--- OUTSIDE RECORDS SUMMARY | 2024-05-04 16:13 | XMS_ITS ---
Author Organization [facility] nathan Address [address] [facility] [address] [place] [address] Care Team Providers Care Helper Coordinator Name Role Phone Arabella SORIANO, Dylan Primary Care Provider Shree LiuShyla Unavailable [phone] Allergies Allergen (clinical drug ingredient) Drug/Non Drug Allergy documented on EMR Reaction Allergy Type Onset Date Status Flexeril Unknown Drug Allergy 08/21/2017 Active naproxen Naproxen Unknown Drug Allergy 08/21/2017 Active predniSONE Unknown Drug Allergy 05/28/2020 Activ e REASON FOR VISIT yd/3 month follow up/flc, CTD, fibromyalgia, PCP Dylan Bell MD #2 [facility], [address] [place] [address] Medications Medication SIG (Take, Route, Frequency, Duration) Notes Start Date End Date Status Sunosi 150 MG TAKE ONE TABLET BY MOUTH EVERY MORNING Oral for 90 Days Active Azstarys 39.2-7.8 MG Oral for 30 Days Active Breo Ellipta 200-25 MCG/ACT 1 puff Inhal ation Once a day Active Albuterol Sulfate Ac tive Hydroxychloroquine Sulfate 2 00 MG TAKE 1 TABLET BY MOUTH TWICE A DAY WITH FOOD for 90 Active Metoprolol Succinate ER 25 MG take 1 tab let (25 mg) by oral route once daily Oral 1 Active Gabapentin 600 MG TAKE 1 TABLET BY VALENTÍN TH THREE TIMES A DAY for 90 Active traZODone HCl 50 MG take 2-4. at bedtime Oral 1 Active Fosamax 70 MG take 1 tablet (70 mg ) by oral route once weekly in the morning, at least 30 min before first food, beverage, or medication of day Oral [id number] Active Vyvanse 30 MG take 1 capsule (30 m g) by oral route once daily in the morning Oral 1 Active Atorvastatin Calcium 20 MG take 1 tablet (20 mg) by oral route once daily Oral 1 Active lamoTRIgine 100 MG take 1 tablet (100 m g) by oral route once daily Oral 1 Active Lexapro 20 MG take 1 tablet (20 mg ) by oral route once daily Oral 1 Active Solifenacin Succinate 5 MG take 1 tablet (5 mg) by oral route once daily Oral 1 Active Aspirin 81 MG take 1 tablet (81 mg ) by oral route once daily Oral 1 Active Magnesium 400 MG as directed Orally Active Calcium 500 MG 1 tablet with meals Orally Twice a day for 30 day(s) Active Latanoprost 0.005 % instill 1 drop into affected eye(s) by ophthalmic route once daily in the evening Ophthalmic 1 Active Zinc Active Vitamin D3 Active Problems Problem Type SNOMED Code ICD Code Onset Dates Problem Status W/U Status Risk Notes Problem [id number] CMC arthritis (M19.049) Active confirmed Vital Signs Temperature 97.9 degrees Fahrenheit 04/22/19 25 Blood pressure systolic 118 mm Hg 04/22/19 25 Blood pressure diastolic 68 mm Hg 025 Heart Rate 65 /min 04/22/2024 Height 66 in 04/22/2024 Weight 211.8 lbs 04/22/2024 BMI 34.18 kg/m2 04/22/2024 Oximetry 96 % 04/22/2024 Height-cm 167.64 cm 04/22/2024 Weight-kg 96.07 kg 04/22/2024 Encounters Encounter Location Date Provider Diagnosis [facility] [address] [facility] [address] [place] [address] 04/22/2024 Shyla Du Connective tissue disease M35.9 ; Fibromyalgia M79.7 ; Decreased GFR R94.4 ; High risk medication use Z79.899 and CMC arthritis M19.049 Assessments Encounter Date Diagnosis (ICD Code) Assessment Notes Treatment Notes Treatment Clinical Notes Section Notes 04/22/2024 Connective tissue disease (ICD-10 - M35.9) [...] Follow Up: 3 Months, Reason: Provider Name:Shyla Liu, 07/25 01:30:00 PM, [address] , [address], [address], Progress Notes * Abby DODGE DDOB:[birth year] (58 yo F)Acc No.[id number]:04/22/2024 Progress Notes Patient: Abby ARMIJO Provider: Jennifer LIU MD :1965 A ge:58 Y S ex:Female Date:04/22/2024 Address:[address] [place] [address] Pcp:Dylan Bell MD Subjective: * Chief Complaints: * Y d/3 month follow up/flcCTD, fibromyalgiaPCP Dylan Bell MD #2 [facility], [address] [place] [address] * HPI: G eneral Follow up: on plaquenil 400mg/day, takes tramadol prn, on gabapentin 600mg tid, meds helping some, arthritis stabe for the most part, hips and thumbs ache sometimes, am stiffness: 10 minutes stopped MTX in 06/2021 when she was admitted for pneumonia, off Mobic due to kidney issue, off prednisone (caused rash), salagen did not help with dryness, unable to get copay assist for [facility] due to having state insurance hx of [...] had difficulty with memories eye exam : 03/2024. * ROS: G eneral / Constitutional: Patient denies f denzel, chills. P atient complains of?fatigue. M usculoskeletal: Patient complains of s ee HPI. S kin: Patient denies r barb. * Medical History: * Surgical History: K pérez surgery: R Knee Surgery, Date of Procedure: 10-11-2019; [id number]; [id number]; [id number] replacement, right; 2021-02-18 * Hospitalization/Major Diagno stic [...] food, beverage, or medication of day Oral [id number] Vyvanse 30 MG Capsule take 1 capsule (30 mg) by oral route once daily in the morning Oral 1 Gabapentin 600 MG Tablet TAKE 1 TABLET BY MOUTH THREE TIMES A DAY Breo Ellipta 200-25 MCG/ACT Aerosol Powder Breath Activated 1 puff Inhalation Once a day Albuterol Sulfate Hydroxychloroquine Sulfate 200 MG Tablet TAKE 1 TABLET BY MOUTH TWICE A DAY WITH FOOD Sunosi 150 MG Tablet TAKE ONE TABLET BY MOUTH EVERY MORNING Oral Azstarys 39.2-7.8 MG Capsule Oral Medication List reviewed and reconciled with the [...] food, beverage, or medication of day Oral [id number] Taking Vyvanse 30 MG Capsule take 1 [...] BY MOUTH TWICE A DAY WITH FOOD Taking Sunosi 150 MG Tablet TAKE ONE TABLET BY MOUTH EVERY MORNING Oral Taking Azstarys 39.2-7.8 MG Capsule Oral Medication List reviewed and reconciled with the patient * Allergies: F lexeril: Allergy - Onset Date 08/21/2017Naproxen: Allergy - Onset Date 08/21/2017predniSONE: Allergy - Onset Date 05/28/2020no[Allergies Verified] Objective: * Vitals: B P:118/68mm Hg, HR:65/min, Temp:97.9F, Oxygen sat %:96%, Wt:211.8lbs, Wt-k.07 kg, Ht: 66 in, Ht-cm: 167.64 cm, BMI:34.18Index, Body Surface Area: 2.11. * Examination: G eneral Examination: General appearance: a lert, well-nourished and in no acute distress. Head: n ormocephalic, atraumatic. Eyes: n ormal. Skin: n o rash. Lungs: r espiratory effort normal. N eurology: Speech: n ormal. P sychiatry: Affect / mood: a ppropriate. R heumatology: b il MCPs tebder and enlarged, R hip tender laterrally. Assessment: * Assessment: 1. C onnective tissue disease - M35.9 (Primary) 2 . F ibromyalgia - M79.7? 3. D ecreased GFR - R94.4 4 . H igh risk medication use - Z79.899 5 . C arthritis - M19.049 try thumb splinting for CMC arthritis, continue plaquenil and gabapentin, return in 3 months Plan: * Treatment: * Procedure Codes: * Follow Up: 3 Months * Billing Information: * Visit Code: 99300 Office Visit, Est Pt., Level 4. * Procedure Codes: * WORKER Sign off status: Completed true * Provider: Jennifer LIU MD Date: 04/22/2024 Generated for Mark oliva/Jess/Jamieitting on: 0 05/04/2024 04:12 PM HOMEWORKER History and Physical Notes * HPI (History of Present Illness) Category Sub-Category Detail Notes Category Not es General Follow up on plaquenil 400mg/day, takes tramadol prn, on gabapentin 600mg tid, meds helping some, arthritis stabe for the most part, hips and thumbs ache sometimes, am stiffness: 10 minutes stopped MTX in 06/2021 when she was admitted for pneumonia, off Mobic due to kidney issue, off prednisone (caused rash), salagen did not help with dryness, unable to get copay assist for [facility] due to having state insurance hx [...] had difficulty with memories eye exam : 03/2024 Examination Category Sub-Category Detail Notes Category Not es Rheumatology rodrigo MCPs tebder and enlarged, R hip tender laterrally Neurology Speech: normal Psychiatry Affect / mood: appropriate General Examination General appearance: alert, w ell-nourished and in no acute distress Head: normocephalic, atrau matic Eyes: normal Lungs: respiratory effort n ormal Skin: no rash
--- OUTSIDE RECORDS SUMMARY | 2024-05-04 16:13 | XMS_ITS | Encounter Summary ---
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 Gender Identity Not on file Sexual Orientation Not on file documented as of this encounter Plan of Treatment Not on file documented as of this encounter Visit Diagnoses Diagnosis Knee pain- Primary Pain in joint, lower leg documented in this encounter Care Teams Lecturer Of Portuguese Relationship Specialty Start Date End Date Dylan Bell MD [address] [facility] [address] [place] [address] PCP - General 06/20/16 Selma Sadler PA [address] [facility] [address] [place] [address] Physician [employer] Orthopedic Surgery 01/08/21 documented as of this encounter
--- OUTSIDE RECORDS SUMMARY | 2024-05-04 16:13 | XMS_ITS | Clinical Summary ---
Author Organization [facility] Address [address] [place] [address] Phone Care Team Providers Care Banquet Pilot Name Role Phone MARY SORIANO, RADHA A Primary Care Provider [phone] JACQUIE SORIANO, VERÓNICA BEAN Unavailable [phone] Reason for Visit and Chief Complaint CHART UPDATE Problems Includes: Problems addressed during this encounter and other active Problems All Visits Onset Date Resolved Date Provider Condition S tatus Attention-deficit Hyperactivity Disorder 09/20/2020 VERÓNICA KAPLAN MD Active Last Documented On 1 5:58PM ; [facility] Restless Legs Syndrome 01/21/2019 VERÓNICA EMERY MD Active Last Documented On 9 4:02AM ; [facility] Depression 12/21/2018 VERÓNICA PENA MD Ac tive Last Documented On 9 2:49AM ; [facility] Vitamin B12 Deficiency 08/21/2017 VERÓNICA EMERY MD Active Last Documented On 8 4:01AM ; [facility] Major Depression 12/21/2016 VERÓNICA PENA MD Active Last Documented On 8 9:33PM ; [facility] Fibromyalgia 07/30/2016 VERÓNICA PENA MD Active Last Documented On 7 7:27PM ; [facility] Psychophysiological Insomnia 02/21/2016 VERÓNICA PENA MD Active Last Documented On 7 9:45PM ; [facility] Gerd 04/20/2014 VERÓNICA PENA MD Ac tive Last Documented On 5 3:39PM ; [facility] Gout 11/07/2013 VERÓNICA PENA MD Ac tive Last Documented On 4 12:31AM ; [facility] Bipolar I Disorder, Most Rec ent Episode, Depressed 07/15/2012 VERÓNICA PENA MD Active Last Documented On 3 4:26PM ; [facility] 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 VERÓNICA PENA MD Active Last Documented On 3 9:02AM ; [facility] Generalized Anxiety Disorder 06/08/2012 VERÓNICA PENA MD Active Last Documented On 3 9:01AM ; [facility] Nonorganic Sleep Apnea Obstructive 06/08/2012 M STEFANO PENA MD Active Last Documented On 3 9:01AM ; [facility] Panic Disorder Without Agoraphobia 06/08/2012 M STEFANO PENA MD Active Last Documented On 3 9:01AM ; [facility] Plan of Treatment Pending Tests Order Diagnosis Results Due Ordering P rovider Lab TSH 03/08/20 VERÓNICA FRANCO MD Last Documented On 1 6:05PM ; [facility] CMP 03/08/20 VERÓNICA FRANCO MD Last Documented On 1 6:05PM ; [facility] LIPID 03/08/20 VERÓNICA FRANCO MD Last Documented On 1 6:05PM ; [facility] B12 & FOLATE 03/08/20 VERÓNICA PENA MD Last Documented On 1 6:05PM ; [facility] Assessments Includes: Assessments from this encounter No Assessments Recorded Medical Equipment - Implanted Devices Includes: Current Devices No Medical Equipment Recorded Medications Includes: Medications discussed during this encounter and other current Medications Current Medications (continue as prescribed) Systane 0.4-0.3% Ophthalmic Solution 07/08/2022 Prov ider: Diagnosis: use as directed prn Last Documented On 07/08/2022 2:58PM By SHANTEL CRUZ ; [facility] Famotidine 20 MG Oral Tablet 06/11/2022 Provider: RAMSEY BLANCO NP Diagnosis: 1 tab bid Last Documented On 07/08/2022 2:58PM By SHANTEL LANA ; [facility] Focalin 10 MG Oral Tablet 04/25/2022 Provider: VERÓNICA PENA MD Diagnosis: Attn-defct hyper activity disorder, predom inattentive type as directed - 1 tab in am with food Last Documented On 04/25/2022 2:51PM By Adrianne Pena MD ; [facility] Solifenacin Succinate 5 MG Oral Tablet 04/24/2022 Pr ovider: RAMSEY BLANCO NP Diagnosis: 1 tab daily Last Documented On 07/08/2022 2:59PM By SHANTEL CRUZ ; [facility] traZODone HCl 50 MG Oral Tablet 02/11/2022 Provider: VERÓNICA PENA MD Diagnosis: Psychophysiologi c insomnia TAKE 2 TABLETS BY MOUTH AT B EDTIME NEEDED FOR SLEEP Last Documented On 02/11/2022 1:21PM By Adrianne Pena MD ; [facility] Esomeprazole Magnesium 20 MG Oral Capsule Delayed Release 01/31/2022 Provider: RADHA HERNANDEZ MD Diagnosis: 1 capsule in the am Last Documented On 02/26/2022 2:49PM By SHANTEL PAGAN Anderson ; [facility] Lexapro 20 MG Oral Tablet 10/28/2021 Provider: VERÓNICA PENA MD Diagnosis: Major depressive disorder, recurrent, unspecified One tablet daily -- please g meme GENERIC Last Documented On 10/28/2021 3:10PM By Adrianne Pena MD ; [facility] lamoTRIgine 100 MG Oral Tablet 10/28/2021 Provider: VERÓNICA PENA MD Diagnosis: Bipolar disord, crnt epsd depress, mild or mod severt, unsp TAKE 1 TABLET BY MOUTH EVERY DAY Last Documented On 10/28/2021 3:10PM By Adrianne Pena MD ; [facility] busPIRone HCl 10 MG Oral Tablet 10/28/2021 Provider: VERÓNICA PENA MD Diagnosis: Generalized anxi ety disorder One tablet at bed time Last Documented On 10/28/2021 3:10PM By Adrianne Pena MD ; [facility] Gabapentin 600 MG Oral Tablet 10/07/2021 Provider: LEODAN OLIVAREZ MD Diagnosis: 1 tab tid Last Documented On 10/28/2021 1:59PM By SHANTEL PAGAN [facility] ; [facility] Amoxicillin 500 MG Oral Capsule 09/26/2021 Provider: Diagnosis: prior to dental work Last Documented On 10/28/2021 2:00PM By SHANTEL LAN ; [facility] Alendronate Sodium 35 MG Oral Tablet 01/07/2021 Prov ider: Diagnosis: [address] Lewis Moreira Last Documented On 1 11:34AM By SHANTEL PAGAN [facility] ; [facility] Atorvastatin Calcium 20 MG Oral Tablet 06/13/2020 Pr ovider: RADHA HERNANDEZ MD Diagnosis: 1 tab nightly Last Documented On 1 10:34AM By SHANTEL PAGAN [facility] ; [facility] Metoprolol Succinate ER 25 M G Oral Tablet Extended Release 24 Hour 06/06/2020 Provider: RADHA DUNLAP MD Diagnosis: 1 tab daily Last Documented On 1 10:34AM By SHANTEL PAGAN [facility] ; [facility] Lumigan 0.01% Ophthalmic Solution 06/05/2020 Provide r: Diagnosis: use as directed Dr. Bill Jacob Last Documented On 1 10:35AM By SHANTEL LAN ; [facility] Hydroxychloroquine Sulfate 200 MG Oral Tablet 11/30/19 20 Provider: LEODAN OLIVAREZ MD Diagnosis: 1 tab bid Last Documented On 03/02/2020 4:48PM By SHANTEL CRUZ ; [facility] Aspirin 81 MG Tablet 06/22/2014 Provider: Diagnosis: Last Documented On 5 10:06AM By Adrianne Pena MD ; [facility] Past Medications on file Vyvanse 30 MG Oral Capsule 07/08/2022 - 08/07/2022 Provider: VERÓNICA PENA MD Diagnosis: Attn-defct hyper activity disorder, predom inattentive type 1 Capsule every morning Last Documented On 07/08/2022 3:42PM By Adrianne Pena MD ; [facility] Famotidine 20 MG Oral Tablet 02/26/2022 - 05/27/2022 P alireza: RAMSEY BLANCO [employer]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 Diagnosis: 1 tab bid Last Documented On 02/26/2022 2:48PM By SHANTEL CRUZ ; [facility] Methotrexate Sodium 2.5 MG Oral Tablet 05/29/2021 - Provider: LEODAN OLIVAREZ MD Diagnosis: 6 tabs weekly Last Documented On 2 11:34AM By SHANTEL CRUZ ; [facility] Gabapentin 600 MG Oral Tablet 05/29/2021 - 06/28/2021 Provider: LEODAN OLIVAREZ MD Diagnosis: 1 cap tid Last Documented On 2 11:33AM By SHANTEL CRUZ ; [facility] traZODone HCl 50 MG OR TABS 10/12/2019 - 01/10/2020 Pr ovider: Diagnosis: Psychophysiologi c insomnia Two tablets at bedtime - this was increased 2019 Last Documented On 10/12/2019 9:52AM By TAMERA PETTIT ; [facility] Horizant 600 MG Oral Tablet Extended Release 08/24/2019 - 09/03/2019 Provider: VERÓNICA DORSEY MD Diagnosis: Restless legs sy ndrome as directed -- 1 tab in even ing for restless legs - pt has 10 day FREE coupon Last Documented On 08/24/2019 4:55PM By Adrianne Pena MD ; [facility] B Complex Oral Tablet 07/10/2018 - 08/09/2018 Provider: VERÓNICA PENA MD Diagnosis: Deficiency of ot her specified B group vitamins as directed [address] Marcel Zuñiga Last Documented On 07/10/2018 7:53PM By Adrianne Pena MD ; [facility] DULoxetine HCl 60MG Oral Capsule, delayed-release particles 04/26/2017 - 05/26/2017 Provider: VERÓNICA PENA MD Diagnosis: Generalized anxi ety disorder 1 capsule daily Last Documented On 04/26/2017 9:37PM By Adrianne Pena MD ; [facility] Medications Administered Includes: Administered Medications from this encounter No Administered Medications Recorded Results Includes: Results discussed during this encounter No Results Recorded For Specified Dates History of Present Illness Includes: History of Present Illness from this encounter No History of Present Illness Recorded Social History Description Last Updated Daily coffee consumption - 3 cups of cof fee per day and no tea or soda 07/08/2022 Last Documented On 2 9:26AM ; [facility] Alcohol use - drinks 1 Demian lee mly 10/28/2021 Last Documented On 2 9:26AM ; [facility] Former smoker - quit smoking between and 200308/30/2020 Last Documented On 2 9:26AM ; [facility] Work history -- she worked a [employer] -- 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 07/21/19 10/16/2019 Last Documented On 2 9:26AM ; [facility] Non-smoker - quit smoking between 1998 a 200308/24/2019 Last Documented On 2 9:26AM ; [facility] Smoking status : Former smoker - quit be tween 1998 and 200310/19/2018 Last Documented On 2 9:26AM ; [facility] No tobacco use 07/09/2018 Last Documented On 2 9:26AM ; [facility] Marital history -- 07/24/2015 Last Documented On 2 9:26AM ; [facility] She was born and raised in [place], [place] and then [place], [place].She said that her mother was hateful to her. Her father is . She has an 11th grade education. She has 1 daughter 02/04/2015 Last Documented On 2 9:26AM ; [facility] Not using drugs (Illicit) 06/08/2012 Last Documented On 2 9:26AM ; [facility] Procedures and Surgical History Surgical History Last Updated History of gastric surgery Dr. Borjas-- [place], [place] --gastric sleeve surgery 07/08/2022 Last Documented On 2 9:26AM ; [facility] History of knee replacement - right total knee replacement 01/08/[address] Husam Yousif -- given Oxycodone 5/325, Ferrous Sulfate 325 mg, Vitamin C 500 mg, Senexon 50-8.6 mg , Celebrex 200 mg and Vitamin D 2000 IU after surgery 02/19/2021 Last Documented On 2 9:26AM ; [facility] History of orthopedic surger y 06/30/2012 -- 10/11/19 right meniscal repair by Dr. Blas Mathur -- given Oxycodone 5/325 and on 09/14/19 was given Tramadol 50 mg; knee surgery x 2 (right knee -- meniscal tear --2009 and 201203/02/2020 Last Documented On 2 9:26AM ; [facility] History of hysterectomy 06/22/2014 Last Documented On 2 9:26AM ; [facility] Medical History Includes: Medical History addressed during this encounter Description Last Updated History of systemic lupus er ythematosus rash - given Medrol Dosepak 4 mg 03/08/21 and on 03/05/21 Nystatin 902320 units cream that did not help 07/08/2022 Last Documented On 2 9:26AM ; [facility] Primary Care Provider: Dr. Jennifer Hernandez/Ramsey Blanco NP ~Dr. Husam Yousif Orthopedic Surgeon ~Dr. Ernie Farley -- ENT -- [facility] -- had CT Scan of the sinus ~Dr. Leodan Olivarez -- Data Visualization Developer ~Dr. Nathan Camacho DC -- Chiropractor ~[facility] -- Dr. Bill Jacob -- Ophthamologist ~Dr. Italo Fisher -- Dent Remover ~Dr. Bernardino Johns - Neurologist ~Dr. Lewis Moreira -- Equipment Mechanic Specialist ~Dr. Oshea -- Urologist ~[facility] -- Physical Therapy 07/08/2022 Last Documented On 2 9:26AM ; [facility] History of bronchitis - give n Spriva Handihaler 18 mcg 03/14/20;given Zpak 04/22/19 and 03/17/19 and Albuterol HFA inhaler 02/28/19 and 01/10/19 and Codeine/GG Hodan 10 - 100 / 5mL on 03/09/19 02/26/2022 Last Documented On 2 9:26AM ; [facility] History of community-acquire d pneumonia - left lower lobe; ground glass opacities bilateral upper and lower lobes; admitted to [facility] from 07/18/21 - 07/21/21 10/28/2021 Last Documented On 2 9:26AM ; [facility] History of viral infection - tested negative for Covid 04/16/20 -- given Zpak 250 mg, Tessalon Perles 100 mg and Zofran 4 mg 10/28/2021 Last Documented On 2 9:26AM ; [facility] History of migraine headache 08/09/2021 Last Documented On 2 9:28AM ; [facility] History of sensorineural hearing loss Last Documented On 2 9:28AM ; [facility] History of respiratory disor cory - pulmonary nodules -- CT scan 07/18/21; xrays taken 11/2019 and 08/201907/31/2021 Last Documented On 2 9:26AM ; [facility] History of obstructive sleep apnea -- another sleep study was done in early [address] Fisher -- she is compliant with therapy although she said she feels more rested without the CPAP therapy 05/2021;sleep study done 12/13/08 -- mild ALLY --but she cannot tolerate CPAP and she lost a lot of weight 05/29/2021 Last Documented On 2 9:26AM ; [facility] No history of coronavirus -nCoV vaccine - Patient REFUSED to bet vaccinated against COVID despite being educated on the adverse consequences of COVID if she ever gets it 05/29/2021 Last Documented On 2 9:26AM ; [facility] History of muscle spasm - given Methocar bomal 750 mg #14 02/01/21 02/19/2021 Last Documented On 2 9:26AM ; [facility] History of acute suppurative sinusitis -given Augmentin 875 mg 09/28/20; given Azelastine 0.1 nasal spray and Clindamycin [address] Ernie Farley on 05/14/20 10/26/2020 Last Documented On 2 9:26AM ; [facility] History of fall risk - joe nur fell 02/2020 down her basement steps; she broke her left foot in 2 places and badly damaged her right knee so much that she is scheduled for knee replacement 11/[address] Yousif 08/30/2020 Last Documented On 2 9:26AM ; [facility] History of anemia - given Fe rrous Sulfate 325 mg 05/2020 -- discontinued due to constipation 08/30/2020 Last Documented On 2 9:26AM ; [facility] History of fibromyalgia -- g iven Mobic 15 mg 05/[address] Olivarez discontinued it; was put on Lyrica and Duloxetine -- given by Dr. Olivarez -- reducing the pain in other areas but has tingling on her fingers but lyrica took care of the sharp pain 08/30/2020 Last Documented On 2 9:26AM ; [facility] History of dry eye syndrome - given Systane eye drops; with dry mouth --- tried Pilocarpine 5 mg -- 11/08/19 -- did not help --Dr. Leodan Olivarez 08/30/2020 Last Documented On 2 9:26AM ; [facility] History of glaucoma - early stages per [facility] - on Lumigan eye drops 08/30/2020 Last Documented On 2 9:26AM ; [facility] History of urinary tract inf ection - with hematuria -- given Macrobid 100 mg; 06/13/20;treated with Cipro 500mg on 08/05/18 08/30/2020 Last Documented On 2 9:26AM ; [facility] History of cough variant ast hma - chest xray from 05/03/19 showed: No focal consolidation or pneumothorax. No pleural effusion. Heart is normal size. Normal mediastinal and hilar contours 03/07/2020 Last Documented On 2 9:26AM ; [facility] History of chronic obstructi ve pulmonary disease - given Albuterol for nebulizer 02/14/20; given Methylprednisone 4 mg 02/01/20; given Amoxil 500 mg 01/31/20; given Methylprednisone 4 mg 12/05/19; given Methylprednisone 4 mg 10/14/19; given Prednisone 5 mg 09/12/19;given Prednisone Dosepak 4 mg #21 and Spriva Inhaler 05/25/19 03/02/2020 Last Documented On 2 9:26AM ; [facility] History of asthma - Pulmonar y Function Test on 05/04/19 showed: No evidence of airways obstruction. Moderate airways restriction. Diffusion capacity is normal. The is significant improvement in the flow rates suggesting reversible airways disease, i.e., asthma 08/26/2019 Last Documented On 2 9:26AM ; [facility] History of acute meniscal te ar [...] cruciate ligament 08/26/2019 Last Documented On 2 9:26AM ; [facility] History of old bucket handle tear of med ial meniscus of knee - left knee 08/24/2019 Last Documented On 2 9:26AM ; [facility] History of systemic lupus er ythematosus - with pulmonary nodules shown on CT scan 05/201908/24/2019 Last Documented On 2 9:26AM ; [facility] History of a sleep study was performed 12/13/2008 and was ~diagnosed with Mild ALLY- Not using her C-PAP because she lost a lot of weight 07/09/2018 Last Documented On 2 9:26AM ; [facility] History of GERD /Heartburn -- takes Omep razole 11/27/2017 Last Documented On 2 9:26AM ; [facility] History of hypertension -- in remission since Lisinopril has been stopped 09/29/2014 Last Documented On 2 9:26AM ; [facility] History of gout 11/11/2013 Last Documented On 2 9:26AM ; [facility] History of hyperlipidemia 07/07/2013 Last Documented On 2 9:26AM ; [facility] Family History Includes: Family History addressed during this encounter Description Last Updated Maternal history of depression -- mother was hospitalized for this 09/28/2014 Last Documented On 2 9:26AM ; [facility] Review of Systems Includes: Review of [...] ctive Last Documented On 05/27/2023 11:24AM ; [facility] Note: Imported from external source. predniSONE Allergy rash 07/24/2015 Active Last Documented On 05/27/2023 11:24AM ; [facility] Note: Imported from external source. Naproxen Allergy Asthma / Allergi c asthma, Shortness of Breath / Dyspnea 06/22/2014 Active Last Documented On 05/27/2023 11:24AM ; [facility] Note: Imported from external source. Ibuprofen Allergy rash 01/29/2016 Resolved Last Documented On 08/30/2020 10:11AM ; [facility] Note: rash Ibuprofen Allergy rash 01/29/2016 Active Last Documented On 05/27/2023 11:24AM ; [facility] Note: Imported from external source. Flexeril Allergy Asthma / Allergi c asthma, Shortness of Breath / Dyspnea 06/22/2014 Active Last Documented On 05/27/2023 11:24AM ; [facility] Note: Imported from external source. Encounters Encounter Provider Location Date Check-In Time Check-Out Time Diagnosis CHART UPDATE VERÓNICA PENA MD [facility] 2 9:26AM 11:59PM Insurance Includes: Active Insurance Policies Plan Name Member ID Group # Subscriber Relationship Effect meme Dates 1 - [employer] [id number] GELACIO DODGE Self 09/20/2020 - Unknown Clinical Notes Includes: Clinical Notes from this encounter No Clinical Notes Recorded
--- OUTSIDE RECORDS SUMMARY | 2024-05-04 16:13 | XMS_ITS ---
Author Organization [facility] nathan Address [address] [place] [address] Care Team Providers Care Retail Marketing Coordinator Name Role Phone Arabella SORIANO, Dylan Primary Care Provider Shree LiuShyla Unavailable [phone] Allergies Allergen (clinical drug ingredient) Drug/Non Drug Allergy documented on EMR Reaction Allergy Type Onset Date Status Flexeril Unknown Drug Allergy 08/21/2017 Active naproxen Naproxen Unknown Drug Allergy 08/21/2017 Active predniSONE Unknown Drug Allergy 05/28/2020 Activ e Results Component Value Reference Range Notes JENNY reflex titer pattern VICKIE + dsDNA Reviewed date:10/16/2023 12:26:23 PM Interpretation: Performing Lab:[facility] , [address] [facility] [address] Notes/Report: JENNY, Qual Positive 1:160 Interpretive Data [...] last revised on 2019. Testing performed by: [facility], [address] [place]., [address] JENNY, Ernie 1:160 Testing performed by: [facility], [address] [place]., [address] JENNY Pattern 1 Speckled Testing performed by: [facility] [address] [facility], [place]., [address] Anti-CCP (Cyclic Citrullinat ed Peptide Ab) Reviewed date:10/16/2023 10:02:34 AM Interpretation: Performing Lab:[facility] , [address] [place] [address]. [facility] [address] Notes/Report: CCP Ab <0.5 <=2.9 units/mL Interpretive data Negative: <3 units/mL Positive: > or equal to 3 units/mL Current interpretive data was last revised on 2016. C Reactive Protein Reviewed date:10/15/2023 05:51:47 PM Interpretation: Performing Lab:[facility] , [address] [place] [address]. [facility] [address] Notes/Report: C-Reactive Protein 6.7 <=10.0 mg/L CBC w auto diff Reviewed date:10/15/2023 05:51:47 PM Interpretation: Performing Lab:[facility] , [address] [place] [address]. [facility] [address] Notes/Report: WBC 3.5 3.8-9.9 K/cumm Hgb 11.3 11.9-15.5 g/dL Hct 36.1 35.6-45.5 % Platelet Ct 247 150-400 K/cumm MPV 11.1 9.1-12.3 fL RBC 4.34 3.90-5.20 M/cumm MCV 83.2 81.3-96.4 fL MCH 26.0 27.1-33.3 pg MCHC 31.3 32.3-35.7 g/dL RDW CV 14.4 11.1-14.9 % RDW SD 43.5 35.7-48.1 fL NRBC Abs Auto 0.00 0.00-0.01 K/cumm Complement C3 Reviewed date:10/15/2023 05:51:47 PM Interpretation: Performing Lab:[facility] , [address] [place] [address]. [facility] [address] Notes/Report: Complement, C3 137 90-180 mg/dL Complement C4 Reviewed date:10/15/2023 05:51:47 PM Interpretation: Performing Lab:[facility] , [address] [place] [address]. [facility] [address] Notes/Report: Complement, C4 22 10-40 mg/dL Comprehensive metabolic pane l (CMP) Reviewed date:10/15/2023 05:51:47 PM Interpretation: Performing Lab:[facility] , [address] [place] [address]. [facility] [address] Notes/Report: Sodium 143 135-145 mmol/L Plasma Potassium [...] Kinase Reviewed date:10/15/2023 05:51:48 PM Interpretation: Performing Lab:[facility] , [address] [place] [address]. [facility] [address] Notes/Report: Total CK 124 30-200 Units/L Rheumatoid Factor Reviewed date:10/15/2023 05:51:48 PM Interpretation: Performing Lab:[facility] , [address] [place] [address]. [facility] [address] Notes/Report: RF, Ernie <10 <=15 IUnits/mL Sed Rate Reviewed date:10/15/2023 05:51:48 PM Interpretation: Performing Lab:[facility] , [address] [facility] [address] Notes/Report: ESR 28 1-30 mm/hr REASON FOR VISIT 3 month f/u, CTD, fibromyalgia, PCP Dylan Bell MD [address] [facility], [address] [place] [id number] Medications Medication SIG (Take, Route, Frequency, Duration) Notes Start Date End Date Status Gabapentin 600 MG TAKE 1 TABLET BY VALENTÍN TH THREE TIMES A DAY for 90 Active Hydroxychloroquine Sulfate 2 00 MG TAKE 1 TABLET BY MOUTH TWICE A DAY WITH FOOD for 90 Active Albuterol Sulfate Ac tive Breo Ellipta 200-25 MCG/ACT 1 puff Inhal ation Once a day Active Fosamax 70 MG take 1 tablet (70 mg ) by oral route once weekly in the morning, at least 30 min before first food, beverage, or medication of day Oral 0.389003119611826 Active traZODone HCl 50 MG take 2-4. at bedtime Oral 1 Active Vyvanse 30 MG take 1 capsule (30 m g) by oral route once daily in the morning Oral 1 Active Metoprolol Succinate ER 25 MG take 1 tab let (25 mg) by oral route once daily Oral 1 Active Lexapro 20 MG take 1 tablet (20 mg ) by oral route once daily Oral 1 Active Latanoprost 0.005 % instill 1 drop into affected eye(s) by ophthalmic route once daily in the evening Ophthalmic 1 Active Aspirin 81 MG take 1 tablet (81 mg ) by oral route once daily Oral 1 Active Solifenacin Succinate 5 MG take 1 tablet (5 mg) by oral route once daily Oral 1 Active lamoTRIgine 100 MG take 1 tablet (100 m g) by oral route once daily Oral 1 Active Atorvastatin Calcium 20 MG take 1 tablet (20 mg) by oral route once daily Oral 1 Active Zinc Active Magnesium 400 MG as directed Orally Active Vitamin D3 Active Calcium 500 MG 1 tablet with meals Orally Twice a day for 30 day(s) Active Vital Signs Temperature 98.1 degrees Fahrenheit 10/15/19 24 Blood pressure systolic 122 mm Hg 10/15/19 24 Blood pressure diastolic 72 mm Hg 024 Heart Rate 90 /min 10/15/2023 Height 66 in 10/15/2023 Weight 213.8 lbs 10/15/2023 BMI 34.5 kg/m2 10/15/2023 Oximetry 94 % 10/15/2023 Encounters Encounter Location Date Provider Diagnosis [facility] [address] [place] [address] 10/15/2023 Shyla Sher Connective tissue disease M35.9 ; Fibromyalgia M79.7 ; Pain of left thumb M79.645 ; Decreased GFR R94.4 ; High risk medication use Z79.899 ; Pain in right hip M25.551 and Pain in left hip M25.552 Assessments Encounter Date Diagnosis (ICD Code) Assessment Notes Treatment Notes Treatment Clinical Notes Section Notes 10/15/2023 Connective tissue disease (ICD-10 - M35.9) order Xrays and labs, continue plaquenil, return in 3 months 10/15/2023 Fibromyalgia (ICD-10 - M79.7) order Xrays and labs, continue plaquenil, return in 3 months 10/15/2023 Pain of left thumb (ICD-10 - M79.645) order Xrays and labs, continue plaquenil, return in 3 months 10/15/2023 Decreased GFR (ICD-10 - R94.4) order Xrays and labs, continue plaquenil, return in 3 months 10/15/2023 High risk [...] Bilat inc Pelvis 10/15/2023 Next Appt Details Follow Up: 3 Months, Reason: Provider Name:Shyla Sher, 07/25 01:30:00 PM, [address], [place], [address], Progress Notes * Abby DODGE DDOB:[birth year] (58 yo F)Acc No.[id number]:10/15/2023 Progress Notes Patient: Abby ARMIJO Provider: Jennifer LIU MD :1965 A ge:58 Y S ex:Female Date:10/15/2023 Address:[address] [place] [address], [place] [address] Pcp:Dylan Bell MD Subjective: * Chief Complaints: * 3 month f/uCTD, fibromyalgiaPCP Dylan Bell MD [address] [facility], [place] [address] * HPI: G eneral Follow up: on plaquenil 400mg/day, takes tramadol prn, on gabapentin 600mg tid, hips hurting, L>R, has been going on for 3 weeks stopped MTX in 06/2021 when she was admitted for pneumonia, off Mobic due to kidney issue, off prednisone (caused rash), salagen did not help with dryness, [facility] hx of osteoporosis/osteopenia: on fosamax 07/16/2022, JENNY 1:806/2020, JENNY 1:80 (nuclear dots), cascade (-), ESR, CRP, C3 and C4 normal, Cr 1.0, GFR 646/2020, JENNY 1:320 (nuclear dots), CRP 12, Cr [...] R Knee Surgery, Date of Procedure: 10-11-2019; 3004-38-22Ttvkyyappumc; 7863-50-11Ippkbaxwkjcld; 1732-21-08Kuxt replacement, right; 2021-02-18 * Hospitalization/Major Diagno stic [...] food, beverage, or medication of day Oral [id number] Vyvanse 30 MG Capsule take 1 capsule (30 mg) by oral route once daily in the morning Oral 1 Hydroxychloroquine Sulfate 200 MG Tablet TAKE 1 TABLET BY MOUTH TWICE A DAY WITH FOOD Gabapentin 600 MG Tablet TAKE 1 TABLET BY MOUTH THREE TIMES A DAY Breo Ellipta 200-25 MCG/ACT Aerosol Powder Breath Activated 1 puff Inhalation Once a day Albuterol Sulfate Taking Magnesium 400 MG Capsule as directed Orally [...] food, beverage, or medication of day Oral [id number] Taking Vyvanse 30 MG Capsule take 1 capsule (30 mg) by oral route once daily in the morning Oral 1 Taking Hydroxychloroquine Sulfate 200 MG Tablet TAKE 1 TABLET BY MOUTH TWICE A DAY WITH FOOD Taking Gabapentin 600 MG Tablet TAKE 1 TABLET BY MOUTH THREE TIMES A DAY Taking Breo Ellipta 200-25 MCG/ACT Aerosol Powder Breath Activated 1 puff Inhalation Once a day Taking Albuterol Sulfate DiscontinuedMagnesium 500 mg daily oral , Notes to Pharmacist: *[facility]*Medication List reviewed and reconciled with the patientDiscontinued Magnesium 500 mg daily oral , Notes to Pharmacist: *[facility]*Medication List reviewed and reconciled with the patient * Allergies: F lexeril: Allergy - Onset Date 08/21/2017Naproxen: Allergy - Onset Date 08/21/2017predniSONE: Allergy - Onset Date 05/28/2020no[Allergies Verified] Objective: * Vitals: B P:122/72mm Hg, HR:90/min, Temp:98.1F, Oxygen sat %:94%, Wt:213.8lbs, Ht:66in, BMI:34.50Index. * Examination: G eneral Examination: General appearance: a lert, well-nourished and in no acute distress. Head: n ormocephalic, atraumatic. Eyes: n ormal. Skin: n o rash. Lungs: r espiratory effort normal. N eurology: Speech: n ormal. P sychiatry: Affect / mood: a ppropriate. R heumatology: b il iliac crest areas tender, troch bursae nontender, +lateral pain in hips with rotations. Assessment: * Assessment: 1. C onnective tissue disease - M35.9 (Primary) 2 . F ibromyalgia - M79.7? 3. P ain of left thumb - M79.645 4 . D ecreased GFR - R94.4? 5. H igh risk medication use - Z79.899 6 . P ain in right hip - M25.551 7 . P ain in left hip - M25.552 order Xrays and labs, contin ue plaquenil, return in 3 months Plan: * Treatment: Value Reference Range A NA Ql Positive 1:160 - * A NA QN 1:160 - titer * A NA Pattern 1 Speckled A - * This lab was reviewed by Emilee Liu on 10/16/2023 at 12:26 PM CDT ?LAB: Anti-CCP (Cyclic Citrullinated Peptide Ab)* Value Reference Range C CP Ab <0.5 <=2.9 - units/mL * This lab was reviewed by Emilee Liu on 10/16/2023 at 10:02 AM CDT ?LAB: C Reactive Protein* Value Reference Range C RP 6.7 <=10.0 - mg/L * This lab was reviewed by Emilee Liu on 10/15/2023 at 17:51 PM CDT ?LAB: CBC w auto diff* Value Reference Range W BC 3.5 L 3.8-9.9 - K/cumm * R BC 4.34 3.90-5.20 - M/cumm * H gb 11.3 L 11.9-15.5 - g/dL * H ct 36.1 35.6-45.5 - % * M CV 83.2 81.3-96.4 - fL * M CH 26.0 L 27.1-33.3 - pg * M CHC 31.3 L 32.3-35.7 - g/dL * P lt 247 150-400 - K/cumm * M PV 11.1 9.1-12.3 - fL * R DW CV 14.4 11.1-14.9 - % * R DW SD 43.5 35.7-48.1 - fL * N RBC Abs Auto 0.00 0.00-0.01 - K/cumm * This lab was reviewed by Emilee Liu on 10/15/2023 at 17:51 PM CDT ?LAB: Complement C3* Value Reference Range C omp C3 137 90-180 - mg/dL * This lab was reviewed by Emilee Liu on 10/15/2023 at 17:51 PM CDT ?LAB: Complement C4* Value Reference Range C omp C4 22 10-40 - mg/dL * This lab was reviewed by Emilee Liu on 10/15/2023 at 17:51 PM CDT ?LAB: Comprehensive metabolic panel (CMP)* Value Reference Range B UN 12 6-25 - mg/dL * A LT 19 7-45 - Units/L * A lbumin 4.0 3.5-5.0 - g/dL * A lk Phos 61 40-130 - Units/L * A ST 24 10-45 - Units/L * B ye Totl 0.2 0.1-1.2 - mg/dL * C alcium 9.1 8.5-10.3 - mg/dL * C hloride 104 97-110 - mmol/L * G lucose 125 70-199 - mg/dL * P otassium Plas 3.9 3.3-4.9 - mmol/L * C O2 Totl 32 22-32 - mmol/L * P rotein Plas 7.2 6.5-8.5 - g/dL * C reatinine 1.13 H 0.60-1.10 - mg/dL * S odium 143 135-145 - mmol/L * A nion Gap 7 2-15 - mmol/L * This lab was reviewed by Emilee Liu on 10/15/2023 at 17:51 PM CDT ?LAB: Creatine Kinase* Value Reference Range C K Totl 124 30-200 - Units/L * This lab was reviewed by Emilee Liu on 10/15/2023 at 17:51 PM CDT ?LAB: Rheumatoid Factor* Value Reference Range R F Qn <10 <=15 - IUnits/mL * This lab was reviewed by Emilee Liu on 10/15/2023 at 17:51 PM CDT ?LAB: Sed Rate* Value Reference Range E SR 28 1-30 - mm/hr * This lab was reviewed by Emilee Liu on 10/15/2023 at 17:51 PM CDT 2.?Pain in right hip?Imaging: XR Hips Bilat inc Pelvis* 3.?Pain in left hip?Imaging: XR Hips Bilat inc Pelvis* * Procedure Codes: * Follow Up: 3 Months * Billing Information: * Visit Code: 30437 Office Visit, Est Pt., Level 4. * Procedure Codes: * Sign off status: Completed true * Provider: Jennifer LIU MD Date: 10/15/2023 Generated for Mark oliva/Jess/Jamieitting on: 0 05/04/2024 04:13 PM ASSOCIATE EDITOR History and Physical Notes * HPI (History of Present Illness) Category Sub-Category Detail Notes Category Not es General Follow up on plaquenil 400mg/day, takes tramadol prn, on gabapentin 600mg tid, hips hurting, L>R, has been going on for 3 weeks stopped MTX in 06/2021 when she was admitted for pneumonia, off Mobic due to kidney issue, off prednisone (caused rash), salagen did not help with dryness, unable to get copay assist for [facility] due to having state insurance hx of osteoporosis/osteopenia: on fosamax 07/16/2022, JENNY 1:8008/2020, JENNY 1:80 (nuclear dots), cascade (-), ESR, CRP, C3 and C4 normal, Cr 1.0, GFR 646/2019, JENNY 1:320 (nuclear dots), CRP 12, Cr [...] Detail Notes Category Not es Rheumatology rodrigo iliac crest areas tender, troch bursae nontender, +lateral pain in hips with rotations Neurology Speech: normal Psychiatry Affect / mood: appropriate General Examination General appearance: alert, w ell-nourished and in no acute distress Head: normocephalic, atrau matic Eyes: normal Lungs: respiratory effort n ormal Skin: no rash
--- OUTSIDE RECORDS SUMMARY | 2024-05-04 16:13 | XMS_ITS | Patient Health Summary ---
Author Organization [facility] Address [address] [place] [address] Care Team Providers Care Publishing Director Name Role Phone Unavailable Primary Care Provider Unavailabl e Note from [facility],non-owned Affiliates and Associated Physician Practices is amultiple site organization consisting of ambulatory clinics and hospital sitesin [place], [place], [place] and [place]. This disclosure is being madepursuant to the Care Everywhere program and may not contain all information available regarding this patient. Last updated 17.[facility] Social History Tobacco Use Types Packs/Day Years Used Date Smoking Tobacco: Never Assessed Sex and Gender Information Value Date Recorded Sex Assigned at Not on file Gender Identity Not on file Sexual Orientation Not on file Procedures * SARS-COV-2 (COVID-19) IN HOUSE(Performed 07/14/2019) Results * SARS-COV-2 (COVID-19) IN HOUSE (07/14/2019 5:15 PM CDT) COVID-19 PCR Not detected Not detected, Invalid 07/15/2019 2:06 PM CDT [facility] Microbiology SPECIMEN FROM NASOPHARYNGEAL STRUCTURE / Unknown Collection / Unknown 07/14/2019 5:15 PM CDT 07/14/2019 9:10 PM CDT Narrative [facility] - 07/15/2019 2:06 PM CDT This Real Time RT-PCR assay was developed and its performance characteristics determined by [facility]. This test has been authorized [...] authorization is terminated or revoked sooner. Giovani Barnrad MD LAB - MICROBIOLOGY ORDERABLES [facility] [address] [place], [place] [address], [facility] [phone]
--- OUTSIDE RECORDS SUMMARY | 2024-05-04 16:13 | XMS_ITS | Clinical Summary ---
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 VERÓNICA PENA MD Active Last Documented On 3 3:50PM ; [facility] Attention-deficit Hyperactivity Disorder 09/20/2020 Active Last Documented On 3 5:53PM ; [facility] Restless Legs Syndrome 01/21/2019 Ac tive Last Documented On 3 5:52PM ; [facility] Depression 12/21/2018 Active Last Documented On 3 5:52PM ; [facility] Vitamin B12 Deficiency 08/21/2017 Ac tive Last Documented On 3 5:51PM ; [facility] Major Depression 12/21/2016 Active Last Documented On 3 5:51PM ; [facility] Fibromyalgia 07/30/2016 Active Last Documented On 3 5:50PM ; [facility] Psychophysiological Insomnia 02/21/2016 Active Last Documented On 3 5:50PM ; [facility] Gerd 04/20/2014 Active Last Documented On 3 5:47PM ; [facility] Gout 11/07/2013 Active Last Documented On 3 5:47PM ; [facility] Bipolar I Disorder, Most Recent Episode, Depressed 013 Active Last Documented On 3 5:45PM ; [facility] Generalized Anxiety Disorder 06/08/2012 Active Last Documented On 3 5:45PM ; [facility] Panic Disorder Without Agoraphobia 06/08/2012 Active Last Documented On 3 5:45PM ; [facility] Plan of Treatment Future Appointments Date Time Location Provi cory [facility] ESTABLISHED 05/18/2024 11:00AM [facility] PENA MD Last Documented On 4 2:59PM ; [facility] Assessments Includes: Assessments from this encounter No Assessments Recorded Medical Equipment - Implanted Devices Includes: Current Devices No Medical Equipment Recorded Medications Includes: Medications discussed during this encounter and other current Medications Discontinued / Stopped on this date on 01/30/2021 traZODone HCl 50 MG OR TABS Provider: Diagnosis: Psychophysiologi c insomnia Last Documented On 07/19/2022 5:28PM By TAMERA PETTIT ; [facility] Famotidine 20 MG OR TABS Provider: Diagnosis: Last Documented On 07/19/2022 5:28PM By SHANTEL CRUZ ; [facility] Folic Acid 1 MG OR TABS Provider: Diagnosis: Last Documented On 07/19/2022 5:28PM By SHANTEL CRUZ ; [facility] traZODone HCl 50 MG OR TABS Provider: VERÓNICA PENA MD Diagnosis: Psychophysiologi c insomnia Last Documented On 07/19/2022 5:28PM By Adrianne Pena MD ; [facility] Current Medications (continue as prescribed) Vyvanse 30 MG Oral Capsule 08/07/2023 Provider: VERÓNICA PENA MD Diagnosis: Attn-defct hyper activity disorder, predom inattentive type 1 Capsule every morning Last Documented On 08/07/2023 11:23AM By Adrianne Pena MD ; [facility] Famotidine 20 MG Oral Tablet 05/21/2023 Provider: TYLER ALVARENGA NP Diagnosis: 1 tab bid Last Documented On 05/27/2023 11:32AM By SHANTEL CRUZ ; [facility] traZODone HCl 50 MG Oral Tablet 05/12/2023 Provider: VERÓNICA PENA MD Diagnosis: Psychophysiologi c insomnia TAKE 2 TABLETS BY MOUTH AT B EDTIME NEEDED FOR SLEEP. Last Documented On 05/12/2023 8:56AM By Adrianne Pena MD ; [facility] Alendronate Sodium 70 MG Oral Tablet 04/28/2023 Prov ider: ADY MILLER MD Diagnosis: 1 tab weekly Last Documented On 05/27/2023 11:32AM By SHANTEL CRUZ ; [facility] Sunosi 150 MG Oral Tablet 03/17/2023 Provider: VERÓNICA PENA MD Diagnosis: Obstructive slee p apnea (adult) (pediatric) 1 tablet in the morning Last Documented On 03/17/2023 1:25PM By Adrianne Pena MD ; [facility] Sunosi 150 MG Oral Tablet 02/11/2023 Provider: ME KRISTIAN PENA MD Diagnosis: 1 tablet in the morning Last Documented On 03/17/2023 12:40PM By SHANTEL CRUZ ; [facility] lamoTRIgine 100 MG Oral Tablet 02/10/2023 Provider: VERÓNICA PENA MD Diagnosis: Bipolar disord, crnt epsd depress, mild or mod severt, unsp One tablet daily Last Documented On 02/10/2023 12:51PM By Adrianne Pena MD ; [facility] Esomeprazole Magnesium 20 MG Oral Capsule Delayed Release 12/26/2022 Provider: RADHA HERNANDEZ MD Diagnosis: 1 capsule daily Last Documented On 01/21/2023 3:51PM By SHANTEL CRUZ ; [facility] Albuterol Sulfate HFA 108 (9 0 Base) MCG/ACT Inhalation Aerosol Solution 11/19/2022 Provider: TYLER WOLFE PROCESS DEVELOPMENT CHEMIST Diagnosis: use as directed Last Documented On 01/21/2023 3:51PM By SHANTEL CRUZ ; [facility] Symbicort 160-4.5 MCG/ACT Inhalation Aerosol Provider: TYLER ALVARENGA PROCESS DEVELOPMENT CHEMIST Diagnosis: use as directed Last Documented On 01/21/2023 3:52PM By SHANTEL CRUZ ; [facility] Latanoprost 0.005% Ophthalmic Solution 09/11/2022 Pr ovider: Diagnosis: use as directed Last Documented On 09/11/2022 3:01PM By SHANTEL CRUZ ; [facility] Systane 0.4-0.3% OP SOLN 07/08/2022 Provider: Diagnosis: use as directed prn Last Documented On 07/19/2022 5:28PM By SHANTEL CRUZ ; [facility] Solifenacin Succinate 5 MG OR TABS 04/24/2022 Provid er: Diagnosis: 1 tab daily Last Documented On 07/19/2022 5:28PM By SHANTEL CRUZ ; [facility] Gabapentin 600 MG OR TABS 10/07/2021 Provider: Diagnosis: 1 tab tid Last Documented On 07/19/2022 5:28PM By SHANTEL CRUZ ; [facility] Amoxicillin 500 MG OR CAPS 09/26/2021 Provider: Diagnosis: prior to dental work Last Documented On 07/19/2022 5:28PM By SHANTEL CRUZ ; [facility] Atorvastatin Calcium 20 MG OR TABS 06/13/2020 Provid er: Diagnosis: 1 tab nightly Last Documented On 07/19/2022 5:28PM By SHANTEL CRUZ ; [facility] Metoprolol Succinate ER 25 MG OR TB24 06/06/2020 Pro vider: Diagnosis: 1 tab daily Last Documented On 07/19/2022 5:28PM By SHANTEL CRUZ ; [facility] Hydroxychloroquine Sulfate 200 MG OR TABS 11/30/2019 Provider: Diagnosis: 1 tab bid Last Documented On 07/19/2022 5:28PM By SHANTEL RCUZ ; [facility] Aspirin 81 MG OR TABS 06/22/2014 Provider: Diagnosis: Last Documented On 07/19/2022 5:28PM By Adrianne Pena MD ; [facility] Medications Administered Includes: Administered Medications from this encounter No Administered Medications Recorded Vital Signs Includes: Vital Signs from this encounter Vital Name 02/26/2022 02:51P Blood Pressure Sitting (mmHg) 110/50 BP Cuff Size Regular Pulse Rate-Sitting (bpm) 67 Pulse Rhythm Regular Height (in) 66 Weight (lb) 208 Body Mass Index 33.6 Body Surface Area 2 Note: self reported vitals Last Documented: On 07/19/2022 6:02PM ; [facility] Results Includes: Results discussed during [...] ctive Last Documented On 05/27/2023 11:24AM ; [facility] Note: Imported from external source. predniSONE Allergy rash 07/24/2015 Active Last Documented On 05/27/2023 11:24AM ; [facility] Note: Imported from external source. Naproxen Allergy Asthma / Allergi c asthma, Shortness of Breath / Dyspnea 06/22/2014 Active Last Documented On 05/27/2023 11:24AM ; [facility] Note: Imported from external source. Ibuprofen Allergy rash 01/29/2016 Resolved Last Documented On 08/30/2020 10:11AM ; [facility]: rash Ibuprofen Allergy rash 01/29/2016 Active Last Documented On 05/27/2023 11:24AM ; [facility] Note: Imported from external source. Flexeril Allergy Asthma / Allergi c asthma, Shortness of Breath / Dyspnea 06/22/2014 Active Last Documented On 05/27/2023 11:24AM ; [facility] Note: Imported from external source. Encounters Encounter Provider Location Date Check-In Time Check-Out Time Diagnosis [Patient Encounter] 02/26/2022 12:00AM 11:59PM Insurance Includes: Active Insurance Policies Plan Name Member ID Group # Subscriber Relationship Effect meme Dates 1 - [employer] [id number] GELACIO DODGE Self 09/20/2020 - Unknown Clinical Notes Includes: Clinical Notes from this encounter No Clinical Notes Recorded
--- OUTSIDE RECORDS SUMMARY | 2024-05-04 16:13 | XMS_ITS | Encounter Summary ---
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, initial encounter (HCC); Acute pain of right knee Discharge Disposition: Discharge to home or self care Social History Tobacco Use Types Packs/Day Years Used Date Smoking Tobacco: Former Cigarettes 2 1 - 2010 Smokeless Tobacco: Never Alcohol Use Standard [...] on file Legal Sex Female 4:42 PM LEARNING SOLUTIONS SPECIALIST Gender Identity Not on file Sexual Orientation Not on file documented as of this encounter Medications at Time of Discharge alendronate (FOSAMAX) 35 mg tablet Take 1 tablet (35 mg total) by mouth every 7 days 01/07/2021 amoxicillin (AMOXIL) 500 mg tablet/capsuleIn dications:Prophy laxis, Medical Take 4 tables (2 grams) PO 1 hour prior to dental cleanings/proce dures. 8 tablet/capsule 1 05/03/2024 aspirin (Aspir-81) 81 mg enteric coated tablet Take 1 tablet (81 mg total) by mouth daily 04/11/2021 atorvastatin (LIPITOR) 20 mg tablet Take 1 tablet (20 mg total) by mouth daily busPIRone (BUSPAR) 10 mg tablet Take 1 tablet (10 mg total) by mouth daily. 90 tablet 1 02/18/2017 doxycycline hyclate 100 mg capsule 05/27/2022 escitalopram (LEXAPRO) 20 mg tablet Take one by mouth one time per day 0 0 06/08/[address] (NexIUM) 20 mg capsule TAKE 1 CAPSULE BY MOUTH EVERY DAY IN THE MORNING BEFORE BREAKFAST 01/31/2022 famotidine (PEPCID) 20 mg tabletIndication s:gastroesophage al reflux disease Take 1 tablet (20 mg total) by mouth 2 (two) times a day gabapentin (NEURONTIN) 600 mg tablet Take 1 tablet (600 mg total) by mouth 3 (three) times a day 07/21/2020 hydrOXYchloroQUI NE (PLAQUENIL) 200 mg tabletIndication s:Connective Tissue Disease Take 1 tablet (200 mg total) by mouth 2 (two) times a day lamoTRIgine (LaMICtal) 100 mg tablet Take one by mouth one time per day 0 0 06/08/2008 Lumigan 0.01 % ophthalmic drops 01/09/2021 methylPREDNISolo ne (Medrol, Ta,) 4 mg Dosepack Take as directed on package 1 packet 05/03/2024 metoprolol XL (TOPROL-XL) 25 mg extended release tablet Take 1 tablet (25 mg total) by mouth daily 06/06/2020 solifenacin (VESIcare) 5 mg tablet Take 1 tablet (5 mg total) by mouth daily 04/24/2022 traMADoL (ULTRAM) 50 mg tablet Take 1 tablet (50 mg total) by mouth every 6 (six) hours as needed for pain Take 1-2 tablets every 4-6 hours as needed for pain. 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, initial encounter (HCC) Acute pain of right knee CBC WITH AUTO DIFFERENTIAL Routine 05/03/2024 2:57 PM LEARNING SOLUTIONS SPECIALIST Pain due to total right knee replacement, initial encounter ([facility]) Acute pain of right knee ERYTHROCYTE SEDIMENTATION RATE Routine 05/03/2024 2:57 PM LEARNING SOLUTIONS SPECIALIST Pain due to total right knee replacement, initial encounter ([facility]) Acute pain of right knee CRP (ACUTE PHASE) Routine 05/03/2024 2:5 7 PM LEARNING SOLUTIONS SPECIALIST Pain due to total right knee replacement, initial encounter ([facility]) Acute pain of right knee URIC ACID Routine 05/03/2024 2:57 PM LEARNING SOLUTIONS SPECIALIST Pain due to total right knee replacement, initial encounter ([facility]) Acute pain of right knee documented in this encounter Results * Differential, auto (05/03/2024 2:57 PM LEARNING SOLUTIONS SPECIALIST) Neutrophil abs 3.7 1.5 - 6.5 K/cumm Imm gran abs 0.0 0.0 - 0.1 K/cumm [facility] Lymphocyte abs 2.4 0.8 - 3.3 K/cumm [facility] Monocyte abs 0.5 0.2 - 0.8 K/cumm [facility] Eosinophil abs 0.2 0.0 - 0.5 K/cumm [facility] Basophil abs 0.1 0.0 - 0.1 K/cumm [facility] Neutrophil pct 53.7 % [facility] Comment: Interpretive Data Percent cell count reference ranges are not reported, since discordance with absolute values may lead to misinterpretation of CBC data. Current Interpretive Data was last revised on 2017. Imm gran pct 0.3 % [facility] Comment: Interpretive Data Percent cell count reference ranges are not reported, since discordance with absolute values may lead to misinterpretation of CBC data. Current Interpretive Data was last revised on 2017. Lymphocyte pct 34.7 % [facility] Comment: Interpretive Data Percent cell count reference ranges are not reported, since discordance with absolute values may lead to misinterpretation of CBC data. Current Interpretive Data was last revised on 2017. Monocyte pct 7.1 % [facility] Comment: Interpretive Data Percent cell count reference ranges are not reported, since discordance with absolute values may lead to misinterpretation of CBC data. Current Interpretive Data was last revised on 2017. Eosinophil pct 3.3 % [facility] Comment: Interpretive Data Percent cell count reference ranges are not reported, since discordance with absolute values may lead to misinterpretation of CBC data. Current Interpretive Data was last revised on 2017. Basophil pct 0.9 % [facility] Comment: Interpretive Data Percent cell count reference ranges are not reported, since discordance with absolute values may lead to misinterpretation of CBC data. Current Interpretive Data was last revised on 2017. Blood 05/03/2024 2:57 PM LEARNING SOLUTIONS SPECIALIST 05/03/2024 8:18 PM LEARNING SOLUTIONS SPECIALIST Selma [facility] LAB BLOOD ORDERABLES Fi nal Result Performing Organization Address City/[facility] Co de Phone Number RUBENS ED[place]AR [address] [address] [facility] [employer] [place] [address] * Uric acid (05/03/2024 2:57 PM LEARNING SOLUTIONS SPECIALIST) Uric acid 5.1 2.5 - 7.0 mg/dL Blood 05/03/2024 2:57 PM LEARNING SOLUTIONS SPECIALIST 05/03/2024 8:18 PM LEARNING SOLUTIONS SPECIALIST Selma [facility] LAB BLOOD ORDERABLES Fi nal Result Performing Organization Address City/[facility] Co de Phone Number RUBENS EDGAR [id number] [facility] [place] [address] * (ABNORMAL) CBC with auto differential (05/03/2024 2:57 PM LEARNING SOLUTIONS SPECIALIST) Pathologist [facility] WBC 6.9 3.8 - 9.9 K/cumm Hgb 11.4(L) 11.9 - 15.5 g/dL [facility] Hct 37.1 35.6 - 45.5 % [facility] Plt 321 150 - 400 K/cumm [facility] MPV 11.1 9.1 - 12.3 fL [facility] RBC 4.12 3.90 - 5.20 M/cumm [facility] MCV 90.0 81.3 - 96.4 fL [facility] MCH 27.7 27.1 - 33.3 pg [facility] MCHC 30.7(L) 32.3 - 35.7 g/dL [facility] RDW CV 13.9 11.1 - 14.9 % [facility] RDW SD 45.7 35.7 - 48.1 fL [facility] NRBC abs 0.00 0.00 - 0.01 K/cumm [facility] Blood 05/03/2024 2:57 PM LEARNING SOLUTIONS SPECIALIST 05/03/2024 8:18 PM LEARNING SOLUTIONS SPECIALIST Selma [facility] LAB BLOOD ORDERABLES Fi nal Result Performing Organization Address [facility] Co de Phone Number RUBENS [address] [place] [address] * (ABNORMAL) CRP (acute phase) (05/03/2024 2:57 PM LEARNING SOLUTIONS SPECIALIST) [facility] CRP 39.0(H) <=10.0 mg/L Blood 05/03/2024 2:57 PM LEARNING SOLUTIONS SPECIALIST 05/03/2024 8:18 PM LEARNING SOLUTIONS SPECIALIST Selma [facility] LAB BLOOD ORDERABLES Fi nal Result [facility] [id number] [place] [address] * (ABNORMAL) Erythrocyte sedimentation rate (05/03/2024 2:57 PM LEARNING SOLUTIONS SPECIALIST) Erythrocyte sedimentation rate 45(H) 1 - 30 mm/hr Blood 05/03/2024 2:57 PM LEARNING SOLUTIONS SPECIALIST 05/03/2024 8:18 PM LEARNING SOLUTIONS SPECIALIST Selma [facility] LAB BLOOD ORDERABLES Fi nal Result RUB[place] [address] [address] Department [place] [address] documented in this encounter Visit Diagnoses Diagnosis 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
--- OUTSIDE RECORDS SUMMARY | 2024-05-04 16:14 | XMS_ITS ---
Care Plan - [facility] Created on: May 04, 2024 GELACIO DODGE : 1965 Sex: Female Author Organization [facility] Address [address] [place] [address] Phone Care Team Providers Care Ironer Hand Name Role Phone JACQUIE OSRIANO, VERÓNICA BEAN Unavailable [phone]
--- OUTSIDE RECORDS SUMMARY | 2024-05-04 16:14 | XMS_ITS ---
Author Organization [facility] Address [address] [place] [address] Phone Care Team Providers Care Learning Coach Name Role Phone JACQUIE SORIANO, VERÓNICA BEAN Unavailable [phone] Problems Includes: Active, inactive, and resolved Problems All Visits Onset Date Resolved Date Provider Condition S tatus Nonorganic Sleep Apnea Obstructive 09/11/2022 VERÓNICA PENA MD Active Last Documented On 3 3:50PM ; [facility] Attention-deficit Hyperactivity Disorder 09/20/2020 Active Last Documented On 3 5:53PM ; [facility] Restless Legs Syndrome 01/21/2019 Ac tive Last Documented On 3 5:52PM ; [facility] Depression 12/21/2018 Active Last Documented On 3 5:52PM ; [facility] Vitamin B12 Deficiency 08/21/2017 Ac tive Last Documented On 3 5:51PM ; [facility] Major Depression 12/21/2016 Active Last Documented On 3 5:51PM ; [facility] Fibromyalgia 07/30/2016 Active Last Documented On 3 5:50PM ; [facility] Psychophysiological Insomnia 02/21/2016 Active Last Documented On 3 5:50PM ; [facility] Gerd 04/20/2014 Active Last Documented On 3 5:47PM ; [facility] Gout 11/07/2013 Active Last Documented On 3 5:47PM ; [facility] Bipolar I Disorder, Most Recent Episode, Depressed 013 Active Last Documented On 3 5:45PM ; [facility] Generalized Anxiety Disorder 06/08/2012 Active Last Documented On 3 5:45PM ; [facility] 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 Last Documented On 3 5:45PM ; [facility] Panic Disorder Without Agoraphobia 06/08/2012 Active Last Documented On 3 5:45PM ; [facility] Plan of Treatment Future Appointments Date Time Location Provi cory TELEHEALTH ADULT PSYCH ESTABLISHED 05/18/2024 11:00AM [facility] PENA MD Last Documented On 4 2:59PM ; [facility] Assessments Includes: Assessments for all patient encounters Findings Encounter Date Attention-deficit hyperactiv ity disorder TELEHEALTH ADULT PSYCH ESTABLISHED with VERÓNICA PENA MD 05/27/2023 Last Documented On 4 6:50AM ; [facility] Bipolar I disorder, most rec ent episode, depressed TELEHEALTH ADULT PSYCH ESTABLISHED with VERÓNICA PENA MD 05/27/2023 Last Documented On 4 6:50AM ; [facility] Generalized anxiety disorder TELEHEALTH ADULT PSYCH ESTABLISHED with VERÓNICA PENA MD 05/27/2023 Last Documented On 4 6:50AM ; [facility] Major depressive disorder [facility] PSYCH ESTABLISHED with VERÓNICA PENA MD 05/27/2023 Last Documented On 4 6:50AM ; [facility] Obstructive sleep apnea TELEHEALTH ADULT PSYCH ESTABLISHED with VERÓNICA PENA MD 05/27/2023 Last Documented On 4 6:50AM ; [facility] Psychophysiological insomnia TELEHEALTH ADULT PSYCH ESTABLISHED with VERÓNICA PENA MD 05/27/2023 Last Documented On 4 6:50AM ; [facility] Restless legs syndrome TELEHEALTH ADULT PSYCH ESTABLISHED with VERÓNICA PENA MD 05/27/2023 Last Documented On 4 6:50AM ; [facility] Attention-deficit hyperactivity disorder TELEHEALTH ADULT PSYCH ESTABLISHED with VERÓNICA PENA MD 01/21/2023 Last Documented On 3 3:59AM ; [facility] Bipolar I disorder, most rec ent episode, depressed TELEHEALTH ADULT PSYCH ESTABLISHED with VERÓNICA PENA MD 01/21/2023 Last Documented On 3 3:59AM ; [facility] Generalized anxiety disorder TELEHEALTH ADULT PSYCH ESTABLISHED with VERÓNICA PENA MD 01/21/2023 Last Documented On 3 3:59AM ; [facility] Major depressive disorder TELEHEALTH [facility] PSYCH ESTABLISHED with VERÓNICA PENA MD 01/21/2023 Last Documented On 3 3:59AM ; [facility] Obstructive sleep apnea TELEHEALTH ADULT PSYCH ESTABLISHED with VERÓNICA PENA MD 01/21/2023 Last Documented On 3 3:59AM ; [facility] Psychophysiological insomnia TELEHEALTH ADULT PSYCH ESTABLISHED with VERÓNICA PENA MD 01/21/2023 Last Documented On 3 3:59AM ; [facility] Restless legs syndrome TELEHEALTH ADULT PSYCH ESTABLISHED with VERÓNICA PENA MD 01/21/2023 Last Documented On 3 3:59AM ; [facility] Attention-deficit hyperactivity disorder TELEHEALTH ADULT PSYCH ESTABLISHED with VERÓNICA PENA MD 09/11/2022 Last Documented On 3 12:32PM ; [facility] Bipolar I disorder, most rec ent episode, depressed TELEHEALTH ADULT PSYCH ESTABLISHED with VERÓNICA PENA MD 09/11/2022 Last Documented On 3 12:32PM ; [facility] Generalized anxiety disorder TELEHEALTH ADULT PSYCH ESTABLISHED with VERÓNICA PENA MD 09/11/2022 Last Documented On 3 12:32PM ; [facility] Major depressive disorder TELEHEALTH [facility] PSYCH ESTABLISHED with VERÓNICA PENA MD 09/11/2022 Last Documented On 3 12:32PM ; [facility] Obstructive sleep apnea TELEHEALTH ADULT PSYCH ESTABLISHED with VERÓNICA PENA MD 09/11/2022 Last Documented On 3 12:32PM ; [facility] Psychophysiological insomnia TELEHEALTH ADULT PSYCH ESTABLISHED with VERÓNICA PENA MD 09/11/2022 Last Documented On 3 12:32PM ; [facility] Restless legs syndrome TELEHEALTH ADULT PSYCH ESTABLISHED with VERÓNICA PENA MD 09/11/2022 Last Documented On 3 12:32PM ; [facility] Medical Equipment - Implanted Devices Includes: Current and historical Devices No Medical Equipment Recorded Medications Includes: Current and historical Medications Current Medications (continue as prescribed) Vyvanse 30 MG Oral Capsule 08/07/2023 Provider: VERÓNICA PENA MD Diagnosis: Attn-defct hyper activity disorder, predom inattentive type 1 Capsule every morning Last Documented On 08/07/2023 11:23AM By Adrianne Pena MD ; [facility] Famotidine 20 MG Oral Tablet 05/21/2023 Provider: TYLER ALVARENGA NP Diagnosis: 1 tab bid Last Documented On 05/27/2023 11:32AM By SHANTEL CRUZ ; [facility] traZODone HCl 50 MG Oral Tablet 05/12/2023 Provider: VERÓNICA PENA MD Diagnosis: Psychophysiologi c insomnia TAKE 2 TABLETS BY MOUTH AT B EDTIME NEEDED FOR SLEEP. Last Documented On 05/12/2023 8:56AM By Adrianne Pena MD ; [facility] Alendronate Sodium 70 MG Oral Tablet 04/28/2023 Prov ider: ADY MILLER MD Diagnosis: 1 tab weekly Last Documented On 05/27/2023 11:32AM By SHANTEL CRUZ ; [facility] Sunosi 150 MG Oral Tablet 03/17/2023 Provider: VERÓNICA PENA MD Diagnosis: Obstructive slee p apnea (adult) (pediatric) 1 tablet in the morning Last Documented On 03/17/2023 1:25PM By Adrianne Pena MD ; [facility] Sunosi 150 MG Oral Tablet 02/11/2023 Provider: ME KRISTIAN PENA MD Diagnosis: 1 tablet in the morning Last Documented On 03/17/2023 12:40PM By SHANTEL CRUZ ; [facility] lamoTRIgine 100 MG Oral Tablet 02/10/2023 Provider: VERÓNICA PENA MD Diagnosis: Bipolar disord, crnt epsd depress, mild or mod severt, unsp One tablet daily Last Documented On 02/10/2023 12:51PM By Adrianne Pena MD ; [facility] Esomeprazole Magnesium 20 MG Oral Capsule Delayed Release 12/26/2022 Provider: DYLAN HERNANDEZ MD Diagnosis: 1 capsule daily Last Documented On 01/21/2023 3:51PM By SHANTEL CRUZ ; [facility] Albuterol Sulfate HFA 108 (9 0 Base) MCG/ACT Inhalation Aerosol Solution 11/19/2022 Provider: TYLER WOLFE TERRITORY SERVICE REPRESENTATIVE Diagnosis: use as directed Last Documented On 01/21/2023 3:51PM By SHANTEL CRUZ ; [facility] Symbicort 160-4.5 MCG/ACT Inhalation Aerosol Provider: TYLER ALVARENGA TERRITORY SERVICE REPRESENTATIVE Diagnosis: use as directed Last Documented On 01/21/2023 3:52PM By SHANTEL CRUZ ; [facility] Latanoprost 0.005% Ophthalmic Solution 09/11/2022 Pr ovider: Diagnosis: use as directed Last Documented On 09/11/2022 3:01PM By SHANTEL CRUZ ; [facility] Systane 0.4-0.3% OP SOLN 07/08/2022 Provider: Diagnosis: use as directed prn Last Documented On 07/19/2022 5:28PM By SHANTEL CRUZ ; [facility] Solifenacin Succinate 5 MG OR TABS 04/24/2022 Provid er: Diagnosis: 1 tab daily Last Documented On 07/19/2022 5:28PM By SHANTEL CRUZ ; [facility] Gabapentin 600 MG OR TABS 10/07/2021 Provider: Diagnosis: 1 tab tid Last Documented On 07/19/2022 5:28PM By SHANTEL CRUZ ; [facility] Amoxicillin 500 MG OR CAPS 09/26/2021 Provider: Diagnosis: prior to dental work Last Documented On 07/19/2022 5:28PM By SHANTEL CRUZ ; [facility] Atorvastatin Calcium 20 MG OR TABS 06/13/2020 Provid er: Diagnosis: 1 tab nightly Last Documented On 07/19/2022 5:28PM By SHANTEL CRUZ ; [facility] Metoprolol Succinate ER 25 MG OR TB24 06/06/2020 Pro vider: Diagnosis: 1 tab daily Last Documented On 07/19/2022 5:28PM By SHANTEL CRUZ ; [facility] Hydroxychloroquine Sulfate 200 MG OR TABS 11/30/2019 Provider: Diagnosis: 1 tab bid Last Documented On 07/19/2022 5:28PM By SHANTEL CRUZ ; [facility] Aspirin 81 MG OR TABS 06/22/2014 Provider: Diagnosis: Last Documented On 07/19/2022 5:28PM By Adrianne Pena MD ; [facility] Past Medications on file Vyvanse 30 MG Oral Capsule 07/03/2023 - 08/07/2023 Provider: VERÓNICA PENA MD Diagnosis: Attn-defct hyper activity disorder, predom inattentive type 1 Capsule every morning Last Documented On 08/07/2023 11:11AM By Adrianne Pena MD ; [facility] Vyvanse 30 MG Oral Capsule 06/24/2023 - 07/03/2023 Provider: VERÓNICA PENA MD Diagnosis: Attn-defct hyper activity disorder, predom inattentive type 1 Capsule every morning Last Documented On 07/03/2023 2:46PM By Adrianne Pena MD ; [facility] Vyvanse 30 MG Oral Capsule 05/11/2023 - 06/24/2023 Provider: VERÓNICA PENA MD Diagnosis: Attn-defct hyper activity disorder, predom inattentive type 1 Capsule every morning Last Documented On 06/24/2023 3:12PM By Adrianne Pena MD ; [facility] Vyvanse 30 MG Oral Capsule 03/20/2023 - 05/11/2023 Provider: VERÓNICA PENA MD Diagnosis: Attn-defct hyper activity disorder, predom inattentive type 1 Capsule every morning Last Documented On 05/11/2023 3:37PM By Adrianne Pena MD ; [facility] Vyvanse 30 MG Oral Capsule 03/17/2023 - 03/20/2023 Provider: VERÓNICA PENA MD Diagnosis: Attn-defct hyper activity disorder, predom inattentive type 1 Capsule every morning Last Documented On 03/20/2023 4:10PM By Adrianne Pena MD ; [facility] Vyvanse 30 MG Oral Capsule 02/16/2023 - 03/17/2023 Provider: VERÓNICA PENA MD Diagnosis: Attn-defct hyper activity disorder, predom inattentive type 1 Capsule every morning Last Documented On 03/17/2023 1:11PM By Adrianne Pena MD ; [facility] lamoTRIgine 100 MG Oral Tablet 02/10/2023 - 02/11/2023 Provider: VERÓNICA PENA MD Diagnosis: Bipolar disord, crnt epsd depress, mild or mod severt, unsp 1 tablet daily Last Documented On 02/11/2023 2:57PM By TAMERA PETTIT ; [facility] Vyvanse 30 MG Oral Capsule 02/06/2023 - 02/16/2023 Provider: VERÓNICA PENA MD Diagnosis: Attn-defct hyper activity disorder, predom inattentive type 1 Capsule every morning Last Documented On 02/16/2023 4:35PM By Adrianne Pena MD ; [facility] Famotidine 20 MG Oral Tablet 01/21/2023 - 04/21/2023 P chaseder: Diagnosis: take 1 hour after taking Esomeprazole 1 tab bid Last Documented On 01/21/2023 3:52PM By SHANTEL CRUZ ; [facility] Vyvanse 30 MG Oral Capsule 12/26/2022 - 02/06/2023 Provider: VERÓNICA PENA MD Diagnosis: Attn-defct hyper activity disorder, predom inattentive type 1 Capsule every morning Last Documented On 02/06/2023 3:55PM By Adrianne Pena MD ; [facility] busPIRone HCl 10 MG Oral Tablet 12/11/2022 - 12/06/2023 Provider: VERÓNICA PENA MD Diagnosis: Generalized anxi ety disorder One tablet at bed time Last Documented On 12/11/2022 11:03AM By Adrianne Pena MD ; [facility] busPIRone HCl 10 MG Oral Tablet 12/11/2022 - 12/11/2022 Provider: VERÓNICA PENA MD Diagnosis: Generalized anxi ety disorder 1 tablet at bedtime Last Documented On 12/11/2022 2:16PM By TAMERA PETTIT ; [facility] Vyvanse 30 MG Oral Capsule 11/25/2022 - 12/26/2022 Provider: VERÓNICA PENA MD Diagnosis: Attn-defct hyper activity disorder, predom inattentive type 1 Capsule every morning Last Documented On 12/26/2022 3:44PM By Adrianne Pena MD ; [facility] traZODone HCl 50 MG Oral Tablet 11/05/2022 - 05/12/2023 Provider: VERÓNICA PENA MD Diagnosis: Psychophysiologi c insomnia TAKE 2 TABLETS BY MOUTH AT B EDTIME NEEDED FOR SLEEP Last Documented On 05/12/2023 8:52AM By Adrianne Pena MD ; [facility] Vyvanse 30 MG Oral Capsule 10/13/2022 - 11/25/2022 Provider: VERÓNICA PENA MD Diagnosis: Attn-defct hyper activity disorder, predom inattentive type 1 Capsule every morning Last Documented On 11/25/2022 4:42PM By Adrianne Pena MD ; [facility] Sunosi 150 MG Oral Tablet 09/11/2022 - 03/10/2023 Provider: VERÓNICA DORSEY MD Diagnosis: Obstructive slee p apnea (adult) (pediatric) 1 tablet every morning Last Documented On 09/11/2022 3:58PM By Adrianne Pena MD ; [facility] Vyvanse 30 MG Oral Capsule 09/10/2022 - 10/13/2022 Provider: VERÓNICA PENA MD Diagnosis: Attn-defct hyper activity disorder, predom inattentive type 1 Capsule every morning Last Documented On 10/13/2022 5:47PM By Adrianne Pena MD ; [facility] lamoTRIgine 100 MG Oral Tablet 09/04/2022 - 09/11/2022 Provider: Diagnosis: Bipolar disord, crnt epsd depress, mild or mod severt, unsp 1 tablet daily Last Documented On 09/11/2022 2:59PM By SHANTEL CRUZ ; [facility] Escitalopram Oxalate 20 MG Oral Tablet 09/04/2022 - 08/30/2023 Provider: VERÓNICA PENA MD Diagnosis: Major depressive disorder, recurrent, unspecified One tablet daily Last Documented On 09/04/2022 7:33PM By Adrianne Pena MD ; [facility] lamoTRIgine 100 MG Oral Tablet 09/04/2022 - 02/11/2023 Provider: VERÓNICA PENA MD Diagnosis: Bipolar disord, crnt epsd depress, mild or mod severt, unsp One tablet daily Last Documented On 02/11/2023 2:57PM By TAMERA PETTIT ; [facility] Escitalopram Oxalate 20 MG Oral Tablet 09/04/2022 - 09/11/2022 Provider: Diagnosis: Major depressive disorder, recurrent, unspecified 1 tablet daily Last Documented On 09/11/2022 2:59PM By SHANTEL CRUZ ; [facility] traZODone HCl 50 MG Oral Tablet 08/11/2022 - Provider: Diagnosis: Psychophysiologi c insomnia 2 tablets at bedtime as needed for sleep Last Documented On 09/11/2022 2:59PM By SHANTEL CRUZ ; [facility] traZODone HCl 50 MG Oral Tablet 08/11/2022 - 11/05/2022 Provider: VERÓNICA PENA MD Diagnosis: Psychophysiologi c insomnia as directed 2 tablets at bed time as needed for sleep Last Documented On 11/05/2022 9:59AM By Adrianne Pena MD ; [facility] Vyvanse 30 MG Oral Capsule 08/04/2022 - 09/10/2022 Provider: VERÓNICA PENA MD Diagnosis: Attn-defct hyper activity disorder, predom inattentive type 1 Capsule every morning Last Documented On 09/10/2022 9:35AM By Adrianne Pena MD ; [facility] Vyvanse 30 MG OR CAPS 07/08/2022 - 08/04/2022 Provider: VERÓNICA PENA MD Diagnosis: Attn-defct hyper activity disorder, predom inattentive type 1 Capsule every morning Last Documented On 08/04/2022 11:42AM By Adrianne Pena MD ; [facility] Famotidine 20 MG OR TABS 06/11/2022 - 01/21/2023 Provi cory: Diagnosis: 1 tab bid Last Documented On 01/21/2023 3:52PM By SHANTEL CRUZ ; [facility] Focalin 10 MG OR TABS 04/25/2022 - 09/11/2022 Provider: VERÓNICA PENA MD Diagnosis: Attn-defct hyper activity disorder, predom inattentive type as directed - 1 tab in am with food Last Documented On 09/11/2022 3:36PM By Adrianne Pena MD ; [facility] Focalin 10 MG OR TABS 03/28/2022 - 04/25/2022 Provider: VERÓNICA PENA MD Diagnosis: Attn-defct hyper activity disorder, predom inattentive type as directed - 1 tab in am with food Last Documented On 07/19/2022 5:28PM By Adrianne Pena MD ; [facility] Famotidine 20 MG OR TABS 02/26/2022 - 02/11/2023 Provi cory: Diagnosis: 1 tab bid Last Documented On 02/11/2023 2:58PM By TAMERA PETTIT ; [facility] Focalin 10 MG OR TABS 02/26/2022 - 03/28/2022 Provider: VERÓNICA PENA MD Diagnosis: Attn-defct hyper activity disorder, predom inattentive type as directed - 1 tab in am with food Last Documented On 07/19/2022 5:28PM By Adrianne Pena MD ; [facility] traZODone HCl 50 MG OR TABS 02/11/2022 - 09/11/2022 Provider: VERÓNICA PENA MD Diagnosis: Psychophysiologi c insomnia TAKE 2 TABLETS BY MOUTH AT B EDTIME NEEDED FOR SLEEP Last Documented On 09/11/2022 2:59PM By SHANTEL CRUZ ; [facility] Esomeprazole Magnesium 20 MG OR CPDR 01/31/2022 - 08/22 Provider: Diagnosis: 1 capsule in the am Last Documented On 09/11/2022 2:59PM By SHANTEL CRUZ ; [facility] Focalin 10 MG OR TABS 12/10/2021 - 03/18/2022 Provider: VERÓNICA PENA MD Diagnosis: Attn-defct hyper activity disorder, predom inattentive type 1 tablet every morning Last Documented On 07/19/2022 5:28PM By Adrianne Pena MD ; [facility] lamoTRIgine 100 MG OR TABS 10/28/2021 - 09/11/2022 Provider: VERÓNICA PENA MD Diagnosis: Bipolar disord, crnt epsd depress, mild or mod severt, unsp TAKE 1 TABLET BY MOUTH EVERY DAY Last Documented On 09/11/2022 3:00PM By SHANTEL CRUZ ; [facility] busPIRone HCl 10 MG OR TABS 10/28/2021 - 12/11/2022 Provider: VERÓNICA PENA MD Diagnosis: Generalized anxi ety disorder One tablet at bed time Last Documented On 12/11/2022 2:16PM By TAMERA PETTIT ; [facility] Lexapro 20 MG OR TABS 10/28/2021 - 09/11/2022 Provider: VERÓNICA DORSEY MD Diagnosis: Major depressive disorder, recurrent, unspecified One tablet daily -- please give GENERIC Last Documented On 09/11/2022 3:00PM By SHANTEL CRUZ ; [facility] Focalin 10 MG OR TABS 10/28/2021 - 12/10/2021 Provider: VERÓNICA PENA MD Diagnosis: Attn-defct hyper activity disorder, predom inattentive type 1 tablet every morning Last Documented On 07/19/2022 5:28PM By Adrianne Pena MD ; [facility] Focalin 10 MG OR TABS 09/04/2021 - 10/28/2021 Provider : VERÓNICA PENA MD Diagnosis: 1 tablet every morning Last Documented On 07/19/2022 5:28PM By Adrianne Pena MD ; [facility] lamoTRIgine 100 MG OR TABS 09/02/2021 - 10/28/2021 Provider: VERÓNICA PENA MD Diagnosis: Bipolar disord, crnt epsd depress, mild or mod severt, unsp TAKE 1 TABLET BY MOUTH EVERY DAY Last Documented On 07/19/2022 5:28PM By Adrianne Pena MD ; [facility] traZODone HCl 50 MG OR TABS 07/23/2021 - 02/11/2022 Provider: VERÓNICA PENA MD Diagnosis: Psychophysiologi c insomnia TAKE 2 TABLETS BY MOUTH AT B EDTIME NEEDED FOR SLEEP Last Documented On 07/19/2022 5:28PM By Adrianne Pena MD ; [facility] Focalin 10 MG OR TABS 07/22/2021 - 09/04/2021 Provider : VERÓNICA PENA MD Diagnosis: 1 tablet every morning Last Documented On 07/19/2022 5:28PM By Adrianne Pena MD ; [facility] Focalin 10 MG OR TABS 06/14/2021 - 07/22/2021 Provider : VERÓNICA PENA MD Diagnosis: 1 tablet every morning Last Documented On 07/19/2022 5:28PM By Adrianne Pena MD ; [facility] Quercetin Complex Immune OR CAPS 05/29/2021 - 10/29/19 Provider: Diagnosis: with Vitamin C, N-acetyl cysteine, Vitamin D and Zinc (Orthomune) 2 daily Last Documented On 07/19/2022 5:28PM By SHANTEL CRUZ ; [facility] Boswellia Reginaldo Extract POWD 05/29/2021 - 10/28/2021 Provider: Diagnosis: tablet with DI-phenlaline 1 daily (curamin) Last Documented On 07/19/2022 5:28PM By SHANTEL CRUZ ; [facility] Daily Value Multivitamin OR TABS 05/29/2021 - 10/29/19 Provider: Diagnosis: 1 tab daily otc Last Documented On 07/19/2022 5:28PM By SHANTEL CRUZ ; [facility] Gabapentin 600 MG OR TABS 05/29/2021 - 02/11/2023 Prov ider: Diagnosis: 1 cap tid Last Documented On 02/11/2023 2:58PM By TAMERA PETTIT ; [facility] Boswellia Reginaldo Extract POWD 05/29/2021 - 05/29/2021 Provider: Diagnosis: tablet with DI-phenlaline 1 daily Last Documented On 07/19/2022 5:28PM By SHANTEL CRUZ ; [facility] Quercetin Complex Immune OR CAPS 05/29/2021 - 05/30/19 Provider: Diagnosis: with Vitamin C, N-acetyl cysteine, Vitamin D and Zinc 1 daily Last Documented On 07/19/2022 5:28PM By SHANTEL CRUZ ; [facility] Methotrexate Sodium 2.5 MG OR TABS 05/29/2021 - 2021 Provider: Diagnosis: 6 tabs weekly Last Documented On 07/19/2022 5:28PM By SHANTEL CRUZ ; [facility] lamoTRIgine 100 MG OR TABS 05/21/2021 - 09/02/2021 Provider: VERÓNICA PENA MD Diagnosis: Bipolar disord, crnt epsd depress, mild or mod severt, unsp TAKE 1 TABLET BY MOUTH EVERY DAY Last Documented On 07/19/2022 5:28PM By Adrianne Pena MD ; [facility] Focalin 10 MG OR TABS 04/29/2021 - 06/14/2021 Provider : VERÓNICA PENA MD Diagnosis: 1 tablet every morning Last Documented On 07/19/2022 5:28PM By Adrianne Pena MD ; [facility] Focalin 10 MG OR TABS 04/01/2021 - 04/29/2021 Provider : VERÓNICA PENA MD Diagnosis: 1 tablet every morning Last Documented On 07/19/2022 5:28PM By Adrianne Pena MD ; [facility] traZODone HCl 50 MG OR TABS 01/30/2021 - 07/23/2021 Provider: VERÓNICA PENA MD Diagnosis: Psychophysiologi c insomnia as directed 2 tablets at bed time as needed for sleep Last Documented On 07/19/2022 5:28PM By Adrianne Pena MD ; [facility] traZODone HCl 50 MG OR TABS 01/30/2021 - 02/26/2022 Pr ovider: Diagnosis: Psychophysiologi c insomnia 2 tablets at bedtime as needed for sleep Last Documented On 07/19/2022 5:28PM By TAMERA PETTIT ; [facility] Alendronate Sodium 35 MG OR TABS 01/07/2021 - 05/27/19 Provider: Diagnosis: [address] Ady Moreira Last Documented On 05/27/2023 11:33AM By SHANTEL CRUZ ; [facility] Famotidine 20 MG OR TABS 12/24/2020 - 02/26/2022 Provi cory: Diagnosis: 1 tab daily Last Documented On 07/19/2022 5:28PM By SHANTEL CRUZ ; [facility] Focalin 10 MG OR TABS 12/14/2020 - 04/01/2021 Provider : VERÓNICA PENA MD Diagnosis: 1 tablet every morning Last Documented On 07/19/2022 5:28PM By Adrianne Pena MD ; [facility] busPIRone HCl 10 MG OR TABS 10/26/2020 - 10/28/2021 Provider: VERÓNICA PENA MD Diagnosis: Generalized anxi ety disorder One tablet at bed time Last Documented On 07/19/2022 5:28PM By Adrianne Pena MD ; [facility] Lexapro 20 MG OR TABS 10/26/2020 - 10/28/2021 Provider: VERÓNICA DORSEY MD Diagnosis: Major depressive disorder, recurrent, unspecified One tablet daily -- please give GENERIC Last Documented On 07/19/2022 5:28PM By Adrianne Pena MD ; [facility] Focalin 10 MG OR TABS 09/27/2020 - 12/14/2020 Provider : VERÓNICA PENA MD Diagnosis: 1 tablet every morning Last Documented On 07/19/2022 5:28PM By Adrianne Pena MD ; [facility] Systane 0.4-0.3% OP SOLN 08/30/2020 - 07/08/2022 Provi cory: Diagnosis: use as directed Last Documented On 07/19/2022 5:28PM By SHANTEL CRUZ ; [facility] [facility] LaMICtal 100 MG OR TABS 08/30/2020 - 05/21/2021 Provider: VERÓNICA DORSEY MD Diagnosis: Bipolar disord, crnt epsd depress, mild or mod severt, unsp One tablet daily Last Documented On 07/19/2022 5:28PM By Adrianne Pena MD ; [facility] Focalin 10 MG OR TABS 08/30/2020 - 09/27/2020 Provider: VERÓNICA PENA MD Diagnosis: Attention-defici t hyperactivity disorder, combined type 1 tablet every morning Last Documented On 07/19/2022 5:28PM By Adrianne Pena MD ; [facility] traMADol HCl 50 MG OR TABS 08/30/2020 - 10/26/2020 Pro vider: Diagnosis: use as directed prn Last Documented On 07/19/2022 5:28PM By SHANTEL CRUZ ; [facility] Methotrexate Sodium 2.5 MG OR TABS 08/28/2020 - 2021 Provider: Diagnosis: 4 tabs weekly Last Documented On 07/19/2022 5:28PM By SHANTEL CRUZ ; [facility] Folic Acid 1 MG OR TABS 08/28/2020 - 02/26/2022 Provid er: Diagnosis: 1 tab daily Last Documented On 07/19/2022 5:28PM By SHANTEL CRUZ ; [facility] methylPREDNISolone 4 MG OR TBPK 08/21/2020 - Provider: Diagnosis: prn Last Documented On 07/19/2022 5:28PM By SHANTEL CRUZ ; [facility] traZODone HCl 50 MG OR TABS 07/23/2020 - 02/26/2022 Provider: VERÓNICA PENA MD Diagnosis: Psychophysiologi c insomnia TAKE 2 TABLETS BY MOUTH AT B EDTIME NEEDED FOR SLEEP Last Documented On 07/19/2022 5:28PM By Adrianne Pena MD ; [facility] Lumigan 0.01% OP SOLN 06/05/2020 - 09/11/2022 Provider : Diagnosis: use as directed Dr. Bill Jacob Last Documented On 09/11/2022 3:00PM By SHANTEL CRUZ ; [facility] LaMICtal 100 MG OR TABS 03/07/2020 - 08/30/2020 Provider: VERÓNICA DORSEY MD Diagnosis: Bipolar disord, crnt epsd depress, mild or mod severt, unsp One tablet daily Last Documented On 07/19/2022 5:28PM By Adrianne Pena MD ; [facility] Albuterol Sulfate (2.5 MG/3ML) 0.083% IN [facility] 02/14/20 - 08/30/2020 Provider: Diagnosis: use as directed Last Documented On 07/19/2022 5:28PM By SHANTEL CRUZ ; [facility] Gabapentin 600 MG OR TABS 02/10/2020 - 05/29/2021 Prov ider: Diagnosis: 1 cap bid Last Documented On 07/19/2022 5:28PM By SHANTEL CRUZ ; [facility] Ibuprofen 800 MG OR TABS 11/23/2019 - 08/30/2020 Provi cory: Diagnosis: 1 tab q 6 hours prn pain Last Documented On 07/19/2022 5:28PM By SHANTEL CRUZ ; [facility] traZODone HCl 50 MG OR TABS 10/17/2019 - 07/23/2020 Provider: VERÓNICA PENA MD Diagnosis: Psychophysiologi c insomnia as directed -- 2 at bedtime as needed for sleep Last Documented On 07/19/2022 5:28PM By Adrianne Pena MD ; [facility] traZODone HCl 50 MG OR TABS 10/12/2019 - 02/11/2023 Pr ovider: Diagnosis: Psychophysiologi c insomnia Two tablets at bedtime - this was increased 2019 Last Documented On 02/11/2023 2:58PM By TAMERA PETTIT ; [facility] traZODone HCl 50 MG OR TABS 10/12/2019 - 09/18/2020 Provider: VERÓNICA PENA MD Diagnosis: Psychophysiologi c insomnia as directed Two tablets at bedtime Last Documented On 07/19/2022 5:28PM By Adrianne Pena MD ; [facility] Pristiq 50 MG OR TB24 10/05/2019 - 08/30/2020 Provider: VERÓNICA DORSEY MD Diagnosis: Major depressive disorder, recurrent, unspecified TAKE 1 TABLET BY MOUTH EVERY DAY Last Documented On 07/19/2022 5:28PM By Adrianne Pena MD ; [facility] Horizant 600 MG OR TBCR 08/24/2019 - 09/18/2020 Provider: VERÓNICA DORSEY MD Diagnosis: Restless legs sy ndrome as directed -- 1 tab in the evening Last Documented On 07/19/2022 5:28PM By Adrianne Pena MD ; [facility] Horizant 600 MG OR TBCR 08/24/2019 - 02/11/2023 Provider: VERÓNICA DORSEY MD Diagnosis: Restless legs sy ndrome as directed -- 1 tab in even ing for restless legs - pt has 10 day FREE coupon Last Documented On 02/11/2023 2:58PM By TAMERA PETTIT ; [facility] LaMICtal 100 MG OR TABS 08/08/2019 - 03/07/2020 Provider: VERÓNICA DORSEY MD Diagnosis: Bipolar disord, crnt epsd depress, mild or mod severt, unsp One tablet daily Last Documented On 07/19/2022 5:28PM By Adrianne Pena MD ; [facility] busPIRone HCl 10 MG OR TABS 08/08/2019 - 10/26/2020 Provider: VERÓNICA PENA MD Diagnosis: Generalized anxi ety disorder One tablet at bed time Last Documented On 07/19/2022 5:28PM By Adrianne Pena MD ; [facility] Metoprolol Succinate ER 50 MG OR TB24 07/26/2019 - 01/2020 Provider: Diagnosis: 1 tab daily Last Documented On 07/19/2022 5:28PM By SHANTEL CRUZ ; [facility] Pristiq 50 MG OR TB24 07/04/2019 - 10/05/2019 Provider: VERÓNICA DORSEY MD Diagnosis: Major depressive disorder, recurrent, unspecified One tablet daily Last Documented On 07/19/2022 5:28PM By Adrianne Pena MD ; [facility] Spiriva HandiHaler 18 MCG IN CAPS 06/28/2019 - 021 Provider: Diagnosis: inhale 1 capsule daily Last Documented On 07/19/2022 5:28PM By SHANTEL CRUZ ; [facility] Horizant 600 MG OR TBCR 03/09/2019 - 09/18/2020 Provider: VERÓNICA PENA MD Diagnosis: Generalized anxi ety disorder as directed -- 1 tab in evening Last Documented On 07/19/2022 5:28PM By Adrianne Pena MD ; [facility] Albuterol Sulfate 108 (90 Base) MCG/ACT IN [facility] 02/28/2019 - 08/30/2020 Provider: Diagnosis: 1 - 2 puffs q 4 - 6 hours prn Last Documented On 07/19/2022 5:28PM By SHANTEL CRUZ ; [facility] Lexapro 20 MG OR TABS 02/14/2019 - 10/26/2020 Provider: VERÓNICA DORSEY MD Diagnosis: Major depressive disorder, recurrent, unspecified One tablet daily -- please give GENERIC Last Documented On 07/19/2022 5:28PM By Adrianne Pena MD ; [facility] traZODone HCl 50 MG OR TABS 02/14/2019 - 08/24/2019 Provider: VERÓNICA PENA MD Diagnosis: Psychophysiologi c insomnia TAKE ONE TABLET BY MOUTH AT BEDTIME Last Documented On 07/19/2022 5:28PM By Adrianne Pena MD ; [facility] Horizant 600 MG OR TBCR 02/10/2019 - 03/09/2019 Provider: VERÓNICA PENA MD Diagnosis: Generalized anxi ety disorder as directed -- 1 tab in evening Last Documented On 07/19/2022 5:28PM By Adrianne Pena MD ; [facility] Turmeric 400 MG OR CAPS 10/19/2018 - 02/10/2019 Provid er: Diagnosis: 2 caps in the morning and 1 cap in the evening Parker Alfonso Last Documented On 07/19/2022 5:28PM By SHANTEL CRUZ ; [facility] Geodon 20 MG OR CAPS 10/19/2018 - 02/10/2019 Provider: VERÓNICA PENA MD Diagnosis: Bipolar disorder , current episode depressed, moderate 1 capsule daily --reduce to 1 every other day for 3 weeks then d/c Last Documented On 07/19/2022 5:28PM By Adrianne Pena MD ; [facility] LaMICtal 100 MG OR TABS 10/19/2018 - 08/08/2019 Provider: VERÓNICA DORSEY MD Diagnosis: Bipolar disord, crnt epsd depress, mild or mod severt, unsp One tablet daily Last Documented On 07/19/2022 5:28PM By Adrianne Pena MD ; [facility] Pristiq 50 MG OR TB24 10/19/2018 - 07/04/2019 Provider: VERÓNICA DORSEY MD Diagnosis: Major depressive disorder, recurrent, unspecified One tablet daily Last Documented On 07/19/2022 5:28PM By Adrianne Pena MD ; [facility] Lexapro 20 MG OR TABS 10/19/2018 - 02/10/2019 Provider: VERÓNICA DORSEY MD Diagnosis: Major depressive disorder, recurrent, unspecified One tablet daily -- please give GENERIC Last Documented On 07/19/2022 5:28PM By Adrianne Pena MD ; [facility] traZODone HCl 50 MG OR TABS 10/19/2018 - 02/10/2019 Provider: VERÓNICA PENA MD Diagnosis: Psychophysiologi c insomnia TAKE ONE TABLET BY MOUTH AT BEDTIME Last Documented On 07/19/2022 5:28PM By Adrianne Pena MD ; [facility] busPIRone HCl 10 MG OR TABS 10/19/2018 - 08/08/2019 Provider: VERÓNICA PENA MD Diagnosis: Generalized anxi ety disorder One tablet at bed time Last Documented On 07/19/2022 5:28PM By Adrianne Pena MD ; [facility] Magnesium Oxide 500 MG OR TABS 10/19/2018 - 2019 Provider: Diagnosis: 3 tabs daily in the morning from Dr. Patel Last Documented On 07/19/2022 5:28PM By SHANTEL CRUZ ; [facility] raNITIdine HCl 300 MG OR TABS 08/13/2018 - 02/10/2019 Provider: Diagnosis: 1 tab at hs Last Documented On 07/19/2022 5:28PM By SHANTEL CRUZ ; [facility] hydrOXYzine HCl 25 MG OR TABS 08/13/2018 - 10/19/2018 Provider: Diagnosis: use as directed for itching Last Documented On 07/19/2022 5:28PM By SHANTEL CRUZ ; [facility] busPIRone HCl 10 MG OR TABS 07/12/2018 - 10/19/2018 Provider: VERÓNICA PENA MD Diagnosis: Generalized anxi ety disorder One tablet at bed time Last Documented On 07/19/2022 5:28PM By Adrianne Pena MD ; [facility] Lexapro 20 MG OR TABS 07/10/2018 - 10/19/2018 Provider: VERÓNICA DORSEY MD Diagnosis: Major depressive disorder, recurrent, unspecified One tablet daily -- please give GENERIC Last Documented On 07/19/2022 5:28PM By Adrianne Pena MD ; [facility] traZODone HCl 50 MG OR TABS 07/10/2018 - 10/19/2018 Provider: VERÓNICA PENA MD Diagnosis: Psychophysiologi c insomnia TAKE ONE TABLET BY MOUTH AT BEDTIME Last Documented On 07/19/2022 5:28PM By Adrianne Pena MD ; [facility] busPIRone HCl 10 MG OR TABS 07/10/2018 - 07/12/2018 Provider: VERÓNICA PENA MD Diagnosis: Generalized anxi ety disorder One tablet at bed time Last Documented On 07/19/2022 5:28PM By Adrianne Pena MD ; [facility] B Complex OR TABS 07/10/2018 - 08/09/2018 Provider: VERÓNICA PENA MD Diagnosis: Deficiency of ot her specified B group vitamins as directed [address] Marcel Zuñiga Last Documented On 07/19/2022 5:28PM By Adrianne Pena MD ; [facility] LaMICtal 100 MG OR TABS 07/10/2018 - 10/19/2018 Provider: VERÓNICA DORSEY MD Diagnosis: Bipolar disord, crnt epsd depress, mild or mod severt, unsp One tablet daily Last Documented On 07/19/2022 5:28PM By Adrianne Pena MD ; [facility] Homocysteine Support OR CAPS 07/09/2018 - 10/19/2018 Paulette lay: Diagnosis: 1 cap tid (multivitamin) by Dr. Marcel Zuñiga Last Documented On 07/19/2022 5:28PM By SHANTEL CRUZ ; [facility] Geodon 20 MG OR CAPS 07/09/2018 - 10/19/2018 Provider: VERÓNICA PENA MD Diagnosis: Bipolar disorder , current episode depressed, moderate 1 capsule daily Last Documented On 07/19/2022 5:28PM By Adrianne Pena MD ; [facility] B Complex OR TABS 07/09/2018 - 07/09/2018 Provider: Diagnosis: [address] Marcel Zuñiga Last Documented On 07/19/2022 5:28PM By SHANTEL CRUZ ; [facility] Pristiq 50 MG OR TB24 07/09/2018 - 10/19/2018 Provider: VERÓNICA DORSEY MD Diagnosis: Major depressive disorder, recurrent, unspecified One tablet daily Last Documented On 07/19/2022 5:28PM By Adrianne Pena MD ; [facility] Latanoprost 0.005% OP SOLN 05/20/2018 - 02/10/2019 Pro vider: Diagnosis: use as directed Last Documented On 07/19/2022 5:28PM By SHANTEL CRUZ ; [facility] LaMICtal 100 MG OR TABS 04/26/2018 - 07/09/2018 Provider: VERÓNICA DORSEY MD Diagnosis: Bipolar disord, crnt epsd depress, mild or mod severt, unsp One tablet daily Last Documented On 07/19/2022 5:28PM By Adrianne Pena MD ; [facility] traZODone HCl 50 MG OR TABS 02/17/2018 - 07/09/2018 Provider: VERÓNICA PENA MD Diagnosis: Psychophysiologi c insomnia TAKE ONE TABLET BY MOUTH AT BEDTIME Last Documented On 07/19/2022 5:28PM By Adrianne Pena MD ; [facility] Lexapro 20 MG OR TABS 02/09/2018 - 07/09/2018 Provider: VERÓNICA DORSEY MD Diagnosis: Generalized anxi ety disorder One tablet daily -- please give GENERIC Last Documented On 07/19/2022 5:28PM By Adrianne Pena MD ; [facility] Geodon 40 MG OR CAPS 02/09/2018 - 02/10/2019 Provider: VERÓNICA PENA MD Diagnosis: Bipolar disorder , current episode depressed, moderate 1 capsule daily Last Documented On 07/19/2022 5:28PM By Adrianne Pena MD ; [facility] busPIRone HCl 10 MG OR TABS 02/09/2018 - 07/09/2018 Provider: VERÓNICA PENA MD Diagnosis: Generalized anxi ety disorder One tablet at bed time Last Documented On 07/19/2022 5:28PM By Adrianne Pena MD ; [facility] Lexapro 20 MG OR TABS 11/30/2017 - 02/09/2018 Provider: VERÓNICA DORSEY MD Diagnosis: Generalized anxi ety disorder One tablet daily -- please give GENERIC Last Documented On 07/19/2022 5:28PM By Adrianne Pena MD ; [facility] traZODone HCl 50 MG OR TABS 11/30/2017 - 02/17/2018 Provider: VERÓNICA PENA MD Diagnosis: Psychophysiologi c insomnia TAKE ONE TABLET BY MOUTH AT BEDTIME Last Documented On 07/19/2022 5:28PM By Adrianne Pena MD ; [facility] Pristiq 50 MG OR TB24 11/30/2017 - 07/09/2018 Provider: VERÓNICA DORSEY MD Diagnosis: Major depressive disorder, recurrent, unspecified One tablet daily Last Documented On 07/19/2022 5:28PM By Adrianne Pena MD ; [facility] LaMICtal 100 MG OR TABS 11/30/2017 - 04/26/2018 Provider: VERÓNICA DORSEY MD Diagnosis: Bipolar disord, crnt epsd depress, mild or mod severt, unsp One tablet daily Last Documented On 07/19/2022 5:28PM By Adrianne Pena MD ; [facility] busPIRone HCl 10 MG OR TABS 11/30/2017 - 02/09/2018 Provider: VERÓNICA PENA MD Diagnosis: Generalized anxi ety disorder One tablet at bed time Last Documented On 07/19/2022 5:28PM By Adrianne Pena MD ; [facility] DULoxetine HCl 60 MG OR CPEP 11/30/2017 - 07/09/2018 Provider: VERÓNICA PENA MD Diagnosis: Major depressive disorder, recurrent, unspecified 2 once a day -- Dr. Olivarez -- for fibromyalgia Last Documented On 07/19/2022 5:28PM By Adrianne Pena MD ; [facility] Metoprolol Tartrate 50 MG OR TABS 11/27/2017 - 020 Provider: Diagnosis: Last Documented On 07/19/2022 5:28PM By TAMERA PETTIT ; [facility] busPIRone HCl 10 MG OR TABS 11/13/2017 - 11/27/2017 Provider: VERÓNICA PENA MD Diagnosis: Generalized anxi ety disorder One tablet at bed time Last Documented On 07/19/2022 5:28PM By Adrianne Pena MD ; [facility] Lexapro 20 MG OR TABS 11/13/2017 - 11/27/2017 Provider: VERÓNICA DORSEY MD Diagnosis: Major depressive disorder, recurrent, unspecified One tablet daily -- please give GENERIC Last Documented On 07/19/2022 5:28PM By Adrianne Pena MD ; [facility] DULoxetine HCl 60 MG OR CPEP 11/08/2017 - 11/27/2017 Paulette lay: Diagnosis: Last Documented On 07/19/2022 5:28PM By TAMERA PETTIT ; [facility] Lyrica 75 MG OR CAPS 10/31/2017 - 07/09/2018 Provider: Diagnosis: Last Documented On 07/19/2022 5:28PM By TAMERA PETTIT ; [facility] Lexapro 20 MG OR TABS 05/21/2017 - 11/13/2017 Provider: VERÓNICA DORSEY MD Diagnosis: Major depressive disorder, recurrent, unspecified One tablet daily -- please give GENERIC Last Documented On 07/19/2022 5:28PM By Adrianne Pena MD ; [facility] Lexapro 20 MG OR TABS 05/21/2017 - 05/21/2017 Provider: VERÓNICA DORSEY MD Diagnosis: Major depressive disorder, recurrent, unspecified One tablet daily -- please give GENERIC Last Documented On 07/19/2022 5:28PM By Adrianne Pena MD ; [facility] busPIRone HCl 10 MG OR TABS 05/21/2017 - 11/13/2017 Provider: VERÓNICA PENA MD Diagnosis: Generalized anxi ety disorder One tablet at bed time Last Documented On 07/19/2022 5:28PM By Adrianne Pena MD ; [facility] Geodon 40 MG OR CAPS 05/21/2017 - 02/09/2018 Provider: VERÓNICA PENA MD Diagnosis: Bipolar disorder , current episode depressed, moderate 1 capsule daily Last Documented On 07/19/2022 5:28PM By Adrianne Pena MD ; [facility] Pristiq 50 MG OR TB24 04/26/2017 - 11/27/2017 Provider: VERÓNICA DORSEY MD Diagnosis: Major depressive disorder, recurrent, unspecified One tablet daily Last Documented On 07/19/2022 5:28PM By Adrianne Pena MD ; [facility] DULoxetine HCl 60 MG OR CPEP 04/26/2017 - 02/11/2023 Provider: VERÓNICA PENA MD Diagnosis: Generalized anxi ety disorder 1 capsule daily Last Documented On 02/11/2023 2:58PM By TAMERA PETTIT ; [facility] Geodon 40 MG OR CAPS 04/26/2017 - 05/21/2017 Provider: VERÓNICA PENA MD Diagnosis: Bipolar disorder , current episode depressed, moderate 1 capsule daily --alexander jeanmarie campa is not on her pharmacy list Last Documented On 07/19/2022 5:28PM By Adrianne Pena MD ; [facility] LaMICtal 100 MG OR TABS 04/26/2017 - 11/27/2017 Provider: VERÓNICA DORSEY MD Diagnosis: Bipolar disord, crnt epsd depress, mild or mod severt, unsp One tablet daily Last Documented On 07/19/2022 5:28PM By Adrianne Pena MD ; [facility] traZODone HCl 50 MG OR TABS 04/26/2017 - 11/27/2017 Provider: VERÓNICA PENA MD Diagnosis: Psychophysiologi c insomnia TAKE ONE TABLET BY MOUTH AT BEDTIME Last Documented On 07/19/2022 5:28PM By Adrianne Pena MD ; [facility] Gabapentin 300 MG OR CAPS 04/07/2017 - 11/27/2017 Prov ider: Diagnosis: Last Documented On 3 5:28PM By CINDY CRUZ ; [facility] Toprol XL 50 MG OR TB24 04/07/2017 - 11/27/2017 Provid er: Diagnosis: Last Documented On 3 5:28PM By CINDY CRUZ ; [facility] DULoxetine HCl 60 MG OR CPEP 04/07/2017 - 04/07/2017 P rovider: Diagnosis: Last Documented On 3 5:28PM By CINDY CRUZ ; [facility] traZODone HCl 50 MG OR TABS 11/30/2016 - 04/07/2017 Provider: VERÓNICA PENA MD Diagnosis: Psychophysiologi c insomnia TAKE ONE TABLET BY MOUTH AT BEDTIME Last Documented On 07/19/2022 5:28PM By Adrianne Pena MD ; [facility] LaMICtal 100 MG OR TABS 11/03/2016 - 04/07/2017 Provider: VERÓNICA DORSEY MD Diagnosis: Bipolar disord, crnt epsd depress, mild or mod severt, unsp One tablet daily Last Documented On 07/19/2022 5:28PM By Adrianne Pena MD ; [facility] Gabapentin 600 MG OR TABS 09/23/2016 - 04/07/2017 Prov ider: Diagnosis: 2 at bedtime -- Dr. Olivarez Last Documented On 07/19/2022 5:28PM By Adrianne Pena MD ; [facility] Geodon 40 MG OR CAPS 09/23/2016 - 04/07/2017 Provider: VERÓNICA PENA MD Diagnosis: Bipolar disorder , current episode depressed, moderate 1 capsule daily Last Documented On 07/19/2022 5:28PM By Adrianne Pena MD ; [facility] traZODone HCl 50 MG OR TABS 09/23/2016 - 11/30/2016 Provider: VERÓNICA PENA MD Diagnosis: Psychophysiologi c insomnia One tablet at bed time Last Documented On 07/19/2022 5:28PM By Adrianne Pena MD ; [facility] Pristiq 50 MG OR TB24 09/23/2016 - 04/07/2017 Provider: VERÓNICA DORSEY MD Diagnosis: Generalized anxi ety disorder One tablet daily Last Documented On 07/19/2022 5:28PM By Adrianne Pena MD ; [facility] busPIRone HCl 10 MG OR TABS 09/23/2016 - 05/21/2017 Provider: VERÓNICA PENA MD Diagnosis: Generalized anxi ety disorder One tablet at bed time Last Documented On 07/19/2022 5:28PM By Adrianne Pena MD ; [facility]QL Omeprazole 20 MG OR TBEC 07/30/2016 - 07/09/2018 P rovider: Diagnosis: as needed Last Documented On 07/19/2022 5:28PM By Adrianne Pena MD ; [facility] traMADol HCl 50 MG OR TABS 07/30/2016 - 04/07/2017 Pro vider: Diagnosis: 1 a day as needed for pain Last Documented On 07/19/2022 5:28PM By Adrianne Pena MD ; [facility] traZODone HCl 50 MG OR TABS 01/29/2016 - 07/30/2016 Provider: VERÓNICA DORSEY MD Diagnosis: Oth insomnia not due to a substance or known physiol cond One tablet at bed time Last Documented On 07/19/2022 5:28PM By Adrianne Pena MD ; [facility] Geodon 40 MG OR CAPS 01/29/2016 - 07/30/2016 Provider: VERÓNICA PENA MD Diagnosis: Bipolar disord, crnt epsd depress, mild or mod severt, unsp 1 capsule daily Last Documented On 07/19/2022 5:28PM By Adrianne Pena MD ; [facility] Pristiq 50 MG OR TB24 01/29/2016 - 07/30/2016 Provider: VERÓNICA DORSEY MD Diagnosis: Generalized anxi ety disorder One tablet daily Last Documented On 07/19/2022 5:28PM By Adrianne Pena MD ; [facility] busPIRone HCl 10 MG OR TABS 01/29/2016 - 07/30/2016 Provider: VERÓNICA PENA MD Diagnosis: Generalized anxi ety disorder One tablet at bed time Last Documented On 07/19/2022 5:28PM By Adrianne Pena MD ; [facility] LaMICtal 100 MG OR TABS 01/29/2016 - 11/03/2016 Provider: VERÓNICA DORSEY MD Diagnosis: Bipolar disord, crnt epsd depress, mild or mod severt, unsp One tablet daily Last Documented On 07/19/2022 5:28PM By Adrianne Pena MD ; [facility] Calcium 500/D 500-400 MG-UNIT OR CHEW 01/29/2016 - Provider: Diagnosis: Last Documented On 07/19/2022 5:28PM By Adrianne Pena MD ; [facility] Lexapro 20 MG OR TABS 07/24/2015 - 05/21/2017 Provider: VERÓNICA DORSEY MD Diagnosis: Generalized anxi ety disorder One tablet daily Last Documented On 07/19/2022 5:28PM By Adrianne Pena MD ; [facility] LaMICtal 100 MG OR TABS 07/24/2015 - 01/29/2016 Provider: VERÓNICA DORSEY MD Diagnosis: Bipolar disord, crnt epsd depress, mild or mod severt, unsp One tablet daily Last Documented On 07/19/2022 5:28PM By Adrianne Pena MD ; [facility] Mucinex DM 30-600 MG OR TB12 07/24/2015 - 01/29/2016 P rovider: Diagnosis: Last Documented On 07/19/2022 5:28PM By Adrianne Pena MD ; [facility] Geodon 40 MG OR CAPS 07/24/2015 - 01/29/2016 Provider: VERÓNICA PENA MD Diagnosis: Bipolar disord, crnt epsd depress, mild or mod severt, unsp 1 capsule daily Last Documented On 07/19/2022 5:28PM By Adrianne Pena MD ; [facility] traZODone HCl 50 MG OR TABS 07/24/2015 - 01/29/2016 Provider: VERÓNICA DORSEY MD Diagnosis: Oth insomnia not due to a substance or known physiol cond One tablet at bed time Last Documented On 07/19/2022 5:28PM By Adrianne Pena MD ; [facility] Topiramate 25 MG OR TABS 07/24/2015 - 07/30/2016 Provi cory: Diagnosis: 1 twice a day Last Documented On 07/19/2022 5:28PM By JOO LACEY LPN ; [facility] Pristiq 50 MG OR TB24 07/24/2015 - 01/29/2016 Provider: VERÓNICA DORSEY MD Diagnosis: Generalized anxi ety disorder One tablet daily Last Documented On 07/19/2022 5:28PM By Adrianne Pena MD ; [facility] EpiPen 2-Ta 0.3 MG/0.3ML IJ SOAJ 07/24/2015 - 018 Provider: Diagnosis: Last Documented On 07/19/2022 5:28PM By Adrianne Pena MD ; [facility] busPIRone HCl 10 MG OR TABS 07/24/2015 - 01/29/2016 Provider: VERÓNICA PENA MD Diagnosis: Generalized anxi ety disorder One tablet at bed time Last Documented On 07/19/2022 5:28PM By Adrianne Pena MD ; [facility] HM Vitamin B12 1000 MCG OR TBCR 02/01/2015 - 07/09/201 9 Provider: Diagnosis: 1 tab under the tongue once a day Last Documented On 07/19/2022 5:28PM By Adrianne Pena MD ; [facility] Geodon 40 MG OR CAPS 02/01/2015 - 07/24/2015 Provider: VERÓNICA PENA MD Diagnosis: Bipolar disord, crnt epsd depress, mild or mod severt, unsp 1 capsule daily Last Documented On 07/19/2022 5:28PM By Adrianne Pena MD ; [facility] traZODone HCl 50 MG OR TABS 02/01/2015 - 07/24/2015 Provider: VERÓNICA DORSEY MD Diagnosis: Oth insomnia not due to a substance or known physiol cond One tablet at bed time Last Documented On 07/19/2022 5:28PM By Adrianne Pena MD ; [facility] LaMICtal 100 MG OR TABS 02/01/2015 - 07/24/2015 Provider: VERÓNICA DORSEY MD Diagnosis: Bipolar disord, crnt epsd depress, mild or mod severt, unsp One tablet daily Last Documented On 07/19/2022 5:28PM By Adrianne Pena MD ; [facility] busPIRone HCl 10 MG OR TABS 02/01/2015 - 07/24/2015 Provider: VERÓNICA PENA MD Diagnosis: Generalized anxi ety disorder One tablet at bed time Last Documented On 07/19/2022 5:28PM By Adrianne Pena MD ; [facility] Lexapro 20 MG OR TABS 02/01/2015 - 07/24/2015 Provider: VERÓNICA DORSEY MD Diagnosis: Generalized anxi ety disorder One tablet daily Last Documented On 07/19/2022 5:28PM By Adrianne Pena MD ; [facility] Pristiq 50 MG OR TB24 02/01/2015 - 07/24/2015 Provider: VERÓNICA DORSEY MD Diagnosis: Generalized anxi ety disorder One tablet daily Last Documented On 07/19/2022 5:28PM By Adrianne Pena MD ; [facility] Klonopin 0.5mg OR WAFR 02/01/2015 - 10/26/2020 Provider: VERÓNICA DORSEY MD Diagnosis: Bipolar disorder , current episode depressed, moderate as directed --- 1 a day as n eeded for anxiety -- for the future when pt calls -- she prefers the wafer (sublingual) Last Documented On 07/19/2022 5:28PM By Adrianne Pena MD ; [facility] Geodon 40 MG OR CAPS 09/28/2014 - 02/01/2015 Provider: VERÓNICA PENA MD Diagnosis: BIPOL I CUR DEPR ES NOS 1 capsule daily Last Documented On 07/19/2022 5:28PM By Adrianne Pena MD ; [facility] busPIRone HCl 10 MG OR TABS 09/28/2014 - 02/01/2015 Provider: VERÓNICA PENA MD Diagnosis: GENERALIZED ANXI ETY DIS One tablet at bed time Last Documented On 07/19/2022 5:28PM By Adrianne Pena MD ; [facility] Pristiq 50 MG OR TB24 09/28/2014 - 02/01/2015 Provider: VERÓNICA DORSEY MD Diagnosis: GENERALIZED ANXI ETY DIS One tablet daily Last Documented On 07/19/2022 5:28PM By Adrianne Pena MD ; [facility] Lexapro 20 MG OR TABS 09/28/2014 - 02/01/2015 Provider: VERÓNICA DORSEY MD Diagnosis: GENERALIZED ANXI ETY DIS One tablet daily Last Documented On 07/19/2022 5:28PM By Adrianne Pena MD ; [facility] LaMICtal 100 MG OR TABS 09/28/2014 - 02/01/2015 Provider: VERÓNICA DORSEY MD Diagnosis: BIPOL I CUR DEPR ES NOS One tablet daily Last Documented On 07/19/2022 5:28PM By Adrianne Pena MD ; [facility] traZODone HCl 50 MG OR TABS 09/28/2014 - 02/01/2015 Provider: VERÓNICA DORSEY MD Diagnosis: PERSISTENT INSOM PADMA One tablet at bed time Last Documented On 07/19/2022 5:28PM By Adrianne Pena MD ; [facility] Fruity Chewables Multivitamin OR CHEW 09/28/2014 - Provider: Diagnosis: 2 a day Last Documented On 07/19/2022 5:28PM By Adrianne Pena MD ; [facility] Geodon 40 MG OR CAPS 06/22/2014 - 09/28/2014 Provider: VERÓNICA PENA MD Diagnosis: BIPOL I CUR DEPR ES NOS 1 capsule daily Last Documented On 07/19/2022 5:28PM By Adrianne Pena MD ; [facility] traZODone HCl 50 MG OR TABS 06/22/2014 - 09/28/2014 Provider: VERÓNICA DORSEY MD Diagnosis: PERSISTENT INSOM PADMA One tablet at bed time Last Documented On 07/19/2022 5:28PM By Adrianne Pena MD ; [facility] Pristiq 50 MG OR TB24 06/22/2014 - 09/28/2014 Provider: VERÓNICA DORSEY MD Diagnosis: GENERALIZED ANXI ETY DIS One tablet daily Last Documented On 07/19/2022 5:28PM By Adrianne Pena MD ; [facility] LaMICtal 100 MG OR TABS 06/22/2014 - 09/28/2014 Provider: VERÓNICA DORSEY MD Diagnosis: BIPOL I CUR DEPR ES NOS One tablet daily Last Documented On 07/19/2022 5:28PM By Adrianne Pena MD ; [facility] Lexapro 20 MG OR TABS 06/22/2014 - 09/28/2014 Provider: VERÓNICA DORSEY MD Diagnosis: GENERALIZED ANXI ETY DIS One tablet daily Last Documented On 07/19/2022 5:28PM By Adrianne Pena MD ; [facility] B Complex-B12 OR TABS 06/22/2014 - 02/01/2015 Provider : Diagnosis: sub lingual 1 daily Last Documented On 07/19/2022 5:28PM By Adrianne Pena MD ; [facility] busPIRone HCl 10 MG OR TABS 06/22/2014 - 09/28/2014 Provider: VERÓNICA PENA MD Diagnosis: GENERALIZED ANXI ETY DIS One tablet at bed time Last Documented On 07/19/2022 5:28PM By Adrianne Pena MD ; [facility] Fruity Chewables Multivitamin OR CHEW 06/22/2014 - 02/2015 Provider: Diagnosis: 2 a day Last Documented On 07/19/2022 5:28PM By Adrianne Pena MD ; [facility] LaMICtal 100 MG OR TABS 05/17/2014 - 06/22/2014 Provider: VERÓNICA DORSEY MD Diagnosis: BIPOL I CUR DEPR ES NOS Last Documented On 07/19/2022 5:28PM By Adrianne Pena MD ; [facility] busPIRone HCl 10 MG OR TABS 04/20/2014 - 06/22/2014 Provider: VERÓNICA PENA MD Diagnosis: GENERALIZED ANXI ETY DIS 1 at night Last Documented On 07/19/2022 5:28PM By Adrianne Pena MD ; [facility] Omeprazole 40 MG OR CPDR 03/25/2014 - 09/28/2014 Provi cory: Diagnosis: Last Documented On 07/19/2022 5:28PM By JOO LACEY LPN ; [facility] Geodon 40 MG OR CAPS 03/13/2014 - 06/22/2014 Provider: VERÓNICA PENA MD Diagnosis: BIPOL I CUR DEPR ES NOS Last Documented On 07/19/2022 5:28PM By Adrianne Pena MD ; [facility] busPIRone HCl 10 MG OR TABS 03/02/2014 - 04/20/2014 Provider: VERÓNICA PENA MD Diagnosis: GENERALIZED ANXI ETY DIS 1 at night and 1/2 tab a day for anxiety Last Documented On 07/19/2022 5:28PM By Adrianne Pena MD ; [facility] Geodon 40 MG OR CAPS 03/02/2014 - 03/13/2014 Provider: VERÓNICA PENA MD Diagnosis: BIPOL I CUR DEPR ES NOS Last Documented On 07/19/2022 5:28PM By Adrianne Pena MD ; [facility] Lexapro 20 MG OR TABS 03/02/2014 - 06/22/2014 Provider: VERÓNICA DORSEY MD Diagnosis: GENERALIZED ANXI ETY DIS Last Documented On 07/19/2022 5:28PM By Adrianne Pena MD ; [facility] traZODone HCl 50 MG OR TABS 03/02/2014 - 06/22/2014 Provider: VERÓNICA DORSEY MD Diagnosis: PERSISTENT INSOM PADMA Last Documented On 07/19/2022 5:28PM By Adrianne Pnea MD ; [facility] LaMICtal 100 MG OR TABS 11/11/2013 - 05/17/2014 Provider: VERÓNICA DORSEY MD Diagnosis: BIPOL I CUR DEPR ES NOS Last Documented On 07/19/2022 5:28PM By Adrianne Pena MD ; [facility] busPIRone HCl 10 MG OR TABS 11/11/2013 - 03/02/2014 Provider: VERÓNICA PENA MD Diagnosis: GENERALIZED ANXI ETY DIS 1 at night and 1/2 tab a day for anxiety Last Documented On 07/19/2022 5:28PM By Adrianne Pena MD ; [facility] Lexapro 20 MG OR TABS 11/11/2013 - 03/02/2014 Provider: VERÓNICA DORSEY MD Diagnosis: GENERALIZED ANXI ETY DIS Last Documented On 07/19/2022 5:28PM By Adrianne Pena MD ; [facility] Pristiq 50 MG OR TB24 11/11/2013 - 06/22/2014 Provider: VERÓNICA DORSEY MD Diagnosis: GENERALIZED ANXI ETY DIS Last Documented On 07/19/2022 5:28PM By Adrianne Pena MD ; [facility] Geodon 40 MG OR CAPS 11/10/2013 - 03/02/2014 Provider: VERÓNICA PENA MD Diagnosis: BIPOL I CUR DEPR ES NOS Last Documented On 07/19/2022 5:28PM By Adrianne Pena MD ; [facility] Allopurinol 100 MG OR TABS 09/30/2013 - 07/09/2018 Pro vider: Diagnosis: one tablet twice a day Last Documented On 07/19/2022 5:28PM By PERNELL CRUZ ; [facility] busPIRone HCl 10 MG OR TABS 09/30/2013 - 11/10/2013 Pr ovider: Diagnosis: 1 at night and 1/2 during the day Last Documented On 07/19/2022 5:28PM By PERNELL CRUZ ; [facility] Geodon 20 MG IM SOLR 07/07/2013 - 03/02/2014 Provider: VERÓNICA PENA MD Diagnosis: BIPOL I CUR DEPR ES NOS 1 capsule at bedtime Last Documented On 07/19/2022 5:28PM By Adrianne Pena MD ; [facility] traZODone HCl 50 MG OR TABS 07/07/2013 - 03/02/2014 Provider: VERÓNICA DORSEY MD Diagnosis: PERSISTENT INSOM PADMA Last Documented On 07/19/2022 5:28PM By Adrianne Pena MD ; [facility] Lexapro 20 MG OR TABS 07/07/2013 - 11/10/2013 Provider: VERÓNICA DORSEY MD Diagnosis: GENERALIZED ANXI ETY DIS Last Documented On 07/19/2022 5:28PM By Adrianne Pena MD ; [facility] Pristiq 50 MG OR TB24 07/07/2013 - 11/10/2013 Provider: VERÓNICA DORSEY MD Diagnosis: BIPOL I CUR DEPR ES NOS Last Documented On 07/19/2022 5:28PM By Adrianne Pena MD ; [facility] LaMICtal 100 MG OR TABS 07/07/2013 - 11/10/2013 Provider: VERÓNICA DORSEY MD Diagnosis: BIPOL I CUR DEPR ES NOS Last Documented On 07/19/2022 5:28PM By Adrianne Pena MD ; [facility] traZODone HCl 50 MG OR TABS 03/08/2013 - 07/07/2013 Provider: VERÓNICA DORSEY MD Diagnosis: PERSISTENT INSOM PADMA Last Documented On 07/19/2022 5:28PM By Adrianne Pena MD ; [facility] Lexapro 20 MG OR TABS 03/08/2013 - 07/07/2013 Provider: VERÓNICA DORSEY MD Diagnosis: GENERALIZED ANXI ETY DIS Last Documented On 07/19/2022 5:28PM By Adrianne Pena MD ; [facility] Pristiq 50 MG OR TB24 03/08/2013 - 07/07/2013 Provider: VERÓNICA DORSEY MD Diagnosis: BIPOL I CUR DEPR ES NOS Last Documented On 07/19/2022 5:28PM By Adrianne Pena MD ; [facility] LaMICtal 100 MG OR TABS 03/08/2013 - 07/07/2013 Provider: VERÓNICA DORSEY MD Diagnosis: BIPOL I CUR DEPR ES NOS Last Documented On 07/19/2022 5:28PM By Adrianne Pena MD ; [facility] Geodon 20 MG IM SOLR 03/08/2013 - 07/07/2013 Provider: VERÓNICA PENA MD Diagnosis: BIPOL I CUR DEPR ES NOS 1 capsule at bedtime To --ph armacist--do not give 40 mg anymore--she just takes 20 mg at bedtime Last Documented On 07/19/2022 5:28PM By Adrianne Pena MD ; [facility] Geodon 20 MG IM SOLR 10/28/2012 - 03/08/2013 Provider: VERÓNICA PENA MD Diagnosis: BIPOL I CUR DEPR ES NOS 1 capsule at bedtime Last Documented On 07/19/2022 5:28PM By Adrianne Pena MD ; [facility] Lexapro 20 MG OR TABS 10/28/2012 - 03/08/2013 Provider: VERÓNICA DORSEY MD Diagnosis: GENERALIZED ANXI ETY DIS Last Documented On 07/19/2022 5:28PM By Adrianne Pena MD ; [facility] traZODone HCl 50 MG OR TABS 10/28/2012 - 03/08/2013 Provider: VERÓNICA DORSEY MD Diagnosis: INSOMNIA DT MENT AL DISOR 1 tablet at bedtime as needed for sleep Last Documented On 07/19/2022 5:28PM By Adrianne Pena MD ; [facility] Lasix 20 MG OR TABS 10/28/2012 - 06/22/2014 Provider: Diagnosis: Last Documented On 07/19/2022 5:28PM By PERNELL CRUZ ; [facility] LaMICtal 100 MG OR TABS 10/28/2012 - 03/08/2013 Provider: VERÓNICA DORSEY MD Diagnosis: BIPOL I CUR DEPR ES NOS Last Documented On 07/19/2022 5:28PM By Adrianne Pena MD ; [facility] Pristiq 50 MG OR TB24 10/28/2012 - 03/08/2013 Provider: VERÓNICA DORSEY MD Diagnosis: BIPOL I CUR DEPR ES NOS Last Documented On 07/19/2022 5:28PM By Adrianne Pena MD ; [facility] Fish Oil 1200 MG OR CAPS 07/15/2012 - 06/22/2014 P chaseder: Diagnosis: Last Documented On 07/19/2022 5:28PM By PERNELL JUNE ; [facility] Multivitamins OR TABS 07/15/2012 - 07/15/2012 Provider : Diagnosis: Last Documented On 07/19/2022 5:28PM By PERNELL JUNE ; [facility] Lisinopril 5 MG OR TABS 07/15/2012 - 09/28/2014 Provid er: Diagnosis: Last Documented On 07/19/2022 5:28PM By PERNELL JUNE ; [facility] Vytorin 10-40 MG OR TABS 07/15/2012 - 07/24/2015 Provi cory: Diagnosis: Last Documented On 07/19/2022 5:28PM By PERNELL JUNE ; [facility] LaMICtal 100 MG OR TABS 07/15/2012 - 10/28/2012 Provider: VERÓNICA DORSEY MD Diagnosis: BIPOL I CUR DEPR ES NOS Last Documented On 07/19/2022 5:28PM By Adrianne Pena MD ; [facility] Geodon 40 MG OR CAPS 07/15/2012 - 03/08/2013 Provider: VERÓNICA PENA MD Diagnosis: BIPOL I CUR DEPR ES NOS 1 capsule at bedtime Last Documented On 07/19/2022 5:28PM By Adrianne Pena MD ; [facility] KlonoPIN 0.5 MG OR TABS 07/15/2012 - 11/10/2013 Provider: VERÓNICA DORSEY MD Diagnosis: PANIC DIS W/O AGORPHOBIA 1 tablet daily as needed for anxiety Last Documented On 07/19/2022 5:28PM By Adrianne Pena MD ; [facility] traZODone HCl 50 MG OR TABS 07/15/2012 - 10/28/2012 Provider: VERÓNICA DORSEY MD Diagnosis: INSOMNIA DT MENT AL DISOR 1 tablet at bedtime as needed for sleep Last Documented On 07/19/2022 5:28PM By Adrianne Pena MD ; [facility] Lexapro 20 MG OR TABS 07/15/2012 - 10/28/2012 Provider: VERÓNICA DORSEY MD Diagnosis: GENERALIZED ANXI ETY DIS Last Documented On 07/19/2022 5:28PM By Adrianne Pena MD ; [facility] Geodon 40 MG OR CAPS 06/08/2012 - 07/15/2012 Provider: Diagnosis: 1 capsule at bedtime Last Documented On 07/19/2022 5:28PM By PERNELL JUNE ; [facility] Lexapro 20 MG OR TABS 06/08/2012 - 07/15/2012 Provider : Diagnosis: Last Documented On 07/19/2022 5:28PM By PERNELL JUNE ; [facility] Pristiq 50 MG OR TB24 06/08/2012 - 10/28/2012 Provider : Diagnosis: Last Documented On 07/19/2022 5:28PM By PERNELL JUNE ; [facility] LaMICtal 100 MG OR TABS 06/08/2012 - 07/15/2012 Provid er: Diagnosis: Last Documented On 07/19/2022 5:28PM By PERNELL JUNE ; [facility] KlonoPIN 0.5 MG OR TABS 06/08/2012 - 07/15/2012 Provid er: Diagnosis: 1 tablet daily as needed for anxiety Last Documented On 07/19/2022 5:28PM By PERNELL JUNE ; [facility] traZODone HCl 50 MG OR TABS 06/08/2012 - 07/15/2012 Pr ovider: Diagnosis: 1 tablet at bedtime as needed for sleep Last Documented On 07/19/2022 5:28PM By PERNELL JUNE ; [facility] Medications Administered Includes: Administered Medications in patient's chart No Administered Medications Recorded Vital Signs Includes: Vital Signs from 05/04/2023 through 05/04/2024 Vital Name 05/27/2023 11:28A Body Surface Area 2.1 Blood Pressure Sitting L 117/76 BP Cuff Size Regular Pulse Rate-Sitting (bpm) 80 Pulse Rhythm Regular Height (in) 66 Weight (lb) 219 Body Mass Index 35.3 Note: self reported vitals Last Documented: On 05/27/2023 11:28A M ; [facility] Results Includes: Results from 05/04/2023 through 05/04/2024 No Results Recorded For Specified Dates History of Present Illness History of Present Illness not supported for this document type No History of Present Illness Recorded Social History Description Last Updated Former smoker - quit smoking in 08/2023 Last Documented On 6:50AM ; [facility] Smoking Status Unknown Procedures and Surgical History Includes: Procedures from 05/04/2023 through 05/04/2024 Procedures Code Diagnosis Performing Provider Service Location Service Date PSYCHOTHERAPY 45 MIN W/ PT-WHEN PERFMD WITH E/ [id number] Major depressive disorder, recurrent, unspecified, Generalized anxiety disorder, Attn-defct hyperactivity disorder, predom inattentive type, Psychophysiologic insomnia VERÓNICA PENA MD [facility] 05/27/2023 Last Documented On 10:56AM ; [facility] Medical History Includes: Medical History in patient's chart No Medical History Recorded Family History Includes: Family History in patient's chart No Family History Recorded Review of Systems Review of Systems not supported for this document type No Review of Systems Recorded Mental Status Description Major depressive disorder Functional Status No Functional Status Recorded Physical Exam Physical Exam not supported for this document type No Physical Exam Recorded Allergies Includes: Active, inactive, and resolved Allergies Substance Type Reaction Onset Date Resolved Date Statu s Tubersol Allergy Hives / Urticaria 07/09/2018 A ctive Last Documented On 05/27/2023 11:24AM ; [facility] Note: Imported from external source. predniSONE Allergy rash 07/24/2015 Active Last Documented On 05/27/2023 11:24AM ; [facility] Note: Imported from external source. Naproxen Allergy Asthma / Allergi c asthma, Shortness of Breath / Dyspnea 06/22/2014 Active Last Documented On 05/27/2023 11:24AM ; [facility] Note: Imported from external source. Ibuprofen Allergy rash 01/29/2016 Resolved Last Documented On 08/30/2020 10:11AM ; [facility] Note: rash Ibuprofen Allergy rash 01/29/2016 Active Last Documented On 05/27/2023 11:24AM ; [facility] Note: Imported from external source. Flexeril Allergy Asthma / Allergi c asthma, Shortness of Breath / Dyspnea 06/22/2014 Active Last Documented On 05/27/2023 11:24AM ; [facility] Note: Imported from external source. Encounters Includes: Encounters from 05/04/2023 through 05/04/2024 Encounter Provider Location Date Check-In Time Check-Out Time Diagnosis [facility]ULT [facility] ESTABLISHED VERÓNICA PENA MD [facility] 024 11:05AM 02/18/2012 11:59PM Attention-defici t Hyperactivity Disorder,Bipolar I Disorder, Most Recent Episode, Depressed,Genera lized Anxiety Disorder,Restles s Legs Syndrome,Nonorga nathan Sleep Apnea Obstructive,Psyc hophysiological Insomnia,Major Depression Insurance Includes: Active Insurance Policies Plan Name Member ID Group # Subscriber Relationship Effect meme Dates 1 - [employer] [id number] GELACIO DODGE Self 09/20/2020 - Unknown Clinical Notes Includes: Signed Clinical Notes starting from 04/11/2022 * Progress note Date Encounter Last Documented by 05/27/2023 [facility]LE[facility] ADULT [facility]YCH ESTABLISH ED Last documented on 06/15/2023; 6:50 AM, VERÓNICA PENA MD; [facility] Top of Document Medication psychotherapy 45 minutes [...] transplant. She also tries to help her exhusdavid's mother since she is also in poor health but she is now at a fdc in [place] so she jsut visits her. She also [...] Surgeon Dr. Ernie Farley -- ENT -- [facility] -- had CT Scan of the sinus Dr. Shyla Olivarez -- Customs Collector Dr. Nathan Camacho, JAYSON -- Chiropractor [facility] -- Dr. Bill Jacob -- Ophthamologist Dr. Nando Craft -- Machine Designer Dr. Ady Moreira -- Business Operations Director Dr. Oshea -- Urologist Dr. Jonathan Messina -- Senior Salesforce Developer/Oncologist Dr. Nathan Estrada -- Dentist Dr. Leila Wagner -- CPAP Mikayla King, TOREY -- Urologist. Diagnoses: Dry eye syndrome - given Systane eye drops; with dry mouth --- tried Pilocarpine 5 mg -- 11/08/19 -- did not help --Dr. Shyla Olivarez Cataract - 12/2021 Glaucoma - early stages per [facility] - on Lumigan eye drops. Sensorineural hearing [...] bilateral upper and lower lobes; admitted to [facility] from 07/18/21 - 07/21/21 -- given Tessalon [...] 4 mg 03/08/21 and on 03/05/21 Nystatin [id number] units cream that did not help. Acute [...] Surgical: - Gastric surgery 04/26/2014 Dr. 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 Marital: Marital history -- . She was born and raised in [place], [place] and then [place], [place]. Her parents were supportive of her [...] Clinical summary provided to patient. * Call [phone] and /or go to the nearest emergency [...]
--- OUTSIDE RECORDS SUMMARY | 2024-05-04 16:14 | XMS_ITS | Encounter Summary ---
Author Organization [facility] Healthcare Address [address] [place] [address] Care Team Providers Care Portable Sawmill Operator Name Role Phone Dylan Bell MD Primary Care Provider [phone] Selma Sadler Unavailable [phone] Reason for Referral * Diagnostic Imaging (Routine) - Closed Specialty Diagnoses / Procedures Referred By Kelle aviles Referred To Contact Diagnoses Pain due to total right knee replacement, initial encounter (HCC) Procedures XR Knee Right 3 View Husam Yousif MD [address] [facility] [address] [place] [address] Phone: tel: fax: [facility] Referral ID Status Reason Start Date Expiration Date Visits Re quested Visits Authorized [id number] Closed 05/03/2024 06/02/2025 1 1 Y TECHNOLOGIST Reason for Visit * Reason Comments Follow-up Encounter Details Date Type Department Care Team (Late st Contact Info) Description 05/03/2024 2:00 PM DAIRY TECHNOLOGIST Office Visit [facility] Orthopedic and Sports Medicine [address] [place] [phone] Selma Sadler PA [address] [facility] [address] [place] [address] Pain due to total right knee replacement, initial encounter (HCC) (Primary Dx); Acute pain of right knee Social History Tobacco Use Types Packs/Day Years Used Date Smoking Tobacco: Former Cigarettes 2 20 1 - 2010 Smokeless Tobacco: Never Alcohol [...] on file Legal Sex Female 4:42 PM DAIRY TECHNOLOGIST Gender Identity Not on file Sexual Orientation Not on file documented as of this encounter Last Filed Vital Signs Vital Sign Reading Time Taken Comments Blood Pressure 114/70 05/03/2024 1:52 PM DAIRY TECHNOLOGIST Pulse 44 05/03/2024 1:52 PM DAIRY TECHNOLOGIST Temperature - - Respiratory Rate - - Oxygen Saturation - - Inhaled Oxygen Concentration - - Weight 94.8 kg (209 lb) 05/03/2024 1:52 PM DAIRY TECHNOLOGIST Height 162.6 cm (5' 4 ) 05/03/2024 1:52 PM DAIRY TECHNOLOGIST Body Mass Index 35.87 05/03/2024 1:52 PM DAIRY TECHNOLOGIST documented in this encounter Ordered Prescriptions Prescription Sig Dispense Quantity Refills Last Filled Start Date End Date methylPREDNISolone (Medrol, Ta,) 4 mg Dosepack Take as directed on package 1 packet 05/03/2024 traMADoL (ULTRAM) 50 mg tablet Take 1 tablet (50 mg total) by mouth every 6 (six) hours as needed for pain Take 1-2 tablets every 4-6 hours as needed for pain. 15 tablet 05/03/2024 amoxicillin (AMOXIL) 500 mg tablet/capsuleIndi cations:Prophylaxi s, Medical Take 4 tables (2 grams) PO 1 hour prior to dental cleanings/proc edures. 8 tablet/capsule 1 05/03/2024 indomethacin (INDOCIN) 50 mg capsule Take 1 capsule (50 mg total) by mouth 3 (three) times a day with meals for 10 days 30 capsule 05/03/2024 5 documented in this encounter Progress Notes * Selma Sadler PA - 05/03/2024 2:00 PM CST Images from the original note were not included. NEW PATIENT/NEW COMPLAINT VISIT Subjective CHIEF COMPLAINT She had concerns including Follow-up of the Right Knee. HISTORY OF PRESENT ILLNESS Patient here with complaints of a painful right total knee arthroplasty-date of surgery 01/08/2021,Dr. Yousif She denies any acute injuries or trauma. She states onset of symptoms approximately 3 days ago. Denies any preceding or coexisting infections. Denies any fevers, sweats, chills, nausea/vomiting. Reports pain is global, although it is most severe is along the medial joint. States that it hurts to walk and bear weight. Reports some swelling off and on, which has not been consistent or increasing. She has been taking ibuprofen and Tylenol p.r.n. for her symptoms History of gout-currently not on suppressive medication-and lupus and RA Pain Assessment Pain Assessment: 0-10 Pain Score: 10 - Worst possible pain PAST MEDICAL HISTORY She has a past medical history of ADHD (attention deficit hyperactivity disorder), Anemia, Anxiety,Bipolar disorder ([facility]), Cataract, Chronic pain disorder, Connective tissue disorder ([facility]), COPD (chronic obstructive pulmonary disease) ([facility]), Depression, GERD (gastroesophageal reflux disease), Glaucoma, Gout, H/O: hysterectomy, OTHER MEDICAL, OTHER MEDICAL, OTHER MEDICAL, OTHER MEDICAL, OTHER MEDICAL, OTHER MEDICAL, OTHER MEDICAL, OTHER MEDICAL, Hypercholesteremia, Hypertension, Insomnia, Lupus, Osteoarthritis, Pulmonary emphysema ([facility]) (05/27/2022), Rheumatoid arthritis ([facility]), Sleep apnea, andTension headache. She has no past medical history of Dysphagia, Malignant hyperthermia, Seizures ([facility]), or Stroke ([facility]). PAST SURGICAL HISTORY She has a past surgical history that includes Gastric bypass; [place] Fluoro Guided Injection Hip Left (Left, 04/09/2017); Upper gastrointestinal endoscopy; Hysterectomy (06/25/2017); Knee surgery (Right); Trigger finger release (Right); and Joint replacement (Right). MEDICATIONS She has a current medication list which includes the following prescription(s): alendronate, aspirin, atorvastatin, buspirone, doxycycline hyclate, lexapro, esomeprazole dr, famotidine, gabapentin, hydroxychloroquine, lamotrigine, lumigan, metoprolol xl, solifenacin, trazodone, amoxicillin, methylprednisolone, and tramadol. ALLERGIES She is allergic to cyclobenzaprine; hydrocodone; naproxen; prednisone; tuberculin; and tuberculin, purified protein derivative. SOCIAL HISTORY She reports that she quit smoking about 14 years ago. Her smoking use included cigarettes. She started smoking about 34 years ago. She has a 40 pack-year smoking history. She has never used smokelesstobacco. She reports that she does not use drugs. Patient denies consuming alcoholic drinks. FAMILY HISTORY Family History Problem Relation Age of Onset Depression Mother Depression; Hypertension Mother Hypertension; Stroke Mother Stroke; Cancer Mother Cancer; Migraines Mother Migraine; Lung cancer Mother Cancer, lung; Cause of : Cancer, lung Diabetes Father Diabetes mellitus; Heart disease Father Heart disease; Hypertension Father Hypertension; Stroke Father Stroke; Other Father 58 ; Heart attack Father Myocardial infarction; Cause of : Myocardial infarction Stroke Other Stroke; Before age 60 Diabetes Other Diabetes mellitus; Hypertension Other Hypertension; Breast cancer Sister Cancer -breast; Cause of : Cancer -breast Diabetes Brother Diabetes mellitus; Hypertension Brother Hypertension; Breast cancer Sister Cancer -breast; Cancer Other Family history of Cancer; Diabetes Other Family history of Diabetes mellitus; Hypertension Other Family history of Hypertension; REVIEW OF SYSTEMS Review of Systems Constitutional: Negative for chills, fatigue and fever. Respiratory: Negative for cough, chest tightness and shortness of breath. Musculoskeletal: Positive for arthralgias. Negative for gait problem, joint swelling and myalgias. Skin: Negative for rash and wound. Objective PHYSICAL EXAM BP 114/70 Pulse (!) 44 Ht 162.6 cm (5' 4 ) Wt 94.8 kg (209 lb) BMI 35.87 kg/m?? Right knee Inspection Erythema: absent Cellulitis: absent Swelling: mild Surgical scar/wound: present. The surgical scar/wound is healed and no evidence of infection. Gait:antalgic Palpation Tenderness: present. The tenderness is located in the medial retinaculum, lateral retinaculum, medial joint line, lateral joint line and patella. Range of motion The patient has reduced range of motion of the right knee. The patient has pain with range of motion of the right knee. Active extension: -5 Active flexion: 86-90 Passive flexion: 0 Stability ML stability: stable Strength Knee extension: 3/5 and pain limits strength Knee flexion: 3/5 and pain limits strength Neurovascular The patient has normal vascular on the right side of their body. The patient has normal sensation on the right side of their body. Comments: No joint erythema or effusion is present. Passive range motion is tolerated 20-80?? REVIEW OF X-RAYS/STUDIES/LABS XR Knee Right 3 View Three views of the right knee are reviewed interpreted. Total knee arthroplasty changes are noted with implants in acceptable position. No radiographic evidence of prosthetic loosening or failure. Nojoint effusion is noted. Degenerative changes are appreciated of the articular surface of the patella. Assessment/Plan Abby Raines was seen today for follow-up. Diagnoses and all orders for this visit: Pain due to total right knee replacement, initial encounter ([facility]) - XR Knee Right 3 View - Erythrocyte sedimentation rate; Future - CRP (acute phase); Future - Uric acid; Future - CBC with auto differential; Future Acute pain of right knee - Erythrocyte sedimentation rate; Future - CRP (acute phase); Future - Uric acid; Future - CBC with auto differential; Future Other orders - amoxicillin (AMOXIL) 500 mg tablet/capsule; Take 4 tables (2 grams) PO 1 hour prior to dental cleanings/procedures. - Discontinue: indomethacin (INDOCIN) 50 mg capsule; Take 1 capsule (50 mg total) by mouth 3 (three) times a day with meals for 10 days - traMADoL (ULTRAM) 50 mg tablet; Take 1 tablet (50 mg total) by mouth every 6 (six) hours as needed for pain Take 1-2 tablets every 4-6 hours as needed for pain. - methylPREDNISolone (Medrol, Ta,) 4 mg Dosepack; Take as directed on package New Medications Ordered This Visit amoxicillin (AMOXIL) 500 mg tablet/capsule Sig: Take 4 tables (2 grams) PO 1 hour prior to dental cleanings/procedures. Dispense: 8 tablet/capsule Refill: 1 traMADoL (ULTRAM) 50 mg tablet Sig: Take 1 tablet (50 mg total) by mouth every 6 (six) hours as needed for pain Take 1-2 tablets every 4-6 hours as needed for pain. Dispense: 15 tablet Refill: 0 methylPREDNISolone (Medrol, Ta,) 4 mg Dosepack Sig: Take as directed on package Dispense: 1 packet Refill: 0 Plan Reviewed radiographs with the patient. Presents today with a painful right total knee arthroplasty without known reason, cause, or signs or symptoms of infection. Clinically no significant effusion is present, therefore I recommend we 1stobtain laboratory studies. Anti-inflammatory management was recommended- Script was provided for ind omethacin. Risks, benefits, side effects of medication were reviewed. Advise she may take Tylenol in addition.Advise she stop any ibuprofen while taking indomethacin. Rest and activity modification as needed. Red flags of worsening symptoms reviewed with the patientand she was to contact me immediately if these occurred. Patient also requested refill of resentful antibiotic prophylaxis, which was provided today. We will follow up tomorrow with results laboratory studies with additional recommendations. All questions were answered. Patient expressed full understanding and agreement of plan. JOSÉ MANUEL Arriaza Addendum: Upon additional chart review, it was noted the patient had a history of gastric bypass. Icalled the patient to discuss and confirm this. I advised her to immediately stop any use of NSAIDsincluding ibuprofen and indomethacin. Advise her I would instead send a medrol dose ta which she has been able to previously tolerate (confirmed by patient). At that time, patient also asked for something for pain. Advised I would provide a short-term script of tramadol. Patient voiced understanding and instructions for medication use. Cosigned by Husam Yousif MD at 05/04/2024 8:16 AM DAIRY TECHNOLOGIST Y TECHNOLOGIST Y TECHNOLOGIST documented in this encounter Plan of Treatment Not on file documented as of this encounter Procedures Procedure Name Priority Date/Time Associated Diagnosis Comments XR KNEE RIGHT 3 VIEWS Schedule Routine, Read Routine (OP Routine) 05/03/2024 1:47 PM DAIRY TECHNOLOGIST Pain due to total right knee replacement, initial encounter (HCC) documented in this encounter Results * (ABNORMAL) CBC with auto differential (05/03/2024 2:57 PM DAIRY TECHNOLOGIST) WBC 6.9 3.8 - 9.9 K/cumm Hgb 11.4(L) 11.9 - 15.5 g/dL [facility] Hct 37.1 35.6 - 45.5 % [facility] Plt 321 150 - 400 K/cumm [facility] MPV 11.1 9.1 - 12.3 fL [facility] RBC 4.12 3.90 - 5.20 M/cumm [facility] MCV 90.0 81.3 - 96.4 fL [facility] MCH 27.7 27.1 - 33.3 pg [facility] MCHC 30.7(L) 32.3 - 35.7 g/dL [facility] RDW CV 13.9 11.1 - 14.9 % [facility] CH RDW SD 45.7 35.7 - 48.1 fL [facility] NRBC abs 0.00 0.00 - 0.01 K/cumm [facility] Blood 05/03/2024 2:57 PM DAIRY TECHNOLOGIST 05/03/2024 8:18 PM DAIRY TECHNOLOGIST Selma GEORGES LAB BLOOD ORDERABLES Fi nal Result Performing Organization Address [facility] Co de Phone Number [facility] [address] [facility] [place] [address] * Uric acid (05/03/2024 2:57 PM DAIRY TECHNOLOGIST) Pathologist [facility] Uric acid 5.1 2.5 - 7.0 mg/dL Blood 05/03/2024 2:57 PM DAIRY TECHNOLOGIST 05/03/2024 8:18 PM DAIRY TECHNOLOGIST Selma GEORGES LAB BLOOD ORDERABLES Fi nal Result Performing Organization Address [facility] Co de Phone Number [facility] [address] [facility] [place] [address] * (ABNORMAL) CRP (acute phase) (05/03/2024 2:57 PM DAIRY TECHNOLOGIST) CRP 39.0(H) <=10.0 mg/L Blood 05/03/2024 2:57 PM DAIRY TECHNOLOGIST 05/03/2024 8:18 PM DAIRY TECHNOLOGIST Selma Sadler MS LAB BLOOD ORDERABLES Fi nal Result [facility] [address] [facility] [place] [address] * (ABNORMAL) Erythrocyte sedimentation rate (05/03/2024 2:57 PM DAIRY TECHNOLOGIST) Erythrocyte sedimentation rate 45(H) 1 - 30 mm/hr Blood 05/03/2024 2:57 PM DAIRY TECHNOLOGIST 05/03/2024 8:18 PM DAIRY TECHNOLOGIST Selma Sadler MS LAB BLOOD ORDERABLES Fi nal Result Performing Organization Address [facility] Co de Phone Number [facility] [address] [address] [facility] [place] [address] * XR Knee Right 3 View (05/03/2024 1:47 PM DAIRY TECHNOLOGIST) Anatomical Region Laterality Modality Lower Extremities, Knee Right Digital Radiography Narrative 05/03/2024 8:04 PM DAIRY TECHNOLOGIST Three views of the right knee are reviewed interpreted. Total knee arthroplasty changes are noted with implants in acceptable position. No radiographic evidence of prosthetic loosening or failure. No joint effusion is noted. Degenerative changes are appreciated of the articular surface of the patella. Husam Yousif MD IMG XR PROCEDURES Final Resu lt documented in this encounter Visit Diagnoses Diagnosis Pain due to total right knee replacement, initial encounter ([facility])- Primary Acute pain of right knee documented in this encounter Discontinued Medications Medication Sig Discontinue Reason Start Date End Da te dexmethylphenidate (FOCALIN) 10 mg tablet Take 10 mg by mouth every morning Therapy completed 12/10/2021 05/03/2024 dexmethylphenidate XR (FOCALIN XR) 10 mg 24 hr capsuleIndications:Attent ion-Deficit Hyperactivity Disorder Take 1 capsule (10 mg total) by mouth daily Therapy completed 05/03/2024 hydrOXYzine (VISTARIL) 25 mg capsule Take 25 mg by mouth 3 (three) times a day as needed Therapy completed 05/29/2022 05/03/2024 methocarbamoL (ROBAXIN) 500 mg tablet Take 500 mg by mouth 3 (three) times a day Therapy completed 05/03/2024 tramadol-celecoxib (Seglentis) 44-56 mg tablet Take 1-2 tablets by mouth every 12 (twelve) hours as needed (pain) Therapy completed 05/07/2022 05/03/2024 indomethacin (INDOCIN) 50 mg capsule Take 1 capsule (50 mg total) by mouth 3 (three) times a day with meals for 10 days Alternate therapy 05/03/2024 05/03/2024 documented as of this encounter Care Teams Portable Sawmill Operator Relationship Specialty Start Date End Date Dylan Bell MD [address] [facility] [address] [address] PCP - General 06/20/16 Selma Sadler PA [address] [facility] [place] [address] [address] Physician Hitting Coach Orthopedic Surgery 01/08/21 documented as of this encounter
--- OUTSIDE RECORDS SUMMARY | 2024-05-04 16:14 | XMS_ITS | Encounter Summary ---
Author Organization [facility] Healthcare Address [address] [place] [address] Care Team Providers Care Traffic Controller Cable Name Role Phone Dylan Bell MD Primary Care Provider [phone] Selma Sadler PA Unavailable [phone] Reason for Visit * Diagnostic Imaging (Routine) - Closed Specialty Diagnoses / Procedures Referred By Kelle aviles Referred To Contact Diagnoses Pain due to total right knee replacement, initial encounter (HCC) Procedures XR Knee Right 3 View Husam Yousif MD [address] [place] [address] [address] [address] Phone: tel: fax: [facility] Referral ID Status Reason Start Date Expiration Date Visits Re quested Visits Authorized [id number] Closed 05/03/2024 06/02/2025 1 1 Encounter Details Date Type Department Care Team (Late st Contact Info) Description 05/03/2024 1:40 PM SYSTEMS TESTER Ancillary Procedure [facility] Imaging at [address] [phone] Arrived Social History Tobacco Use Types Packs/Day Years Used Date Smoking Tobacco: Former Cigarettes 2 2010 Smokeless Tobacco: Never Alcohol Use Standard [...] on file Legal Sex Female 4:42 PM SYSTEMS TESTER Gender Identity Not on file Sexual Orientation Not on file documented as of this encounter Plan of Treatment Not on file documented as of this encounter Procedures Procedure Name Priority Date/Time Associated Diagnosis Comments XR KNEE RIGHT 3 VIEWS Schedule Routine, Read Routine (OP Routine) 05/03/2024 1:47 PM SYSTEMS TESTER Pain due to total right knee replacement, initial encounter (HCC) documented in this encounter Results * XR Knee Right 3 View (05/03/2024 1:47 PM SYSTEMS TESTER) Anatomical Region Laterality Modality Lower Extremities, Knee Right Digital Radiography Narrative 05/03/2024 8:04 PM SYSTEMS TESTER Three views of the right knee are reviewed interpreted. Total knee arthroplasty changes are noted with implants in acceptable position. No radiographic evidence of prosthetic loosening or failure. No joint effusion is noted. Degenerative changes are appreciated of the articular surface of the patella. Husam Yousif MD IMG XR PROCEDURES Final Resu lt documented in this encounter Visit Diagnoses Not on filedocumented in this encounter Care Teams Traffic Controller Cable Relationship Specialty Start Date End Date Dylan Bell MD 2 [facility] DEANAJana [address] [address] PCP - General 06/20/16 Selma Sadler PA 2 [facility] SUSANNEMINERVA [address] [address] Physician Supervisor Silvering Department Orthopedic Surgery 01/08/21 documented as of this encounter
--- OUTSIDE RECORDS SUMMARY | 2024-05-04 16:14 | XMS_ITS | Encounter Summary ---
Author Organization [facility] Healthcare Address [address] [place] [address] Care Team Providers Care Bingo Clerk Name Role Phone Dylan Bell MD Primary Care Provider [phone] Selma Sadler Unavailable [phone] Encounter Details Date Type Department Care Team (Late st Contact Info) Description 05/04/2024 Telephone [facility] Orthopedics and Sports Medicine [address] [facility] [address] [place] [address] Selma Sadler PA [address] [place] [address] [address] [place] [address] Social History Tobacco Use Types Packs/Day Years [...] on file Legal Sex Female 4:42 PM SUBSEA ENGINEER Gender Identity Not on file Sexual Orientation Not on file documented as of this encounter Miscellaneous Notes * Telephone Encounter - Salena Simmons MA - 05/04/2024 9:22 AM CST Called patient let her know Selma's message regarding her inflammatory markers. Patient verbalized understanding and had no further questions. I scheduled patient with Dr. Yousif. ----- Message from JOSÉ MANUEL Beltran sent at 05/03/2024 10:24 PM SUBSEA ENGINEER ----- May call to let patient know that her inflammatory markers were mildly elevated. This was more likely due to general inflammation and/or her history of autoimmune arthritis. I do not think that this elevation is reflective of infection, as here WBC count is normal and we generally will see higher numbers with infection. I recommend we proceed with the course of treatment we set forth today and see how she responds to this. Please make her a follow up appt to see Dr. Yousif in 2 weeks. She is to call us or go to the ER if she has any worsening redness, notable swelling, or severe increase inher pain. EA ENGINEER EA ENGINEER documented in this encounter Plan of Treatment Not on file documented as of this encounter Visit Diagnoses Not on filedocumented in this encounter Care Teams Bingo Clerk Relationship Specialty Start Date End Date Dylan Bell MD 2 [facility] [place] [address] PCP - General 06/20/16 Selma Sadler PA 2 [facility] [place] [address] Physician Family Resource Specialist Orthopedic Surgery 01/08/21 documented as of this encounter
--- OUTSIDE RECORDS SUMMARY | 2024-05-04 16:14 | XMS_ITS ---
Care Plan - [facility] Medical [facility]ly [facility] Created on: May 04, 2024 GELACIO DODGE : 1965 Sex: Female Author Organization [facility] Medical [facility] S Address [address] [place] [address] Phone Care Team Providers Care Review Engineer Name Role Phone MARY SORIANO, RADHA Barron Primary Care Provider [phone] JACQUIE SORIANO, VERÓNICA BEAN Unavailable [phone]
--- OUTSIDE RECORDS SUMMARY | 2024-05-04 16:14 | XMS_ITS | Clinical Summary ---
Author Organization [facility] Address [address] [place] [address] Phone Care Team Providers Care Chef Passenger Vessel Name Role Phone Dylan Bell MD Primary Care Provider [phone] Allergies Active Allergy Reactions Criticality Noted Date Comments Cyclobenzaprine Other (See Comments) 04/13/2014 Difficulty breathy Naproxen Other (See Comments) 04/13/2014 Difficulty breathing Medications omeprazole (PRILOSEC) 40 mg Capsule, Delayed Release(E.C.) Take 40 mg by mouth daily. Active allopurinol (ZYLOPRIM) 100 mg tablet Take 200 mg by mouth daily. Active ezetimibe-simvas tatin (VYTORIN) 10-40 mg tablet Take 1 Tab by mouth daily. Active lisinopril (PRINIVIL) 5 mg tablet Take 5 mg by mouth daily. Active traMADol (ULTRAM) 50 mg tablet Take 100 mg by mouth every 8 hours as needed for Pain. Active escitalopram oxalate (LEXAPRO) 20 mg tablet Take 20 mg by mouth daily at bedtime. Active busPIRone (BUSPAR) 10 mg tablet Take 10 mg by mouth daily at bedtime. Active lamoTRIgine (LAMICTAL) 100 mg tablet Take 100 mg by mouth daily at bedtime. Active traZODone (DESYREL) 50 mg tablet Take 50 mg by mouth daily at bedtime. Active ondansetron (ZOFRAN ODT) 4 mg Tablet, Rapid Dissolve Place 1 Tab under tongue every 8 hours as needed for Nausea. 10 Tab 0 04/27/2014 Active Active Problems Problem Noted Date Diagnosed Date Nausea 04/29/2014 Hypokalemia 04/28/2014 Anxiety and depression 04/26/2014 GERD (gastroesophageal reflux disease) 5 Chronic back pain 04/26/2014 Obstructive sleep apnea 04/26/2014 Morbid obesity 04/26/2014 DVT prophylaxis 04/26/2014 Family History Medical History Relation Name Comments Diabetes Father Heart Disease Father Hypertension Father Stroke Father Cancer Mother Hypertension Mother Stroke Mother Relation Name Status Comments Father Mother Social History Tobacco Use Types Packs/Day Years Used Date Smoking Tobacco: Former Cigarettes Q uit: 04/13/2006 Alcohol Use Standard Drinks/Week Comments Yes 0.8 (1 standard drin k = 0.6 oz pure alcohol) one glass of wine in the evening Comments Unknown Sex and Gender Information Value Date Recorded Sex Assigned at Not on file Legal Sex Female 8:24 AM HEAD BOOKKEEPER Gender Identity Not on file Sexual Orientation Not on file Last Filed Vital Signs Vital Sign Reading Time Taken Comments Blood Pressure 111/69 04/29/2014 7:00 AM HEAD BOOKKEEPER Pulse 87 04/29/2014 7:00 AM HEAD BOOKKEEPER Temperature 37.1 C (98.7 F) 04/29/2014 7:00 AM HEAD BOOKKEEPER Respiratory Rate 18 04/28/2014 6:58 PM HEAD BOOKKEEPER Oxygen Saturation 95% 04/28/2014 6:58 PM HEAD BOOKKEEPER Inhaled Oxygen Concentration - - Weight 104.9 kg (231 lb 4.2 oz) 04/29/2014 6:00 AM HEAD BOOKKEEPER Height 167.6 cm (5' 6 ) 04/27/2014 5:00 AM HEAD BOOKKEEPER Body Mass Index 37.33 04/27/2014 5:00 AM HEAD BOOKKEEPER Plan of Treatment Health Maintenance Due Date Last Done Comments Pre-Diabetes and Diabetes Screening 1966 DTAP/TDAP/TD VACCINES (1 - Tdap) 1985 HEPATITIS B VACCINES (1 of 3 - 19+ 3-dose series) 04/24 CERVICAL CANCER SCREENING 1996 BREAST CANCER SCREENING 2006 COLORECTAL SCREENING 2011 Colorectal Cancer Screening 2011 FIT-DNA Q 3 years 2011 FIT/FOBT Q 1 year 2011 Flex Sig/CT Colonography Q 5 years 2011 ZOSTER VACCINE (1 of 2) 2016 INFLUENZA VACCINE (#1) 2023 Medical Devices Implanted Type Area Cheese Grader Device Identifier Shelf Expiration Date Model / Serial / Lot Seamguard Bio 60 [id number] - [id number] Implanted:Qty: 4 on 04/26/2014 by Sy Eden MD at [facility] N/A: Stomach [employer] 12/21/2016 [id number] / / [id number] Seamguard Bio 60 [id number] - [id number] Implanted:Qty: 2 on 04/26/2014 by Sy Eden MD at [facility] N/A: Stomach [employer] 12/21/2016 [id number] / / [id number] Insurance [employer] O [facility] Address: [facility] [id number] [place] [address] Advance Directives For more information, please contact: [phone] * Full Code (Latest Code Status on File) Date Activated Date Inactivated Comments 04/26/2014 10:15 AM 04/29/2014 2:07 PM * Full Code Date Activated Date Inactivated Comments 04/26/2014 5:58 AM 04/26/2014 10:15 AM Care Teams Chef Passenger Vessel Relationship Specialty Start Date End Date Dylan Bell MD PCP - General Family Practice 04/13/14
--- OUTSIDE RECORDS SUMMARY | 2024-05-04 16:14 | XMS_ITS | Clinical Summary ---
Author Organization [facility] Address [address] [address] Phone Care Team Providers Care Director Of Publications Name Role Phone Dylan Bell MD Primary Care Provider [phone] Selma Sadler Unavailable [phone] Allergies Active Allergy Reactions Criticality Noted Date Comments Cyclobenzaprine Shortness of breath High Reaction: breathing issues, Hydrocodone Rash,Unknown Medium 09/19/2021 Reaction: rash, Naproxen Rash Medium Reaction: skin rash, Prednisone Hives Medium Reaction: Rash, Tuberculin Rash Medium 11/14/2021 Tuberculin, Purified Protein Derivative Rash Medium 11/14/2021 Medications escitalopram (LEXAPRO) 20 mg tablet Take one by mouth one time per day 0 0 9 Active lamoTRIgine (LaMICtal) 100 mg tablet Take one by mouth one time per day 0 0 9 Active busPIRone (BUSPAR) 10 mg tablet Take 1 tablet (10 mg total) by mouth daily. 90 tablet 1 7 Active traZODone (DESYREL) 50 mg tablet Take 2 tablets (100 mg total) by mouth nightly 8 Active hydrOXYchloroQUIN E (PLAQUENIL) 200 mg tabletIndications :Connective Tissue Disease Take 1 tablet (200 mg total) by mouth 2 (two) times a day Active gabapentin (NEURONTIN) 600 mg tablet Take 1 tablet (600 mg total) by mouth 3 (three) times a day 1 Active metoprolol XL (TOPROL-XL) 25 mg extended release tablet Take 1 tablet (25 mg total) by mouth daily 1 Active famotidine (PEPCID) 20 mg tabletIndications :gastroesophageal reflux disease Take 1 tablet (20 mg total) by mouth 2 (two) times a day Active atorvastatin (LIPITOR) 20 mg tablet Take 1 tablet (20 mg total) by mouth daily Active alendronate (FOSAMAX) 35 mg tablet Take 1 tablet (35 mg total) by mouth every 7 days 1 Active Lumigan 0.01 % ophthalmic drops 1 Active aspirin (Aspir-81) 81 mg enteric coated tablet Take 1 tablet (81 mg total) by mouth daily [address] (NexIUM) 20 mg capsule TAKE 1 CAPSULE BY MOUTH EVERY DAY IN THE MORNING BEFORE BREAKFAST 2 Active solifenacin (VESIcare) 5 mg tablet Take 1 tablet (5 mg total) by mouth daily 3 Active doxycycline hyclate 100 mg capsule 3 Active amoxicillin (AMOXIL) 500 mg tablet/capsuleInd ications:Prophyla xis, Medical Take 4 tables (2 grams) PO 1 hour prior to dental cleanings/pro cedures. 8 tablet/capsu le 1 5 Active traMADoL (ULTRAM) 50 mg tablet Take 1 tablet (50 mg total) by mouth every 6 (six) hours as needed for pain Take 1-2 tablets every 4-6 hours as needed for pain. 15 tablet 5 Active methylPREDNISolon e (Medrol, Ta,) 4 mg Dosepack Take as directed on package 1 packet 5 Active dexmethylphenidat e XR (FOCALIN XR) 10 mg 24 hr capsuleIndication s:Attention-Defic it Hyperactivity Disorder Take 1 capsule (10 mg total) by mouth daily 025 Discontin ued(Thera py completed ) dexmethylphenidat e (FOCALIN) 10 mg tablet Take 10 mg by mouth every morning 2 025 Discontin ued(Thera py completed ) methocarbamoL (ROBAXIN) 500 mg tablet Take 500 mg by mouth 3 (three) times a day 025 Discontin ued(Thera py completed ) tramadol-celecoxi b (Seglentis) 44-56 mg tablet Take 1-2 tablets by mouth every 12 (twelve) hours as needed (pain) 28 tablet 3 025 Discontin ued(Thera py completed ) hydrOXYzine (VISTARIL) 25 mg capsule Take 25 mg by mouth 3 (three) times a day as needed 3 025 Discontin ued(Thera py completed ) indomethacin (INDOCIN) 50 mg capsule Take 1 capsule (50 mg total) by mouth 3 (three) times a day with meals for 10 days 30 capsule 5 025 Discontin ued(Alter ele therapy) Active Problems Problem Noted Date Diagnosed Date Body aches 05/27/2022 Mediastinal lymphadenopathy 05/27/2022 Noncompliance 05/27/2022 Pulmonary emphysema 05/27/2022 Cubital tunnel syndrome on left 04/17/2022 Overview (04/17/2022): Added automatically from request for surgery [id number] Carpal tunnel syndrome, bilateral 11/08/2021 Overview (11/08/2021): Added automatically from request for surgery [id number] Cubital tunnel syndrome on right 11/08/2021 Overview (11/08/2021): Added automatically from request for surgery [id number] Trigger middle finger of right hand 11/08/2021 Overview (11/08/2021): Added automatically from request for surgery [id number] Community acquired pneumonia 07/18/2021 Hematuria 03/05/2021 Rash 03/05/2021 Primary osteoarthritis of right knee 08/15/2020 Sensorineural hearing loss, asymmetrical 021 Anemia, normocytic normochromic 03/19/[address] 03/07/2020 Blurry vision, bilateral 03/07/2020 Chronic joint pain 03/07/2020 Lymphadenopathy 03/07/2020 Systemic lupus (CMS/HCC) 09/06/2019 Internal derangement of right knee 08/12/2019 Overview (08/12/2019): Added automatically from request for surgery [id number] Pulmonary nodules 08/05/2019 Abnormal PFTs (pulmonary function tests) 020 Restless legs syndrome 01/21/2019 Seasonal allergies 01/10/2019 History of Clostridium difficile infection 03/10 Bloating 07/08/2017 Nausea and vomiting 07/08/2017 Assessment & Plan (07/08/2017 9:30 AM CDT): Last egd 2014 at [facility], h/o gastric sleeve Sometimes with nausea EGD with sb biopsies (assess for celiac disease- JENNY positive, rule out other autoimmune conditions, h/o fibromyalgia) Alternating constipation and diarrhea 07/08/2017 Assessment & Plan (07/08/2017 9:29 AM CDT): Constipation is main complaint, sometimes taking MOM. Recommend to start probiotic daily otc Also low dose linzess daily (if diarrhea then every other day) She had colonoscopy last year at another hospital Symptoms most likely c/w IBS, denies taking narcotics only low dose gabapentin and cymbalta, also psych meds (?side effects) Polyp of colon 07/08/2017 Paresthesia 12/24/2016 Fibromyalgia 12/24/2016 Assessment & Plan (07/08/2017 9:30 AM CDT): On meds Positive JENNY (antinuclear antibody) 12/24/2016 Bipolar disorder, in partial remission, most recent episode mixed ([facility]) 12/15/2016 Hx of bariatric surgery 12/15/2016 Fibromyositis 07/30/2016 Insomnia 02/21/2016 Shoulder pain 01/21/2016 Overview (06/26/2016): Shoulder pain Elbow pain 01/21/2016 Overview (06/26/2016): Elbow pain Migraine without aura and wi th status migrainosus, not intractable 09/13/2015 B12 deficiency 02/21/2015 Dyslipidemia 02/21/2015 Vitamin D insufficiency 02/21/2015 Knee pain 05/30/2014 Overview (06/26/2016): Knee pain Current smoker 05/30/2014 Overview (06/26/2016): Smoker Hypokalemia 04/28/2014 Pre-op testing 04/26/2014 Gastroesophageal reflux disease 04/20/2014 Primary gout 11/07/2013 Multiple-type hyperlipidemia 08/06/2013 Overview (06/26/2016): MIXED HYPERLIPIDEMIA Depression 08/06/2013 Overview (06/26/2016): Depression Hypertension 08/06/2013 Overview (06/26/2016): Hypertension Bipolar affective disorder 08/06/2013 Overview (06/26/2016): Bipolar disorder Benign hypertension 08/06/2013 Overview (06/26/2016): BENIGN HYPERTENSION Abnormal glucose tolerance test (GTT) 08/06/2013 Overview (06/27/2016): IMPAIRED ORAL GLUCSE KYLEE Hyperlipidemia 08/06/2013 Overview (06/27/2016): Hyperlipidemia Bipolar I disorder, most recent episode depresse d ([facility]) 07/15/2012 Circadian rhythm sleep disorder, shift work type 06/08/2012 Panic disorder without agoraphobia 06/08/2012 Hypersomnia with sleep apnea 01/01/2012 Overview (06/26/2016): Hypersomnia with sleep apnea Obstructive sleep apnea syndrome 01/01/2012 Overview (06/26/2016): Obstructive sleep apnea syndrome Adiposity 01/01/2012 Overview (06/26/2016): Obesity Encounters Date Type Department Care Team Description 05/04/[address] [facility] Orthopedics and Sports Medicine [address] [address] Selma Sadler PA 05/03/2024 3:00 PM CARRIAGE DOGGER Lab [facility] Outpatient Lab at [address] [phone] Knee pain (Primary Dx) 05/03/2024 2:57 PM CARRIAGE DOGGER - 05/03/2024 11:59 PM CARRIAGE DOGGER Hospital Encounter [address] [address] Pain due to total right knee replacement, initial encounter (HCC); Acute pain of right knee Discharge Disposition: Discharge to home or self care 05/03/2024 2:00 PM CARRIAGE DOGGER Office Visit [facility] Medical [facility] Orthopedic and Sports Medicine [address] [place] [phone] Selma Sadler PA Pain due to total right knee replacement, initial encounter ([facility]) (Primary Dx); Acute pain of right knee 05/03/2024 1:40 PM CARRIAGE DOGGER Ancillary Procedure [facility] Imaging at [address] [phone] Arrived from Last 3 Months Immunizations Name Administration Dates Next Due Influenza, Trivalent, IM (MDV) 12/11/2008 Surgical History Surgery Date Site/Laterality Comments GASTRIC BYPASS FL FLUORO GUIDED INJECTION H IP LEFT 04/09/2017 Left UPPER GASTROINTESTINAL ENDOSCOPY HYSTERECTOMY 06/25/2017 total KNEE SURGERY Right 3 surgeries TRIGGER FINGER RELEASE Right JOINT REPLACEMENT Right total knee replacement Medical History Medical History Date Comments Hx Other Medical 01-BUNDLE WRAPPER Hx Other Medical 311 Insomnia insomnia Hx Other Medical bipolar Hx Other Medical Headache, migra ine Tension headache Headache, tensi on Hx Other Medical RT.knee surgery .; Comments: YESSI 02/28/2014 - Hx Other Medical Hysterectomy in the 's.; Comments: YESSI 02/28/2014 - Hx Other Medical Right knee A&A 07-11-14.; Comments: YESSI 07/17/2014 - Hx Other Medical gastric sleeve Hypertension Gout Depression H/O: hysterectomy GERD (gastroesophageal reflux disease) Rheumatoid arthritis (HCC) Hypercholesteremia Sleep apnea sleep apnea cpap works for me COPD (chronic obstructive pu lmonary disease) (HCC) Anemia Bipolar disorder (HCC) Anxiety Chronic pain disorder fibromyalg ia Lupus Connective tissue disorder (HCC) Osteoarthritis ADHD (attention deficit hype ractivity disorder) Cataract Glaucoma Pulmonary emphysema (HCC) 05/27/2022 Family History Medical History Relation Name Comments Diabetes Brother 1 Diabetes mellit us; Hypertension Brother 2 Hypertension; Diabetes Father Diabetes mellit us; Heart attack Father Myocardial infa rction; Cause of : Myocardial infarction Heart disease Father Heart disease; Hypertension Father Hypertension; Other Father ; Stroke Father Stroke; Cancer Mother Cancer; Depression Mother Depression; Hypertension Mother Hypertension; Lung cancer Mother Cancer, lung; C ause of : Cancer, lung Migraines Mother Migraine; Stroke Mother Stroke; Diabetes Other 1 Family H/O Diabetes mellit us; Hypertension Other 1 Family H/O Hypertension; Stroke Other 1 Family H/O Stroke; Before age 60 Cancer Other 4 Family history of Cancer; Diabetes Other 5 Family history of Diabetes mellitus; Hypertension Other 6 Family history of Hypertension; Breast cancer Sister 2 Cancer -breast ; Cause of : Cancer -breast Breast cancer Sister 3 Cancer -breast ; Relation Name Status Comments Brother 1 Brother 2 Father (Age 58) Mother (Age 71) Other 1 Family H/O Alive Other 2 Family H/O Alive Other 3 Family H/O Alive Other 4 Other 5 Other 6 Sister 1 (Age 28) Sister 2 Sister 3 Social History Tobacco Use Types Packs/Day Years Used Date Smoking Tobacco: Former Cigarettes 2 20 1 2010 Smokeless Tobacco: Never Tobacco Cessation:Counseling Given: Not Answered Alcohol Use Standard Drinks/Week Comments Yes 0 [...] on file Legal Sex Female 4:42 PM CARRIAGE DOGGER Gender Identity Not on file Sexual Orientation Not on file Obstetrics History Last Filed Vital Signs Vital Sign Reading Time Taken Comments Blood Pressure 114/70 05/03/2024 1:52 PM CARRIAGE DOGGER Pulse 44 05/03/2024 1:52 PM CARRIAGE DOGGER Temperature 36.4 C (97.6 F) 05/07/2022 10:25 AM CARRIAGE DOGGER Respiratory Rate 18 01/11/2024 1:26 PM CDT Oxygen Saturation 96% 01/11/2024 1:26 PM CDT Inhaled Oxygen Concentration - - Weight 94.8 kg (209 lb) 05/03/2024 1:52 PM CARRIAGE DOGGER Height 162.6 cm (5' 4 ) 05/03/2024 1:52 PM CARRIAGE DOGGER Body Mass Index 35.87 05/03/2024 1:52 PM CARRIAGE DOGGER Plan of Treatment Health Maintenance Due Date Last Done Comments Colon Cancer Screening-Colonoscopy 1966 Depression Screening 1966 Pneumococcal vaccine <65 (1 of 2 - PCV) 1972 DTaP/Tdap/Td Vaccine (1 - Tdap) 1977 Hepatitis B Screening 1984 Regular Well Visit/Exam 18-64 1984 Zoster Vaccine (1 of 2) 1985 Lung Cancer Screening 2016 Breast Cancer Screening-Mammogram 12/07/2020 020, 06/15/2018 Influenza Vaccine (#1) 2023 6, 03/02/2015, 12/11/2008 Hepatitis C Screening Completed 04/22/2016 Medical Devices Implanted Type Area Electrical Estimator Device Identifier Shelf Expiration Date Model / Serial / Lot [employer] 6195-1-001 Cement Bone Simplex Gentamicin High Viscosity 40gm - [id number] Implanted:Qty: 1 on 01/08/2021 by Husam Yousif MD at [facility] Right: Knee [employer] 03/22/2022 6195-1-001 / / [id number] [employer] [id number] Attune Cruciate Retain Cementless Knee Right 5 Component Femoral - [id number] Implanted:Qty: 1 on 01/08/2021 by Husam Yousif MD at [facility] Right: Knee [employer] 07/20/2030 [id number] / / [id number] [employer] [id number] Attune S+ Cement Fix Bearing Knee 4 Baseplate Tibial - [id number] Implanted:Qty: 1 on 01/08/2021 by Husam Yousif MD at [facility] Right: Knee [employer] 10/20/2030 [id number] / / [id number] [employer] [id number] Attune 5mm Cruciate Retaining Fix Bearing Knee 5 Insert Tibial - [id number] Implanted:Qty: 1 on 01/08/2021 by Husam Yousif MD at [facility] Right: Knee [employer] 08/20/2025 [id number] / / [id number] Procedures Procedure Name Priority Date/Time Associated Diagnosis Comments DIFFERENTIAL AUTO Routine 05/03/2024 2:5 7 PM [facility]AGE DOGGER Pain due to total right knee replacement, initial encounter (HCC) Acute pain of right knee URIC ACID Routine 05/03/2024 2:57 PM [employer]AGE DOGGER Pain due to total right knee replacement, initial encounter (HCC) Acute pain of right knee CBC WITH AUTO DIFFERENTIAL Routine 05/03/2024 2:57 PM CARRIAGE DOGGER Pain due to total right knee replacement, initial encounter (HCC) Acute pain of right knee CRP (ACUTE PHASE) Routine 05/03/2024 2:5 7 PM CARRIAGE DOGGER Pain due to total right knee replacement, initial encounter (HCC) Acute pain of right knee ERYTHROCYTE SEDIMENTATION RATE Routine 05/03/2024 2:57 PM CARRIAGE DOGGER Pain due to total right knee replacement, initial encounter (HCC) Acute pain of right knee XR KNEE RIGHT 3 VIEWS Schedule Routine, Read Routine (OP Routine) 05/03/2024 1:47 PM CARRIAGE DOGGER Pain due to total right knee replacement, initial encounter (HCC) SERUM HEPATITIS C AB Routine 04/22/2016 4:14 PM CARRIAGE DOGGER from Last 3 Months or Most Recently Relevant to Health Maintenance Results * Differential, auto (05/03/2024 2:57 PM CARRIAGE DOGGER) Neutrophil abs 3.7 1.5 - 6.5 K/cumm Imm gran abs 0.0 0.0 - 0.1 K/cumm [facility] Lymphocyte abs 2.4 0.8 - 3.3 K/cumm [facility] Monocyte abs 0.5 0.2 - 0.8 K/cumm [facility] Eosinophil abs 0.2 0.0 - 0.5 K/cumm [facility] Basophil abs 0.1 0.0 - 0.1 K/cumm [facility] Neutrophil pct 53.7 % [facility] Comment: Interpretive Data Percent cell count reference ranges are not reported, since discordance with absolute values may lead to misinterpretation of CBC data. Current Interpretive Data was last revised on 2017. Imm gran pct 0.3 % [facility] Comment: Interpretive Data Percent cell count reference ranges are not reported, since discordance with absolute values may lead to misinterpretation of CBC data. Current Interpretive Data was last revised on 2017. Lymphocyte pct 34.7 % [facility] Comment: Interpretive Data Percent cell count reference ranges are not reported, since discordance with absolute values may lead to misinterpretation of CBC data. Current Interpretive Data was last revised on 2017. Monocyte pct 7.1 % [facility] Comment: Interpretive Data Percent cell count reference ranges are not reported, since discordance with absolute values may lead to misinterpretation of CBC data. Current Interpretive Data was last revised on 2017. Eosinophil pct 3.3 % [facility] Comment: Interpretive Data Percent cell count reference ranges are not reported, since discordance with absolute values may lead to misinterpretation of CBC data. Current Interpretive Data was last revised on 2017. Basophil pct 0.9 % [facility] Comment: Interpretive Data Percent cell count reference ranges are not reported, since discordance with absolute values may lead to misinterpretation of CBC data. Current Interpretive Data was last revised on 2017. Blood 05/03/2024 2:57 PM CARRIAGE DOGGER 05/03/2024 8:18 PM CARRIAGE DOGGER us Selma [facility] BLOOD ORDERABLES Fi nal Result RUBENS EDGAR [address] [facility] [place] [address] * (ABNORMAL) CBC with auto differential (05/03/2024 2:57 PM CARRIAGE DOGGER) WBC 6.9 3.8 - 9.9 K/cumm Hgb 11.4(L) 11.9 - 15.5 g/dL [facility] Hct 37.1 35.6 - 45.5 % [facility] Plt 321 150 - 400 K/cumm [facility] MPV 11.1 9.1 - 12.3 fL [facility] RBC 4.12 3.90 - 5.20 M/cumm [facility] MCV 90.0 81.3 - 96.4 fL [facility] MCH 27.7 27.1 - 33.3 pg [facility] MCHC 30.7(L) 32.3 - 35.7 g/dL [facility] RDW CV 13.9 11.1 - 14.9 % [facility] RDW SD 45.7 35.7 - 48.1 fL [facility] NRBC abs 0.00 0.00 - 0.01 K/cumm [facility] Blood 05/03/2024 2:57 PM CARRIAGE DOGGER 05/03/2024 8:18 PM CARRIAGE DOGGER Selma [facility] BLOOD ORDERABLES Fi nal Result RUBENS HERVE [address] [address] [facility] [place] [address] * (ABNORMAL) Erythrocyte sedimentation rate (05/03/2024 2:57 PM CARRIAGE DOGGER) [facility] Erythrocyte sedimentation rate 45(H) 1 - 30 mm/hr Blood 05/03/2024 2:57 PM CARRIAGE DOGGER 05/03/2024 8:18 PM CARRIAGE DOGGER Selma [facility] BLOOD ORDERABLES Fi nal Result RUBENS ED[address]AR [address] [facility] [employer] [place], [place] [id number] * (ABNORMAL) CRP (acute phase) (05/03/2024 2:57 PM CARRIAGE DOGGER) [facility] CRP 39.0(H) <=10.0 mg/L Blood 05/03/2024 2:57 PM CARRIAGE DOGGER 05/03/2024 8:18 PM CARRIAGE DOGGER Selma Sadler JOSÉ MANU[facility] LAB BLOOD ORDERABLES Fi nal Result Performing Organization Address City/[facility] Co de Phone Number RUBENS EDGAR [id number] [address] [facility] [place] [address] * Uric acid (05/03/2024 2:57 PM CARRIAGE DOGGER) Uric acid 5.1 2.5 - 7.0 mg/dL Blood 05/03/2024 2:57 PM CARRIAGE DOGGER 05/03/2024 8:18 PM CARRIAGE DOGGER Selma Sadler JOSÉ MNAUEL LAB BLOOD ORDERABLES Fi nal Result Performing Organization Address [facility] Phone Number RUBENS EDGAR [id number] [address] [place] [address] * XR Knee Right 3 View (05/03/2024 1:47 PM CARRIAGE DOGGER) Anatomical Region Laterality Modality Lower Extremities, Knee Right Digital Radiography Narrative 05/03/2024 8:04 PM CARRIAGE DOGGER Three views of the right knee are reviewed interpreted. Total knee arthroplasty changes are noted with implants in acceptable position. No radiographic evidence of prosthetic loosening or failure. No joint effusion is noted. Degenerative changes are appreciated of the articular surface of the patella. Husam Yousif MD IMG XR PROCEDURES Final Resu lt * Serum Hepatitis C ab (04/22/2016 4:14 PM CARRIAGE DOGGER) HCV ab Negative Negative CDR HISTOR ICAL RESULTS Serum 04/22/2016 4:14 PM CARRIAGE DOGGER Historical Provider LAB BLOOD ORDERABLES Berta l Result Performing Organization Address City/[facility] Co de Phone Number CDR HISTORICAL RESULTS from Last 3 Months or Most Recently Relevant to Health Maintenance Insurance [facility] [id number] [facility] [id number] Advance Directives For more information, please contact: [phone] * Full Code (Latest Code Status on File) Date Activated Date Inactivated Comments 01/08/2021 12:15 PM 01/08/2021 7:40 PM Care Teams Director Of Publications Relationship Specialty Start Date End Date Dylan Bell MD 2 [facility] [address] [address] PCP - General 06/20/16 Selma Sadler PA 2 [facility] [address] [address] Physician Power Brake Operator Orthopedic Surgery 01/08/21
--- OUTSIDE RECORDS SUMMARY | 2024-05-04 16:14 | XMS_ITS | Referral Summary ---
Author Organization [facility] Address [address] [place] [address] Phone Care Team Providers Care Associate Team Physician Name Role Phone Dylan Bell MD Primary Care Provider [phone] Selma Sadler Unavailable [phone] Encounters Date Type Department Care Team Description 05/04/2024 Telephone [facility] Orthopedics and Sports Medicine [address] [address] Selma Sadler PA 05/03/2024 2:57 PM DANCE PROFESSOR - 05/03/2024 11:59 PM DANCE PROFESSOR Hospital Encounter [address] [address] Pain due to total right knee replacement, initial encounter (HCC); Acute pain of right knee Discharge Disposition: Discharge to home or self care 05/03/2024 3:00 PM DANCE PROFESSOR Lab [facility] Outpatient Lab at [address] [address] Knee pain (Primary Dx) 05/03/2024 1:40 PM DANCE PROFESSOR Ancillary Procedure [facility] Imaging at [address] [address] Arrived 05/03/2024 2:00 PM DANCE PROFESSOR Office Visit [facility] Orthopedic and Sports Medicine [address] [place] [address] Selma Sadler PA Pain due to total right knee replacement, initial encounter ([facility]) (Primary Dx); Acute pain of right knee from Last 3 Months Allergies Active Allergy Reactions Criticality Noted Date [...] (04/17/2022): Added automatically from request for surgery [id number] Carpal tunnel syndrome, bilateral 11/08/2021 Overview (11/08/2021): Added automatically from request for surgery [id number] Cubital tunnel syndrome on right 11/08/2021 Overview (11/08/2021): Added automatically from request for surgery [id number] Trigger middle finger of right hand 11/08/2021 Overview (11/08/2021): Added automatically from request for surgery [id number] Community acquired pneumonia 07/18/2021 Hematuria 03/05/2021 Rash 03/05/2021 Primary osteoarthritis of right knee 08/15/2020 Sensorineural hearing loss, asymmetrical 021 Anemia, normocytic normochromic 03/19/[address] 03/07/2020 Blurry vision, bilateral 03/07/2020 Chronic joint pain 03/07/2020 Lymphadenopathy 03/07/2020 Systemic lupus (CMS/HCC) 09/06/2019 Internal derangement of right knee 08/12/2019 Overview (08/12/2019): Added automatically from request for surgery [id number] Pulmonary nodules 08/05/2019 Abnormal PFTs (pulmonary function [...] in partial remission, most recent episode mixed (CMS/HCC) 12/15/2016 Hx of bariatric surgery 12/15/2016 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, most recent episode depresse d ([facility]/HCC) 07/15/2012 Circadian rhythm sleep disorder, shift work type 06/08/2012 Panic disorder without agoraphobia 06/08/2012 Hypersomnia with sleep apnea 01/01/2012 Overview (06/26/2016): Hypersomnia with sleep apnea Obstructive sleep apnea syndrome 01/01/2012 Overview (06/26/2016): Obstructive sleep apnea syndrome Adiposity 01/01/2012 Overview (06/26/2016): Obesity Immunizations Name Administration Dates Next Due Influenza, Trivalent, IM (MDV) 12/11/2008 Social History Tobacco Use Types Packs/Day Years Used Date Smoking Tobacco: Former Cigarettes 2 20 1 99 - 2010 Smokeless Tobacco: Never Tobacco Cessation:Counseling Given: [...] on file Legal Sex Female 4:42 PM DANCE PROFESSOR Gender Identity Not on file Sexual Orientation Not on file Last Filed Vital Signs Vital Sign Reading Time Taken Comments Blood Pressure 114/70 05/03/2024 1:52 PM DANCE PROFESSOR Pulse 44 05/03/2024 1:52 PM DANCE PROFESSOR Temperature 36.4 C (97.6 F) 05/07/2022 10:25 AM DANCE PROFESSOR Respiratory Rate 18 01/11/2024 1:26 PM CDT Oxygen Saturation 96% 01/11/2024 1:26 PM CDT Inhaled Oxygen Concentration - - Weight 94.8 kg (209 lb) 05/03/2024 1:52 PM DANCE PROFESSOR Height 162.6 cm (5' 4 ) 05/03/2024 1:52 PM DANCE PROFESSOR Body Mass Index 35.87 05/03/2024 1:52 PM DANCE PROFESSOR Plan of Treatment Not on file Medical Devices Implanted Type Area Supervisor Enrobing Device Identifier Shelf Expiration Date Model / Serial / Lot [employer] 6195-1-001 Cement Bone Simplex Gentamicin High Viscosity 40gm - [id number] Implanted:Qty: 1 on 01/08/2021 by Husam Yousif MD at [facility] Right: Knee [employer] 03/22/2022 6195-1-001 / / [id number] [employer] [id number] Attune Cruciate Retain Cementless Knee Right 5 Component Femoral - [id number] Implanted:Qty: 1 on 01/08/2021 by Husam Yousif MD at [facility] Right: Knee [employer] 07/20/2030 [id number] / / [id number] [employer] [id number] Attune S+ Cement Fix Bearing Knee 4 Baseplate Tibial - [id number] Implanted:Qty: 1 on 01/08/2021 by Husam Yousif MD at [facility] Right: Knee [employer] 10/20/2030 [id number] / / [id number] [employer] [id number] Attune 5mm Cruciate Retaining Fix Bearing Knee 5 Insert Tibial - [id number] Implanted:Qty: 1 on 01/08/2021 by Husam Yousif MD at [facility] Right: Knee [employer] 08/20/2025 [id number] / / [id number] Procedures Procedure Name Priority Date/Time Associated Diagnosis Comments DIFFERENTIAL AUTO Routine 05/03/2024 2:5 7 PM DANCE PROFESSOR Pain due to total right knee replacement, initial encounter (HCC) Acute pain of right knee URIC ACID Routine 05/03/2024 2:57 PM DANCE PROFESSOR Pain due to total right knee replacement, initial encounter (HCC) Acute pain of right knee CBC WITH AUTO DIFFERENTIAL Routine 05/03/2024 2:57 PM DANCE PROFESSOR Pain due to total right knee replacement, initial encounter (HCC) Acute pain of right knee CRP (ACUTE PHASE) Routine 05/03/2024 2:5 7 PM DANCE PROFESSOR Pain due to total right knee replacement, initial encounter (HCC) Acute pain of right knee ERYTHROCYTE SEDIMENTATION RATE Routine 05/03/2024 2:57 PM DANCE PROFESSOR Pain due to total right knee replacement, initial encounter (HCC) Acute pain of right knee XR KNEE RIGHT 3 VIEWS Schedule Routine, Read Routine (OP Routine) 05/03/2024 1:47 PM DANCE PROFESSOR Pain due to total right knee replacement, initial encounter (HCC) SERUM HEPATITIS C AB Routine 04/22/2016 4:14 PM DANCE PROFESSOR from Last 3 Months or Most Recently Relevant to Health Maintenance Results * Differential, auto (05/03/2024 2:57 PM DANCE PROFESSOR) Neutrophil abs 3.7 1.5 - 6.5 K/cumm Imm gran abs 0.0 0.0 - 0.1 K/cumm [facility] Lymphocyte abs 2.4 0.8 - 3.3 K/cumm [facility] Monocyte abs 0.5 0.2 - 0.8 K/cumm [facility] Eosinophil abs 0.2 0.0 - 0.5 K/cumm [facility] Basophil abs 0.1 0.0 - 0.1 K/cumm [facility] Neutrophil pct 53.7 % [facility] Comment: Interpretive Data Percent cell count reference ranges are not reported, since discordance with absolute values may lead to misinterpretation of CBC data. Current Interpretive Data was last revised on 2017. Imm gran pct 0.3 % [facility] Comment: Interpretive Data Percent cell count reference ranges are not reported, since discordance with absolute values may lead to misinterpretation of CBC data. Current Interpretive Data was last revised on 2017. Lymphocyte pct 34.7 % [facility] Comment: Interpretive Data Percent cell count reference ranges are not reported, since discordance with absolute values may lead to misinterpretation of CBC data. Current Interpretive Data was last revised on 2017. Monocyte pct 7.1 % [facility] Comment: Interpretive Data Percent cell count reference ranges are not reported, since discordance with absolute values may lead to misinterpretation of CBC data. Current Interpretive Data was last revised on 2017. Eosinophil pct 3.3 % [facility] Comment: Interpretive Data Percent cell count reference ranges are not reported, since discordance with absolute values may lead to misinterpretation of CBC data. Current Interpretive Data was last revised on 2017. Basophil pct 0.9 % [facility] Comment: Interpretive Data Percent cell count reference ranges are not reported, since discordance with absolute values may lead to misinterpretation of CBC data. Current Interpretive Data was last revised on 2017. Blood 05/03/2024 2:57 PM DANCE PROFESSOR 05/03/2024 8:18 PM DANCE PROFESSOR Selma [facility] BLOOD ORDERABLES Fi nal Result [facility] [address] [address] Department [place] [address] * (ABNORMAL) CBC with auto differential (05/03/2024 2:57 PM DANCE PROFESSOR) WBC 6.9 3.8 - 9.9 K/cumm Hgb 11.4(L) 11.9 - 15.5 g/dL [facility] Hct 37.1 35.6 - 45.5 % [facility] Plt 321 150 - 400 K/cumm [facility] MPV 11.1 9.1 - 12.3 fL [facility] RBC 4.12 3.90 - 5.20 M/cumm [facility] MCV 90.0 81.3 - 96.4 fL [facility] MCH 27.7 27.1 - 33.3 pg [facility] MCHC 30.7(L) 32.3 - 35.7 g/dL [facility] RDW CV 13.9 11.1 - 14.9 % [facility] RDW SD 45.7 35.7 - 48.1 fL [facility] NRBC abs 0.00 0.00 - 0.01 K/cumm [facility] Blood 05/03/2024 2:57 PM DANCE PROFESSOR 05/03/2024 8:18 PM DANCE PROFESSOR AmandaPaulina [facility] BLOOD ORDERABLES Fi nal Result [facility] [address] [address] [facility] [place] [address] * (ABNORMAL) Erythrocyte sedimentation rate (05/03/2024 2:57 PM DANCE PROFESSOR) Erythrocyte sedimentation rate 45(H) 1 - 30 mm/hr Blood 05/03/2024 2:57 PM DANCE PROFESSOR 05/03/2024 8:18 PM DANCE PROFESSOR AmandaPaulina [facility] BLOOD ORDERABLES Fi nal Result Performing Organization Address [facility] de Phone Number [facility] [address] [address] [facility] [place] [address] * (ABNORMAL) CRP (acute phase) (05/03/2024 2:57 PM DANCE PROFESSOR) CRP 39.0(H) <=10.0 mg/L Blood 05/03/2024 2:57 PM DANCE PROFESSOR 05/03/2024 8:18 PM DANCE PROFESSOR Amandaveronica [facility] BLOOD ORDERABLES Fi nal Result Performing Organization Address [facility] Co de Phone Number [facility] [address] [address] [facility] [place] [address] * Uric acid (05/03/2024 2:57 PM DANCE PROFESSOR) Uric acid 5.1 2.5 - 7.0 mg/dL Blood 05/03/2024 2:57 PM DANCE PROFESSOR 05/03/2024 8:18 PM DANCE PROFESSOR Selma [facility] BLOOD ORDERABLES Fi nal Result [facility] [address] [address] Department [place] [address] * XR Knee Right 3 View (05/03/2024 1:47 PM DANCE PROFESSOR) Anatomical Region Laterality Modality Lower Extremities, Knee Right Digital Radiography Narrative 05/03/2024 8:04 PM DANCE PROFESSOR Three views of the right knee are reviewed interpreted. Total knee arthroplasty changes are noted with implants in acceptable position. No radiographic evidence of prosthetic loosening or failure. No joint effusion is noted. Degenerative changes are appreciated of the articular surface of the patella. Husam Yousif MD IMG XR PROCEDURES Final Resu lt * Serum Hepatitis C ab (04/22/2016 4:14 PM DANCE PROFESSOR) HCV ab Negative Negative [facility] HISTOR ICAL RESULTS Serum 04/22/2016 4:14 PM DANCE PROFESSOR Historical Provider LAB BLOOD ORDERABLES Berta l Result Performing Organization Address City/[facility] Co de Phone Number CDR HISTORICAL RESULTS from Last 3 Months or Most Recently Relevant to Health Maintenance Insurance [employer] [facility] [id number] [facility] [phone] Advance Directives For more information, please contact: [phone] * Full Code (Latest Code Status on File) Date Activated Date Inactivated Comments 01/08/2021 12:15 PM 01/08/2021 7:40 PM Care Teams Associate Team Physician Relationship Specialty Start Date End Date Dylan Bell MD [address] [place] [address] [address] PCP - General 06/20/16 Selma Sadler PA [address] [place] [address] [address] Physician Waste Collection Driver Orthopedic Surgery 01/08/21
[2024-05-04 16:31] LABS: Alanine Aminotransferase 16 U/L (6-35); Aspartate Amino Transferase 38 U/L (14-36)
== END 2024-05-04 16:07 | disposition home or self-care (01) ==
LOC: ANHLAB 16:08
PROVIDERS: PCP Family Medicine; Visit Provider Podiatrist Foot & Ankle Surgery
DX: B35.1 Tinea unguium (principal)
CPT/HCPCS: 36415; 84450; 84460

== ENCOUNTER 2024-09-29 14:41 | Outpatient (CLI) | payer OTHER, SELFPAY ==
--- NOTE | ~2024-09-29 | MM_ITS ---
EXAMINATION: MM screening juan BI w rudy HISTORY: Screening mammogram, family history of breast cancer in her sister. TECHNIQUE: Craniocaudal and mediolateral oblique 3-D tomosynthesis images were obtained and synthetic 2-D images were generated. CAD analysis was submitted and interpreted. COMPARISON: 08/10/2023, 04/28/2023, 12/17/2021, 12/13/2020 BREAST PARENCHYMAL COMPOSITION:Not Dense. The breasts are almost entirely fatty FINDINGS: No suspicious mass, calcification, or architectural distortion are identified in either shelli ast to suggest malignancy. There has been no suspicious interval change. IMPRESSION: No mammographic evidence of malignancy. Recommend routine screening mammography in one year. BI-RADS Category 1: Negative Reviewed, dictated and finalized at location .
--- OUTSIDE RECORDS SUMMARY | 2024-09-29 14:46 | XMS_ITS | Encounter Summary ---
Author Organization [facility] Address [address] [place] [address] Phone Care Team Providers Care X Ray Tech Name Role Phone Dylan Bell MD Primary Care Provider [phone] Shyla Olivarez MD Unavailable Lewis Ramirez MD Unavailable [phone] Italo Fisher MD Unavailable Erasmo Wesley MD Unavailable Encounter Details Date Type Department Care Team (Late st Contact Info) Description 03/27/2021 Telephone [facility] [address] [place] [address] Dylan Bell MD #[address] [address] Social History Tobacco Use Types Packs/Day Years [...] Coronavirus / COVID-19? Yes 03/28/2021 8:40 AM YOUTH PROGRAM DIRECTOR documented as of this encounter Plan of Treatment Upcoming Encounters Date Type Department Care Team (Late st Contact Info) Description 12/12/2024 2:45 PM CDT Office Visit [facility] [address] [place] [address] Dylan Bell MD #[address] [address] documented as of this encounter Visit Diagnoses Not on filedocumented in this encounter Additional Health Concerns Infection Onset Date Last Indicated Resolved Time COVID - 19 03/28/2021 03/28/2021 04/17/2021 12:1 6 AM YOUTH PROGRAM DIRECTOR Respiratory Rule Out - RPA 07/18/2021 07/19/2021 0 07/19/2021 3:34 PM CDT C. difficile Rule-Out 07/19/2021 07/19/20212021 3:56 PM CDT Respiratory Rule Out - RPA 05/27/2022 05/27/2022 0 05/27/2022 3:37 PM YOUTH PROGRAM DIRECTOR COVID - 19 03/11/2023 03/11/2023 03/21/2023 12:1 6 AM YOUTH PROGRAM DIRECTOR RSV 03/11/2023 03/11/2023 04/08/2023 12:1 6 AM YOUTH PROGRAM DIRECTOR COVID - 19 01/18/2024 01/18/2024 01/18/2024 2:35 PM CDT Respiratory Rule-Out 01/18/2024 01/18/2024 024 2:35 PM CDT Assessment Noted Time PHQ-9 Depression Total Score: 0 11/11/19 17 9:00 AM CDT documented as of this encounter Care Teams X Ray Tech Relationship Specialty Start Date End Date Dylan Bell MD #[address] [address] PCP - General Family Medicine 02/22/15 Shyla Olivarez MD #2 [facility] [address] [place] [address] Rheumatology 12/15/16 Lewis Ramirez MD [address] [facility] [address] [place], [place] [id number] Obstetrics & Gynecology 03/08/18 Italo Fisher MD [facility] [facility] [place] [address] Consulting Physician Pulmonary Disease 06/11/21 [facility]o [facility] MD [facility] [address] [place] [address] Consulting Physician Urology 12/24/23 documented as of this encounter
--- OUTSIDE RECORDS SUMMARY | 2024-09-29 14:47 | XMS_ITS | Encounter Summary ---
Author Organization [facility] Address [address] [place] [address] Phone Care Team Providers Care Dry Molder Name Role Phone Dylan Bell MD Primary Care Provider [phone] Shyla Olivarez MD Unavailable Lewis Ramirez MD Unavailable [phone] Italo Fisher MD Unavailable Erasmo Wesley MD Unavailable Reason for Visit * Reason Comments Medication Refill Encounter Details Date Type Department Care Team (Late st Contact Info) Description 08/05/2023 Refill [facility] - Family [facility] #2 [place] [address] Dylan Bell MD #[address] [address] Medication Refill Social History Tobacco Use Types Packs/Day Years Used Date Smoking Tobacco: Former Cigarettes 2 20 Smokeless Tobacco: Never Alcohol Use Standard Drinks/Week Comments Not Currently 2 (1 standard drink = 0.6 oz pur e alcohol) occasional [facility] Utilities Answer Date Recorded In the past 12 months has e electric, gas, oil, or water company threatened to shut off services in your home? No 03/24/2023 Social Connection and Isolation Panel Answer Date Recorded In a typical week, how many times do you talk on the phone with family, friends, or neighbors? More than three times a week 03/24/2023 How often do you get togethe r with friends or relatives? More than three times a week 03/24/2023 How often do you attend chur ch or orthodoxy services? Never 03/24/2023 Do you belong to any clubs o r organizations such as nondenominational groups, unions, fraternal or athletic groups, or [...] and heating? Not hard at all 03/24/2023 [facility] - Occupational Stress [...] place to sleep or slept in a prison (including now)? No 03/24/2023 Education Answer Date [...] AM CDT Medication(s) refilled and signed per [facility] Medication Refill Standing Order for Pediatricand [...] [facility] Santamaria 06/09/23 Telemedicine Dylan Bell MD [facility] Santamaria 06/04/23 Office Visit [facility] 03/25/23 Office Visit Dylan Bell MD [facility] Sant[facility] 11/19/22 Office Visit Ramsey Blanco APRN, CNP [facility] 09/09/22 Office Visit Dylan Bell MD Osariel [...] Description 12/12/2024 2:45 PM CDT Office Visit [facility] - Family [facility] #[address] [place] [address] Dylan Bell MD #[address] [address] documented as of this encounter Visit Diagnoses Not on filedocumented in this encounter Additional Health Concerns Infection Onset Date Last Indicated Resolved Time COVID - 19 01/18/2024 01/18/2024 01/18/2024 2:35 PM CDT Respiratory Rule-Out 01/18/2024 01/18/2024 024 2:35 PM CDT Assessment Noted Time PHQ-9 Depression Total Score: 0 11/11/19 17 9:00 AM CDT documented as of this encounter Care Teams Dry Molder Relationship Specialty Start Date End Date Dylan Bell MD #[address] [place] [address] PCP - General Family Medicine 02/22/15 Shyla Olivarez MD #2 [facility] [address] [place] [address] Rheumatology 12/15/16 Lewis Ramirez MD [address] [facility] [address] [place] [address] Obstetrics & Gynecology 03/08/18 Italo Fisher MD #2 [place] [address] Consulting Physician Pulmonary Disease 06/11/21 Erasmo Wesley MD #2 [facility] [address] [place] [address] Consulting Physician Urology 12/24/23 documented as of this encounter
--- OUTSIDE RECORDS SUMMARY | 2024-09-29 14:47 | XMS_ITS | Encounter Summary ---
Author Organization [facility] Address [address] [place] [address] Phone Care Team Providers Care Physician Interventional Cardiologist Name Role Phone Dylan Bell MD Primary Care Provider [phone] Shyla Olivarez MD Unavailable Lewis Ramirez MD Unavailable [phone] Italo Fisher MD Unavailable Erasmo Wesley MD Unavailable Reason for Visit * Reason Comments Medication Refill Encounter Details Date Type Department Care Team (Late st Contact Info) Description 02/23/2022 Refill [facility] - [facility] #2 [place] [address] Dylan Bell MD #[address] [address] Medication Refill Social History Tobacco Use Types [...] Sandy Duncan RN - 02/24/2022 9:50 AM JUICE MIXER Refill requested too soon. E MIXER documented in this encounter Plan of Treatment Upcoming Encounters Date Type Department Care Team (Late st Contact Info) Description 12/12/2024 2:45 PM CDT Office Visit [facility] - Family [facility] #2 [place] [address] Dylan Bell MD #[address] [address] documented as of this encounter Visit Diagnoses Not on filedocumented in this encounter Additional Health Concerns Infection Onset Date Last Indicated Resolved Time Respiratory Rule Out - RPA 05/27/2022 05/27/2022 0 05/27/2022 3:37 PM JUICE MIXER COVID - 19 03/11/2023 03/11/2023 03/21/2023 12:1 6 AM JUICE MIXER RSV 03/11/2023 03/11/2023 04/08/2023 12:1 6 AM JUICE MIXER COVID - 19 01/18/2024 01/18/2024 01/18/2024 2:35 PM CDT Respiratory Rule-Out 01/18/2024 01/18/2024 024 2:35 PM CDT Assessment Noted Time PHQ-9 Depression Total Score: 0 11/11/19 17 9:00 AM CDT documented as of this encounter Care Teams Physician Interventional Cardiologist Relationship Specialty Start Date End Date Dylan Bell MD #[address] [address] PCP - General Family Medicine 02/22/15 Shyla Olivarez MD #2 [facility] [address] [place] [address] Rheumatology 12/15/16 Lewis Ramirez MD [address] [place], [place] [id number] Obstetrics & Gynecology 03/08/18 Italo Fisher MD #[address] [place] [address] Consulting Physician Pulmonary Disease 06/11/21 Erasmo Wesley MD #2 [place] [address] [place] [address] Consulting Physician Urology 12/24/23 documented as of this encounter
--- OUTSIDE RECORDS SUMMARY | 2024-09-29 14:47 | XMS_ITS | Encounter Summary ---
Author Organization [facility] Address [address] [place] [address] Phone Care Team Providers Care Pony Rougher Name Role Phone Dylan Bell MD Primary Care Provider [phone] Shyla Olivarez MD Unavailable Lewis Ramirez MD Unavailable [phone] Italo Fisher MD Unavailable Erasmo Wesley MD Unavailable Reason for Visit * Reason Comments Medication Refill Encounter Details Date Type Department Care Team (Late st Contact Info) Description 11/10/2023 Refill [facility] - Family [facility] #2 [place] [address] Dylan Bell MD #[address] [address] Medication Refill Social History Tobacco Use Types Packs/Day Years Used Date Smoking Tobacco: Former Cigarettes 2 20 Smokeless Tobacco: Never Alcohol Use Standard Drinks/Week Comments Not Currently 2 (1 standard drink = 0.6 oz pur e alcohol) occasional [facility] Utilities Answer Date Recorded In the [...] often do you attend chur ch or christian services? Never 03/24/2023 Do you belong to any clubs o r organizations such as tenriism groups, unions, fraternal or athletic groups, or [...] place to sleep or slept in a nursing home (including now)? No 03/24/2023 Education Answer Date [...] 90 90 Each Dylan Bell MD [id number] - ... documented in this encounter Plan of Treatment Upcoming Encounters Date Type Department Care Team (Late st Contact Info) Description 12/12/2024 2:45 PM CDT Office Visit [facility] - Family Medicine - [place] #[address] [place] [address] Dylan Bell MD #[address] [address] documented as of this encounter Visit Diagnoses Not on filedocumented in this encounter Additional Health Concerns Infection Onset Date Last Indicated Resolved Time COVID - 19 01/18/2024 01/18/2024 01/18/2024 2:35 PM CDT Respiratory Rule-Out 01/18/2024 01/18/2024 024 2:35 PM CDT Assessment Noted Time PHQ-9 Depression Total Score: 0 11/11/19 17 9:00 AM CDT documented as of this encounter Care Teams Pony Rougher Relationship Specialty Start Date End Date Dylan Bell MD #2 [facility] [address] [place] [address] PCP - General Family Medicine 02/22/15 Shyla Olivarez MD #2 [facility] [address] [place] [address] Rheumatology 12/15/16 Lewis Ramirez MD [address] [facility] [address] [facility] [address] [place], [place] [address] Obstetrics & Gynecology 03/08/18 Italo Fisher MD #2 [place] [address] Consulting Physician Pulmonary Disease 06/11/21 Erasmo Wesley MD #2 [facility] [address] [place] [address] Consulting Physician Urology 12/24/23 documented as of this encounter
--- OUTSIDE RECORDS SUMMARY | 2024-09-29 14:47 | XMS_ITS | Clinical Summary ---
Author Organization [facility] Address [address] [place] [address] Phone Care Team Providers Care Cap Machine Operator Name Role Phone Dylan Bell MD Primary Care Provider [phone] Shyla Olivarez MD Unavailable Lewis Ramirez MD Unavailable [phone] Italo Fisher MD Unavailable Erasmo Wesley MD [...] Take 100 mg by mouth nightly. 1 5 Active traZODone (DESYREL) 50 MG Tablet Take 100 mg by mouth nightly. Takes 2 doses at night Active busPIRone (BUSPAR) 10 MG Tablet Take 10 mg by mouth nightly. 7 Active gabapentin (NEURONTIN) 600 MG Tablet 600 mg 3 times daily. 0 Active hydroxychloroquin e (PLAQUENIL) 200 MG Tablet Take 1 Tablet by mouth 2 times daily. 90 Tablet 2 Active Vyvanse 30 MG Capsule TAKE 1 CAPSULE BY MOUTH EVERY DAY IN THE MORNING 3 Active Sunosi 150 MG Tablet TAKE 1 TABLET BY MOUTH EVERY DAY IN THE MORNING [address] in affected eye(s). Active traMADol (ULTRAM) 50 MG TabletIndications :Chest wall pain Take 1 Tablet by mouth every 6 hours as needed for Moderate or more severe pain. 12 Tablet 4 Active alendronate (FOSAMAX) 70 MG Tablet Take 70 mg by mouth every 7 days. Active albuterol 108 (90 Base) MCG/ACT Aerosol SolutionIndicatio ns:Restrictive lung disease take 2 Puffs by inhalation every 4 hours as needed for Wheezing or Cough. 18 g 1 4 Active Azstarys 39.2-7.8 MG Capsule TAKE 1 CAPSULE BY MOUTH EVERY MORNING. SWALLOW WHOLE OR SPRINKLE CONTENTS INTO WATER OR APPLESAUCE Active metoprolol Succinate (TOPROL-XL) 25 MG TABLET SR 24 HRIndications:Laura marlene hypertension Take 1 Tablet by mouth daily. 90 Tablet 3 5 Active atorvastatin (LIPITOR) 20 MG Tablet Take 1 Tablet by mouth daily. 90 Tablet 3 5 Active esomeprazole (NexIUM) 20 MG CAPSULE DELAYED RELEASE Take 1 Capsule by mouth daily. 90 Capsule 3 5 Active famotidine (PEPCID) 20 MG Tablet Take 1 Tablet by mouth 2 times daily. 180 Tablet 3 5 Active solifenacin (VESICARE) 5 MG TabletIndications :OAB (overactive bladder) Take 1 Tablet by mouth daily. 90 Tablet 3 5 Active Breo Ellipta 200-25 MCG/ACT AEROSOL POWDER, BREATH ACTIVATED INHALE 1 PUFF BY MOUTH EVERY DAY 60 Each 2 5 Active Active Problems Problem Noted Date Diagnosed [...] Encounters Date Type Department Care Team Description 08/30/2024 Refill [facility] [address] [place] [address] Dylan Bell MD Medication Refill from Last [...] Stroke Father Pineda Neely Cancer Mother Britany [facility] Osteoarthritis Mother Britany [facility] Rheumatoid Arthritis Mother Britany [facility] Stroke Mother Britany [facility] Breast Cancer Sister 1 [facility] [place] Cancer Sister 1 [place] Diabetes Sister 1 [place] Passed - Breas t cancer Cancer Sister 2 [facility] High Cholesterol Sister 2 [facility] Relation Name Status Comments Brother 1 Britany Palomo Alive Brother 2 Allan Neely Father Pineda Neely Mother Britany [facility] Sister 1 [place] Alive Sister 2 [facility] Social History Tobacco Use Types Packs/Day Years Used Date Smoking Tobacco: Former Cigarettes 2 20 Smokeless Tobacco: Never Tobacco Cessation:Counseling Given: No Alcohol Use Standard Drinks/Week Comments Not Currently 2 (1 standard drink = 0.6 oz pur e alcohol) occasional C Utilities Answer Date Recorded In the past 12 months has [employer] electric, gas, oil, or water company threatened to shut off services in your home? No 06/04/2024 Social Connection and Isolation Panel Answer Date Recorded In a typical week, how many times do you talk on the phone with family, friends, or neighbors? More than three times a week 06/04/2024 How often do you get togethe r with friends or relatives? Once a week 06/04/2024 How often do you attend chur ch or mandaeism services? More than 4 times per year 06/04/2024 Do you belong to any clubs o r organizations such as moravian groups, unions, fraternal or athletic groups, or school groups? No 06/04/2024 How often do you attend meet ings of the clubs or organizations you belong to? Never 06/04/2024 Are you , , di vorced, , never , or living with a partner? 06/04/2024 AUDIT-C Answer Date Recorded Q1: How often do you have a drink containing alcohol? Never 06/04/2024 Q2: How many drinks containi ng alcohol do you have on a typical day when you are drinking? Patient does not drink Q3: How often do you have si x or more drinks on one occasion? Never 06/04/2024 Overall Financial Resource Strain (CARDIA) Answe r Date Recorded How hard is it for you to pa y for the very basics like food, housing, medical care, and heating? Not hard at all 06/04/2024 [facility] [place] [facility] Occupat ional Health - Occupational Stress Questionnaire Answer Date Recorded Do you feel stress - tense, restless, nervous, or anxious, or unable to sleep at night because your mind is troubled all the time - these days? Not at all 06/04/2024 Exercise Vital Sign Answer Date Recorde d On average, how many days pe r week do you engage in moderate to strenuous exercise (like a brisk walk)? 3 days 06/04/2024 On average, how many minutes do you engage in exercise at this level? 40 min 06/04/2024 Hunger Vital Sign Answer Date Recorded Within the past 12 months, y ou worried that your food would run out before you got the money to buy more. Never true 06/05/19 25 Within the past 12 months, t he food you bought just didn't last and you didn't have money to get more. Never true 06/04/2024 PRAPARE - Transportation Answer Date Re corded In the past 12 months, has l ack of transportation kept you from medical appointments or from getting medications? No 05/21 In the past 12 months, has l ack of transportation kept you from meetings, work, or from getting things needed for daily living? No 06/04/2024 Housing Stability Vital Sign Answer Bassem e [...] place to sleep or slept in a penitentiary (including now)? No 03/24/2023 Housing Stability Vital Sign Answer Bassem e Recorded In the last 12 months, was t here a time when you were not able to pay the mortgage or rent on time? No 06/04/2024 Number of Times Moved in the Last Year Not on fi le 06/04/2024 At any time in the past 12 m [facility], were you homeless or living in a penitentiary (including now)? No 06/04/2024 Education Answer Date Recorded What is the [...] Sign Reading Time Taken Comments Blood Pressure 128/72 06/06/2024 2:53 PM CDT Pulse 75 06/06/2024 2:53 PM CDT Temperature 36.2 C (97.2 F) 06/06/2024 2:53 PM CDT Respiratory Rate 16 06/06/2024 2:53 PM CDT Oxygen Saturation 96% 06/06/2024 2:53 PM CDT Inhaled Oxygen Concentration - - Weight 94.9 kg (209 lb 4.8 oz) 06/06/2024 2:53 P M CDT Height 167.6 cm (5' 6) 06/06/2024 2:53 PM CDT Body Mass Index 33.78 06/06/2024 2:53 PM CDT Plan of Treatment Upcoming Encounters Date Type Department Care Team (Late st Contact Info) Description 12/12/2024 2:45 PM CDT Office Visit [facility] - [place] [address] [place] [address] Dylan Bell MD [address] [address] Health Maintenance Due Date Last Done Comments TdaP Immunization 1966 SARS-COV-2 Immunization (#1) 1971 Hepatitis B Immunization (1 of 3 - 19+ 3-dose series) 1985 Zoster Immunization (1 of 2) 1985 Cologuard 2011 Mammogram 06/13/2021 06/13/2020, 11/21, 12/01/2018, Additional history exists Immunochemical Fecal Occult Blood 08/01/2022 08/01/2021 Influenza Immunization (#1) 11/21/202402/20, 03/05/2016, 03/02/2015, Additional history exists Colonoscopy 06/13/2026 06/13/2016 Colorectal Cancer Screening 06/13/2026 Respiratory Syncytial Virus (RSV) Immunization (Adult) (1 - 1-dose 75+ series) 2041 Pap Smear Discontinued 05/14/2017 Hepatitis C Virus (HCV) Screening Completed 02/23/2018 Cervical Cancer Screening (CCS) Discontinued HPV/Cotest Discontinued Human Papillomavirus (HPV) Immunization Aged Out No longer eligible based on patient's age to complete this topic Meningococcal Immunization (ACWY) Aged Out No longer eligible based on patient's age to complete this topic Pneumococcal Immunization (50+ years) Discontinued Rotavirus Immunization Aged Out No lo nger eligible based on patient's age to complete this topic Procedures Procedure Name Priority Date/Time Associated Diagnosis Comments RHEUMATOLOGY CONSULT 07/25/2024 12:00 AM CDT STOOL, OCCULT BLOOD IMMUNOASSAY (IFOB) Routine 08/01/2021 10:00 AM CDT Anemia, normocytic normochromic MERY MRI BREAST W/WO CONTRAST,BILATERAL Routine 06/13/2020 HEPATITIS C ANTIBODY Routine 02/23/2018 4:45 PM GLASS CUT OFF TENDER Encounter for hepatitis C screening test for low risk patient PATHOLOGY CYTOLOGY MARINE TECHNICIAN Routine 05/14/2017 HM COLONOSCOPY Routine 06/13/2016 from Last 3 Months or Most Recently Relevant to Health Maintenance Results * RHEUMATOLOGY CONSULT (07/25/2024 12:00 AM CDT) 07/25/2024 Dylan Bell MD GENERIC SCAN ORDERS CONSU LT Final Result Performing Organization Address City/[facility]/ZIP Co de Phone Number SCAN * STOOL, OCCULT BLOOD IMMUNOASSAY (IFOB) (08/01/2021 10:00 AM CDT) OCCULT BLOOD - IFOB Negative Negative 08/06/2021 4:47 AM CDT [facility] Other STOOL SPECIMEN / Unknown Non-Phlebotomy Collection / Unknown 08/01/2021 10:00 AM CDT 08/01/2021 10:07 AM CDT Dylan Bell MD BODY FLUIDS & STOOLS ORDE RABLES Final Result Performing Organization Address [facility] Co de Phone Number [facility] [address] [place] [place] [address], [place] * MERY MRI BREAST W/WO CONTRAST,BILATERAL (06/13/2020) Anatomical Region Laterality Modality breast Bilateral Other Lewis Moreira MD IMG MR ORDERABLES Final Re sult * HEPATITIS C ANTIBODY (02/23/2018 4:45 PM GLASS CUT OFF TENDER) hepatitis C antibody 0.10 <1 S/CO 02/23/2018 10:13 PM GLASS CUT OFF TENDER [facility] Comment: Signal/Cutoff ratio < 0.79 is Nondetected Signal/Cutoff ratio 0.80-0.99 is Grayzone Signal/Cutoff ratio > 0.99 is Detected Supplemental assays are recommended if signal/cutoff ratio is >/=1.00. Signal/cutoff ratio result >/= 5.00 is 97% predictive of positivity for recombinant immunoblot assay (RIBA) and will be reported to the [place] Department of Public Health as required. Blood specimen (specimen) Venipuncture / Unknown 02/23/2018 4:45 PM GLASS CUT OFF TENDER 02/23/2018 4:47 PM GLASS CUT OFF TENDER Dylan Bell MD CHEMISTRY ORDERABLES Berta l Result Performing Organization Address City/[facility]/ZIP Co de Phone Number [facility] [address] [place] [address], [place] * PATHOLOGY CYTOLOGY MARINE TECHNICIAN (05/14/2017) Specimen of unknown material (specimen) Lewis Moreira MD PATHOLOGY/CYTOLOGY ORDERAB LES Final Result * COLONOSCOPY (06/13/2016) us Lewis Moreira MD PROCEDURE/MINOR SURGICAL O RDERABLES Final Result from Last 3 Months or Most Recently Relevant to Health Maintenance [facility] Advance Directives Documents on File Type Date Recorded Patient Staff Developer Expl anation Other Advance Directive 08/28/2021 1:34 PM PROCEDURE CONSENT/URO * Full Code (Latest Code Status on File) Date Activated Date Inactivated Comments 07/18/2021 11:48 PM 07/21/2021 5:36 PM CPR-Full Toney atment: FULL ARREST: Attempt Resuscitation/CPR wit intubation and mechanical ventilation. PRE-ARREST: Use entire range of life support measures to stabilize the patient. Care Teams Cap Machine Operator Relationship Specialty Start Date End Date Dylan Bell MD [address] [facility] [place] [address] PCP - General Family Medicine 02/22/15 Shyla Olivarez MD #2 [facility] [address] [place] [address] Rheumatology 12/15/16 Lewis Ramirez MD [address] [facility] [address] [place] [address] Obstetrics & Gynecology 03/08/18 Italo Fisher MD #2 [place] [address] Consulting Physician Pulmonary Disease 06/11/21 Erasmo Wesley MD #2 [facility] [address] [place] [address] Consulting Physician Urology 12/24/23
--- OUTSIDE RECORDS SUMMARY | 2024-09-29 14:47 | XMS_ITS | Encounter Summary ---
Author Organization [facility] Address [address] [place] [address] Phone Care Team Providers Care Installation Supervisor Name Role Phone Dylan Bell MD Primary Care Provider [phone] Shyla Olivarez MD Unavailable Lewis Ramirez MD Unavailable [phone] Italo Fisher MD Unavailable Erasmo Wesley MD Unavailable Reason for Visit * Reason Comments Medication Refill Encounter Details Date Type Department Care Team (Late st Contact Info) Description 02/10/2024 Refill [facility] [address] [place] [address] Dylan Bell MD #[address] [address] Medication Refill Social History Tobacco Use Types Packs/Day Years Used Date Smoking Tobacco: Former Cigarettes 2 20 Smokeless Tobacco: Never Alcohol Use Standard Drinks/Week Comments Not Currently 2 (1 standard drink = 0.6 oz pur e alcohol) occasional [facility] Utilities Answer Date Recorded In the [...] often do you attend chur ch or christianity services? Never 03/24/2023 Do you belong to any clubs o r organizations such as restorationism groups, unions, fraternal or athletic groups, or [...] and heating? Not hard at all 03/24/2023 [facility] - Occupational [...] Refill on file according to last Rx. ATRIC NEPHROLOGIST documented in this encounter Plan of Treatment Upcoming Encounters Date Type Department Care Team (Late st Contact Info) Description 12/12/2024 2:45 PM CDT Office Visit [facility] - [place] [address] [place] [phone] Dylan Bell MD [address] [address] documented as of this encounter Visit Diagnoses Not on filedocumented in this encounter Additional Health Concerns Assessment Noted Time PHQ-9 Depression Total Score: 0 11/11/19 17 9:00 AM CDT documented as of this encounter Care Teams Installation Supervisor Relationship Specialty Start Date End Date Dylan Bell MD [address]2 [facility] [address] [place] [address] PCP - General Family Medicine 02/22/15 Shyla Olivarez MD #2 [facility] [address] [place] [address] Rheumatology 12/15/16 Lewis Ramirez MD [address] [facility] [address] [facility] [address] [place], [place] [id number] Obstetrics & Gynecology 03/08/18 Italo Fisher MD #2 [place] [id number] Consulting Physician Pulmonary Disease 06/11/21 Erasmo Wesley MD #2 [facility] [address] [place] [address] Consulting Physician Urology 12/24/23 documented as of this encounter
--- OUTSIDE RECORDS SUMMARY | 2024-09-29 14:47 | XMS_ITS | Encounter Summary ---
Author Organization [facility] Address [address] [place] [address] Care Team Providers Care [place] Police Name Role Phone Unavailable Primary Care Provider Unavailabl e Encounter Details Date Type Department Care Team (Late st Contact Info) Description 07/14/2019 Lab Requisition [facility] MICROBIOLOGY [address] [place] [address] Giovani Barnard MD Social History Tobacco Use Types Packs/Day Years Used Date Smoking Tobacco: Never Assessed Comments Unknown Sex and Gender Information Value Date Recorded Sex Assigned at Not on file Legal Sex Female 1:51 PM [employer] Gender Identity Not on file Sexual Orientation [...] Not detected, Invalid 07/15/2019 2:06 PM CDT [facility]CRO[facility] Microbiology SPECIMEN FROM NASOPHARYNGEAL STRUCTURE / Unknown Collection / Unknown 07/14/2019 5:15 PM CDT 07/14/2019 9:10 PM CDT Narrative [facility] - 07/15/2019 2:06 PM CDT This Real Time RT-PCR assay was developed and its performance characteristics determined by [facility]. This test has been [...] the authorization is terminated or revoked sooner. us Giovani Barnard MD LAB - MICROBIOLOGY ORDERABL ES Final Result [facility] [address] [place] [address], [facility] [phone] documented in this encounter Visit Diagnoses Not on filedocumented in this encounter
--- OUTSIDE RECORDS SUMMARY | 2024-09-29 14:47 | XMS_ITS | Patient Health Record ---
Author Organization [facility] nathan Address [address] [facility] [address] [place] [address] Care Team Providers Care Silviculture Teacher Name Role Phone Arabella SORIANO, Dylan Primary Care Provider Shree OilvarezEmileeg Unavailable [phone] Allergies Allergen (clinical drug ingredient) Drug/Non Drug Allergy documented on EMR Reaction Allergy Type Onset Date Status Flexeril Unknown Drug Allergy 08/21/2017 Active naproxen Naproxen Unknown Drug Allergy 08/21/2017 Active predniSONE Unknown Drug Allergy 05/28/2020 Activ e Results Component Value Reference Range Notes JENNY reflex titer pattern VICKIE + dsDNA Reviewed date:10/16/2023 12:26:23 PM Interpretation: Performing Lab:[facility] , [address]. [facility] [address] Notes/Report: JENNY, Qual Positive 1:160 Interpretive Data [...] last revised on 2019. Testing performed by: [facility], [address] [place]., [address] JENNY, Ernie 1:160 Testing performed by: [facility], [address] [place]., [address] JENNY Pattern 1 Speckled Testing performed by: [facility], [address] [facility], [place]., [address] Anti-CCP (Cyclic Citrullinat ed Peptide Ab) Reviewed date:10/16/2023 10:02:34 AM Interpretation: Performing Lab:[facility] , [address] [place] [address]. [facility] [address] Notes/Report: CCP Ab <0.5 <=2.9 units/mL Interpretive data Negative: <3 units/mL Positive: > or equal to 3 units/mL Current interpretive data was last revised on 2016. C Reactive Protein Reviewed date:10/15/2023 05:51:47 PM Interpretation: Performing Lab:[facility] , [address] [place] [address]. [facility] [address] Notes/Report: C-Reactive Protein 6.7 <=10.0 mg/L CBC w auto diff Reviewed date:10/15/2023 05:51:47 PM Interpretation: Performing Lab:[facility] , [address] [place] [address]. [facility] [address] Notes/Report: WBC 3.5 3.8-9.9 K/cumm Hgb 11.3 11.9-15.5 g/dL Hct 36.1 35.6-45.5 % Platelet Ct 247 150-400 K/cumm MPV 11.1 9.1-12.3 fL RBC 4.34 3.90-5.20 M/cumm MCV 83.2 81.3-96.4 fL MCH 26.0 27.1-33.3 pg MCHC 31.3 32.3-35.7 g/dL RDW CV 14.4 11.1-14.9 % RDW SD 43.5 35.7-48.1 fL NRBC Abs Auto 0.00 0.00-0.01 K/cumm Complement C3 Reviewed date:10/15/2023 05:51:47 PM Interpretation: Performing Lab:[facility] , [address] [place] [address]. [facility] [address] Notes/Report: Complement, C3 137 90-180 mg/dL Complement C4 Reviewed date:10/15/2023 05:51:47 PM Interpretation: Performing Lab:[facility] , [address] [place] [address] Notes/Report: Complement, C4 22 10-40 mg/dL Comprehensive metabolic pane l (CMP) Reviewed date:10/15/2023 05:51:47 PM Interpretation: Performing Lab:[facility] , [address] [place] [address] Notes/Report: Sodium 143 135-145 mmol/L Plasma Potassium [...] Kinase Reviewed date:10/15/2023 05:51:48 PM Interpretation: Performing Lab:[facility] , [address] [place] [address]. [facility] [address] Notes/Report: Total CK 124 30-200 Units/L Rheumatoid Factor Reviewed date:10/15/2023 05:51:48 PM Interpretation: Performing Lab:[facility] , [address] [place] [address]. [facility] [address] Notes/Report: RF, Ernie <10 <=15 IUnits/mL Sed Rate Reviewed date:10/15/2023 05:51:48 PM Interpretation: Performing Lab:[facility] , [address] [facility] [place] [address] Notes/Report: ESR 28 1-30 mm/hr Differential Automated Reviewed date:10/15/2023 05:51:47 PM Interpretation: Performing Lab:[facility] , [address] [facility] [place] [address] Notes/Report: Neut Abs 1.5 1.5-6.5 K/cumm ImmGran Abs 0.0 0.0-0.1 K/cumm Lymphocyte Abs 1.5 0.8-3.3 K/cumm [place] Abs 0.3 0.2-0.8 K/cumm Eos Abs 0.2 [...] Interpretive Data was last revised on 2017. [place] Pct 7.5 Interpretive Data Percent cell count [...] DNA Reviewed date:10/16/2023 02:07:01 PM Interpretation: Performing Lab:[facility] , [address] [facility]. [facility] [address] Notes/Report: Double Stranded DNA, Ernie 1.0 <=4.0 IUnits/mL Interpretive Data Negative: < or = 4 IUnits/mL Indeterminate: 5 - 9 IUnits/mL Positive: > or = 10 IUnits/mL Current interpretive data was last revised on 2016. VICKIE Screen Reviewed date:10/16/2023 02:07:01 PM Interpretation: Performing Lab:[facility] , [facility] [facility]. [facility] [address] Notes/Report: VICKIE Screen Negative Negative Interpretive Data Positive Screens will be reflexed to specific testing for Antibodies against the following antigens: Celia-1 Ab, DOMESTIC MAID Ab, Scl-70 Ab, Zambrano Ab, SS-A/Ro Ab, and SS-B/La Ab. Further testing for dsDNA, Centromere, or Ribosomal P antibodies is suggested in patient with a positive screen and negative specific antibodies. Current interpretive data was last revised on 2022. eGFR Reviewed date:10/15/2023 05:51:47 PM Interpretation: Performing Lab:[facility] , [address] [facility]. [facility] [address] Notes/Report: eGFR 57 >=60 mL/min/1.73 m2 Interpretive [...] TABLET BY VALENTÍN TH THREE TIMES A DAY; Duration: 90 Active Metoprolol Succinate ER 25 MG take 1 tab let (25 mg) by oral route once daily Oral 1 Active Breo Ellipta 200-25 MCG/ACT INHALE 1 PUF F BY MOUTH EVERY DAY Inhalation; Duration: 30 Days Active traZODone HCl 50 MG take 2-4. at bedtime Oral 1 Active Famotidine 20 MG 1 tablet at bedtime as needed Orally twice a day; Duration: 30 day(s) Active Gabapentin 300 MG 1 capsule Orally 3 times a day; Duration: 30 days 07/25/2024 Active Fosamax 70 MG take 1 tablet (70 mg ) by oral route once weekly in the morning, at least 30 min before first food, beverage, or medication of day Oral [id number] Active Omeprazole Active Vyvanse 30 MG take 1 capsule (30 m g) by oral route once daily in the morning Oral 1 Active Aspirin 81 MG take 1 tablet (81 mg ) by oral route once daily Oral 1 Active Sunosi 150 MG TAKE ONE TABLET BY MOUTH EVERY MORNING Oral; Duration: 90 Days Active Atorvastatin Calcium 20 MG take 1 tablet (20 mg) by oral route once daily Oral 1 Active Azstarys 39.2-7.8 MG Oral; Duration: 30 Days Active lamoTRIgine 100 MG take 1 tablet (100 m g) by oral route once daily Oral 1 Active Lexapro 20 MG take 1 tablet (20 mg ) by oral route once daily Oral 1 Active Vitamins/Minerals orthomune 120mg twic e a day Active busPIRone HCl 10 MG 1 tablet Orally once a day Active Breo Ellipta 200-25 MCG/ACT 1 puff Inhal ation Once a day Active Latanoprost 0.005 % instill 1 drop into affected eye(s) by ophthalmic route once daily in the evening Ophthalmic 1 Active Albuterol Sulfate Ac tive Solifenacin Succinate 5 MG take 1 tablet (5 mg) by oral route once daily Oral 1 Active Hydroxychloroquine Sulfate 2 00 MG TAKE 1 TABLET BY MOUTH TWICE A DAY WITH FOOD; Duration: 90 Active Problems Problem Type SNOMED Code ICD Code Onset Dates Problem Status W/U Status Risk Notes Problem Fibromyalgia (493074122) Fibromyalgia (M79.7) Active confirmed Problem Connective tissue disease (138506364) Connective tissue disease (M35.9) Active confirmed Problem Chronic fatigue syndrome (38177671) Chronic fatigue (R53.82) Active confirmed Problem Localized, primary osteoarthritis of the hand (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) Active confirmed Vital Signs Heart Rate 81 /min 07/25/2024 Temperature 98.1 degrees Fahrenheit 07/25/2024 Height-cm 167.64 cm 07/25/2024 Blood pressure diastolic 80 mm Hg 07/25/2024 Oximetry 94 % 07/25/2024 Weight-kg 96.25 kg 07/25/2024 Height 66 in 07/25/2024 Blood pressure systolic 136 mm Hg 07/25/2024 Weight 212.2 lbs 07/25/2024 BMI 34.25 kg/m2 07/25/2024 Encounters Encounter Location Date Provider Diagnosis [place] [address] [facility] [address] [id number] 10/15/2023 Shyla Du Connective tissue disease M35.9 ; Fibromyalgia M79.7 ; Pain of left thumb M79.645 ; Decreased GFR R94.4 ; High risk medication use Z79.899 ; Pain in right hip M25.551 and Pain in left hip M25.552 [place] [address] [facility] [address] [id number] 01/20/2024 Shyla Du Connective tissue disease M35.9 ; Fibromyalgia M79.7 ; Decreased GFR R94.4 and High risk medication use Z79.899 [place] [address] [facility] [address], [place] [address] 04/22/2024 Shyla Du Connective tissue disease M35.9 ; Fibromyalgia M79.7 ; Decreased GFR R94.4 ; High risk medication use Z79.899 and CMC arthritis M19.049 [place] [address] [facility] [address], [place] [address] 07/25/2024 Shyla Du Connective tissue disease M35.9 ; Fibromyalgia M79.7 ; Decreased GFR R94.4 ; High risk medication use Z79.899 ; CMC arthritis M19.049 ; Chronic fatigue R53.82 and Trochanteric bursitis, right hip M70.61 [place] [address] [place] [address] 06/09/2024 Shyla Olivarez [facility] [address] [place] [address] 08/21/2024 Shyla Olivarez [facility] [address] [place] [address] 08/22/2024 Shyla Olivarez [facility] [address] [place] [address] 09/06/2024 Shyla Olivarez Assessments Encounter Date Diagnosis (ICD Code) Assessment Notes Treatment Notes Treatment Clinical Notes Section Notes 10/15/2023 Fibromyalgia (ICD-10 - M79.7) order Xrays [...] plaquenil and gabapentin, return in 3 months 07/25/2024 Fibromyalgia (ICD-10 - M79.7) decrease gabapentin to 300mg tid due to fatigue and memory issues, she declined PT for R hip, start IT band exercise, instructions given, continue plaquenil, return in 3 months 07/25/2024 Connective tissue disease (ICD-10 - M35.9) decrease gabapentin to 300mg tid due to fatigue and memory issues, she declined PT for R hip, start IT band exercise, instructions given, continue plaquenil, return in 3 months 07/25/2024 Decreased GFR (ICD-10 - R94.4) decrease gabapentin to 300mg tid due to fatigue and memory issues, she declined PT for R hip, start IT band exercise, instructions given, continue plaquenil, return in 3 months 04/22/2024 Decreased GFR (ICD-10 - R94.4) try thumb splinting for CMC arthritis, continue plaquenil and gabapentin, return in 3 months 10/15/2023 Pain of left thumb (ICD-10 - M79.645) order Xrays and labs, continue plaquenil, return in 3 months 01/20/2024 Decreased GFR (ICD-10 - R94.4) stable for the most part, continue plaquenil and gabapentin, return in 3 months 10/15/2023 Decreased GFR (ICD-10 - R94.4) order Xrays and labs, continue plaquenil, return in 3 months 01/20/2024 High risk medication use (ICD-10 - Z79.899) stable for the most part, continue plaquenil and gabapentin, return in 3 months 04/22/2024 High risk medication use (ICD-10 - Z79.899) try thumb splinting for CMC arthritis, continue plaquenil and gabapentin, return in 3 months 07/25/2024 High risk medication use (ICD-10 - Z79.899) decrease gabapentin to 300mg tid due to fatigue and memory issues, she declined PT for R hip, start IT band exercise, instructions given, continue plaquenil, return in 3 months 07/25/2024 CMC arthritis (ICD-10 - M19.049) decrease gabapentin to 300mg tid due to fatigue and memory issues, she declined PT for R hip, start IT band exercise, instructions given, continue plaquenil, return in 3 months 04/22/2024 CMC arthritis (ICD-10 - M19.049) try thumb splinting for CMC arthritis, continue plaquenil and gabapentin, return in 3 months 10/15/2023 High risk medication use (ICD-10 - Z79.899) order Xrays and labs, continue plaquenil, return in 3 months 10/15/2023 Pain in right hip (ICD-10 - M25.551) order Xrays and labs, continue plaquenil, return in 3 months 07/25/2024 Chronic fatigue (ICD-10 - R53.82) decrease gabapentin to 300mg tid due to fatigue and memory issues, she declined PT for R hip, start IT band exercise, instructions given, continue plaquenil, return in 3 months 10/15/2023 Pain in left hip (ICD-10 - M25.552) order Xrays and labs, continue plaquenil, return in 3 months 07/25/2024 Trochanteric bursitis, right hip (ICD-10 - M70.61) decrease gabapentin to 300mg tid due to fatigue and memory issues, she declined PT for R hip, start IT band exercise, instructions given, continue plaquenil, return in 3 months Plan Of Treatment Pending Test Test Name Order Date XR Hips Bilat inc Pelvis 10/15/2023 Next Appt Details Provider Name:Shyla Olivarez, 10/24 01:15:00 PM, [address] [facility] [address], [place], [address], Insurance Providers Payer Name Payer Address Payer Phone Subscriber Number Group Number Insured Name Patient Relationship to Insured Coverage Start Date Coverage End Date [employer] - [employer] Access [address] [place], [place] [phone] [id number] I [id number] Abby Linder Self - patient is the insured Medical (General) History Medical History History ICD Code Fibromyalgia; Glaucoma; Positive JENNY; Surgical History Surgery Date(Month/Year) Knee surgery: R Knee Surgery, Date of Pr ocedure: 10-11-2019; 2017-08-21 Hysterectomy; 2017-08-21 Tonsillectomy; 2017-08-21 Knee replacement, right; 2021-02-18
--- OUTSIDE RECORDS SUMMARY | 2024-09-29 14:47 | XMS_ITS | Clinical Summary ---
Author Organization [facility] Address [address] [place] [address] Care Team Providers Care Toilet Attendant Name Role Phone Unavailable Primary Care Provider Unavailabl e Source Comments [email or web address],non-owned Affiliates and Associated Physician Practices is amultiple site organization consisting of ambulatory clinics and hospital sitesin [place], [place], [place] and [place]. This disclosure is being madepursuant to the Care Everywhere program and may not contain all information available regarding this patient. Last updated 17.[facility] [email or web address] Social History Tobacco Use Types Packs/Day Years Used Date Smoking Tobacco: Never Assessed Comments Unknown Sex and Gender Information Value Date Recorded Sex Assigned at Not on file Legal Sex Female 1:51 PM PROCUREMENT DIRECTOR Gender Identity Not on file Sexual Orientation [...] SCREENING 1966 LIPID TESTING 1966 MAMMOGRAM 1966 HIV SCREENING 1981 HEPATITIS C SCREENING 05/08/1984 DTAP/TDAP/TD VACCINES (1 - Tdap) 1985 HEPATITIS B VACCINE (1 of 3 - 19+ 3-dose series) 1985 PNEUMOCOCCAL VACCINE 50+ (1 of 1 - PCV) 2016 ZOSTER VACCINE (1 of 2) 2016 COVID-19 VACCINE (1 - 2023-2 5 season) 2023 DEPRESSION SCREENING 03/23/2024 INFLUENZA VACCINE (#1) 2024 12/11/2008 HIB VACCINE Aged Out No longer eligi ble based on patient's age to complete this topic HPV VACCINE Aged Out No longer eligi ble based on patient's age to complete this topic MENINGOCOCCAL (Group B) VACC INE SHARED DECISION-MAKING Aged Out No longer eligibl e based on patient's age to complete this topic MENINGOCOCCAL GROUPS A/C/Y/W VACCINE Aged Out No longer eligible b ased on patient's age to complete this topic Insurance [employer]
--- OUTSIDE RECORDS SUMMARY | 2024-09-29 14:47 | XMS_ITS | Encounter Summary ---
Author Organization [facility] Address [address] [place] [address] Phone Care Team Providers Care Child And Family Therapist Name Role Phone Dylan Bell MD Primary Care Provider [phone] Shyla Olivarez MD Unavailable Lewis Ramirez MD Unavailable [phone] Italo Fisher MD Unavailable Erasmo Wesley MD Unavailable Reason for Visit * Reason Comments Medication Refill Encounter Details Date Type Department Care Team (Late st Contact Info) Description 09/05/2020 Refill [facility] [address] [place] [address] Dylan Bell MD [address] [address] Medication Refill Social History Tobacco Use Types [...] Cuenca RN - 09/05/2020 3:40 PM CDT [facility] pharmacy notified iron tablets discontinued. * Telephone Encounter - Raysa Cuenca RN - 09/05/2020 3:40 PM CDTFrom: Abby Linder Sent: 09/05/2020 2:56 PM CDT To: Roaslio Sandhu Subject: RE: Iron pills Yes he did. Please do not refill. Thank you! ----- Message ----- From: Nurse Valadez Sent: 09/05/20, 11:19 AM To: Abby Linder Subject: Iron pills Abby We received a refill request from [facility] for Iron pills. Per our records, Dr Bell discontinued this medication yesterday at your appointment as it was reported you were not taking this anymore. Canyou please clarify this? documented in this encounter Plan of Treatment Upcoming Encounters Date Type Department Care Team (Late st Contact Info) Description 12/12/2024 2:45 PM CDT Office Visit [facility] - [facility] Medicine - [place] [address] [place] [address] Dylan Bell MD [address] [address] documented as of this encounter Visit Diagnoses Not on filedocumented in this encounter Additional Health Concerns Infection Onset Date Last Indicated Resolved Time COVID - 19 03/28/2021 03/28/2021 04/17/2021 12:1 6 AM COMMERCIAL SUBCONTRACTOR Respiratory Rule Out - RPA 07/18/2021 07/19/2021 0 07/19/2021 3:34 PM CDT C. difficile Rule-Out 07/19/2021 07/19/20212021 3:56 PM CDT Respiratory Rule Out - RPA 05/27/2022 05/27/2022 0 05/27/2022 3:37 PM COMMERCIAL SUBCONTRACTOR COVID - 19 03/11/2023 03/11/2023 03/21/2023 12:1 6 AM COMMERCIAL SUBCONTRACTOR RSV 03/11/2023 03/11/2023 04/08/2023 12:1 6 AM COMMERCIAL SUBCONTRACTOR COVID - 19 01/18/2024 01/18/2024 01/18/2024 2:35 PM CDT Respiratory Rule-Out 01/18/2024 01/18/2024 024 2:35 PM CDT Assessment Noted Time PHQ-9 Depression Total Score: 0 11/11/19 17 9:00 AM CDT documented as of this encounter Care Teams Child And Family Therapist Relationship Specialty Start Date End Date Dylan Bell MD [address] [place] [address] PCP - General Family Medicine 02/22/15 Shyla Olivarez MD [address] [place] [address] Rheumatology 12/15/16 Lewis Ramirez MD [address] [facility] [address] [place] [address] Obstetrics & Gynecology 03/08/18 Italo Fisher MD [address]2 [place] [address] Consulting Physician Pulmonary Disease 06/11/21 Erasmo Wesley MD [address] [facility] [address] [place] [address] Consulting Physician Urology 12/24/23 documented as of this encounter
--- OUTSIDE RECORDS SUMMARY | 2024-09-29 14:47 | XMS_ITS | Encounter Summary ---
Author Organization [facility] Address [address] [place] [address] Phone Care Team Providers Care Leaflet Distributor Name Role Phone Dylan Bell MD Primary Care Provider [phone] Shyla Olivarez MD Unavailable Lewis Ramirez MD Unavailable [phone] Italo Fisher MD Unavailable Erasmo Wesley MD Unavailable Reason for Visit * Reason Onset Date Comments Medication Management 02/14/2020 clatificat ion of nebulizer solution Encounter Details Date Type Department Care Team (Late st Contact Info) Description 02/14/2020 Telephone [facility] - Family Medicine [facility] [address] [place] [address] Dylan Bell MD [address] [address] Medication Management (clatification of nebulizer solution ) [...] COVID-19? No / Unsure 01/30/2020 2:19 PM COOK [employer]IP documented as of this encounter Miscellaneous Notes * Telephone Encounter - Juli Pedro, RN - 02/14/2020 9:18 AM CST Duplicate request. Sent to [facility]anco APN SHIP * Telephone Encounter - Lisbet Javed - [...] encounter note from pharmacy and Request pending SHIP documented in this encounter Plan of Treatment Upcoming Encounters Date Type Department Care Team (Late st Contact Info) Description 12/12/2024 2:45 PM CDT Office Visit [facility] - [facility] [address] [place] [address] Dylan Bell MD #[address] [address] documented as of this encounter Visit Diagnoses Not on filedocumented in this encounter Additional Health Concerns Infection Onset Date Last Indicated Resolved Time COVID - 19 04/16/2020 04/17/2020 04/19/2020 10:3 6 AM COOK SHIP COVID - 19 03/28/2021 03/28/2021 04/17/2021 12:1 6 AM COOK SHIP Respiratory Rule Out - RPA 07/18/2021 07/19/2021 0 07/19/2021 3:34 PM CDT C. difficile Rule-Out 07/19/2021 07/19/20212021 3:56 PM CDT Respiratory Rule Out - RPA 05/27/2022 05/27/2022 0 05/27/2022 3:37 PM COOK SHIP COVID - 19 03/11/2023 03/11/2023 03/21/2023 12:1 6 AM COOK [employer]IP RSV 03/11/2023 03/11/2023 04/08/2023 12:1 6 AM COOK [employer]IP COVID - 19 01/18/2024 01/18/2024 01/18/2024 2:35 PM CDT Respiratory Rule-Out 01/18/2024 01/18/2024 024 2:35 PM CDT Assessment Noted Time PHQ-9 Depression Total Score: 0 11/11/19 17 9:00 AM CDT documented as of this encounter Care Teams Leaflet Distributor Relationship Specialty Start Date End Date Dylan Bell MD [address] [facility] [address] [place] [address] PCP - General Family Medicine 02/22/15 Shyla Olivarez MD [address] [facility] [address] [place] [address] Rheumatology 12/15/16 Lewis Ramirez MD [address] [facility] [address] [place], [place] [id number] Obstetrics & Gynecology 03/08/18 Italo Fisher MD #2 [place] [address] Consulting Physician Pulmonary Disease 06/11/21 Erasmo Wesley MD [address]2 [facility] [address] [place] [address] Consulting Physician Urology 12/24/23 documented as of this encounter
--- OUTSIDE RECORDS SUMMARY | 2024-09-29 14:47 | XMS_ITS | Encounter Summary ---
Author Organization [facility] Address [address] [place] [address] Phone Care Team Providers Care Paint Dipper Name Role Phone Dylan Bell MD Primary Care Provider [phone] Shyla Olivarez MD Unavailable Lewis Ramirez MD Unavailable [phone] Italo Fisher MD Unavailable Erasmo Wesley MD Unavailable Reason for Visit * Reason Comments Medication Refill Encounter Details Date Type Department Care Team (Late st Contact Info) Description 08/16/2023 Refill [facility] - Family Medicine [facility] [address] [place] [id number] Ramsey Blanco APRN, SPINNER OPERATOR [address] [address] Medication Refill Social History Tobacco Use Types Packs/Day Years Used Date Smoking Tobacco: Former Cigarettes 2 20 Smokeless Tobacco: Never Alcohol Use Standard Drinks/Week Comments Not Currently 2 (1 standard drink = 0.6 oz pur e alcohol) occasional [facility] Utilities Answer Date Recorded In the [...] often do you attend chur ch or protestant services? Never 03/24/2023 Do you belong to any clubs o r organizations such as buddhist groups, unions, fraternal or athletic groups, or [...] and heating? Not hard at all 03/24/2023 [facility] - Occupational [...] place to sleep or slept in a retirement (including now)? No 03/24/2023 Education Answer Date [...] PM CDT Medication(s) refilled and [facility] Chronic Medication Refill Standing Order for Pediatricand [...] Dept 07/06/23 Office Visit Dylan Bell MD [facility] 06/09/23 Telemedicine Dylan Bell MD [facility] 06/04/23 Office Visit Moreno Jarquin MD [facility] 03/25/23 Office Visit Dylan Bell MD [facility] 11/19/22 Office Visit Ramsey Blanco, USER INTERFACE ENGINEER, SPINNER OPERATOR [facility] 09/09/22 Office Visit Dylan Bell MD [facility] Showing recent visits within past 365 days and meeting all other requirements Future Appointments Date Type Provider Dept 10/14/23 Appointment Dylan Bell MD [facility] Showing future appointments within next 90 days and meeting all other requirements documented in this encounter Plan of Treatment Upcoming Encounters Date Type Department Care Team (Late st Contact Info) Description 12/12/2024 2:45 PM CDT Office Visit [facility] Medical [facility] - Family Medicine - [place] [address] [place] [address] Dylan Bell MD [address] [address] documented as of this encounter Visit Diagnoses [...] documented as of this encounter Care Teams Paint Dipper Relationship Specialty Start Date End Date Dylan Bell MD [address] [address] PCP - General Family Medicine 02/22/15 Shyla Olivarez MD [address] [address] Rheumatology 12/15/16 Lewis Ramirez MD [address] [place], [place] [id number] Obstetrics & Gynecology 03/08/18 Italo Fisher MD [address] [place] [id number] Consulting Physician Pulmonary Disease 06/11/21 Erasmo Wesley MD [address]2 [facility] [address] [place] [address] Consulting Physician Urology 12/24/23 documented as of this encounter
--- OUTSIDE RECORDS SUMMARY | 2024-09-29 14:48 | XMS_ITS | Clinical Summary ---
Author Organization [facility] Address [address] [address] Phone Care Team Providers Care Marine Steamfitter Name Role Phone Dylan Bell MD Primary Care Provider [phone] Selma Sadler Unavailable [phone] Allergies Active Allergy Reactions Criticality Noted Date [...] mg total) by mouth nightly 8 Active hydrOXYchloroQU INE (PLAQUENIL) 200 mg tabletIndicatio ns:Connective Tissue Disease Take 1 tablet (200 mg total) by mouth 2 (two) times a day Active gabapentin (NEURONTIN) 600 mg tablet Take 1 tablet (600 mg total) by mouth 3 (three) times a day 1 Active metoprolol XL (TOPROL-XL) 25 mg extended release tablet Take 1 tablet (25 mg total) by mouth daily 1 Active famotidine (PEPCID) 20 mg tabletIndicatio ns:gastroesopha geal reflux disease Take 1 tablet (20 mg [...] capsule 3 Active amoxicillin (AMOXIL) 500 mg tablet/capsuleI ndications:Prop hylaxis, Medical Take 4 tables (2 grams) PO 1 hour prior to dental cleanings/proc edures. 8 tablet/capsul e 1 5 Active traMADoL (ULTRAM) 50 mg tablet Take 1 tablet (50 mg total) by mouth every 6 (six) hours as needed for pain Take 1-2 tablets every 4-6 hours as needed for pain. 15 tablet 5 Active methylPREDNISol one (Medrol, Ta,) 4 mg Dosepack Take as directed on package 1 packet 5 Active griseofulvin (UMA-PEG) 250 mg tablet Take 1 tablet (250 mg total) by mouth daily 5 Active Active Problems Problem Noted Date Diagnosed Date Body aches 05/27/2022 Mediastinal lymphadenopathy 05/27/2022 Noncompliance 05/27/2022 Pulmonary emphysema 05/27/2022 Cubital tunnel syndrome on left 04/17/2022 Overview (04/17/2022): Added automatically from request for surgery [id number] Carpal tunnel syndrome, bilateral 11/08/2021 Overview (11/08/2021): Added automatically from request for surgery [id number] Cubital tunnel syndrome on right 11/08/2021 Overview (11/08/2021): Added automatically from request for surgery [id number] Trigger middle finger of right hand 11/08/2021 Overview (11/08/2021): Added automatically from request for surgery [id number] Community acquired pneumonia 07/18/2021 Hematuria 03/05/2021 Rash 03/05/2021 Primary osteoarthritis of right knee 08/15/2020 Sensorineural hearing loss, asymmetrical 021 Anemia, normocytic normochromic 03/19/[address] 03/07/2020 Blurry vision, bilateral 03/07/2020 Chronic joint pain 03/07/2020 Lymphadenopathy 03/07/2020 Systemic lupus 09/06/2019 Internal derangement of right knee 08/12/2019 Overview (08/12/2019): Added automatically from request for surgery [id number] Pulmonary nodules 08/05/2019 Abnormal PFTs (pulmonary function [...] I disorder, most recent episode depresse d 07/15/2012 Circadian rhythm sleep disorder, shift work type 06/08/2012 Panic disorder without agoraphobia 06/08/2012 Hypersomnia with sleep apnea 01/01/2012 Overview (06/26/2016): Hypersomnia with sleep apnea Obstructive sleep apnea syndrome 01/01/2012 Overview (06/26/2016): Obstructive sleep apnea syndrome Adiposity 01/01/2012 Overview (06/26/2016): Obesity Immunizations Immunization Administration Dates Next Due Influenza, Trivalent, IM (MDV) 12/11/2008 Surgical History Surgery Date Site/Laterality Comments GASTRIC BYPASS FL FLUORO GUIDED INJECTION H IP LEFT 04/09/2017 Left UPPER GASTROINTESTINAL ENDOSCOPY HYSTERECTOMY 06/25/2017 total KNEE SURGERY Right 3 surgeries TRIGGER FINGER RELEASE Right JOINT REPLACEMENT Right total knee replacement Medical History Medical History Date Comments Hx Other Medical 01-MATERIAL COMBINER Hx Other Medical 311 Insomnia insomnia Hx [...] disorder fibromyalg ia Lupus Connective tissue disorder Osteoarthritis ADHD (attention deficit hype ractivity disorder) Cataract Glaucoma Pulmonary emphysema ([facility]) 05/27/2022 Family History Medical History Relation Name [...] 20 1 - 2010 Smokeless Tobacco: Never Tobacco Cessation:Counseling [...] on file Legal Sex Female 4:42 PM CUPOLA TAPPER HELPER Gender Identity Not on file Sexual Orientation Not on file Obstetrics History Last Filed Vital Signs Vital Sign Reading Time Taken Comments Blood Pressure 122/64 05/23/2024 11:50 AM CUPOLA TAPPER HELPER Pulse 75 05/23/2024 11:50 AM CUPOLA TAPPER HELPER Temperature 36.4 C (97.6 F) 05/07/2022 10:25 AM CUPOLA TAPPER HELPER Respiratory Rate 18 01/11/2024 1:26 PM CDT Oxygen Saturation 92% 05/23/2024 11:50 AM CUPOLA TAPPER HELPER Inhaled Oxygen Concentration - - Weight 94.5 kg (208 lb 6.4 oz) 05/23/2024 11:50 AM CUPOLA TAPPER HELPER Height 167.6 cm (5' 6) 05/23/2024 11:50 AM CUPOLA TAPPER HELPER Body Mass Index 33.64 05/23/2024 11:50 AM CUPOLA TAPPER HELPER Plan of Treatment Health Maintenance Due Date Last Done Comments Colon Cancer Screening-Colonoscopy 1966 Depression Screening 1966 DTaP/Tdap/Td Vaccine (1 - Tdap) 1977 Hepatitis B Screening 1984 Regular Well Visit/Exam 18-64 1984 Pneumococcal vaccine <65 (1 of 2 - PCV) 1985 Zoster Vaccine (1 of 2) 1985 Lung Cancer Screening 2016 Breast Cancer Screening-Mammogram 12/07/2020 020, 06/15/2018 Influenza Vaccine (#1) 2024 6, 03/02/2015, 12/11/2008 Hepatitis C Screening Completed 04/22/2016 Medical Devices Implanted Type Area Medical Office Technology Instructor Device Identifier Shelf Expiration Date Model / Serial / Lot [employer] 6195-1-001 Cement Bone Simplex Gentamicin High Viscosity 40gm - [id number] Implanted:Qty: 1 on 01/08/2021 by Husam Yousif MD at [facility] Right: Knee [employer] 03/22/2022 6195-1-001 / / [id number] [employer] [id number] Attune Cruciate Retain Cementless Knee Right 5 Component Femoral - [id number] Implanted:Qty: 1 on 01/08/2021 by Husam Yousif MD at [facility] Right: Knee [employer] 07/20/2030 [id number] / / [id number] [employer] [id number] Attune S+ Cement Fix Bearing Knee 4 Baseplate Tibial - [id number] Implanted:Qty: 1 on 01/08/2021 by Husam Yousif MD at [facility] Right: Knee [employer] 10/20/2030 [id number] / / [id number] [employer] [id number] Attune 5mm Cruciate Retaining Fix Bearing Knee 5 Insert Tibial - [id number] Implanted:Qty: 1 on 01/08/2021 by Husam Yousif MD at [facility] Right: Knee [employer] 08/20/2025 [id number] / / [id number] Procedures Procedure Name Priority Date/Time Associated Diagnosis Comments SERUM HEPATITIS C AB Routine 04/22/2016 4:14 PM CUPOLA TAPPER HELPER from Last 3 Months or Most Recently Relevant to Health Maintenance Results * Serum Hepatitis C ab (04/22/2016 4:14 PM CUPOLA TAPPER HELPER) HCV ab Negative Negative CDR HISTOR ICAL RESULTS Serum 04/22/2016 4:14 PM CUPOLA TAPPER HELPER us Historical Provider LAB BLOOD ORDERABLES Berta love Result CDR HISTORICAL RESULTS from Last 3 Months or Most Recently Relevant to Health Maintenance Insurance [employer] [facility] [id number] [facility] [id number] Advance Directives For more information, please contact: [phone] * Full Code (Latest Code Status on File) Date Activated Date Inactivated Comments 01/08/2021 12:15 PM 01/08/2021 7:40 PM Care Teams Marine Steamfitter Relationship Specialty Start Date End Date Dylan Bell MD [address] [facility] [address] [place] [address] PCP - General 06/20/16 Selma Sadler PA [address] [facility] [address] [place] [address] Physician Medical Office Technologist Orthopedic Surgery 01/08/21
--- OUTSIDE RECORDS SUMMARY | 2024-09-29 14:48 | XMS_ITS | Referral Summary ---
Author Organization [facility] Address [address] [facility] [address] [place] [address] Phone Care Team Providers Care Rec Therapist Name Role Phone Dylan Bell MD Primary Care Provider [phone] Selma Sadler Unavailable [phone] Allergies Active Allergy Reactions Criticality Noted Date [...] (04/17/2022): Added automatically from request for surgery [id number] Carpal tunnel syndrome, bilateral 11/08/2021 Overview (11/08/2021): Added automatically from request for surgery [id number] Cubital tunnel syndrome on right 11/08/2021 Overview (11/08/2021): Added automatically from request for surgery [id number] Trigger middle finger of right hand 11/08/2021 Overview (11/08/2021): Added automatically from request for surgery [id number] Community acquired pneumonia 07/18/2021 Hematuria 03/05/2021 Rash 03/05/2021 Primary osteoarthritis of right knee 08/15/2020 Sensorineural hearing loss, asymmetrical 021 Anemia, normocytic normochromic 03/19/[address] 03/07/2020 Blurry vision, bilateral 03/07/2020 Chronic joint pain 03/07/2020 Lymphadenopathy 03/07/2020 Systemic lupus 09/06/2019 Internal derangement of right knee 08/12/2019 Overview (08/12/2019): Added automatically from request for surgery [id number] Pulmonary nodules 08/05/2019 Abnormal PFTs (pulmonary function [...] on file Legal Sex Female 4:42 PM POULTRY FARMER EGG Gender Identity Not on file Sexual Orientation Not on file Last Filed Vital Signs Vital Sign Reading Time Taken Comments Blood Pressure 122/64 05/23/2024 11:50 AM POULTRY FARMER EGG Pulse 75 05/23/2024 11:50 AM POULTRY FARMER EGG Temperature 36.4 C (97.6 F) 05/07/2022 10:25 AM POULTRY FARMER EGG Respiratory Rate 18 01/11/2024 1:26 PM CDT Oxygen Saturation 92% 05/23/2024 11:50 AM POULTRY FARMER EGG Inhaled Oxygen Concentration - - Weight 94.5 kg (208 lb 6.4 oz) 05/23/2024 11:50 AM POULTRY FARMER EGG Height 167.6 cm (5' 6) 05/23/2024 11:50 AM POULTRY FARMER EGG Body Mass Index 33.64 05/23/2024 11:50 AM POULTRY FARMER EGG Plan of Treatment Not on file Medical Devices Implanted Type Area Sifter And Miller Device Identifier Shelf Expiration Date Model / Serial / Lot [employer] 6195-1-001 Cement Bone Simplex Gentamicin High Viscosity 40gm - [id number] Implanted:Qty: 1 on 01/08/2021 by Husam Yousif MD at [facility] Right: Knee [employer] 03/22/2022 6195-1-001 / / [id number] [employer] [id number] Attune Cruciate Retain Cementless Knee Right 5 Component Femoral - [id number] Implanted:Qty: 1 on 01/08/2021 by Husam Yousif MD at [facility] Right: Knee [employer] 07/20/2030 [id number] / / [id number] [employer] [id number] Attune S+ Cement Fix Bearing Knee 4 Baseplate Tibial - [id number] Implanted:Qty: 1 on 01/08/2021 by Hsuam Yousif MD at [facility] Right: Knee [employer] 10/20/2030 [id number] / / [id number] [employer] [id number] Attune 5mm Cruciate Retaining Fix Bearing Knee 5 Insert Tibial - [id number] Implanted:Qty: 1 on 01/08/2021 by Husam Yousif MD at [facility] Right: Knee [employer] 08/20/2025 [id number] / / [id number] Procedures Procedure Name Priority Date/Time Associated Diagnosis Comments SERUM HEPATITIS C AB Routine 04/22/2016 4:14 PM POULTRY FARMER EGG from Last 3 Months or Most Recently Relevant to Health Maintenance Results * Serum Hepatitis C ab (04/22/2016 4:14 PM POULTRY FARMER EGG) HCV ab Negative Negative CDR HISTOR ICAL RESULTS Serum 04/22/2016 4:14 PM POULTRY FARMER EGG us Historical Provider LAB BLOOD ORDERABLES Berta love Result CDR HISTORICAL RESULTS from Last 3 Months or Most Recently Relevant to Health Maintenance Insurance [facility] [id number] [facility] [id number] Advance Directives For more information, please contact: [phone] * Full Code (Latest Code Status on File) Date Activated Date Inactivated Comments 01/08/2021 12:15 PM 01/08/2021 7:40 PM Care Teams Rec Therapist Relationship Specialty Start Date End Date Dylan Bell MD [address] [facility] [address] [address] PCP - General 06/20/16 Selma Sadler PA [address] [facility] [address] [address] Physician Last Sorter Orthopedic Surgery 01/08/21
--- OUTSIDE RECORDS SUMMARY | 2024-09-29 14:48 | XMS_ITS | Clinical Summary ---
Author Organization [facility] Address [address] [facility] [address] [place] [address] Phone Care Team Providers Care Regional Vice President Life Sales Name Role Phone Dylan Bell MD Primary Care Provider [phone] Allergies Active Allergy Reactions Criticality Noted Date [...] on file Legal Sex Female 8:24 AM TERMITE CONTROL SERVICER Gender Identity Not on file Sexual Orientation Not on file Last Filed Vital Signs Vital Sign Reading Time Taken Comments Blood Pressure 111/69 04/29/2014 7:00 AM TERMITE CONTROL SERVICER Pulse 87 04/29/2014 7:00 AM TERMITE CONTROL SERVICER Temperature 37.1 C (98.7 F) 04/29/2014 7:00 AM TERMITE CONTROL SERVICER Respiratory Rate 18 04/28/2014 6:58 PM TERMITE CONTROL SERVICER Oxygen Saturation 95% 04/28/2014 6:58 PM TERMITE CONTROL SERVICER Inhaled Oxygen Concentration - - Weight 104.9 kg (231 lb 4.2 oz) 04/29/2014 6:00 AM TERMITE CONTROL SERVICER Height 167.6 cm (5' 6) 04/27/2014 5:00 AM TERMITE CONTROL SERVICER Body Mass Index 37.33 04/27/2014 5:00 AM TERMITE CONTROL SERVICER Plan of Treatment Health Maintenance Due Date Last Done Comments Pre-Diabetes and Diabetes Screening 1966 DTAP/TDAP/TD VACCINES (1 - Tdap) 1985 HEPATITIS B VACCINES (1 of 3 - 19+ 3-dose series) 04/24 HPV/Cotest (21-29) 1987 CERVICAL CANCER SCREENING 1996 HPV/Cotest (30-65) 1996 PAP SMEAR 1996 BREAST CANCER SCREENING 2006 COLORECTAL SCREENING 2011 Colorectal Cancer Screening 2011 FIT-DNA Q 3 years 2011 FIT/FOBT Q 1 year 2011 Flex Sig/CT Colonography Q 5 years 2011 ZOSTER VACCINE (1 of 2) 2016 INFLUENZA VACCINE (#1) 2024 Medical Devices Implanted Type Area Poultry Helper Device Identifier Shelf Expiration Date Model / Serial / Lot Seamguard Bio 60 [id number] - [id number] Implanted:Qty: 4 on 04/26/2014 by Sy Eden MD at [facility] N/A: Stomach [employer] 12/21/2016 [id number] / / [id number] Seamguard Bio 60 [id number] - [id number] Implanted:Qty: 2 on 04/26/2014 by Sy Eden MD at [facility] N/A: Stomach [employer] 12/21/2016 [id number] / / [id number] Insurance [employer] [facility] Address: [address] [address] Advance Directives For more information, please contact: [phone] * Full Code (Latest Code Status on File) Date Activated Date Inactivated Comments 04/26/2014 10:15 AM 04/29/2014 2:07 PM * Full Code Date Activated Date Inactivated Comments 04/26/2014 5:58 AM 04/26/2014 10:15 AM Care Teams Regional Vice President Life Sales Relationship Specialty Start Date End Date Dylan Bell MD PCP - General Family Practice 04/13/14
== END 2024-09-29 14:42 | disposition home or self-care (01) ==
LOC: ANHIMG 14:44
PROVIDERS: PCP Family Medicine; Visit Provider Obstetrics & Gynecology
DX: Z12.31 Encounter for screening mammogram for malignant neoplasm of breast (principal)
CPT/HCPCS: 77063; 77067